=== PATIENT | male | born 1945 | race Caucasian/White ===

== ENCOUNTER → 2016-06-17 | Outpatient (CLI) | payer MEDICARE ==
[2016-06-17 09:00] LABS: Appearance,Urine Clear (Clear); Bilirubin,Urine Negative (Negative); Glucose,Urine (UA) Negative (Negative); Ketones,Urine Negative (Negative); Leukocyte Esterase,Urine Negative (Negative); Nitrite,Urine Negative (Negative); PH, Urine 6.5 (5.0-8.0); Protein,Urine Negative (Negative); Specific Gravity,Urine 1.018 (1.001-1.035); UA Billing (MACRO vs. MICRO) CHEM; Urobilinogen,Urine <2.0 mg/dL (<2.0)
[2016-06-17 09:13] LABS: Basophils % (A) 1 %; CH 30.9; CHCM 32.4; Eosinophils # (A) 0.2 k/uL (0-0.7); Eosinophils % (A) 5 %; HCT 43.1 % (39.0-53.0); HDW 2.15; HGB 13.9 gm/dL (13.0-17.5); Luc # (Auto) 0.11; Luc % (Auto) 3; Lymphocytes # (A) 1.2 k/uL (1.0-4.8); Lymphocytes % (A) 30 %; MCHC 32.3 g/dL (31.0-37.0); MCV 95.9 fL (80.0-100.0); Mean Platelet Volume 8.5; Monocytes # (A) 0.3 k/uL (0-1.0); Monocytes % (A) 7 %; Neutrophils # (A) 2.2 k/uL (1.3-7.7); Neutrophils % (A) 55 %; RBC 4.49 m/uL (4.30-5.90); RDW 13.3 % (11.5-15.5); WBC 3.9 k/uL (3.8-10.6); WBC (Perox) 4.06
[2016-06-17 09:16] LABS: Hemoglobin A1C 5.6 % (4.2-6.1)
[2016-06-17 11:58] LABS: ALT 32 U/L (21-72); AST 21 U/L (17-59); Alkaline Phosphatase 37 U/L (38-126); Anion Gap 8 mmol/L; Blood Urea Nitrogen 16 mg/dL (9-20); Carbon Dioxide 30 mmol/L (22-30); Chloride 107 mmol/L (98-107); Cholesterol 128 mg/dL (<200); Creatine Kinase 81 U/L (55-170); Glucose 91 mg/dL (74-99); HDL Cholesterol 58 mg/dL (40-60); Non-African American GFR(MDRD) >60 (>60 ml/min/1.73 sqM); Potassium 4.8 mmol/L (3.5-5.1); Sodium 145 mmol/L (137-145); Total Bilirubin 0.8 mg/dL (0.2-1.3); Total Protein 6.3 g/dL (6.3-8.2); Triglycerides 37 mg/dL (<150); Uric Acid 4.7 mg/dL (3.5-8.5)
== END | disposition home or self-care (01) ==
LOC: LABWHC1 08:33
PROVIDERS: ATTEND Internal Medicine
DX: K21.0 Gastro-esophageal reflux disease with esophagitis (principal); E78.00 Pure hypercholesterolemia, unspecified; I25.10 Atherosclerotic heart disease of native coronary artery without angina pectoris; N40.0 Benign prostatic hyperplasia without lower urinary tract symptoms
CPT/HCPCS: 36415; 80053; 80061; 81003; 82550; 83036; 84439; 84443; 84550; 85025

== ENCOUNTER 2016-07-24 06:53 | Day surgery (SDC) | payer MEDICARE ==
[2016-07-23 09:17] VITALS: BMI 22.8
[~2016-07-24 06:53] MED LIST: LACTATED RINGERS 1,000 ML IV SCH; LIDOCAINE 1% 20 ML VIAL (10MG/ML) FOR IV START INTRADERMA PRN
[2016-07-24 07:20] VITALS: RESP 18; TEMP 98.3
[2016-07-24] MEDS ORDERED: LACTATED RINGERS 1,000 ML IV ONE (07:25)
[2016-07-24] MEDS ORDERED: fentaNYL (PF) 50 MCG/ML 2 ML AMP ONE (07:34)
[2016-07-24] MEDS ORDERED: MIDAZOLAM 2 MG/2 ML VIAL ONE (07:34)
[2016-07-24] MEDS ORDERED: PROPOFOL 10 MG/ML 20 ML VIAL IV ONE (07:34)
--- NOTE | 2016-07-24 08:42 | P.PCN ---
Date of Procedure: 07/24/16 Procedure(s) Performed: BRIEF HISTORY: Patient is a 70-year-old pleasant white male, scheduled for an elective colonoscopy as a part of screening for colorectal neoplasia. PROCEDURE PERFORMED: Colonoscopy. PREOPERATIVE DIAGNOSIS: Screening for colon cancer. IV sedation per Anesthesia. PROCEDURE: After informed consent was obtained, the patient, was brought into the endoscopy unit. IV sedation was administered by Anesthesia under continuous monitoring. Digital rectal examination was normal. Initially the Olympus CF- 160 flexible video colonoscope was then inserted in the rectum, gradually advanced into the cecum without any difficulty. Careful examination was performed as the scope was gradually being withdrawn. Ileocecal valve and the appendiceal orifice were visualized and appeared normal. Prep was extremely poor and several areas of the colon. Thorough irrigation was performed using irrigation system. The visualized portions of the mucosa of the cecum, ascending colon, transverse colon, descending colon, sigmoid colon, and rectum appeared normal. Retroflexion was performed in the rectum and no lesions were seen. The patient tolerated the procedure well. IMPRESSION: Normal-appearing colon from rectum to cecum with no evidence of colorectal neoplasia . Poor prep throughout the entire colon. RECOMMENDATIONS: Findings of this examination were discussed with the patient as well as his family. Because of the poor prep that was encountered in today' s examinatio, he was advised to have a repeat screening colonoscopy in 5 years.
[2016-07-24 09:00] VITALS: BP 132/84; PULSE 56
== END 2016-07-24 09:20 | disposition home or self-care (01) ==
LOC: ORWHC2ENDO 06:53
PROVIDERS: ATTEND Internal Medicine Gastroenterology
DX: Z12.11 Encounter for screening for malignant neoplasm of colon (principal); E78.5 Hyperlipidemia, unspecified; K21.9 Gastro-esophageal reflux disease without esophagitis; H81.09 Meniere's disease, unspecified ear; Z87.891 Personal history of nicotine dependence; Z79.82 Long term (current) use of aspirin; Z79.899 Other long term (current) drug therapy
CPT/HCPCS: J2250; J3010; J2704; G0121; 45378

== ENCOUNTER → 2016-08-12 | Outpatient (CLI) | payer MEDICARE ==
[2016-08-13 10:33] LABS: T3, Uptake 41 % (23 - 37); T4, Total 6.2 ug/dL (4.5 - 10.9)
[2016-08-13 12:07] LABS: Thyroxine Binding Globulin 14.5 ug/mL (14.0 - 31.0)
[2016-08-13 12:55] LABS: Thyroid Stim Immun Quant <0.10 IU/L (<0.10)
== END ==
LOC: LABWHC1 09:38
PROVIDERS: ATTEND Internal Medicine
DX: E03.9 Hypothyroidism, unspecified (principal)
CPT/HCPCS: 36415; 84436; 84439; 84442; 84443; 84445; 84479; 84480; 85652; 86376

== ENCOUNTER → 2016-09-18 | Outpatient (CLI) | payer MEDICARE ==
[2016-09-18 08:56] LABS: ALT 27 U/L (21-72); AST 20 U/L (17-59); Cholesterol 141 mg/dL (<200); HDL Cholesterol 56 mg/dL (40-60); Triglycerides 41 mg/dL (<150)
== END | disposition home or self-care (01) ==
LOC: LABWHC1 07:44
PROVIDERS: ATTEND Nurse Practitioner Adult Health
DX: E78.2 Mixed hyperlipidemia (principal)
CPT/HCPCS: 36415; 80061; 84450; 84460

== ENCOUNTER → 2017-06-04 | Outpatient (CLI) | payer MEDICARE ==
--- NOTE | 2017-06-06 15:20 | CT ---
EXAMINATION TYPE: CT soft tissue neck w con DATE OF EXAM: 06/04/2017 HISTORY: Neoplasm submandibular salivary gland. Patient having swollen, painful gland on left side of neck. Scanned by [facility] COMPARISON: NONE CT DLP: 354.1 mGycm. Automated Exposure Control for Dose Reduction was Utilized. TECHNIQUE: CT scan of the neck is performed with IV Contrast, patient injected with 100 mL of Omnipa que 300, axial images are obtained, coronal and sagittal reformatted images are reviewed. FINDINGS: Airway: Within the left vallecula there is a peripherally hyperdense, therefore likely enhancing 1.0 x 1.2 x 1.2 cm mass on series 3 image 51 and series 6 image 49. Remainder the airway is patent with m ild asymmetric narrowing of the left piriform sinus likely due to patient positioning or surrounding edema. True and false vocal cords are unremarkable. Parotid/submandibular glands: The left parotid gland is of higher density within the right possibly i ndicating hyperemia. There is no surrounding local adenopathy or inflammatory fat stranding. No dilat ion of the submandibular ducts is seen. Carotid/Vascular Structures: Hemodynamically significant stenosis or occlusion. Osseous Structures: Mild multilevel degenerative disc disease is seen of the cervical spine with smal l posterior disc osteophyte complex at C5-C6 resulting in mild spinal canal stenosis. Mild left neura l foraminal narrowing is also seen at C3-C4 and C5-C6. Other: There are mild centrilobular emphysematous changes within the lung apices IMPRESSION: 1. Left vallecular mass measuring 1.0 x 1.2 x 1.2 cm. Direct visualization and biopsy are recommended as this is highly suspicious for neoplasm although benign polyp is another possibility. 2. Mildly asymmetric hyperemia of the left submandibular gland in comparison to the right, possibly r elated to early or resolving sialoadenitis although no inflammatory fat stranding is seen surrounding the gland. 3. No evidence of adenopathy within the neck. A Yellow level critical message alert has been initiated for Shakila Jo MD via the [employer] Critical Results System on 06/06/2017 3:18 PM. This message alert has been sent to Shakila Jo MD via the preferences provided by the clinician for the receipt of Radiology Critical Findings. Message ID [id number].
== END | disposition home or self-care (01) ==
LOC: RADCTMAIN 15:54
PROVIDERS: ATTEND Internal Medicine
DX: R22.1 Localized swelling, mass and lump, neck (principal); R68.89 Other general symptoms and signs
CPT/HCPCS: 70491; Q9967

== ENCOUNTER → 2017-06-08 | Outpatient (CLI) | payer MEDICARE | END | disposition home or self-care (01) | LOC: LABWHC1 15:12 | PROVIDERS: ATTEND Otolaryngology | DX: Z01.810 Encounter for preprocedural cardiovascular examination (principal); I51.9 Heart disease, unspecified | CPT/HCPCS: 36415; 93005 ==

== ENCOUNTER → 2017-09-28 | Outpatient (CLI) | payer MEDICARE ==
[2017-09-28 07:43] LABS: ALT 25 U/L (21-72); AST 22 U/L (17-59); Alkaline Phosphatase 36 U/L (38-126); Anion Gap 10 mmol/L; Blood Urea Nitrogen 22 mg/dL (9-20); Carbon Dioxide 28 mmol/L (22-30); Chloride 106 mmol/L (98-107); Cholesterol 163 mg/dL (<200); Glucose 92 mg/dL (74-99); HDL Cholesterol 58 mg/dL (40-60); LDL Cholesterol,Calculated 96 mg/dL (0-99); Potassium 4.5 mmol/L (3.5-5.1); Sodium 144 mmol/L (137-145); Total Protein 6.4 g/dL (6.3-8.2); Triglycerides 47 mg/dL (<150)
== END | disposition home or self-care (01) ==
LOC: LABWHC1 06:56
PROVIDERS: ATTEND Internal Medicine Interventional Cardiology
DX: E78.2 Mixed hyperlipidemia (principal)
CPT/HCPCS: 36415; 80053; 80061

== ENCOUNTER → 2018-08-23 | Outpatient (CLI) | payer MEDICARE ==
[2018-08-23 12:59] LABS: Basophils % (A) 1 %; Eosinophils # (A) 0.1 k/uL (0-0.7); Eosinophils % (A) 2 %; HCT 44.5 % (39.0-53.0); HGB 14.3 gm/dL (13.0-17.5); Lymphocytes # (A) 1.4 k/uL (1.0-4.8); Lymphocytes % (A) 26 %; MCH 29.9 pg (25.0-35.0); MCHC 32.1 g/dL (31.0-37.0); MCV 93.2 fL (80.0-100.0); Mean Platelet Volume 8.9; Monocytes # (A) 0.3 k/uL (0-1.0); Monocytes % (A) 7 %; Neutrophils # (A) 3.1 k/uL (1.3-7.7); Neutrophils % (A) 62 %; Platelet Count 163 k/uL (150-450); RBC 4.77 m/uL (4.30-5.90); RDW 14.8 % (11.5-15.5); WBC 5.1 k/uL (3.8-10.6)
[2018-08-23 13:00] LABS: Appearance,Urine Clear (Clear); Bilirubin,Urine Negative (Negative); Blood,Urine Negative (Negative); Color,Urine Yellow; Glucose,Urine (UA) Negative (Negative); Ketones,Urine Negative (Negative); Leukocyte Esterase,Urine Negative (Negative); Nitrite,Urine Negative (Negative); PH, Urine 6.5 (5.0-8.0); Protein,Urine Negative (Negative); Specific Gravity,Urine 1.021 (1.001-1.035); Urobilinogen,Urine <2.0 mg/dL (<2.0)
[2018-08-24 00:37] LABS: ALT 19 U/L (10-49); AST 19 U/L (14-35); Albumin/Globulin Ratio 2.16 (1.60-3.17); Alkaline Phosphatase 41 U/L (41-126); Carbon Dioxide 28.9 mmol/L (21.6-31.8); Chloride 109 mmol/L (96-109); Cholesterol 139 mg/dL (0-200); Creatine Kinase 127 U/L (35-257); Globulin 1.9 g/dL (1.6-3.3); Glucose 92 mg/dL (70-110); Potassium 4.7 mmol/L (3.5-5.5); Sodium 141 mmol/L (135-145); Total Bilirubin 0.8 mg/dL (0.2-1.2); Triglycerides <50.0 mg/dL (0.0-149.0); VLDL Calculation 9.98 mg/dL (5.00-40.00)
[2018-08-26 14:30] LABS: Lyme IgG/IgM 0.09 Index
== END | disposition home or self-care (01) ==
LOC: LABWHC1 11:47
PROVIDERS: ATTEND Internal Medicine
DX: E78.2 Mixed hyperlipidemia (principal); R53.83 Other fatigue; N40.1 Benign prostatic hyperplasia with lower urinary tract symptoms; M54.9 Dorsalgia, unspecified; E03.9 Hypothyroidism, unspecified
CPT/HCPCS: 36415; 80053; 80061; 81003; 82550; 83036; 84439; 84443; 85025; 86618

== ENCOUNTER → 2018-08-25 | Outpatient (CLI) | payer MEDICARE ==
--- NOTE | 2018-08-25 13:23 | XR ---
EXAMINATION TYPE: XR lumbar spine 2 or 3V DATE OF EXAM: 08/25/2018 COMPARISON: None HISTORY: Back pain TECHNIQUE: Five-view lumbar spine FINDINGS: There 5 lumbar-type vertebral bodies. Pedicles are intact. Minimal scoliosis with the conve xity to the right is present. There is disc space narrowing posteriorly at L4-5 to the L5-S1 disc spa ce. Some L2-3 disc space narrowing is present. Vertebral body heights are preserved. Minimal retrolis thesis of L2 on L3 may be present. IMPRESSION: 1. Degenerative disc changes L4-5 and L5-S1. 2. Suggestion of minimal retrolisthesis of L2 on L3.
== END | disposition home or self-care (01) ==
LOC: RADXRMAIN 08:52
PROVIDERS: ATTEND Internal Medicine
DX: M51.36 Other intervertebral disc degeneration, lumbar region (principal); M51.37 Other intervertebral disc degeneration, lumbosacral region
CPT/HCPCS: 72100

== ENCOUNTER 2019-11-07 16:56 | Emergency (ER) | payer MEDICARE ==
[2019-11-07 17:05] VITALS: BP 153/94; PULSE 55; RESP 18; TEMP 97.9
--- NOTE | 2019-11-07 17:39 | XR ---
EXAMINATION TYPE: XR hand complete LT DATE OF EXAM: 11/07/2019 COMPARISON: NONE HISTORY: Pain in the hand TECHNIQUE: 3 views FINDINGS: Metacarpals are intact. There is some narrowing of the IP joints of the digits. There are n o erosions. There is no evidence of foreign body. There is no subluxation. IMPRESSION: Mild osteoarthritic changes. No fracture seen.
--- NOTE | 2019-11-07 17:46 | ED ---
Fall HPI - General Chief Complaint: Fall Stated Complaint: Hand injury Time Seen by Provider: 11/07/19 17:13 Source: patient, family, RN notes reviewed Mode of arrival: ambulatory Limitations: no limitations - History of Present Illness Initial Comments: 73-year-old male present emergency department to complaint of left hand injury. Patient states that she was having a tree stand states that her ramp started to fall causing him to fall. Patient states that he has some skin tears and puncture wounds to his left hand. He did get some dirt and debris in the wound. Patient states that his tetanus is up-to-date. He denies any head injury no loss conscious. Denies any neck, back pain no other extremity injuries noted. - Related Data Home Medications Medication Instructions Recorded Confirmed Alfuzosin HCl [Alfuzosin HCl ER] 10 mg PO QAM 04/10/15 07/23/16 Aspirin 81 mg PO HS 04/10/15 07/23/16 Fluticasone Nasal [place] [Flonase 2 - 3 spray EA NOSTRIL DAILY PRN 04/10/15 07/23/16 Nasal [place]] Levothyroxine Sodium [Synthroid] 25 mcg PO DAILY 07/23/16 07/23/16 Tamsulosin [Flomax] 0.4 mg PO [id number] PRN 07/23/16 07/23/16 Previous Rx's Medication Instructions Recorded Simvastatin [Zocor] 80 mg PO HS #0 04/15/15 diazePAM [Valium] 2 mg PO TID PRN #90 tab 04/15/15 Amoxicillin/Potassium Clav 1 tab PO Q12HR #14 tab 11/07/19 [Augmentin 875-125 Tablet] Allergies Allergy/AdvReac Type Severity Reaction Status Date / Time No Known Allergies Allergy Verified 11/07/19 17:04 Review of Systems ROS Statement: Those systems with pertinent positive or pertinent negative responses have been documented in the HPI. ROS Other: All systems not noted in ROS Statement are negative. 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- surgery x3, hernia repair (inguinal and femoral) x5 Past Anesthesia/Blood Transfusion Reactions: No Reported Reaction Past Psychological History: No Psychological Hx Reported Smoking Status: Never smoker Past Alcohol Use History: Occasional Past Drug Use History: None Reported - Past Family History Father Additional Family Medical History / Comment(s): brain aneurysm Mother Family Medical History: Diabetes Mellitus General Exam Limitations: no limitations General appearance: alert, in no apparent distress Head exam: Present: atraumatic, normocephalic, normal inspection Eye exam: Present: normal appearance, PERRL, EOMI. Absent: scleral icterus, conjunctival injection, periorbital swelling ENT exam: Present: normal exam, normal oropharynx, mucous membranes moist Neck exam: Present: normal inspection, full ROM. Absent: tenderness, meningismus, lymphadenopathy Respiratory exam: Present: normal lung sounds bilaterally. Absent: respiratory distress, wheezes, rales, rhonchi, stridor Cardiovascular Exam: Present: regular rate, normal rhythm, normal heart sounds. Absent: systolic murmur, diastolic murmur, rubs, gallop, clicks Extremities exam: Present: other (Left hand there are multiple skin tears, superficial laceration/puncture wounds noted patient has full range of motion neurovascular intact many extremity exam within normal limits) Neurological exam: Present: alert, oriented X3, reflexes normal. Absent: motor sensory deficit Skin exam: Present: warm, dry, intact, normal color. Absent: rash Course Vital Signs 11/07/19 16:57 Temperature 97.9 F Pulse Rate 55 L Respiratory 18 Rate Blood Pressure 153/94 O2 Sat by Pulse 99 Oximetry Medical Decision Making - Medical Decision Making Patient had multiple skin tears which were cleaned, dressing applied no acute fracture. Tetanus is up-to-date patient was placed on Augmentin for prophylaxis. Disposition Clinical Impression: Fall, Skin tear of left hand without complication Disposition: HOME SELF-CARE Condition: Stable Instructions (If sedation given, give patient instructions): Skin Tear (ED) Additional Instructions: Please return to the Emergency Department if symptoms worsen or any other concerns. Prescriptions: Amoxicillin/Potassium Clav [Augmentin 875-125 Tablet] 1 tab PO Q12HR #14 tab Is patient prescribed a controlled substance at d/c from ED?: No Referrals: Shakila Jo MD [Primary Care Provider] - 1-2 days Time of Disposition: 17:45
== END 2019-11-07 18:04 | disposition home or self-care (01) ==
LOC: EC 16:56
DX: S61.412A Laceration without foreign body of left hand, initial encounter (principal); N42.9 Disorder of prostate, unspecified; Z79.899 Other long term (current) drug therapy; Z95.5 Presence of coronary angioplasty implant and graft; W17.89XA Other fall from one level to another, initial encounter; Y92.89 Other specified places as the place of occurrence of the external cause
CPT/HCPCS: 99283

== ENCOUNTER → 2019-11-15 | Outpatient (CLI) | payer MEDICARE ==
--- NOTE | 2019-11-15 13:03 | XR ---
EXAMINATION TYPE: XR ribs RT w pa chest xray DATE OF EXAM: 11/15/2019 COMPARISON: 04/12/2015 HISTORY: Pain TECHNIQUE: Single view of the chest 4 views of the ribs are submitted. FINDINGS: The lungs are clear. No Evidence for pneumothorax. No evidence for focal contusion. Medi astinal structures are midline. Evaluation of the ribs fails to demonstrate evidence for acute displ aced rib fracture or secondary sign of rib fracture. Chronic deformity of several right-sided ribs no alisia compatible with healed fractures. IMPRESSION: No acute displaced rib fractures seen. Hyperinflation compatible with COPD.
== END | disposition home or self-care (01) ==
LOC: RADXRMAIN 12:35
PROVIDERS: ATTEND Internal Medicine
DX: S22.41XA Multiple fractures of ribs, right side, initial encounter for closed fracture (principal)

== ENCOUNTER → 2021-05-30 | Outpatient (CLI) | payer MEDICARE ==
--- NOTE | 2021-05-30 17:00 | ECHOF ---
Referral Reason:Z01.810 PREPROCEDURAL CARDIOVASCULAR EXAMINATION MEASUREMENTS -------- HEIGHT: 188.0 cm WEIGHT: 79.4 kg BP: RVIDd: 3.6 cm (< 3.3) IVSd: 1.3 cm (0.6 - 1.1) LVIDd: 5.1 cm (3.9 - 5.3) LVPWd: 1.3 cm (0.6 - 1.1) IVSs: 1.5 cm LVIDs: 4.4 cm LVPWs: 1.7 cm LAESV Index (A-L): 29.09 ml/m Ao Diam: 4.0 cm (2.0 - 3.7) AV Cusp: 2.4 cm (1.5 - 2.6) MV EXCURSION: 22.451 mm (> 18.000) MV EF SLOPE: 75 mm/s (70 - 150) EPSS: 1.0 cm MV E Kei: 0.46 m/s MV DecT: 216 ms MV A Kei: 0.62 m/s MV E/A Ratio: 0.75 RAP: 5.00 mmHg RVSP: 21.84 mmHg FINDINGS -------- Atrial fibrillation. This was a technically adequate study. The left ventricular size is normal. There is mild concentric left ventricular hypertrophy. Overa ll left ventricular systolic function is mild-moderately impaired with, an EF between 40 - 45 %. The right ventricle is normal in size. LA is midly dilated 29-33ml/m2. The right atrial size is normal. There is mild aortic regurgitation. Mild mitral regurgitation is present. Mild tricuspid regurgitation present. Right ventricular systolic pressure is normal at < 35 mmHg. There is no pulmonic regurgitation present. Aortic Root is dilated and measures 4.1cm. There is no pericardial effusion. CONCLUSIONS -------- 1. The left ventricular size is normal. 2. There is mild concentric left ventricular hypertrophy. 3. Overall left ventricular systolic function is mild-moderately impaired with, an EF between 40 - 45 %. 4. The right ventricle is normal in size. 5. LA is midly dilated 29-33ml/m2. 6. The right atrial size is normal. 7. There is mild aortic regurgitation. 8. Mild mitral regurgitation is present. 9. Mild tricuspid regurgitation present. 10. Aortic Root is dilated and measures 4.1cm. 11. There is no pericardial effusion. CLEAR COAT SPRAYER: Caitlin Shearer RDCS
== END | disposition home or self-care (01) ==
LOC: RADECHMAIN 12:02
PROVIDERS: ATTEND Internal Medicine
DX: Z01.810 Encounter for preprocedural cardiovascular examination (principal); I51.7 Cardiomegaly; I35.8 Other nonrheumatic aortic valve disorders
CPT/HCPCS: 93306

== ENCOUNTER → 2021-06-03 | Outpatient (CLI) | payer MEDICARE ==
--- NOTE | 2021-06-03 11:49 | US ---
EXAMINATION TYPE: US carotid duplex BILAT DATE OF EXAM: 06/03/2021 COMPARISON: NONE CLINICAL HISTORY: 75-year-old male Z01.810 PREPROCEDURAL CARDIOVASCULAR EXAMINATION. No HTN. No symp toms per patient. TECHNIQUE: Carotid duplex ultrasound examination. Indirect Doppler criteria was utilized. FINDINGS: EXAM MEASUREMENTS: RIGHT: Peak Systolic Velocity (PSV) cm/sec ----- Right CCA: 194.6 ----- Right ICA: 117.3 ----- Right ECA: 76.6 ICA/CCA ratio: 0.6 RIGHT: End Diastole cm/sec ----- Right CCA: 23.3 ----- Right ICA: 21.5 ----- Right ECA: 0.0 LEFT: Peak Systolic Velocity (PSV) cm/sec ----- Left CCA: 91.4 ----- Left ICA: 102.9 ----- Left ECA: 76.7 ICA/CCA ratio: 1.1 LEFT: End Diastole cm/sec ----- Left CCA: 13.7 ----- Left ICA: 24.8 ----- Left ECA: 0.0 VERTEBRALS (direction of flow): Right Vertebral: Antegrade Left Vertebral: Antegrade Rhythm: Arrhythmia Accounts Payable Representative notes: Elevated right CCA velocities. No significant stenosis. Small amount of plaque i n bilateral bulbs. Wall thickening. IMPRESSION: 1. Mildly elevated velocity right CCA may be secondary to turbulent flow, some underlying hypertensio n, or a mild proximal CCA stenosis. 2. No hemodynamically significant internal carotid artery stenosis on either side. 3. Note that the recovery unit operator indicates visualizing an irregular heart rhythm. Clinically correlate. Criteria for Assigning % of Stenosis / Diameter reduction (Estimation based on the indirect measurements of the internal carotid artery velocities (ICA PSV). 1. Normal (no stenosis)=ICA PSV < 125 cm/s: ratio < 2.0: ICA EDV<40 cm/s. 2. Less than 50% stenosis=ICA PSV < 125 cm/s: ratio < 2.0: ICA EDV<40 cm/s. 3. 50 to 69% stenosis=ICA PSV of 125 to 230 cm/s: ration 2.0 ? 4.0: ICA EDV 40-100 cm/s. 4. Greater than 70% stenosis to near occlusion= ICA PSV > 230 cm/s: ratio > 4.0: ICA EDV > 100 cm/s. 5. Near occlusion= ICA PSV velocities may be low or undetectable: variable ratio and ICA EDV. 6. Total occlusion=unable to detect flow.
== END | disposition home or self-care (01) ==
LOC: RADUSWWP 08:52
PROVIDERS: ATTEND Internal Medicine
DX: Z01.810 Encounter for preprocedural cardiovascular examination (principal); I65.23 Occlusion and stenosis of bilateral carotid arteries
CPT/HCPCS: 93880

== ENCOUNTER → 2021-06-09 | Day surgery (SDC) | payer MEDICARE ==
[~2021-06-09] MED LIST changes: +ACETAMINOPHEN TAB 500 MG TAB PO PRN; +DEXAMETHASONE SOD PHOSPHATE 4 MG/ML 1 ML VIAL IV ONE; +HEPARIN SODIUM,PORCINE/PF 5,000 UNIT/0.5 ML SYRINGE SQ PRN; +HYDROmorphone 0.5 MG/0.5 ML SYRINGE IVP PRN; +LIDOCAINE 1% (10MG/ML) FOR IV START INTRADERMA PRN; -LIDOCAINE 1% 20 ML VIAL (10MG/ML) FOR IV START INTRADERMA PRN; +MIDAZOLAM 2 MG/2 ML VIAL IV PRN; +ONDANSETRON 4 MG/2 ML VIAL IVP ONE
--- NOTE | 2021-06-09 09:08 | P.GSHP ---
History of Present Illness H&P Date: 06/09/21 Chief Complaint: Recurrent right inguinal hernia 75-year-old male here today for elective repair recurrent right inguinal hernia. Patient with history of multiple hernia repairs bilaterally using an open approach. He has had femoral hernias as well as he states. Patient having primarily discomfort in the right groin although has left groin soreness as well. Does not feel a bulge on the left but does feel a mass on the right that is reducible at times. 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 BILATERAL CATARACT REMOVAL AND LENS IMPLANT. hernia repair (inguinal and femoral) x5 Past Anesthesia/Blood Transfusion Reactions: No Reported Reaction, Motion Sickness Past Psychological History: No Psychological Hx Reported Smoking Status: Never smoker Past Alcohol Use History: Occasional Additional Past Alcohol Use History / Comment(s): few years in college smoked Past Drug Use History: None Reported - Past Family History Father Additional Family Medical History / Comment(s): brain aneurysm Mother Family Medical History: Diabetes Mellitus Medications and Allergies Home Medications Medication Instructions Recorded Confirmed Type Alfuzosin HCl [Alfuzosin HCl ER] 10 mg PO QAM 04/10/15 06/05/21 History Aspirin 81 mg PO HS 04/10/15 06/05/21 History Fluticasone Nasal [place] [Flonase 2 - 3 spray EA NOSTRIL DAILY PRN 04/10/15 06/05/21 History Nasal [place]] Simvastatin [Zocor] 80 mg PO HS #0 04/15/15 06/05/21 Rx Diazepam [Valium] 2.5 - 5 mg PO DAILY PRN 06/05/21 06/05/21 History Levothyroxine Sodium [Synthroid] 50 mcg PO QAM 06/05/21 06/05/21 History Oxybutynin Chloride [Ditropan] 5 mg PO QAM 06/05/21 06/05/21 History diazePAM [Valium] 2 mg PO TID PRN 06/05/21 06/05/21 History Allergies Allergy/AdvReac Type Severity Reaction Status Date / Time No Known Allergies Allergy Verified 06/05/21 10:36 Surgical - Exam Physical exam: General: Well-developed, well-nourished HEENT: Normocephalic, sclerae nonicteric Abdomen: Nontender, nondistended, reducible right groin hernia suspect inguinal Extremities: No edema Neuro: Alert and oriented Assessment and Plan (1) Recurrent right inguinal hernia Narrative/Plan: 75-year-old male with recurrent right inguinal hernia. Will proceed with laparoscopic da Neil assisted repair right recurrent inguinal hernia with mesh, possible open, possible bilateral. Risks of bleeding, infection, recurrence, bladder and bowel injury, numbness, nerve injury, conversion to an open procedure were discussed with the patient. The patient understands and wishes to proceed. Current Visit: Yes Status: Acute Code(s): K40.91 - UNILATERAL INGUINAL HERNIA, W/O OBST OR GANGRENE, RECURRENT SNOMED Code(s): 004327303
[2021-06-09 09:15] VITALS: BP 131/61; PULSE 68; RESP 18; TEMP 97.8
--- NOTE | 2021-06-09 09:54 | P.PN ---
Progress Note - Text Progress Note Date: 06/09/21 patient came in today for elective repair recurrent right inguinal hernia. Patient in preop was found to have a abnormal EKG. In fact the patient had multiple EKGs with variation in findings. Anesthesia felt safest that the procedure be canceled for now with outpatient cardiac evaluation. I spoke with Dr. Bran. He will see the patient next week.
== END ==
LOC: OR 08:33
PROVIDERS: ATTEND Surgery
DX: K40.91 Unilateral inguinal hernia, without obstruction or gangrene, recurrent (principal); Z53.8 Procedure and treatment not carried out for other reasons; K21.9 Gastro-esophageal reflux disease without esophagitis; E78.5 Hyperlipidemia, unspecified; N42.9 Disorder of prostate, unspecified; H81.01 Meniere's disease, right ear; Z98.890 Other specified postprocedural states; Z98.42 Cataract extraction status, left eye; Z98.41 Cataract extraction status, right eye; Z82.49 Family history of ischemic heart disease and other diseases of the circulatory system; Z83.3 Family history of diabetes mellitus; Z79.82 Long term (current) use of aspirin; Z79.890 Hormone replacement therapy; Z79.899 Other long term (current) drug therapy

== ENCOUNTER → 2021-07-09 | Outpatient (CLI) | payer MEDICARE ==
[2021-07-09 12:05] LABS: African American GFR (CKD) 95.8 (60.0-200.0); Albumin 4.1 g/dL (3.8-4.9); Albumin/Globulin Ratio 1.78 (1.60-3.17); Anion Gap 6.4 mmol/L (10.00-18.00); BUN/Creat Ratio 18.44 Ratio (12.00-20.00); Blood Urea Nitrogen 16.6 mg/dL (9.0-27.0); Calcium 8.9 mg/dL (8.7-10.3); Carbon Dioxide 28.6 mmol/L (20.0-27.5); Globulin 2.3 g/dL (1.6-3.3); Non-African American GFR(CKD) 82.7 (60.0-200.0); Potassium 4.7 mmol/L (3.5-5.5); Total Bilirubin 0.7 mg/dL (0.30-1.20); Total Protein 6.4 g/dL (6.2-8.2)
[2021-07-09 12:16] LABS: Chol/HDL Ratio 2.71 Ratio; LDL Cholesterol,Direct Reflex 79.5 mg/dL (0.00-129.00)
== END | disposition home or self-care (01) ==
LOC: LABWHC1 08:13
PROVIDERS: ATTEND Internal Medicine Interventional Cardiology
DX: E78.2 Mixed hyperlipidemia (principal)
CPT/HCPCS: 36415; 80053; 80061; 83721

== ENCOUNTER 2021-08-25 06:30 | Day surgery (SDC) | payer MEDICARE ==
[~2021-08-25 06:30] MED LIST changes: -HYDROmorphone 0.5 MG/0.5 ML SYRINGE IVP PRN; +METOCLOPRAMIDE 5 MG/ML 2 ML VIAL IVP PRN; -MIDAZOLAM 2 MG/2 ML VIAL IV PRN; +fentaNYL (PF) 50 MCG/ML 2 ML AMP IV PRN
[2021-08-25 07:13] VITALS: RESP 16
[2021-08-25] MEDS ORDERED: BUPIVACAINE (PF) 0.25% 30 ML VIAL SQ ONE ×2 (07:18→08:07)
--- NOTE | 2021-08-25 07:36 | P.GSHP ---
History of Present Illness H&P Date: 08/25/21 Chief Complaint: Recurrent right inguinal hernia 75-year-old male here today for elective repair recurrent right inguinal hernia. Patient with history of multiple hernia repairs in the past. Complains of pain in the right groin. Mild soreness in the left as well at times but does not feel a bulge there. Patient has had both femoral and inguinal hernias repaired using an open approach. He was initially scheduled for surgery in May but this was canceled after he had EKG abnormalities. He has been seen and cleared by cardiology since then. 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 BILATERAL CATARACT REMOVAL AND LENS IMPLANT. hernia repair (inguinal and femoral) x5 Past Anesthesia/Blood Transfusion Reactions: No Reported Reaction, Motion Sickness Smoking Status: Never smoker - Past Family History Father Additional Family Medical History / Comment(s): brain aneurysm Mother Family Medical History: Diabetes Mellitus Medications and Allergies Home Medications Medication Instructions Recorded Confirmed Type Alfuzosin HCl [Alfuzosin HCl ER] 10 mg PO QAM 04/10/15 08/21/21 History Fluticasone Nasal [place] [Flonase 2 - 3 spray EA NOSTRIL DAILY PRN 04/10/15 08/21/21 History Nasal [place]] Simvastatin [Zocor] 80 mg PO HS #0 04/15/15 08/21/21 Rx Diazepam [Valium] 2.5 - 5 mg PO DAILY PRN 06/05/21 08/21/21 History Levothyroxine Sodium [Synthroid] 50 mcg PO QAM 06/05/21 08/21/21 History Oxybutynin Chloride [Ditropan] 5 mg PO QAM 06/05/21 08/21/21 History Rivaroxaban [Xarelto] 20 mg PO AC-SUPPER 08/21/21 08/21/21 History Allergies Allergy/AdvReac Type Severity Reaction Status Date / Time No Known Allergies Allergy Verified 08/25/21 07:01 Surgical - Exam Vital Signs Temp Pulse Resp BP Pulse Ox 97.5 F L 47 L 16 144/86 98 08/25/21 07:11 08/25/21 07:11 08/25/21 07:11 08/25/21 07:11 08/25/21 07:11 Physical exam: General: Well-developed, well-nourished HEENT: Normocephalic, sclerae nonicteric Abdomen: Nontender, nondistended, reducible right inguinal hernia Extremities: No edema Neuro: Alert and oriented Assessment and Plan (1) Recurrent right inguinal hernia Narrative/Plan: 75-year-old male with symptomatic recurrent right inguinal hernia. Will proceed with laparoscopic da Neil assisted repair recurrent right inguinal hernia with mesh, possible open, possible bilateral. Risks of bleeding, infection, recurrence, bladder and bowel injury, numbness, nerve injury, conversion to an open procedure were discussed with the patient. The patient understands and wishes to proceed. Current Visit: No Status: Acute Code(s): K40.91 - UNILATERAL INGUINAL HERNIA, W/O OBST OR GANGRENE, RECURRENT SNOMED Code(s): 592112306
[2021-08-25 07:38] LABS: Basophils # (A) 0.1 k/uL (0-0.2); Basophils % (A) 1 %; Eosinophils # (A) 0.2 k/uL (0-0.7); Eosinophils % (A) 4 %; HCT 44.3 % (39.0-53.0); HGB 14.1 gm/dL (13.0-17.5); Lymphocytes # (A) 1.2 k/uL (1.0-4.8); Lymphocytes % (A) 22 %; MCH 30.7 pg (25.0-35.0); MCHC 31.9 g/dL (31.0-37.0); MCV 96.3 fL (80.0-100.0); Monocytes # (A) 0.4 k/uL (0-1.0); Monocytes % (A) 7 %; Neutrophils # (A) 3.5 k/uL (1.3-7.7); Neutrophils % (A) 64 %; Platelet Count 176 k/uL (150-450); RDW 12.8 % (11.5-15.5); WBC 5.5 k/uL (3.8-10.6)
[2021-08-25] MEDS ORDERED: ROCURONIUM 10 MG/ML (5 ML VIAL) IV ONE (07:39)
[2021-08-25] MEDS ORDERED: GLYCOPYRROLATE 0.2 MG/ML 2 ML VIAL ONE (07:39)
[2021-08-25] MEDS ORDERED: PROPOFOL 10 MG/ML 20 ML VIAL IV ONE (07:39)
[2021-08-25] MEDS ORDERED: SUCCINYLCHOLINE CHLORIDE 100 MG/5 ML SYR IV ONE (07:39)
[2021-08-25] MEDS ORDERED: NEOSTIGMINE 1 MG/ML 10 ML VIAL ONE (07:39)
[2021-08-25] MEDS ORDERED: LIDOCAINE 2% INJ 20 MG/ML (2 ML VIAL) ONE (07:39)
[2021-08-25] MEDS ORDERED: MIDAZOLAM 2 MG/2 ML VIAL ONE (07:39)
[2021-08-25] MEDS ORDERED: TAMSULOSIN 0.4 MG CAP.ER.24H PO ONE (07:40)
[2021-08-25] MEDS ORDERED: LACTATED RINGERS 1,000 ML IV ONE (09:24)
[2021-08-25 09:43] VITALS: TEMP 97.1
--- NOTE | 2021-08-25 09:52 | P.OP ---
Date of Procedure: 08/25/21 Procedure(s) Performed: PREOPERATIVE DIAGNOSIS: Recurrent right inguinal hernia POSTOPERATIVE DIAGNOSIS: Same PROCEDURE: Laparoscopic da Neil assisted repair recurrent right direct inguinal hernia with mesh SURGEON: Dr. Salcedo ANESTHESIA: General OPERATIVE PROCEDURE DETAILS: Patient was placed in the operating table in the supine position. The patient was placed under general anesthesia. The abdomen was prepped and draped in usual sterile fashion. A small curvilinear supraumbilical incision was made. The fascia was retracted anteriorly with James forceps. The Veress needle was inserted. The saline drop test was normal. Insufflation took place to 15 mmHg. An 8 mm trocar was placed into the peritoneal cavity. 2 additional 8 mm trochars were placed in the right upper quadrant and left upper quadrant under visualization. The robotic arms were then brought in and docked into place. The fenestrated bipolar was used in the left arm and the laparoscopic justin was utilized in the right arm. A 30 8 mm scope was used in the up position. The peritoneal cavity was inspected. The patient had 2 obvious defects in the direct space on the right-hand side. No recurrent hernia on the left was seen. The peritoneum was incised in a horizontal fashion cephalad to the internal inguinal ring. Following that careful dissection of the preperitoneal space took place. This took place using both electrocautery, sharp dissection but primarily blunt dissection. Visualization of the pubic tubercle and Pratik's ligament took place medially. Full dissection took place laterally as well. The patient had multiple defects in the direct space. We counted a total of 5 holes in that area where the hernia contents containing fat were reduced. Once we had adequate space the extra-large [employer] house supervisor mesh was advanced into the preperitoneal space and flattened out appropriately to cover all potential hernia sites. This had been cut to fit along the exposed fascia. A running vertical 200 absorbable be locked suture was used medially to help prevent recurrence. The peritoneal defect was then closed using a absorbable 2-0 VLok suture. The hernia sac was incorporated into the peritoneal closure to help prevent future recurrence. The pneumoperitoneum was then evacuated. The skin of all 3 sites was closed using a 4-0 Monocryl stitch. Skin glue was then applied. TYPE OF MESH USED: Extra-large [employer] house supervisor LOCATION OF MESH: Preperitoneal FIXATION: 20V LOC PREOPERATIVE DISCUSSION ON SMOKING CESSASTION: Yes PREOPERATIVE DISCUSSION ON MORBID OBESITY: Yes PREOPERATIVE DISCUSSION ON APPROPRIATE USE OF NARCOTIC USE: Yes PREOPERATIVE EDUCATION: Multi Modal, Smoking Cessation and Weight Loss with BMI over 35. DISPOSITION: Stable to recovery room
[2021-08-25] MEDS ORDERED: ONDANSETRON 4 MG/2 ML VIAL IVP ONE (10:40)
[2021-08-25 11:22] VITALS: BP 140/72; PULSE 52
[2021-08-25] MEDS ORDERED: ACETAMINOPHEN TAB 325 MG TAB PO SCH (12:00)
[2021-08-25] MEDS ORDERED: IBUPROFEN 600 MG TAB PO SCH (13:00)
== END 2021-08-25 12:16 | disposition home or self-care (01) ==
LOC: OR 06:30
PROVIDERS: ATTEND Surgery
DX: K40.91 Unilateral inguinal hernia, without obstruction or gangrene, recurrent (principal); I48.0 Paroxysmal atrial fibrillation; K21.9 Gastro-esophageal reflux disease without esophagitis; I25.10 Atherosclerotic heart disease of native coronary artery without angina pectoris; H91.90 Unspecified hearing loss, unspecified ear; E78.2 Mixed hyperlipidemia; I42.8 Other cardiomyopathies; N42.9 Disorder of prostate, unspecified; H81.01 Meniere's disease, right ear; Z87.891 Personal history of nicotine dependence; Z98.890 Other specified postprocedural states; Z98.42 Cataract extraction status, left eye; Z98.41 Cataract extraction status, right eye; Z96.1 Presence of intraocular lens; Z82.49 Family history of ischemic heart disease and other diseases of the circulatory system; Z83.3 Family history of diabetes mellitus; Z79.01 Long term (current) use of anticoagulants; Z79.899 Other long term (current) drug therapy; Z79.890 Hormone replacement therapy
CPT/HCPCS: 85025; 49651; C1781; J2250; J1100; J2710; J0690; J2405; J0330; J2704; J1644; J2001

== ENCOUNTER → 2022-01-01 | Outpatient (CLI) | payer MEDICARE ==
--- NOTE | 2022-01-01 09:10 | MR ---
EXAMINATION TYPE: MR brain and iac wo/w con DATE OF EXAM: 01/01/2022 COMPARISON: HISTORY: MENIERE'S DISEASE, RIGHT EAR TECHNIQUE: Multiplanar, multisequence images of the brain and brainstem is performed without and with IV contras t, utilizing 7 mL intravenous Gadavist . FINDINGS: Diffusion weighted images demonstrate no evidence of a recent infarct or other diffusion ab normality. There is no extra-axial fluid collection. Periventricular and pericallosal, subcortical confluent, scattered hyperintensities are present on inversion recovery T2-weighted sequences, approx imately 50 lesions are present. There are expected vascular flow voids. Tortuous left vertebral arter y comes in close proximity to the internal auditory canal on the left, vertebral arteries are in clos e proximity to the medulla. The ventricular system and cisternal spaces are normal in size and appear ance. The brain volume is age appropriate, there is likely age-related atrophy. Internal auditory canals are unremarkable, there is no abnormal enhancement. No cerebellopontine angl e mass. Midline structures demonstrate normal morphology. The craniocervical junction appears within normal limits. Post contrast images demonstrate no abnormal enhancement. The dural venous sinuses appear pa tent. The visualized sinuses are remarkable for inflammatory change in the maxillary sinuses left gre ater than right, ethmoid air cells, and the globes are intact. IMPRESSION: Tortuous posterior circulation as described. Age-related atrophy and chronic small vessel ischemia. Sinus disease.
== END | disposition home or self-care (01) ==
LOC: RADMRIMAIN 05:53
PROVIDERS: ATTEND Internal Medicine
DX: I67.82 Cerebral ischemia (principal); G31.9 Degenerative disease of nervous system, unspecified
CPT/HCPCS: 70553; A9585

== ENCOUNTER 2023-02-24 08:50 | Inpatient (IN) | payer MEDICARE ==
[2023-02-24] MEDS ORDERED: ONDANSETRON 4 MG/2 ML VIAL IVP STA (09:22)
[2023-02-24] MEDS ORDERED: SODIUM CHLORIDE 0.9% 500 ML 500 ML IV STA (09:22)
[2023-02-24] MEDS ORDERED: MORPHINE SULFATE 4 MG/ML SYRINGE IV STA (09:22)
--- NOTE | 2023-02-24 09:27 | ED ---
General Adult HPI - General Chief complaint: Abdominal Pain Stated complaint: Abd Pain Time Seen by Provider: 02/24/23 09:02 Source: patient Mode of arrival: ambulatory Limitations: no limitations - History of Present Illness Initial comments: Dictation was produced using [employer] dictation software. please excuse any grammatical, word or spelling errors. Chief Complaint: 77-year-old male presents with 2 days of abdominal pain History of Present Illness: Patient is 69-year-old male presents to the emergency department 2 days of abdominal pain. Patient states that it began approximate 40 hours ago. States that the lower abdomen slightly worse on the right than it is on the left. Denies any nausea vomiting. Patient states the pain is severe with these reading of 8 out of 10. States it radiates upwards to his upper abdomen. He had a yellow bowel movement yesterday. He states it wasn't hard. Denies any direct a previous history of hemorrhoids. No history of abdominal surgery however has had multiple hernia repairs. Denies any history of appendectomy. No history of diverticulitis. The ROS documented in this emergency department record has been reviewed and confirmed by me. Those systems with pertinent positive or negative responses have been documented in the HPI. All other systems are other negative and/or noncontributory. - Related Data Home Medications Medication Instructions Recorded Confirmed Alfuzosin HCl [Alfuzosin HCl ER] 10 mg PO DAILY 04/10/15 02/24/23 Levothyroxine Sodium [Synthroid] 50 mcg PO DAILY 06/05/21 02/24/23 diazePAM [Valium] 5 mg PO BID PRN 06/05/21 02/24/23 oxyBUTYnin chloride [Ditropan] 5 mg PO BID 06/05/21 02/24/23 Apixaban [Eliquis] 5 mg PO BID 02/24/23 02/24/23 Previous Rx's Medication Instructions Recorded Simvastatin [Zocor] 80 mg PO HS #0 04/15/15 Allergies Allergy/AdvReac Type Severity Reaction Status Date / Time No Known Allergies Allergy Verified 02/24/23 11:23 Review of Systems ROS Statement: Those systems with pertinent positive or pertinent negative responses have been documented in the HPI. ROS Other: All systems not noted in ROS Statement are negative. 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 BILATERAL CATARACT REMOVAL AND LENS IMPLANT. hernia repair (inguinal and femoral) x5 Past Anesthesia/Blood Transfusion Reactions: No Reported Reaction, Motion Sickness Past Psychological History: No Psychological Hx Reported Smoking Status: Never smoker Past Alcohol Use History: None Reported Past Drug Use History: None Reported - Past Family History Father Additional Family Medical History / Comment(s): brain aneurysm Mother Family Medical History: Diabetes Mellitus General Exam - General Exam Comments Initial Comments: PHYSICAL EXAM: General Impression: Alert and oriented x3, mild distress secondary to pain HEENT: Normocephalic atraumatic, extra-ocular movements intact, pupils equal and reactive to light bilaterally, mucous membranes moist. Cardiovascular: Heart regular rate and rhythm Chest: Able to complete full sentences, no retractions, no tachypnea Abdomen: abdomen soft, Dr. tenderness to the bilateral lower quadrants, non- distended, no organomegaly Musculoskeletal: Pulses present and equal in all extremities, no peripheral edema Motor: no focal deficits noted Neurological: CN II-XII grossly intact, no focal motor or sensory deficits noted Skin: Intact with no visualized rashes Psych: Normal affect and mood Limitations: no limitations Course Vital Signs 02/24/23 02/24/23 09:10 10:08 Temperature 97 F L Pulse Rate 92 80 Respiratory 18 18 Rate Blood Pressure 110/90 122/106 O2 Sat by Pulse 99 98 Oximetry EKG Findings - EKG Comments: EKG Findings:: My EKG interpretation: Ventricular rate 80, A. fib, QRS 154, QTC 440. No [place] prolongation, no QTC prolongation, no ST or T-wave changes noted. Right bundle-branch block Medical Decision Making - Medical Decision Making Was pt. sent in by a medical professional or institution (, PA, [facility], urgent care, hospital, or fdc...) When possible be specific @ -No Did you speak to anyone other than the patient for history (EMS, parent, family, police, friend...)? What history was obtained from this source @ -No Did you review nursing and triage notes (agree or disagree)? Why? @ -I reviewed and agree with nursing and triage notes Were old charts reviewed (outside hosp., previous admission, EMS record, old EKG, old radiological studies, urgent care reports/EKG's, fdc records)? Report findings @ -No old charts were reviewed Differential Diagnosis (chest pain, altered mental status, abdominal pain women, abdominal pain men, vaginal bleeding, musculoskeletal, weakness, fever, dyspnea, syncope, headache, dizziness, GI bleed, back pain, seizure, CVA, palpatations, mental health)? @ -Differential Abdominal Pain Men: Appendicitis, cholecystitis, diverticulosis, ischemic bowel, pancreatitis, hepatitis, UTI, gastroenteritis, AAA, incarcerated hernia, bowel obstruction, constipation, inflammatory bowel, hepatitis, peptic ulcer disease, splenic infarction, perforated viscus, testicular torsion, this is not meant to be an all-inclusive list EKG interpreted by me (3pts min.). @ -See above X-rays interpreted by me (1pt min.). @ -None done CT interpreted by me (1pt min.). @ -Computed tomography scan of the abdomen and pelvis shows acute appendicitis. Partial small bowel obstruction U/S interpreted by me (1pt. min.). @ -None done What testing was considered but not performed or refused? (CT, X-rays, U/S, labs)? Why? @ -None What meds were considered but not given or refused? Why? @ -None Did you discuss the management of the patient with other professionals (professionals i.e. , PA, [facility]ZZ[facility]AKER, lab, RT, psych nurse, social work faculty member, human services supervisor, teacher, parking regulation enforcement officer, medical case worker)? Give summary @ -Is discussed with Dr. Shah for admission Was smoking cessation discussed for >3mins.? @ -No Was critical care preformed (if so, how long)? @ -No Were there social determinants of health that impacted care today? How? (Homelessness, low income, unemployed, alcoholism, drug addiction, transportation, low edu. Level, literacy, decrease access to med. care, skilled nursing, rehab)? @ -No Was there de-escalation of care discussed even if they declined (Discuss DNR or withdrawal of care, Hospice)? DNR status @ -No What co-morbidities impacted this encounter? (DM, HTN, Smoking, COPD, CAD, Cancer, CVA, ARF, Chemo, Hep., AIDS, mental health diagnosis, sleep apnea, morbid obesity)? @ -None Was patient admitted / discharged? Hospital course, mention meds given and route, prescriptions, significant lab abnormalities, going to OR and other pertinent info. @ -69-year-old male presents to emergency department for acute onset abdominal pain. Vital signs upon arrival are within acceptable limits. Leukocytosis of 15.6, metabolic panel is unremarkable. Computed tomography scan of the abdomen and pelvis shows acute appendicitis with partial small bowel obstruction. Case discussed Dr. Shah. Patient started on Zosyn will be admitted for further care. Undiagnosed new problem with uncertain prognosis? @ -No Drug Therapy requiring intensive monitoring for toxicity (Heparin, Nitro, Insulin, Cardizem)? @ -No Were any procedures done? @ -No Diagnosis/symptom? Acute, or Chronic, or Acute on Chronic? Uncomplicated (without systemic symptoms) or Complicated (systemic symptoms)? @ -Acute appendicitis, partial small bowel obstruction Side effects of treatment? @ -No Exacerbation, Progression, or Severe Exacerbation? @ -No Poses a threat to life or bodily function? How? (Chest pain, USA, NV, pneumonia, PE, COPD, DKA, ARF, appy, cholecystitis, CVA, Diverticulitis, Homicidal, Suicidal, threat to staff... and all critical care pts) @ -No - Lab Data Result diagrams: 02/24/23 09:27 02/24/23 09:27 Lab Results 02/24/23 02/24/23 Range/Units 09:27 09:27 WBC 15.6 H (3.8-10.6) k/uL RBC 4.63 (4.30-5.90) m/uL Hgb 14.5 (13.0-17.5) gm/dL Hct 43.3 (39.0-53.0) % MCV 93.4 (80.0-100.0) fL MCH 31.3 (25.0-35.0) pg MCHC 33.5 (31.0-37.0) g/dL RDW 13.6 (11.5-15.5) % Plt Count 168 (150-450) k/uL MPV 10.6 Neutrophils % 86 % Lymphocytes % 6 % Monocytes % 6 % Eosinophils % 1 % Basophils % 0 % Neutrophils # 13.4 H (1.3-7.7) k/uL Lymphocytes # 0.9 L (1.0-4.8) k/uL Monocytes # 1.0 (0-1.0) k/uL Eosinophils # 0.1 (0-0.7) k/uL Basophils # 0.0 (0-0.2) k/uL Sodium 135 L (137-145) mmol/L Potassium 4.6 (3.5-5.1) mmol/L Chloride 99 (98-107) mmol/L Carbon Dioxide 26 (22-30) mmol/L Anion Gap 10 mmol/L BUN 23 H (9-20) mg/dL Creatinine 0.88 (0.66-1.25) mg/dL Est GFR (CKD-EPI)AfAm >90 (>60 ml/min/1.73 sqM) Est GFR (CKD-EPI)NonAf 83 (>60 ml/min/1.73 sqM) Glucose 124 H (74-99) mg/dL Calcium 9.2 (8.4-10.2) mg/dL Total Bilirubin 1.1 (0.2-1.3) mg/dL AST 19 (17-59) U/L ALT 16 (4-49) U/L Alkaline Phosphatase 68 (38-126) U/L Total Protein 6.6 (6.3-8.2) g/dL Albumin 3.7 (3.5-5.0) g/dL Lipase 13 L (23-300) U/L Disposition Clinical Impression: Acute appendicitis Disposition: ADMITTED IP TO THIS [facility] Condition: Serious Referrals: Shakila Jo MD [Primary Care Provider] - 1-2 days Decision Time: 11:56
[2023-02-24 09:42] LABS: Basophils % (A) 0 %; Eosinophils # (A) 0.1 k/uL (0-0.7); Eosinophils % (A) 1 %; HCT 43.3 % (39.0-53.0); HGB 14.5 gm/dL (13.0-17.5); Lymphocytes # (A) 0.9 k/uL (1.0-4.8); Lymphocytes % (A) 6 %; MCH 31.3 pg (25.0-35.0); MCHC 33.5 g/dL (31.0-37.0); MCV 93.4 fL (80.0-100.0); Mean Platelet Volume 10.6; Monocytes % (A) 6 %; Neutrophils # (A) 13.4 k/uL (1.3-7.7); Neutrophils % (A) 86 %; Platelet Count 168 k/uL (150-450); RBC 4.63 m/uL (4.30-5.90); RDW 13.6 % (11.5-15.5); WBC 15.6 k/uL (3.8-10.6)
[2023-02-24 09:56] LABS: ALT 16 U/L (4-49); AST 19 U/L (17-59); African American GFR (CKD) >90 (>60 ml/min/1.73 sqM); Albumin 3.7 g/dL (3.5-5.0); Alkaline Phosphatase 68 U/L (38-126); Anion Gap 10 mmol/L; Blood Urea Nitrogen 23 mg/dL (9-20); Calcium 9.2 mg/dL (8.4-10.2); Carbon Dioxide 26 mmol/L (22-30); Chloride 99 mmol/L (98-107); Glucose 124 mg/dL (74-99); Lipase 13 U/L (23-300); Non-African American GFR(CKD) 83 (>60 ml/min/1.73 sqM); Potassium 4.6 mmol/L (3.5-5.1); Sodium 135 mmol/L (137-145); Total Bilirubin 1.1 mg/dL (0.2-1.3); Total Protein 6.6 g/dL (6.3-8.2)
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
[2023-02-24] MEDS ORDERED: PIPERACILLIN-TAZOBACTAM 3.375 GM in SODIUM CHLORIDE 0.9% 100 ML IVPB STA (11:10)
[2023-02-24] MEDS ORDERED: NALOXONE 0.4 MG/ML 1 ML VIAL IV PRN (11:52)
[2023-02-24] MEDS ORDERED: ACETAMINOPHEN IV (For NPO) 1,000 MG in EMPTY BAG 1 BAG IVPB PRN (12:55)
[2023-02-24] MEDS ORDERED: MORPHINE SULFATE 4 MG/ML SYRINGE IVP PRN (12:58)
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
[2023-02-24] MEDS: SODIUM CHLORIDE 0.9% 1,000 ML IV SCH ×2 (14:48→20:50)
[2023-02-24] MEDS ORDERED: PIPERACILLIN-TAZOBACTAM 3.375 GM in SODIUM CHLORIDE 0.9% 100 ML IVPB SCH (16:00)
[2023-02-24] MEDS: ATORVASTATIN 40 MG TAB PO SCH (20:48)
[2023-02-24] MEDS: PIPERACILLIN-TAZOBACTAM 3.375 GM in SODIUM CHLORIDE 0.9% 100 ML IVPB SCH (20:48)
[2023-02-25] MEDS: SODIUM CHLORIDE 0.9% 1,000 ML IV SCH ×3 (03:21→20:32)
[2023-02-25] MEDS: PIPERACILLIN-TAZOBACTAM 3.375 GM in SODIUM CHLORIDE 0.9% 100 ML IVPB SCH ×3 (03:21→20:38)
[2023-02-25] MEDS: LEVOTHYROXINE 50 MCG TAB PO SCH (06:58)
[2023-02-25] MEDS: TAMSULOSIN 0.4 MG CAP.ER.24H PO SCH (08:45)
--- NOTE | 2023-02-25 10:49 | P.PN ---
Subjective Progress Note Date: 02/25/23 CHIEF COMPLAINT: Acute appendicitis with phlegmon HISTORY OF PRESENT ILLNESS: Patient is complaining that he does feel bloated. His pain is down to a 2 from 7 out of 10. He has had no flatus or bowel m ovement. Denies any nausea or vomiting. Afebrile. labs pending PHYSICAL EXAM: VITAL SIGNS: Reviewed GENERAL: Well-developed in no acute distress. HEENT: No sclera icterus. Extraocular movements grossly intact. Moist buccal mucosa. Head is atraumatic, normocephalic. Hears conversational speech. No nasal drainage. NECK: Supple without lymphadenopathy. CHEST: Non-labored respirations and equal bilateral excursions. CARDIOVASCULAR: Palpable 2+ radial pulses. ABDOMEN: Soft. mildly distended. Tenderness palpation in the right lower quadrant MUSCULOSKELETAL: No clubbing or cyanosis. NEUROLOGIC: No focal or lateralizing signs. Cranial nerves II through XII grossly intact. PSYCH: Appropriate affect. Alert and oriented to person, place and time. SKIN: Well perfused. Good skin turgor. ASSESSMENT: 1. Acute appendicitis with phlegmon 2. Partial distal small bowel obstruction possibly caused by inflammatory changes due to appendicitis noted on CT scan 3. History of multiple inguinal hernia repairs 4. History of atrial fibrillation on Eliquis at home 5. History of Mnire's 6. Hypothyroidism 7. Enlarged prostate PLAN: -Consult cardiology for cardiac risk assessment -Continue IV antibiotics -Plan for interval appendectomy -Keep patient nothing by mouth except for ice chips -Continue IV fluids -Continue IV Tylenol for pain -Hold Eliquis Physician Sales And Marketing Intern note has been reviewed by physician. Signing provider agrees with the documented findings, assessment, and plan of care. CHIEF COMPLAINT: Perforated appendicitis HISTORY OF PRESENT ILLNESS: The patient is a 77-year-old male admitted with right lower quadrant abdominal pain over 7-8 days duration. Clinical history and diagnostic studies consistent with perforated appendicitis with phlegmon. Reports marked improvement in 24 hours with IV antibiotics. Reports appetite. Reports improvement of his abdominal pain. is at bedside. ROS: No reports of vomiting. No bowel movements. No fevers or chills. No new chest pain. No productive sputum PHYSICAL EXAM: VITAL SIGNS: Reviewed CONSTITUTIONAL: Well developed and in no acute distress. EYES: Conjuctivae without sclera icterus. Extraocular movements grossly intact. HEAD, EARS, NOSE, THROAT: Moist buccal mucosa. Head is atraumatic, normocephalic. Hears conversational speech. No nasal drainage. RESPIRATORY: Non-labored respirations and equal bilateral excursions. CARDIOVASCULAR: Palpable 2+ radial pulses. ABDOMEN: No peritonitis. Minimal right lower quadrant tenderness. MUSCULOSKELETAL: No gross deformity of the lower extremities noted. No clubbing. No cyanosis. SKIN: Good skin turgor. Well perfused. NEUROLOGIC: Cranial nerves II through XII grossly intact. No focal or lateralizing signs. PSYCH: Appropriate affect. Alert and oriented to person, place and time. CLINICAL LABS: Reviewed. WBC down 15.6-11.9, leukocytosis ASSESSMENT: 1. Perforated appendicitis with phlegmon 2. Atrial fibrillation PLAN: 1. Recommend cardiac assessment for appendectomy. Interval appendectomy also discussed with patient and family. 2. Management with infectious disease. PICC line ordered for IV antibiotics for home 3. Clear liquid diet. 4. Inpatient hospitalization anticipated for 5-7 days pending clinical course 4. Patient is risk for surgical complications with current comorbidities Objective - Vital Signs Vital signs: Vital Signs Temp 99.1 F 02/25/23 07:31 Pulse 89 02/25/23 07:31 Resp 20 02/25/23 07:31 BP 114/63 02/25/23 07:31 Pulse Ox 96 02/25/23 07:31 FiO2 Intake & Output 02/24/23 02/25/23 02/25/23 18:59 06:59 18:59 Output Total 200 Balance -200 Weight 81.647 kg Output: Urine 200 Other: # Voids 1 # Bowel Movements 0 - Labs CBC & Chem 7: 02/25/23 07:19 02/25/23 07:19
[2023-02-25 11:09] LABS: Basophils # (A) 0.02 X 10*3/uL (0.00-0.10); Basophils % (A) 0.2 %; Eosinophils % (A) 3.4 %; HCT 38.6 % (39.6-50.0); HGB 12.7 g/dL (13.0-17.0); Lymphocytes # (A) 0.92 X 10*3/uL (0.90-5.00); Lymphocytes % (A) 7.7 %; MCHC 32.9 g/dL (32.0-37.0); MCV 94.1 FL (80.0-97.0); Monocytes # (A) 0.95 X 10*3/uL (0.20-1.00); NRBC Per 100 WBC 0 X 10*3/uL (0.00-0.01); Neutrophils # (A) 9.62 X 10*3/uL (1.80-7.70); Neutrophils % (A) 80.4 %; Platelet Count 163 X 10*3/uL (140-440); RDW 14.5 % (11.5-14.5); WBC 11.94 X 10*3/uL (4.50-10.00)
[2023-02-25 11:28] LABS: ALT 10 U/L (10-49); AST 9 U/L (14-35); Albumin 3.2 g/dL (3.8-4.9); Albumin/Globulin Ratio 1.45 Ratio (1.60-3.17); Alkaline Phosphatase 55 U/L (41-126); Blood Urea Nitrogen 17.5 mg/dL (9.0-27.0); Calcium 8.5 mg/dL (8.7-10.3); Carbon Dioxide 25.9 mmol/L (21.6-31.8); Chloride 105 mmol/L (96-109); Globulin 2.2 g/dL (1.6-3.3); Glucose 86 mg/dL (70-110); Potassium 4.2 mmol/L (3.5-5.5); Sodium 141 mmol/L (135-145); Total Bilirubin 0.7 mg/dL (0.3-1.2); Total Protein 5.4 g/dL (6.2-8.2)
[2023-02-25] MEDS: ACETAMINOPHEN IV (For NPO) 1,000 MG in EMPTY BAG 1 BAG IVPB SCH ×2 (12:09→18:15)
--- NOTE | 2023-02-25 12:14 | P.CRDCN ---
History of Present Illness History of present illness: HISTORY OF PRESENT ILLNESS: This is a 77-year-old male with a past medical history significant for hyperlipidemia, paroxysmal atrial fibrillation, hypothyroidism, and inguinal hernia repair. Patient follows in the office with Dr. Bran. We have been asked to see the patient in consultation for cardiac clearance. Patient examined at the bedside. Patient states he presented to the hospital for chief complaint of abdominal pain. He states he has having abdominal pain for 3 days. He denied having any nausea vomiting, or diarrhea. He is found to have acute appendicitis and is being followed by general surgery. He denies any chest pain or pressure. He denies any shortness of breath. He states prior to his hospitalization him and his were very active including taking care of a new puppu and bike riding [place] the state. He states he can walk up 2 flights of stairs with no shortness of breath or chest pain. No signs are stable. * EKG reveals sinus mechanism with no signs of acute ischemia * Current home cardiac medications include Eliquis 5 mg twice a day and simvastatin 80 mg at night * Most recent echocardiogram obtained in October 2022 revealed ejection fraction 50-55%, mild aortic regurgitation, [id number] mitral regurgitation and mild tricuspid regurgitation * Cardiac catheterization history: 2009 revealing minimal coronary artery disease * Patient underwent nuclear stress test in June 2021 revealing ejection fraction 50% with mild global hypokinesia REVIEW OF SYSTEMS: At the time of my exam: CONSTITUTIONAL: Denies fever or chills. HEENT: Denies blurred vision, vision changes, or eye pain. Denies hemoptysis CARDIOVASCULAR: Denies chest pain. Denies orthopnea. Denies PND. Denies palpitations RESPIRATORY: Denies shortness of breath. GASTROINTESTINAL: Denies abdominal pain. Denies nausea or vomiting. HEMATOLOGIC: Denies bleeding disorders. GENITOURINARY: Denies any blood in urine. SKIN: Denies pruitis. Denies rash. PHYSICAL EXAM: VITAL SIGNS: Reviewed. GENERAL: Well-developed in no acute distress. HEENT: Head is normocephalic. Pupils are equal, round. Sclerae anicteric. Mucous membranes of the mouth are moist. Neck supple. No JVD or thyromegaly LUNGS: Respirations even and unlabored. Lungs essentially clear to auscultation bilaterally. HEART: Regular rate and rhythm. S1 and S2 heard. Systolic murmur noted ABDOMEN: Soft. Mildly distended. Tenderness with palpation. EXTREMITIES: Normal range of motion. No clubbing or cyanosis. Peripheral pulses intact. No lower extremity edema NEUROLOGIC: Awake and alert. Oriented x 3. ASSESSMENT: Acute appendicitis with phlegmon Partial distal small bowel obstruction Paroxysmal atrial fibrillation Minimal coronary artery disease, per cardiac catheterization in 2009 Hyperlipidemia History of inguinal hernia repair Hypothyroidism History of Mnire's disease PLAN: No need to repeat echocardiogram as this was performed in October 2022 in the office Eliquis has been placed on hold per surgical services Patient is without complaints of angina and is clinically euvolemic with no signs of congestive heart failure There are a contraindications for patient to proceed with surgery from a cardiac standpoint We will sign off. Please reconsult if needed. Nurse practitioner note has been reviewed by physician. Signing provider agrees with the documented findings, assessment, and plan of care. 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 BILATERAL CATARACT REMOVAL AND LENS IMPLANT. hernia repair (inguinal and femoral) x5 Past Anesthesia/Blood Transfusion Reactions: No Reported Reaction, Motion Sickness Smoking Status: Never smoker - Past Family History Father Additional Family Medical History / Comment(s): brain aneurysm Mother Family Medical History: Diabetes Mellitus Medications and Allergies Home Medications Medication Instructions Recorded Confirmed Type Alfuzosin HCl [Alfuzosin HCl ER] 10 mg PO DAILY 04/10/15 02/24/23 History Simvastatin [Zocor] 80 mg PO HS #0 04/15/15 02/24/23 Rx Levothyroxine Sodium [Synthroid] 50 mcg PO DAILY 06/05/21 02/24/23 History diazePAM [Valium] 5 mg PO BID PRN 06/05/21 02/24/23 History oxyBUTYnin chloride [Ditropan] 5 mg PO BID 06/05/21 02/24/23 History Apixaban [Eliquis] 5 mg PO BID 02/24/23 02/24/23 History Allergies Allergy/AdvReac Type Severity Reaction Status Date / Time No Known Allergies Allergy Verified 02/24/23 11:23 Physical Exam Vitals: Vital Signs Temp Pulse Pulse Resp BP BP Pulse Ox 02/25/23 07:31 99.1 F 89 20 114/63 96 02/25/23 01:58 97.4 F L 58 L 16 103/64 96 02/24/23 20:39 99.2 F 65 16 123/72 95 02/24/23 18:00 98.7 F 39 L 17 124/63 94 L 02/24/23 17:00 98.0 F 79 19 124/65 02/24/23 16:00 74 17 124/65 02/24/23 15:00 70 18 124/65 02/24/23 14:00 64 17 119/72 95 02/24/23 13:00 73 21 129/64 95 02/24/23 12:00 69 18 114/77 95 Intake and Output 02/24/23 02/25/23 02/25/23 22:59 06:59 14:59 Output Total 200 Balance -200 Output: Urine 200 Other: # Voids 1 # Bowel Movements 0 Weight 81.647 kg Results 02/25/23 07:19 02/25/23 07:19 Cardiac Enzymes 02/25/23 Range/Units 07:19 AST 9 L (14-35) U/L CBC 02/25/23 Range/Units 07:19 WBC 11.94 H (4.50-10.00) X 10*3/uL RBC 4.10 L (4.40-5.60) X 10*6/uL Hgb 12.7 L (13.0-17.0) g/dL Hct 38.6 L (39.6-50.0) % Plt Count 163 (140-440) X 10*3/uL Comprehensive Metabolic Panel 02/25/23 Range/Units 07:19 Sodium 141 (135-145) mmol/L Potassium 4.2 (3.5-5.5) mmol/L Chloride 105 (96-109) mmol/L Carbon Dioxide 25.9 (21.6-31.8) mmol/L BUN 17.5 (9.0-27.0) mg/dL Creatinine 1.0 (0.6-1.5) mg/dL Glucose 86 (70-110) mg/dL Calcium 8.5 L (8.7-10.3) mg/dL AST 9 L (14-35) U/L ALT 10 (10-49) U/L Alkaline Phosphatase 55 (41-126) U/L Total Protein 5.4 L (6.2-8.2) g/dL Albumin 3.2 L (3.8-4.9) g/dL Current Medications Generic Name Dose Route Start Last Admin Trade Name Freq PRN Reason Stop Dose Admin Atorvastatin Calcium 40 mg 02/24/23 21:00 02/24/23 20:48 Atorvastatin 40 Mg Tab PO 40 mg HS ERICK Administration Sodium Chloride 1,000 mls @ 130 mls/hr 02/24/23 12:00 02/25/23 03:21 Saline 0.9% IV 130 mls/hr .[id number] ERICK Administration Piperacillin Sod/Tazobactam 100 mls @ 25 mls/hr 02/24/23 20:00 02/25/23 03:21 Sod 3.375 gm/ Sodium Chloride IVPB 25 mls/hr Q8H ERICK Administration Protocol Acetaminophen 1,000 mg/ IV 100 mls @ 400 mls/hr 02/25/23 12:00 Solution IVPB 02/26/23 06:01 Q6HR ERICK Levothyroxine Sodium 50 mcg 02/25/23 06:30 02/25/23 06:58 Levothyroxine 50 Mcg Tab PO 50 mcg 0630 ERICK Administration Morphine Sulfate 4 mg 02/24/23 12:58 Morphine Sulfate 4 Mg/Ml Syringe IVP Q4HR PRN Pain Naloxone HCl 0.2 mg 02/24/23 11:52 Naloxone 0.4 Mg/Ml 1 Ml Vial IV Q2M PRN Opioid Reversal Ondansetron HCl 4 mg 02/24/23 12:55 Ondansetron 4 Mg/2 Ml Vial IVP Q6HR PRN Nausea And Vomiting Tamsulosin HCl 0.4 mg 02/25/23 09:00 02/25/23 08:45 Tamsulosin 0.4 Mg Cap.Er.24h PO Not Given DAILY ERICK Intake and Output 02/24/23 02/25/23 02/25/23 22:59 06:59 14:59 Output Total 200 Balance -200 Output: Urine 200 Other: # Voids 1 # Bowel Movements 0 Weight 81.647 kg 02/25/23 07:19 02/25/23 07:19
[2023-02-25] MEDS ORDERED: LIDOCAINE 1% INJ 10MG/ML (20 ML MDV) ONE (13:16)
[2023-02-25 14:15] VITALS: BMI 23.1
--- NOTE | 2023-02-25 14:38 | IR ---
PICC LINE PLACEMENT: HISTORY: TPN PROCEDURE: Ultrasound and fluoroscopic guidance of PICC line placement. COMPLICATIONS: None ANESTHESIA: 1. 1% Lidocaine locally. FINDINGS/TECHNIQUE: The procedure was explained to the patient. The risks, complications, benefits and alternatives were discussed and any questions were answered. Informed consent was obtained. The patient was placed supine on the fluoroscopic table and prepped and draped in the usual sterile [facility] ion. Utilizing a 21 gauge needle and sonographic and fluoroscopic guidance, access in the vein was achieved and there is placement of a 0.018 guidewire. The vein is patent. A 5-Fr sheath was placed over the guidewire. The guidewire and dilator were removed and a 5-F. Double lumen PICC line was pl aced through the sheath with the tip at the level of the SVC. The sheath was removed, the catheter w as flushed and sutured into position. The patient was stable throughout the procedure and remained s table upon discharge from the Department of Radiology. The vein puncture was patent under ultrasound. A rodriguez scale image was obtained to document patency of the vein punctured. All elements of the maximal barrier technique were utilized. FLUOROSCOPY TIME: DAP 0.922 IMPRESSION: Successful PICC double lumen line placement under ultrasound and fluoroscopic guidance.
[2023-02-25 16:25] LABS: Phosphorus 3.4 mg/dL (2.5-4.5)
[2023-02-25] MEDS: FAT EMULSION 20% 250 ML in EMPTY BAG 1 BAG IV SCH (16:59)
[2023-02-25] MEDS ORDERED: MVI, ADULT NO.4 WITH VIT K 10 ML, TRACE (CONC-1ML/DOSE) 1 ML in AMINO ACID 5%-D20W+LYTE... IV SCH ×3 (18:00)
[2023-02-25] MEDS: ATORVASTATIN 40 MG TAB PO SCH (20:38)
--- NOTE | 2023-02-25 21:29 | P.CONS ---
History of Present Illness - Reason for Consult Consult date: 02/25/23 - History of Present Illness Patient is a 77-year-old male with a past medical history significant for reflux atrial fibrillation hyperlipidemia history of prostate disorder the patient presented to hospital yesterday morning for evaluation of abdominal pain that apparently has been getting worse for 2 days before presentation to the hospital patient pain is mostly in the lower abdominal area slightly worse on the right side and describes the pain to be moderate to severe in intensity without any radiation did have associated nausea no vomiting denies having any diarrhea or constipation and some chills with the symptoms the patient was evaluated on presentation to the hospital the patient was afebrile did have 1 low-grade fever of 99.2 F, patient was not tachycardic hypertensive or hypoxic white count of 15.6 with a left shift creatinine 0.80 Influenzinum's are normal blood cultures obtained which are currently pending patient did have a CT of abdominal pelvis partial distal small bowel obstruction believed to be caused by inflammatory changes in the pelvis related to severe but uncomplicated acute appendicitis patient has been evaluated by general surgery with concern for possible perforated appendicitis and phlegmon and they have opted for antibiotic therapy and interval appendectomy PICC line has been placed patient started on Zosyn infectious disease was consulted for further management of antibiotic therapy Past Medical History Past Medical History: Atrial Fibrillation, GERD/Reflux, Hearing Disorder / Deafness, Hyperlipidemia, Prostate Disorder Additional Past Medical History / Comment(s): 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 BILATERAL CATARACT REMOVAL AND LENS IMPLANT. hernia repair (inguinal and femoral) x5 Past Anesthesia/Blood Transfusion Reactions: No Reported Reaction, Motion Sickness Smoking Status: Never smoker - Past Family History Father Additional Family Medical History / Comment(s): brain aneurysm Mother Family Medical History: Diabetes Mellitus Medications and Allergies Home Medications Medication Instructions Recorded Confirmed Type Alfuzosin HCl [Alfuzosin HCl ER] 10 mg PO DAILY 04/10/15 02/24/23 History Simvastatin [Zocor] 80 mg PO HS #0 04/15/15 02/24/23 Rx Levothyroxine Sodium [Synthroid] 50 mcg PO DAILY 06/05/21 02/24/23 History diazePAM [Valium] 5 mg PO BID PRN 06/05/21 02/24/23 History oxyBUTYnin chloride [Ditropan] 5 mg PO BID 06/05/21 02/24/23 History Apixaban [Eliquis] 5 mg PO BID 02/24/23 02/24/23 History Allergies Allergy/AdvReac Type Severity Reaction Status Date / Time No Known Allergies Allergy Verified 02/24/23 11:23 Physical Exam Vitals: Vital Signs Temp Pulse Pulse Resp BP BP Pulse Ox 02/25/23 07:31 99.1 F 89 20 114/63 96 02/25/23 01:58 97.4 F L 58 L 16 103/64 96 02/24/23 20:39 99.2 F 65 16 123/72 95 02/24/23 18:00 98.7 F 39 L 17 124/63 94 L 02/24/23 17:00 98.0 F 79 19 124/65 02/24/23 16:00 74 17 124/65 02/24/23 15:00 70 18 124/65 02/24/23 14:00 64 17 119/72 95 Intake and Output 02/24/23 02/25/23 02/25/23 22:59 06:59 14:59 Output Total 200 Balance -200 Output: Urine 200 Other: # Voids 1 # Bowel Movements 0 Weight 81.647 kg Results CBC & Chem 7: 02/25/23 07:19 02/25/23 07:19 Labs: Abnormal Lab Results - Last 24 Hours (Table) 02/25/23 02/25/23 Range/Units 07:19 07:19 WBC 11.94 H (4.50-10.00) X 10*3/uL RBC 4.10 L (4.40-5.60) X 10*6/uL Hgb 12.7 L (13.0-17.0) g/dL Hct 38.6 L (39.6-50.0) % Neutrophils # 9.62 H (1.80-7.70) X 10*3/uL Eosinophils # 0.40 H (0.04-0.35) X 10*3/uL Calcium 8.5 L (8.7-10.3) mg/dL AST 9 L (14-35) U/L Total Protein 5.4 L (6.2-8.2) g/dL Albumin 3.2 L (3.8-4.9) g/dL Albumin/Globulin Ratio 1.45 L (1.60-3.17) Ratio Assessment and Plan Plan: 1patient was in the hospital abdominal pain and this patient has been diagnosed with possible perforated appendicitis with the amount and inflammatory changes in the pelvis seen on the CT, patient is on Eliquis and requested to be high risk of bleeding General surgery has evaluated the patient and recommending IV antibiotic and interval appendectomy we will need to cover for the enteric gram- negative both aerobes and anaerobes 2-patient to continue with Zosyn in view of clinical response 3-we will try to arrange for outpatient IV antibiotic therapy at least 2 weeks depending upon his clinical response Questions concern answered We will follow on clinical condition and cultures to further adjust medication if needed Thank you for this consultation we will follow the patient along with you Dictation was produced using [employer] dictation software. please excuse any grammatical, word or spelling errors. Time with Patient: Greater than 30
[2023-02-26] MEDS: ACETAMINOPHEN IV (For NPO) 1,000 MG in EMPTY BAG 1 BAG IVPB SCH ×2 (01:05→06:02)
--- NOTE | 2023-02-26 02:40 | P.CONS ---
History of Present Illness - Reason for Consult Consult date: 02/24/23 Medical management Requesting physician: Coty Shah - Chief Complaint Abdominal pain - History of Present Illness HISTORY OF PRESENT ILLNESS: This is a 77-year-old male with a previous medical history significant for hypertension and hypertensive cardiovascular disease, hyperlipidemia, hypothyroidism, history of atrial fibrillation, coronary artery disease, mitral regurgitation, aortic regurgitation, has been followed by Dr. Bran on the regular basis, patient presented to the emergency department at [facility] with a 6 day history of abdominal pain in the right lower quadrant associated with poor appetite nausea but no vomiting and not able to have a good bowel movement, apparently patient had contacted our office on Wednesday for an ap pointment he was referred to the emergency department at the time, apparently the patient did not go since he was feeling a bit better . On Wednesday was feeling better, but on Wednesday morning he developed more pain but he decided to stay home till today when patient went to the ER at [facility] ended up going for computed tomography scan of the abdomen and pelvis that showed ruptured appendix with phlegmon formation and a partial small bowel obstruction he was admitted under general surgery, and consult was placed for medical management, REVIEW OF SYSTEMS: Constitutional: No documented fever, no chills, no night sweats. No weight change. No weakness, fatigue or lethargy. No daytime sleepiness. HEENT: No headache. No blurred vision or double vision,no loss of vision. loss of Hearing, ringing in the ears, no dizziness. No nasal drainage or congestion. No epistaxis. No sore throat. Lungs: No shortness of breath, no cough, no sputum production. No wheezing. Reports dyspnea with activity. Cardiovascular: No chest pain, no lower extremity edema. No palpitations. No paroxysmal nocturnal dyspnea. No orthopnea. No lightheadedness or dizziness. No syncopal episodes. Abdominal: Reports abdominal pain. No nausea, vomiting. No diarrhea. No constipation. No bloody or tarry stools reports loss of appetite. Genitourinary: No dysuria, increased frequency, urgency. No urinary retention. Musculoskeletal: No myalgias. No muscle weakness, no gait dysfunction, no frequent falls. No back pain. No neck pain. Integumentary: No wounds, no lesions. No rash or pruritus. No unusual bruising. No change in hair or nails. Neurologic: No aphasia. No facial droop. No change in mentation. No head injury. No headache. No paralysis. No paresthesia. Psychiatric: No depression. No anxiety. No mood swings. Endocrine: No abnormal blood sugars. No weight change. PAST MEDICAL HISTORY: Hypertension and hypertensive cardiovascular disease Hyperlipidemia Hypothyroidism Unspecified atrial fibrillation Mnire disease Enlarged prostate Detrusor instability Mitral regurgitation Aortic regurgitation Coronary artery disease without angina pectoris. PAST SURGICAL HISTORY: Bilateral inguinal hernia repair 2013 SOCIAL HISTORY: Patient is a lifelong smoker, he denies any alcohol ingestion, he lives with his . FAMILY HISTORY: Father at age 70 from his hypertension, mother at age of 85 from natural causes, patient has one brother with asthma, patient has 2 daughters and 1 son no major medical problems PHYSICAL EXAMINATION: General: 77-year-old male in no apparent distres HEENT: Head is atraumatic, normocephalic, pupils were equal round reactive to light and recommendation, extraocular muscle movement were intact, sclera no nicteric, conjunctivae were pale, mucous membranes of the mouth are somewhat dry with coated tongue Neck: Supple, no JVP, normal carotid upstroke bilaterally, no lymphadenopathy. Chest: Decreased breath sounds at the bases, few rhonchi, no expiratory wheezes, no chest wall tenderness, no intercostal retractions. Heart: First heart sound is normal, second heart sound is normal there is BRICE 2/6 located at the left sternal border, irregularly irregular Abdomen: Soft, mild tenderness in the right lower quadrant,no rebound or guarding positive bowel souds Extremities: There is no edema no calf tenderness DP +2 bilaterally. Neurologic examination: Patient is awake alert and oriented X3, cranial nerves II-12 appear grossly intact, muscle power were 5 out of 5 in upper extremities and 5 out of 5 in bilateral lower extremities, deep tendon reflexes normal bilaterally. ASSESSMENT AND PLAN: 1. Perforated appendix with phlegmon formation and partial small bowel obstruction. Keep the patient on nothing per mouth, continue patient on IV fluid resuscitation, continue IV antibiotic in the form of Zosyn 3.375 mg piggyback every 8 hours, blood cultures, patient will be maintained on current pain management, hold Eliquis for now monitor patient's symptoms very closely, general surgery is following. Patient would like to have IV antibiotic followed by surgical intervention at a later date. 2. Leukocytosis likely related to appendicitis/perforation/phlegmon formation. Continue IV antibiotic, continue IV fluid, repeat CBC the next 24 hours. 4. Hyponatremia secondary to hypovolemia continue PT CMP tomorrow morning. 5. Coronary artery disease without angina pectoris. Patient will be seen and evaluated by cardiology. Patient will be maintained on atorvastatin 40 mg orally once every day. 6. Mild aortic regurgitation/moderate mitral regurgitation. Patient has been under the care of Dr. Bran for quite some time, he had an echocardiogram this year that showed ejection fraction of 55%. 7. Mixed hyperlipidemia. Continue patient on atorvastatin 40 mg orally once every day. 8. Hypothyroidism. Continue patient on Synthroid 50 g orally once every day. 9. Enlarged prostate. Continue tamsulosin 0.4 mg once every day. 10. Paroxysmal atrial fibrillation. Patient has been off Eliquis general surgery. 11. Mnire disease. Stable. 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 We will hold Ditropan for now. 13. DVT prophylaxis. Bilateral knee-high RENUKA hose. 14. GI prophylaxis. Protonix 40 mg orally once every day. 15. Thank you for the consult we will follow the patient with you. 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 BILATERAL CATARACT REMOVAL AND LENS IMPLANT. hernia repair (inguinal and femoral) x5 Past Anesthesia/Blood Transfusion Reactions: No Reported Reaction, Motion Sickness Past Psychological History: No Psychological Hx Reported Smoking Status: Never smoker Past Alcohol Use History: None Reported Past Drug Use History: None Reported - Past Family History Father Additional Family Medical History / Comment(s): brain aneurysm Mother Family Medical History: Diabetes Mellitus Medications and Allergies Home Medications Medication Instructions Recorded Confirmed Type Alfuzosin HCl [Alfuzosin HCl ER] 10 mg PO DAILY 04/10/15 02/24/23 History Simvastatin [Zocor] 80 mg PO HS #0 04/15/15 02/24/23 Rx Levothyroxine Sodium [Synthroid] 50 mcg PO DAILY 06/05/21 02/24/23 History diazePAM [Valium] 5 mg PO BID PRN 06/05/21 02/24/23 History oxyBUTYnin chloride [Ditropan] 5 mg PO BID 06/05/21 02/24/23 History Apixaban [Eliquis] 5 mg PO BID 02/24/23 02/24/23 History Allergies Allergy/AdvReac Type Severity Reaction Status Date / Time No Known Allergies Allergy Verified 02/24/23 11:23 Physical Exam Vitals: Vital Signs Temp Pulse Resp BP Pulse Ox 02/24/23 14:00 64 17 119/72 95 02/24/23 13:00 73 21 129/64 95 02/24/23 12:00 69 18 114/77 95 02/24/23 11:00 56 L 17 136/87 96 02/24/23 10:08 80 18 122/106 98 02/24/23 10:00 74 22 125/107 95 02/24/23 09:10 97 F L 92 18 110/90 99 02/24/23 09:08 70 20 110/90 99 Intake and Output 02/24/23 02/24/23 02/24/23 06:59 14:59 22:59 Other: Weight 81.647 kg Results CBC & Chem 7: 02/25/23 07:19 02/25/23 07:19 Labs: Abnormal Lab Results - Last 24 Hours (Table) 02/24/23 02/24/23 Range/Units 09:27 09:27 WBC 15.6 H (3.8-10.6) k/uL Neutrophils # 13.4 H (1.3-7.7) k/uL Lymphocytes # 0.9 L (1.0-4.8) k/uL Sodium 135 L (137-145) mmol/L BUN 23 H (9-20) mg/dL Glucose 124 H (74-99) mg/dL Lipase 13 L (23-300) U/L
--- NOTE | 2023-02-26 02:45 | P.PN ---
Subjective Progress Note Date: 02/25/23 HISTORY OF PRESENT ILLNESS: This is a 77-year-old male with a previous medical history significant for hypertension and hypertensive cardiovascular disease, hyperlipidemia, hypothyroidism, history of atrial fibrillation, coronary artery disease, mitral regurgitation, aortic regurgitation, has been followed by Dr. Bran on the regular basis, patient presented to the emergency department at [facility] with a 6 day history of abdominal pain in the right lower quadrant associated with poor appetite nausea but no vomiting and not able to have a good bowel movement, apparently patient had contacted our office on Wednesday for an appointment he was referred to the emergency department at the time, apparently the patient did not go since he was feeling a bit better . On Wednesday was feeling better, but on Wednesday morning he developed more pain but he decided to stay home till today when patient went to the ER at [facility] ended up going for computed tomography scan of the abdomen and pelvis that showed ruptured appendix with phlegmon formation and a partial small bowel obstruction he was admitted under general surgery, and consult was placed for medical management. 02/25: Patient is sitting up in bed in no apparent distress, he did try clear liquid diet today, he did have a PICC line placed, who started on TPN, patient was seen in consultation by infectious disease recommended to continue IV antibiotic, we will arrange for home IV antibiotic, he was also consultation by cardiology who recommended to proceed with surgery with no restriction at this point in time, patient did have an echocardiogram in October of this year that showed ejection fraction 55%, moderate mitral regurgitation and mild aortic regurgitation, his last heart catheterization was done in 2009 that showed evidence of mild CAD, patient pain appears to be controlled well with the Tylenol IV and he has been off his Eliquis REVIEW OF SYSTEMS: Constitutional: No documented fever, no chills, no night sweats. No weight change. No weakness, fatigue or lethargy. No daytime sleepiness. HEENT: No headache. No blurred vision or double vision,no loss of vision. loss of Hearing, ringing in the ears, no dizziness. No nasal drainage or congestion. No epistaxis. No sore throat. Lungs: No shortness of breath, no cough, no sputum production. No wheezing. Reports dyspnea with activity. Cardiovascular: No chest pain, no lower extremity edema. No palpitations. No paroxysmal nocturnal dyspnea. No orthopnea. No lightheadedness or dizziness. No syncopal episodes. Abdominal: Reports abdominal pain. No nausea, vomiting. No diarrhea. No constipation. No bloody or tarry stools reports loss of appetite. Genitourinary: No dysuria, increased frequency, urgency. No urinary retention. Musculoskeletal: No myalgias. No muscle weakness, no gait dysfunction, no frequent falls. No back pain. No neck pain. Integumentary: No wounds, no lesions. No rash or pruritus. No unusual bruising. No change in hair or nails. Neurologic: No aphasia. No facial droop. No change in mentation. No head injury. No headache. No paralysis. No paresthesia. Psychiatric: No depression. No anxiety. No mood swings. Endocrine: No abnormal blood sugars. No weight change. PHYSICAL EXAMINATION: General: 77-year-old male in no apparent distres HEENT: Head is atraumatic, normocephalic, pupils were equal round reactive to light and recommendation, extraocular muscle movement were intact, sclera nonicteric, conjunctivae were pale, mucous membranes of the mouth are somewhat dry with coated tongue Neck: Supple, no JVP, normal carotid upstroke bilaterally, no lymphadenopathy. Chest: Decreased breath sounds at the bases, few rhonchi, no expiratory wheezes, no chest wall tenderness, no intercostal retractions. Heart: First heart sound is normal, second heart sound is normal there is BRICE 2/6 located at the left sternal border, irregularly irregular Abdomen: Soft, mild tenderness in the right lower quadrant,no rebound or guarding positive bowel souds Extremities: There is no edema no calf tenderness DP +2 bilaterally. Neurologic examination: Patient is awake alert and oriented X3, cranial nerves II-12 appear grossly intact, muscle power were 5 out of 5 in upper extremities and 5 out of 5 in bilateral lower extremities, deep tendon reflexes normal bilaterally. ASSESSMENT AND PLAN: 1. Perforated appendix with phlegmon formation and partial small bowel obstruction. Clear liquid diet, continue patient on IV fluid resuscitation, continue IV antibiotic in the form of Zosyn 3.375 mg piggyback every 8 hours, blood cultures positive for gram-positive cocci in clusters, patient will be maintained on current pain management, hold Eliquis for now monitor patient's symptoms very closely, general surgery is following. Patient would like to have IV antibiotic followed by surgical intervention at a later date. 2. Leukocytosis likely related to appendicitis/perforation/phlegmon formation. Continue IV antibiotic, continue IV fluid, repeat CBC the next 24 hours. 4. Hyponatremia secondary to hypovolemia continue PT CMP tomorrow morning. 5. Coronary artery disease without angina pectoris. Patient will be seen and evaluated by cardiology. Patient will be maintained on atorvastatin 40 mg orally once every day. 6. Mild aortic regurgitation/moderate mitral regurgitation. Patient has been under the care of Dr. Bran for quite some time, he had an echocardiogram this year that showed ejection fraction of 55%. 7. Mixed hyperlipidemia. Continue patient on atorvastatin 40 mg orally once every day. 8. Hypothyroidism. Continue patient on Synthroid 50 g orally once every day. 9. Enlarged prostate. Continue tamsulosin 0.4 mg once every day. 10. Paroxysmal atrial fibrillation. Patient has been off Eliquis general surgery. 11. Mnire disease. Stable. 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 We will hold Ditropan for now. 13. DVT prophylaxis. Bilateral knee-high RENUKA hose. 14. GI prophylaxis. Protonix 40 mg orally once every day. 15. Increase activity. Objective - Vital Signs Vital signs: Vital Signs Temp 98.4 F 02/25/23 14:08 Pulse 64 02/25/23 14:08 Resp 20 02/25/23 14:08 BP 126/81 02/25/23 14:08 Pulse Ox 96 02/25/23 14:08 FiO2 Intake & Output 02/24/23 02/25/23 02/25/23 18:59 06:59 18:59 Intake Total 1823 Output Total 200 Balance -200 1823 Weight 81.647 kg 81.647 kg Intake: Intake, IV Titration 1823 Amount Fat Emulsion 20% 250 ml 63 In Empty Bag 1 bag @ 21 mls/hr IV MoTh@0900 ERICK Rx#:[id number] Piperacillin-Tazobactam 3 200 .375 gm In Sodium Chloride 0.9% 100 ml @ 25 mls/hr IVPB Q8H ERICK Rx#: [id number] Sodium Chloride 0.9% 1, 1560 000 ml @ 130 mls/hr IV . Q7H42M ERICK Rx#:[id number] Output: Urine 200 Other: # Voids 1 # Bowel Movements 0 - Labs CBC & Chem 7: 02/25/23 07:19 02/25/23 07:19 Labs: Abnormal Lab Results - Last 24 Hours (Table) 02/25/23 02/25/23 Range/Units 07:19 07:19 WBC 11.94 H (4.50-10.00) X 10*3/uL RBC 4.10 L (4.40-5.60) X 10*6/uL Hgb 12.7 L (13.0-17.0) g/dL Hct 38.6 L (39.6-50.0) % Neutrophils # 9.62 H (1.80-7.70) X 10*3/uL Eosinophils # 0.40 H (0.04-0.35) X 10*3/uL Calcium 8.5 L (8.7-10.3) mg/dL AST 9 L (14-35) U/L Total Protein 5.4 L (6.2-8.2) g/dL Albumin 3.2 L (3.8-4.9) g/dL Albumin/Globulin Ratio 1.45 L (1.60-3.17) Ratio Microbiology - Last 24 Hours (Table) 02/24/23 11:40 Blood Culture - Preliminary Blood
[2023-02-26] MEDS: PIPERACILLIN-TAZOBACTAM 3.375 GM in SODIUM CHLORIDE 0.9% 100 ML IVPB SCH ×3 (03:44→20:21)
[2023-02-26] MEDS: SODIUM CHLORIDE 0.9% 1,000 ML IV SCH ×2 (04:48→11:18)
[2023-02-26] MEDS: LEVOTHYROXINE 50 MCG TAB PO SCH (06:03)
[2023-02-26 06:47] LABS: Ionized Calcium 4.7 mg/dL (4.5-5.3)
[2023-02-26] MEDS: TAMSULOSIN 0.4 MG CAP.ER.24H PO SCH (09:03)
[2023-02-26 11:26] LABS: Basophils # (A) 0.02 X 10*3/uL (0.00-0.10); Basophils % (A) 0.2 %; Eosinophils # (A) 0.32 X 10*3/uL (0.04-0.35); Eosinophils % (A) 3.4 %; HCT 36.2 % (39.6-50.0); Lymphocytes # (A) 0.95 X 10*3/uL (0.90-5.00); Lymphocytes % (A) 10.2 %; MCH 30.8 pg (27.0-32.0); MCHC 33.1 g/dL (32.0-37.0); MCV 93.1 FL (80.0-97.0); Mean Platelet Volume 12.2 FL (9.5-12.2); Monocytes # (A) 0.87 X 10*3/uL (0.20-1.00); Monocytes % (A) 9.4 %; NRBC Per 100 WBC 0 X 10*3/uL (0.00-0.01); Neutrophils % (A) 76.6 %; Platelet Count 184 X 10*3/uL (140-440); RBC 3.89 X 10*6/uL (4.40-5.60); RDW 14.5 % (11.5-14.5); WBC 9.28 X 10*3/uL (4.50-10.00)
[2023-02-26 11:41] LABS: Triglycerides 89.7 mg/dL (0.00-149.00)
--- NOTE | 2023-02-26 13:02 | XR ---
Abdomen. HISTORY: Follow-up small bowel obstruction COMPARISON: CT abdomen and pelvis of 02/24/2023 TECHNIQUE: 3 views the abdomen were obtained including 2 supine and one upright. FINDINGS: There are moderately dilated air and fluid filled loops of small bowel which display differential air -fluid levels on the upright view. Findings are consistent with at least a partial distal small bowel obstruction. The lung bases are clear. There is no free air beneath the diaphragm. There are no suspicious abdominal or pelvic calcifications. IMPRESSION: Findings consistent with a mid to distal partial or complete small bowel obstruction
[2023-02-26] MEDS: SIMETHICONE 40 MG/0.6 ML DROPS 2,000 MG/30 ML BOTTLE PO SCH ×3 (13:18→21:45)
--- NOTE | 2023-02-26 14:43 | P.PN ---
Subjective Progress Note Date: 02/26/23 CHIEF COMPLAINT: Acute appendicitis with phlegmon HISTORY OF PRESENT ILLNESS: Patient reports the abdominal pain is improving. He denies any nausea or vomiting. He did have some flatus no bowel movement. He did not drink his breakfast this morning because he does have a feeling of fullness. He did tolerate the liquids last night. He is status post PICC line placement and TPN has been started. Patient seen by infectious disease. Afebrile. WBC has normalized at 9.28 Hgb 12.0 platelets 184. Patient seen evaluated by cardiology they have cleared him for surgery. PHYSICAL EXAM: VITAL SIGNS: Reviewed GENERAL: Well-developed in no acute distress. HEENT: No sclera icterus. Extraocular movements grossly intact. Moist buccal mucosa. Head is atraumatic, normocephalic. Hears conversational speech. No nasal drainage. NECK: Supple without lymphadenopathy. CHEST: Non-labored respirations and equal bilateral excursions. CARDIOVASCULAR: Palpable 2+ radial pulses. ABDOMEN: Soft. mildly distended. Nontender MUSCULOSKELETAL: No clubbing or cyanosis. NEUROLOGIC: No focal or lateralizing signs. Cranial nerves II through XII grossly intact. PSYCH: Appropriate affect. Alert and oriented to person, place and time. SKIN: Well perfused. Good skin turgor. ASSESSMENT: 1. Acute appendicitis with phlegmon 2. Partial distal small bowel obstruction possibly caused by inflammatory changes due to appendicitis noted on CT scan 3. History of multiple inguinal hernia repairs 4. History of atrial fibrillation on Eliquis at home 5. History of Mnire's 6. Hypothyroidism 7. Enlarged prostate PLAN: -Continue clear liquid diet -Continue TPN for nutrition support -Continue IV antibiotics. Infectious disease consult appreciated -Plan for interval appendectomy -Hold [facility] Physician Financial Sales Professional note has been reviewed by physician. Signing provider agrees with the documented findings, assessment, and plan of care. CHIEF COMPLAINT: Perforated appendicitis HISTORY OF PRESENT ILLNESS: The patient is a 77-year-old male admitted with perforated appendicitis with phlegmon. Tonight, he reports gas bloat. Reports nausea. He tried liquids and diet but has nausea tonight. ROS: No reports of vomiting. No bowel movements. No fevers or chills. No new chest pain. No productive sputum PHYSICAL EXAM: VITAL SIGNS: Reviewed CONSTITUTIONAL: Well developed and in no acute distress. EYES: Conjuctivae without sclera icterus. Extraocular movements grossly intact. HEAD, EARS, NOSE, THROAT: Moist buccal mucosa. Head is atraumatic, normocephalic. Hears conversational speech. No nasal drainage. RESPIRATORY: Non-labored respirations and equal bilateral excursions. CARDIOVASCULAR: Palpable 2+ radial pulses. ABDOMEN: No peritonitis. Mild abdominal gas bloat MUSCULOSKELETAL: No gross deformity of the lower extremities noted. No clubbing. No cyanosis. SKIN: Good skin turgor. Well perfused. NEUROLOGIC: Cranial nerves II through XII grossly intact. No focal or lateralizing signs. PSYCH: Appropriate affect. Alert and oriented to person, place and time. CLINICAL LABS: Reviewed. WBC normal STUDIES: Abdominal x-ray independently reviewed demonstrate diffuse gaseous distention more favorable of ileus. This is my independent interpretation ASSESSMENT: 1. Perforated appendicitis with phlegmon 2. Atrial fibrillation 3. Ileus PLAN: 1. Appreciate cardiology risk assessment 2. Downgrade diet to nothing by mouth with ice chips and popsicles. TPN ordered with PICC line 3. Continue IV antibiotics. 4. Anticipated disposition 3-5 days pending resolution of ileus due to appendicitis Objective - Vital Signs Vital signs: Vital Signs Temp 98.2 F 02/26/23 13:39 Pulse 67 02/26/23 13:39 Resp 20 02/26/23 13:39 BP 125/71 02/26/23 13:39 Pulse Ox 94 L 02/26/23 13:39 FiO2 Intake & Output 02/25/23 02/26/23 02/26/23 18:59 06:59 18:59 Intake Total 1823 1010 Output Total 850 Balance 1823 160 Weight 81.647 kg 81.647 kg Intake: Intake, IV Titration 1823 1010 Amount Fat Emulsion 20% 250 ml 63 250 In Empty Bag 1 bag @ 21 mls/hr IV MoTh@0900 ERICK Rx#:[id number] Mvi, Adult No.4 with Vit 360 K 10 ml Trace (Conc-1Ml/ Dose) 1 ml In Amino Acid 5%-D20w+Lytes*E* 1,000 ml @ 30 mls/hr IV .Q24H ERICK Rx#:[id number] Piperacillin-Tazobactam 3 200 .375 gm In Sodium Chloride 0.9% 100 ml @ 25 mls/hr IVPB Q8H ERICK Rx#: [id number] Sodium Chloride 0.9% 1, 1560 400 000 ml @ 100 mls/hr IV . Q10H [facility] Rx#:[id number] Output: Urine 850 Other: Voiding Method Urinal - Labs CBC & Chem 7: 02/26/23 06:26 02/25/23 07:19 Labs: Abnormal Lab Results - Last 24 Hours (Table) 02/26/23 Range/Units 06:26 RBC 3.89 L (4.40-5.60) X 10*6/uL Hgb 12.0 L (13.0-17.0) g/dL Hct 36.2 L (39.6-50.0) % Microbiology - Last 24 Hours (Table) 02/24/23 11:40 Blood Culture Gram Stain - Final Blood Blood Culture - Final Coagulase Negative Staph 02/24/23 11:50 Blood Culture Gram Stain - Final Blood Blood Culture - Final Coagulase Negative Staph
[2023-02-26] MEDS: 1: MVI, ADULT NO.4 WITH VIT K 10 ML, TRACE (CONC-1ML/DOSE) 1 ML in AMINO ACID 5%-D20W+LY IV SCH ×3 (18:10)
[2023-02-26] MEDS: ATORVASTATIN 40 MG TAB PO SCH (20:21)
[2023-02-26] MEDS: ONDANSETRON 4 MG/2 ML VIAL IVP PRN (23:21)
[2023-02-27] MEDS: SODIUM CHLORIDE 0.9% 1,000 ML IV SCH ×3 (02:22→20:26)
[2023-02-27] MEDS: PIPERACILLIN-TAZOBACTAM 3.375 GM in SODIUM CHLORIDE 0.9% 100 ML IVPB SCH ×3 (04:43→20:24)
[2023-02-27] MEDS: 1: MVI, ADULT NO.4 WITH VIT K 10 ML, TRACE (CONC-1ML/DOSE) 1 ML in AMINO ACID 5%-D20W+LY IV SCH ×6 (05:29→16:51)
[2023-02-27] MEDS: LEVOTHYROXINE 50 MCG TAB PO SCH (06:10)
[2023-02-27 07:05] LABS: African American GFR (CKD) >90 (>60 ml/min/1.73 sqM); Anion Gap 8 mmol/L; Blood Urea Nitrogen 14 mg/dL (9-20); Calcium 8.3 mg/dL (8.4-10.2); Carbon Dioxide 28 mmol/L (22-30); Chloride 105 mmol/L (98-107); Glucose 151 mg/dL (74-99); Non-African American GFR(CKD) 89 (>60 ml/min/1.73 sqM); Phosphorus 3.8 mg/dL (2.5-4.5); Sodium 141 mmol/L (137-145)
--- NOTE | 2023-02-27 09:43 | P.PN ---
Subjective Progress Note Date: 02/26/23 HISTORY OF PRESENT ILLNESS: This is a 77-year-old male with a previous medical history significant for hypertension and hypertensive cardiovascular disease, hyperlipidemia, hypothyroidism, history of atrial fibrillation, coronary artery disease, mitral regurgitation, aortic regurgitation, has been followed by Dr. Bran on the regular basis, patient presented to the emergency department at [facility] with a 6 day history of abdominal pain in the right lower quadrant associated with poor appetite nausea but no vomiting and not able to have a good bowel movement, apparently patient had contacted our office on Wednesday for an appointment he was referred to the emergency department at the time, apparently the patient did not go since he was feeling a bit better . On Wednesday was feeling better, but on Wednesday morning he developed more pain but he decided to stay home till today when patient went to the ER at [facility] ended up going for computed tomography scan of the abdomen and pelvis that showed ruptured appendix with phlegmon formation and a partial small bowel obstruction he was admitted under general surgery, and consult was placed for medical management. 02/25: Patient is sitting up in bed in no apparent distress, he did try clear liquid diet today, he did have a PICC line placed, who started on TPN, patient was seen in consultation by infectious disease recommended to continue IV antibiotic, we will arrange for home IV antibiotic, he was also consultation by cardiology who recommended to proceed with surgery with no restriction at this point in time, patient did have an echocardiogram in October of this year that showed ejection fraction 55%, moderate mitral regurgitation and mild aortic regurgitation, his last heart catheterization was done in 2009 that showed evidence of mild CAD, patient pain appears to be controlled well with the Tylenol IV and he has been off his Eliquis 02/26:Patient is feeling full with increased distension no pain and has been getting TPN along with liquid diet and the plan for IV ABX at Office and follow up for surgery down the line, we will continue with increased activity, and continue with current treatment plan has been off Eliquis, Abdominal X-ray showed partial vs complete bowel obstruction may need to have surgery . REVIEW OF SYSTEMS: Constitutional: No documented fever, no chills, no night sweats. No weight change. No weakness, fatigue or lethargy. No daytime sleepiness. HEENT: No headache. No blurred vision or double vision,no loss of vision. loss of Hearing, ringing in the ears, no dizziness. No nasal drainage or congestion. No epistaxis. No sore throat. Lungs: No shortness of breath, no cough, no sputum production. No wheezing. Reports dyspnea with activity. Cardiovascular: No chest pain, no lower extremity edema. No palpitations. No paroxysmal nocturnal dyspnea. No orthopnea. No lightheadedness or dizziness. No syncopal episodes. Abdominal: Reports abdominal pain. No nausea, vomiting. No diarrhea. No constipation. No bloody or tarry stools reports loss of appetite. Genitourinary: No dysuria, increased frequency, urgency. No urinary retention. Musculoskeletal: No myalgias. No muscle weakness, no gait dysfunction, no frequent falls. No back pain. No neck pain. Integumentary: No wounds, no lesions. No rash or pruritus. No unusual bruising. No change in hair or nails. Neurologic: No aphasia. No facial droop. No change in mentation. No head injury. No headache. No paralysis. No paresthesia. Psychiatric: No depression. No anxiety. No mood swings. Endocrine: No abnormal blood sugars. No weight change. PHYSICAL EXAMINATION: General: 77-year-old male in no apparent distres HEENT: Head is atraumatic, normocephalic, pupils were equal round reactive to light and recommendation, extraocular muscle movement were intact, sclera nonicteric, conjunctivae were pale, mucous membranes of the mouth are somewhat dry with coated tongue Neck: Supple, no JVP, normal carotid upstroke bilaterally, no lymphadenopathy. Chest: Decreased breath sounds at the bases, few rhonchi, no expiratory wheezes, no chest wall tenderness, no intercostal retractions. Heart: First heart sound is normal, second heart sound is normal there is BRICE 2/6 located at the left sternal border, irregularly irregular Abdomen: Soft, mild tenderness in the right lower quadrant,no rebound or guarding positive bowel souds Extremities: There is no edema no calf tenderness DP +2 bilaterally. Neurologic examination: Patient is awake alert and oriented X3, cranial nerves II-12 appear grossly intact, muscle power were 5 out of 5 in upper extremities and 5 out of 5 in bilateral lower extremities, deep tendon reflexes normal bilaterally. ASSESSMENT AND PLAN: 1. Perforated appendix with phlegmon formation and partial small bowel obstruction. Clear liquid diet, continue patient on IV fluid resuscitation, continue IV antibiotic in the form of Zosyn 3.375 mg piggyback every 8 hours, blood cultures positive for gram-positive cocci in clusters, patient will be maintained on current pain management, hold Eliquis for now monitor patient's symptoms very closely, general surgery is following. Patient would like to have IV antibiotic followed by surgical intervention at a later date. 2. Leukocytosis likely related to appendicitis/perforation/phlegmon formation. Continue IV antibiotic, continue IV fluid, repeat CBC the next 24 hours. 4. Hyponatremia secondary to hypovolemia continue PT CMP tomorrow morning. 5. Coronary artery disease without angina pectoris. Patient will be seen and evaluated by cardiology. Patient will be maintained on atorvastatin 40 mg orally once every day. 6. Mild aortic regurgitation/moderate mitral regurgitation. Patient has been under the care of Dr. Bran for quite some time, he had an echocardiogram this year that showed ejection fraction of 55%. 7. Mixed hyperlipidemia. Continue patient on atorvastatin 40 mg orally once every day. 8. Hypothyroidism. Continue patient on Synthroid 50 g orally once every day. 9. Enlarged prostate. Continue tamsulosin 0.4 mg once every day. 10. Paroxysmal atrial fibrillation. Patient has been off Eliquis general surgery. 11. Mnire disease. Stable. 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 We will hold Ditropan for now. 13. DVT prophylaxis. Bilateral knee-high RENUKA hose. 14. GI prophylaxis. Protonix 40 mg orally once every day. 15. Increase activity. Objective - Vital Signs Vital signs: Vital Signs Temp 98.4 F 02/26/23 01:42 Pulse 50 L 02/26/23 01:42 Resp 20 02/25/23 14:08 BP 111/64 02/26/23 01:42 Pulse Ox 94 L 02/26/23 01:42 FiO2 Intake & Output 02/25/23 02/25/23 02/26/23 06:59 18:59 06:59 Intake Total 1823 Output Total 200 650 Balance -200 1823 -650 Weight 81.647 kg Intake: Intake, IV Titration 1823 Amount Fat Emulsion 20% 250 ml 63 In Empty Bag 1 bag @ 21 mls/hr IV MoTh@0900 [facility] Rx#:[id number] Piperacillin-Tazobactam 3 200 .375 gm In Sodium Chloride 0.9% 100 ml @ 25 mls/hr IVPB Q8H [facility] Rx#: [id number] Sodium Chloride 0.9% 1, 1560 000 ml @ 100 mls/hr IV . Q10H [facility] Rx#:[id number] Output: Urine 200 650 - Labs CBC & Chem 7: 02/26/23 06:26 02/27/23 06:17 Labs: Abnormal Lab Results - Last 24 Hours (Table) 02/25/23 02/25/23 Range/Units 07:19 07:19 WBC 11.94 H (4.50-10.00) X 10*3/uL RBC 4.10 L (4.40-5.60) X 10*6/uL Hgb 12.7 L (13.0-17.0) g/dL Hct 38.6 L (39.6-50.0) % Neutrophils # 9.62 H (1.80-7.70) X 10*3/uL Eosinophils # 0.40 H (0.04-0.35) X 10*3/uL Calcium 8.5 L (8.7-10.3) mg/dL AST 9 L (14-35) U/L Total Protein 5.4 L (6.2-8.2) g/dL Albumin 3.2 L (3.8-4.9) g/dL Albumin/Globulin Ratio 1.45 L (1.60-3.17) Ratio Microbiology - Last 24 Hours (Table) 02/24/23 11:40 Blood Culture Gram Stain - Preliminary Blood Blood Culture - Preliminary 02/24/23 11:50 Blood Culture Gram Stain - Preliminary Blood
[2023-02-27] MEDS: TAMSULOSIN 0.4 MG CAP.ER.24H PO SCH (09:45)
[2023-02-27] MEDS: SIMETHICONE 40 MG/0.6 ML DROPS 2,000 MG/30 ML BOTTLE PO SCH ×4 (09:46→21:27)
[2023-02-27] MEDS: ONDANSETRON 4 MG/2 ML VIAL IVP PRN (09:46)
--- NOTE | 2023-02-27 10:37 | P.PN ---
Subjective Progress Note Date: 02/27/23 NAEON. Mild nausea overnight resolved with zofran. No emesis. No F/C. No SOB or CP. Admits to flatus. No BM. Tolerating CLD. Ambulatory and voiding. States that his abdominal pain is stable. Objective - Vital Signs Vital signs: Vital Signs Temp 97.6 F 02/27/23 07:58 Pulse 57 L 02/27/23 07:58 Resp 16 02/27/23 07:58 BP 119/81 02/27/23 07:58 Pulse Ox 95 02/27/23 07:58 FiO2 Intake & Output 02/26/23 02/27/23 02/27/23 18:59 06:59 18:59 Intake Total 2351.5 1011 Output Total 300 500 Balance 2051.5 511 Weight 81.647 kg Intake: Intake, IV Titration 2351.5 1011 Amount Mvi, Adult No.4 with Vit 1051.5 K 10 ml Trace (Conc-1Ml/ Dose) 1 ml In Amino Acid 5%-D20w+Lytes*E* 1,000 ml @ 30 mls/hr IV .Q24H [facility] Rx#:[id number] Mvi, Adult No.4 with Vit 1011 K 10 ml Trace (Conc-1Ml/ Dose) 1 ml In Amino Acid 5%-D20w+Lytes*E* 1,000 ml @ 90 mls/hr IV .BY DURATION [facility] Rx#: [id number] Piperacillin-Tazobactam 3 100 .375 gm In Sodium Chloride 0.9% 100 ml @ 25 mls/hr IVPB Q8H [facility] Rx#: [id number] Sodium Chloride 0.9% 1, 1200 000 ml @ 100 mls/hr IV . Q10H [facility] Rx#:[id number] Output: Urine 300 500 Other: Voiding Method Urinal # Voids 3 1 - Exam Gen: AxO, NAD Pulm: non-labored respirations Abd: soft, moderately-tender in RLQ, minimally distended, no guarding/rebound/rigidity Extrem: no edema seen - Labs CBC & Chem 7: 02/26/23 06:26 02/27/23 06:17 Labs: Abnormal Lab Results - Last 24 Hours (Table) 02/26/23 02/27/23 Range/Units 06:26 06:17 RBC 3.89 L (4.40-5.60) X 10*6/uL Hgb 12.0 L (13.0-17.0) g/dL Hct 36.2 L (39.6-50.0) % Glucose 151 H (74-99) mg/dL Calcium 8.3 L (8.4-10.2) mg/dL Microbiology - Last 24 Hours (Table) 02/24/23 11:40 Blood Culture Gram Stain - Final Blood Blood Culture - Final Coagulase Negative Staph 02/24/23 11:50 Blood Culture Gram Stain - Final Blood Blood Culture - Final Coagulase Negative Staph Assessment and Plan Assessment: Patient is a 77 year old male who presents with perforated appendicitis Plan: -CLD as tolerated -Continue TPN -Continue IV abx -PRN pain and nausea control -Encourage ambulation -DVT/GI PPx -Continue Inpt care Terrance Cortés MD General Surgery
[2023-02-27] MEDS: ATORVASTATIN 40 MG TAB PO SCH (20:26)
[2023-02-28] MEDS: PIPERACILLIN-TAZOBACTAM 3.375 GM in SODIUM CHLORIDE 0.9% 100 ML IVPB SCH ×3 (03:16→20:17)
[2023-02-28] MEDS: 1: MVI, ADULT NO.4 WITH VIT K 10 ML, TRACE (CONC-1ML/DOSE) 1 ML in AMINO ACID 5%-D20W+LY IV SCH ×6 (03:29→13:59)
[2023-02-28] MEDS: LEVOTHYROXINE 50 MCG TAB PO SCH (05:54)
[2023-02-28] MEDS: SODIUM CHLORIDE 0.9% 1,000 ML IV SCH ×2 (05:57→17:59)
[2023-02-28 07:33] LABS: African American GFR (CKD) >90 (>60 ml/min/1.73 sqM); Anion Gap 9 mmol/L; Blood Urea Nitrogen 17 mg/dL (9-20); Carbon Dioxide 27 mmol/L (22-30); Chloride 105 mmol/L (98-107); Glucose 104 mg/dL (74-99); Non-African American GFR(CKD) 88 (>60 ml/min/1.73 sqM); Phosphorus 3.8 mg/dL (2.5-4.5); Sodium 141 mmol/L (137-145)
[2023-02-28] MEDS: TAMSULOSIN 0.4 MG CAP.ER.24H PO SCH (08:31)
--- NOTE | 2023-02-28 10:03 | P.PN ---
Subjective Progress Note Date: 02/27/23 HISTORY OF PRESENT ILLNESS: This is a 77-year-old male with a previous medical history significant for hypertension and hypertensive cardiovascular disease, hyperlipidemia, hypothyroidism, history of atrial fibrillation, coronary artery disease, mitral regurgitation, aortic regurgitation, has been followed by Dr. Bran on the regular basis, patient presented to the emergency department at [facility] with a 6 day history of abdominal pain in the right lower quadrant associated with poor appetite nausea but no vomiting and not able to have a good bowel movement, apparently patient had contacted our office on Wednesday for an appointment he was referred to the emergency department at the time, apparently the patient did not go since he was feeling a bit better . On Wednesday was feeling better, but on Wednesday morning he developed more pain but he decided to stay home till today when patient went to the ER at [facility] ended up going for computed tomography scan of the abdomen and pelvis that showed ruptured appendix with phlegmon formation and a partial small bowel obstruction he was admitted under general surgery, and consult was placed for medical management. 02/25: Patient is sitting up in bed in no apparent distress, he did try clear liquid diet today, he did have a PICC line placed, who started on TPN, patient was seen in consultation by infectious disease recommended to continue IV antibiotic, we will arrange for home IV antibiotic, he was also consultation by cardiology who recommended to proceed with surgery with no restriction at this point in time, patient did have an echocardiogram in October of this year that showed ejection fraction 55%, moderate mitral regurgitation and mild aortic regurgitation, his last heart catheterization was done in 2009 that showed evidence of mild CAD, patient pain appears to be controlled well with the Tylenol IV and he has been off his Eliquis 02/26:Patient is feeling full with increased distension no pain and has been getting TPN along with liquid diet and the plan for IV ABX at Office and follow up for surgery down the line, we will continue with increased activity, and continue with current treatment plan has been off Eliquis, Abdominal X-ray showed partial vs complete bowel obstruction may need to have surgery . 02/27: Patient is feeling full of this point in time, he is receiving TPN, he continues to run IV antibiotic, he was seen earlier by general surgery, it was recommended to continue and increase activity, patient has not had any bowel movement, he continues to have some pressure in his abdomen, awaiting general surgery for final decision about surgery. REVIEW OF SYSTEMS: Constitutional: No documented fever, no chills, no night sweats. No weight change. No weakness, fatigue or lethargy. No daytime sleepiness. HEENT: No headache. No blurred vision or double vision,no loss of vision. loss of Hearing, ringing in the ears, no dizziness. No nasal drainage or zay estion. No epistaxis. No sore throat. Lungs: No shortness of breath, no cough, no sputum production. No wheezing. Reports dyspnea with activity. Cardiovascular: No chest pain, no lower extremity edema. No palpitations. No paroxysmal nocturnal dyspnea. No orthopnea. No lightheadedness or dizziness. No syncopal episodes. Abdominal: Reports abdominal pain. No nausea, vomiting. No diarrhea. No constipation. No bloody or tarry stools reports loss of appetite. Genitourinary: No dysuria, increased frequency, urgency. No urinary retention. Musculoskeletal: No myalgias. No muscle weakness, no gait dysfunction, no frequent falls. No back pain. No neck pain. Integumentary: No wounds, no lesions. No rash or pruritus. No unusual bruising. No change in hair or nails. Neurologic: No aphasia. No facial droop. No change in mentation. No head injury. No headache. No paralysis. No paresthesia. Psychiatric: No depression. No anxiety. No mood swings. Endocrine: No abnormal blood sugars. No weight change. PHYSICAL EXAMINATION: General: 77-year-old male in no apparent distres HEENT: Head is atraumatic, normocephalic, pupils were equal round reactive to light and recommendation, extraocular muscle movement were intact, sclera nonicteric, conjunctivae were pale, mucous membranes of the mouth are somewhat dry with coated tongue Neck: Supple, no JVP, normal carotid upstroke bilaterally, no lymphadenopathy. Chest: Decreased breath sounds at the bases, few rhonchi, no expiratory wheezes, no chest wall tenderness, no intercostal retractions. Heart: First heart sound is normal, second heart sound is normal there is BRICE 2/6 located at the left sternal border, irregularly irregular Abdomen: Soft, mild tenderness in the right lower quadrant,no rebound or guarding positive bowel souds Extremities: There is no edema no calf tenderness DP +2 bilaterally. Neurologic examination: Patient is awake alert and oriented X3, cranial nerves II-12 appear grossly intact, muscle power were 5 out of 5 in upper extremities and 5 out of 5 in bilateral lower extremities, deep tendon reflexes normal bilaterally. ASSESSMENT AND PLAN: 1. Perforated appendix with phlegmon formation and partial small bowel obstruction. Clear liquid diet, continue patient on IV fluid resuscitation, continue IV antibiotic in the form of Zosyn 3.375 mg piggyback every 8 hours, blood cultures positive for gram-positive cocci in clusters, patient will be maintained on current pain management, hold Eliquis for now monitor patient's symptoms very closely, general surgery is following. Patient would like to have IV antibiotic followed by surgical intervention at a later date. 2. Leukocytosis likely related to appendicitis/perforation/phlegmon formation. Continue IV antibiotic, continue IV fluid, repeat CBC the next 24 hours. 4. Hyponatremia secondary to hypovolemia continue PT CMP tomorrow morning. 5. Coronary artery disease without angina pectoris. Patient will be seen and evaluated by cardiology. Patient will be maintained on atorvastatin 40 mg orally once every day. 6. Mild aortic regurgitation/moderate mitral regurgitation. Patient has been under the care of Dr. Bran for quite some time, he had an echocardiogram this year that showed ejection fraction of 55%. 7. Mixed hyperlipidemia. Continue patient on atorvastatin 40 mg orally once every day. 8. Hypothyroidism. Continue patient on Synthroid 50 g orally once every day. 9. Enlarged prostate. Continue tamsulosin 0.4 mg once every day. 10. Paroxysmal atrial fibrillation. Patient has been off Eliquis general surgery. 11. Mnire disease. Stable. 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 We will hold Ditropan for now. 13. DVT prophylaxis. Bilateral knee-high RENUKA hose. 14. GI prophylaxis. Protonix 40 mg orally once every day. 15. Increase activity. Objective - Vital Signs Vital signs: Vital Signs Temp 97.6 F 02/27/23 07:58 Pulse 57 L 02/27/23 07:58 Resp 16 02/27/23 07:58 BP 119/81 02/27/23 07:58 Pulse Ox 95 02/27/23 07:58 FiO2 Intake & Output 02/26/23 02/27/23 02/27/23 18:59 06:59 18:59 Intake Total 2351.5 1011 Output Total 300 500 Balance 2051.5 511 Weight 81.647 kg Intake: Intake, IV Titration 2351.5 1011 Amount Mvi, Adult No.4 with Vit 1051.5 K 10 ml Trace (Conc-1Ml/ Dose) 1 ml In Amino Acid 5%-D20w+Lytes*E* 1,000 ml @ 30 mls/hr IV .Q24H [facility] Rx#:[id number] Mvi, Adult No.4 with Vit 1011 K 10 ml Trace (Conc-1Ml/ Dose) 1 ml In Amino Acid 5%-D20w+Lytes*E* 1,000 ml @ 90 mls/hr IV .BY DURATION [facility] Rx#: [id number] Piperacillin-Tazobactam 3 100 .375 gm In Sodium Chloride 0.9% 100 ml @ 25 mls/hr IVPB Q8H [facility] Rx#: [id number] Sodium Chloride 0.9% 1, 1200 000 ml @ 100 mls/hr IV . Q10H [facility] Rx#:[id number] Output: Urine 300 500 Other: Voiding Method Urinal # Voids 3 1 - Labs CBC & Chem 7: 02/26/23 06:26 02/28/23 06:20 Labs: Abnormal Lab Results - Last 24 Hours (Table) 02/26/23 02/27/23 Range/Units 06:26 06:17 RBC 3.89 L (4.40-5.60) X 10*6/uL Hgb 12.0 L (13.0-17.0) g/dL Hct 36.2 L (39.6-50.0) % Glucose 151 H (74-99) mg/dL Calcium 8.3 L (8.4-10.2) mg/dL Microbiology - Last 24 Hours (Table) 02/24/23 11:40 Blood Culture Gram Stain - Final Blood Blood Culture - Final Coagulase Negative Staph 02/24/23 11:50 Blood Culture Gram Stain - Final Blood Blood Culture - Final Coagulase Negative Staph
[2023-02-28] MEDS: SIMETHICONE 40 MG/0.6 ML DROPS 2,000 MG/30 ML BOTTLE PO SCH ×4 (10:26→21:18)
--- NOTE | 2023-02-28 10:57 | P.PN ---
Subjective Progress Note Date: 02/28/23 HISTORY OF PRESENT ILLNESS: This is a 77-year-old male with a previous medical history significant for hypertension and hypertensive cardiovascular disease, hyperlipidemia, hypothyroidism, history of atrial fibrillation, coronary artery disease, mitral regurgitation, aortic regurgitation, has been followed by Dr. Bran on the regular basis, patient presented to the emergency department at [facility] with a 6 day history of abdominal pain in the right lower quadrant associated with poor appetite nausea but no vomiting and not able to have a good bowel movement, apparently patient had contacted our office on Wednesday for an appointment he was referred to the emergency department at the time, apparently the patient did not go since he was feeling a bit better . On Wednesday was feeling better, but on Wednesday morning he developed more pain but he decided to stay home till today when patient went to the ER at [facility] ended up going for computed tomography scan of the abdomen and pelvis that showed ruptured appendix with phlegmon formation and a partial small bowel obstruction he was admitted under general surgery, and consult was placed for medical management. 02/25: Patient is sitting up in bed in no apparent distress, he did try clear liquid diet today, he did have a PICC line placed, who started on TPN, patient was seen in consultation by infectious disease recommended to continue IV antibiotic, we will arrange for home IV antibiotic, he was also consultation by cardiology who recommended to proceed with surgery with no restriction at this point in time, patient did have an echocardiogram in October of this year that showed ejection fraction 55%, moderate mitral regurgitation and mild aortic regurgitation, his last heart catheterization was done in 2009 that showed evidence of mild CAD, patient pain appears to be controlled well with the Tylenol IV and he has been off his Eliquis 02/26:Patient is feeling full with increased distension no pain and has been getting TPN along with liquid diet and the plan for IV ABX at Office and follow up for surgery down the line, we will continue with increased activity, and continue with current treatment plan has been off Eliquis, Abdominal X-ray showed partial vs complete bowel obstruction may need to have surgery . 02/27: Patient is feeling full of this point in time, he is receiving TPN, he continues to run IV antibiotic, he was seen earlier by general surgery, it was recommended to continue and increase activity, patient has not had any bowel movement, he continues to have some pressure in his abdomen, awaiting general surgery for final decision about surgery. 02/28: Patient is sitting up in bed in no apparent distress, he has no chest pain, had episode of nausea yesterday he did receive some Zofran, he denies any significant abdominal pain, is passing some gas, he is increasing his activity, continue antibiotic, continue to monitor the patient very closely. Abdominal x-ray showed partial small bowel obstruction. General surgery is following the decision for surgery and the timing is per the surgical team. REVIEW OF SYSTEMS: Constitutional: No documented fever, no chills, no night sweats. No weight change. No weakness, fatigue or lethargy. No daytime sleepiness. HEENT: No headache. No blurred vision or double vision,no loss of vision. loss of Hearing, ringing in the ears, no dizziness. No nasal drainage or congestion. No epistaxis. No sore throat. Lungs: No shortness of breath, no cough, no sputum production. No wheezing. Reports dyspnea with activity. Cardiovascular: No chest pain, no lower extremity edema. No palpitations. No paroxysmal nocturnal dyspnea. No orthopnea. No lightheadedness or dizziness. No syncopal episodes. Abdominal: Reports abdominal pain. No nausea, vomiting. No diarrhea. No constipation. No bloody or tarry stools reports loss of appetite. Genitourinary: No dysuria, increased frequency, urgency. No urinary retention. Musculoskeletal: No myalgias. No muscle weakness, no gait dysfunction, no frequent falls. No back pain. No neck pain. Integumentary: No wounds, no lesions. No rash or pruritus. No unusual bruising. No change in hair or nails. Neurologic: No aphasia. No facial droop. No change in mentation. No head injury. No headache. No paralysis. No paresthesia. Psychiatric: No depression. No anxiety. No mood swings. Endocrine: No abnormal blood sugars. No weight change. PHYSICAL EXAMINATION: General: 77-year-old male in no apparent distres HEENT: Head is atraumatic, normocephalic, pupils were equal round reactive to light and recommendation, extraocular muscle movement were intact, sclera nonicteric, conjunctivae were pale, mucous membranes of the mouth are somewhat dry with coated tongue Neck: Supple, no JVP, normal carotid upstroke bilaterally, no lymphadenopathy. Chest: Decreased breath sounds at the bases, few rhonchi, no expiratory wheezes, no chest wall tenderness, no intercostal retractions. Heart: First heart sound is normal, second heart sound is normal there is BRICE 2/6 located at the left sternal border, irregularly irregular Abdomen: Soft, mild tenderness in the right lower quadrant,no rebound or guarding positive bowel souds Extremities: There is no edema no calf tenderness DP +2 bilaterally. Neurologic examination: Patient is awake alert and oriented X3, cranial nerves II-12 appear grossly intact, muscle power were 5 out of 5 in upper extremities and 5 out of 5 in bilateral lower extremities, deep tendon reflexes normal bilaterally. ASSESSMENT AND PLAN: 1. Perforated appendix with phlegmon formation and partial small bowel obstruction. Clear liquid diet, continue patient on IV fluid resuscitation, continue IV antibiotic in the form of Zosyn 3.375 mg piggyback every 8 hours, blood cultures positive for gram-positive cocci in clusters, patient will be maintained on current pain management, hold Eliquis for now monitor patient's sy mptoms very closely, general surgery is following. Patient would like to have IV antibiotic followed by surgical intervention at a later date. 2. Leukocytosis likely related to appendicitis/perforation/phlegmon formation. Continue IV antibiotic, continue IV fluid, repeat CBC the next 24 hours. 4. Hyponatremia secondary to hypovolemia continue PT CMP tomorrow morning. 5. Coronary artery disease without angina pectoris. Patient will be seen and evaluated by cardiology. Patient will be maintained on atorvastatin 40 mg orally once every day. 6. Mild aortic regurgitation/moderate mitral regurgitation. Patient has been under the care of Dr. Bran for quite some time, he had an echocardiogram this year that showed ejection fraction of 55%. 7. Mixed hyperlipidemia. Continue patient on atorvastatin 40 mg orally once every day. 8. Hypothyroidism. Continue patient on Synthroid 50 g orally once every day. 9. Enlarged prostate. Continue tamsulosin 0.4 mg once every day. 10. Paroxysmal atrial fibrillation. Patient has been off Eliquis general surgery. 11. Mnire disease. Stable. 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 We will hold Ditropan for now. 13. DVT prophylaxis. Bilateral knee-high RENUKA hose. 14. GI prophylaxis. Protonix 40 mg orally once every day. 15. Increase activity. Objective - Vital Signs Vital signs: Vital Signs Temp 98.1 F 02/28/23 07:14 Pulse 74 02/28/23 07:14 Resp 17 02/28/23 07:14 BP 112/62 02/28/23 07:14 Pulse Ox 94 L 02/28/23 07:14 FiO2 Intake & Output 02/27/23 02/28/23 02/28/23 18:59 06:59 18:59 Intake Total 1000 Output Total 700 Balance 300 Intake: Intake, IV Titration 1000 Amount Amino Acid 5%-D20w+Lytes* 1000 E* 1,000 ml @ 90 mls/hr IV .BY DURATION [facility] Rx#: [id number] Output: Urine 700 Other: Voiding Method Toilet Toilet Urinal Urinal # Voids 1 - Labs CBC & Chem 7: 02/26/23 06:26 02/28/23 06:20 Labs: Abnormal Lab Results - Last 24 Hours (Table) 02/28/23 Range/Units 06:20 Glucose 104 H (74-99) mg/dL Calcium 8.0 L (8.4-10.2) mg/dL Microbiology - Last 24 Hours (Table) 02/26/23 06:28 Blood Culture - Preliminary Blood
--- NOTE | 2023-02-28 11:52 | P.PN ---
Progress Note - Text Progress Note Date: 02/28/23 The patient states he feels better. He has had no significant bowel function. On exam vital signs appear stable. Abdomen soft. Postoperative ileus related to acute appendicitis. Patient can receive supportive care.
[2023-02-28] MEDS: ENOXAPARIN 40 MG/0.4 ML SYRINGE SQ SCH (12:49)
[2023-02-28] MEDS: ATORVASTATIN 40 MG TAB PO SCH (20:17)
[2023-03-01] MEDS: 1: MVI, ADULT NO.4 WITH VIT K 10 ML, TRACE (CONC-1ML/DOSE) 1 ML in AMINO ACID 5%-D20W+LY IV SCH ×6 (01:37→14:09)
[2023-03-01] MEDS: PIPERACILLIN-TAZOBACTAM 3.375 GM in SODIUM CHLORIDE 0.9% 100 ML IVPB SCH ×3 (04:22→20:58)
[2023-03-01] MEDS: SODIUM CHLORIDE 0.9% 1,000 ML IV SCH ×2 (04:23→21:05)
[2023-03-01] MEDS: LEVOTHYROXINE 50 MCG TAB PO SCH (06:50)
[2023-03-01 07:03] LABS: ALT 64 U/L (4-49); AST 62 U/L (17-59); African American GFR (CKD) >90 (>60 ml/min/1.73 sqM); Albumin/Globulin Ratio 1.2; Alkaline Phosphatase 58 U/L (38-126); Anion Gap 9 mmol/L; Blood Urea Nitrogen 16 mg/dL (9-20); Calcium 8.4 mg/dL (8.4-10.2); Carbon Dioxide 27 mmol/L (22-30); Chloride 104 mmol/L (98-107); Globulin 2.6 g/dL; Glucose 78 mg/dL (74-99); Magnesium 2.2 mg/dL (1.6-2.3); Non-African American GFR(CKD) 89 (>60 ml/min/1.73 sqM); Phosphorus 3.7 mg/dL (2.5-4.5); Potassium 4.3 mmol/L (3.5-5.1); Sodium 140 mmol/L (137-145); Total Bilirubin 0.6 mg/dL (0.2-1.3); Total Protein 5.6 g/dL (6.3-8.2)
[2023-03-01] MEDS: TAMSULOSIN 0.4 MG CAP.ER.24H PO SCH (08:27)
[2023-03-01] MEDS: SIMETHICONE 40 MG/0.6 ML DROPS 2,000 MG/30 ML BOTTLE PO SCH ×4 (08:28→21:05)
[2023-03-01] MEDS: FAT EMULSION 20% 250 ML in EMPTY BAG 1 BAG IV SCH (08:28)
[2023-03-01] MEDS: ENOXAPARIN 40 MG/0.4 ML SYRINGE SQ SCH ×2 (08:28→08:29)
[2023-03-01 09:10] LABS: Basophils # (A) 0.03 X 10*3/uL (0.00-0.10); Basophils % (A) 0.3 %; Eosinophils # (A) 0.32 X 10*3/uL (0.04-0.35); Eosinophils % (A) 2.8 %; HCT 38.4 % (39.6-50.0); HGB 12.3 g/dL (13.0-17.0); Lymphocytes # (A) 1.29 X 10*3/uL (0.90-5.00); Lymphocytes % (A) 11.1 %; MCH 30.8 pg (27.0-32.0); Mean Platelet Volume 11.6 FL (9.5-12.2); Monocytes % (A) 8.6 %; NRBC Per 100 WBC 0 X 10*3/uL (0.00-0.01); Neutrophils # (A) 8.87 X 10*3/uL (1.80-7.70); Neutrophils % (A) 76.3 %; Platelet Count 225 X 10*3/uL (140-440); RDW 14.6 % (11.5-14.5); WBC 11.61 X 10*3/uL (4.50-10.00)
--- NOTE | 2023-03-01 14:35 | P.PN ---
Subjective Progress Note Date: 03/01/23 CHIEF COMPLAINT: Acute appendicitis with phlegmon HISTORY OF PRESENT ILLNESS: Patient had nausea after the clear liquids on Wednesday. Diet was downgraded to nothing by mouth except for ice. Patient denies any abdominal pain. He has been having bloating. He is passing a small amount of flatus. No bowel movement. Afebrile. WBC elevated at 11.6 Hgb 12.3 platelets 225 PHYSICAL EXAM: VITAL SIGNS: Reviewed GENERAL: Well-developed in no acute distress. HEENT: No sclera icterus. Extraocular movements grossly intact. Moist buccal mucosa. Head is atraumatic, normocephalic. Hears conversational speech. No nasal drainage. NECK: Supple without lymphadenopathy. CHEST: Non-labored respirations and equal bilateral excursions. CARDIOVASCULAR: Palpable 2+ radial pulses. ABDOMEN: Soft. mildly distended. Minimal tenderness right lower quadrant MUSCULOSKELETAL: No clubbing or cyanosis. NEUROLOGIC: No focal or lateralizing signs. Cranial nerves II through XII grossly intact. PSYCH: Appropriate affect. Alert and oriented to person, place and time. SKIN: Well perfused. Good skin turgor. ASSESSMENT: 1. Acute appendicitis with phlegmon 2. Partial distal small bowel obstruction possibly caused by inflammatory changes due to appendicitis noted on CT scan 3. History of multiple inguinal hernia repairs 4. History of atrial fibrillation on Eliquis at home 5. History of Mnire's 6. Hypothyroidism 7. Enlarged prostate PLAN: -Check computed tomography scan abdomen and pelvis with contrast for follow-up on the acute appendicitis with phlegmon and with new elevated white count -Keep patient nothing by mouth except for ice chips and popsicles -Continue TPN for nutrition support -Continue IV antibiotics per ID service -Plan for interval appendectomy -Hold [employer] Physician Geoscientist note has been reviewed by physician. Signing provider agrees with the documented findings, assessment, and plan of care. Objective - Vital Signs Vital signs: Vital Signs Temp 98.0 F 03/01/23 07:24 Pulse 78 03/01/23 08:28 Resp 19 03/01/23 08:28 BP 129/73 03/01/23 07:24 Pulse Ox 91 L 03/01/23 07:24 FiO2 Intake & Output 02/28/23 03/01/23 03/01/23 18:59 06:59 18:59 Intake Total 1000 1011 Output Total 600 1200 900 Balance 400 -189 -900 Weight 81.647 kg Intake: Intake, IV Titration 1000 1011 Amount Amino Acid 5%-D20w+Lytes* 1000 E* 1,000 ml @ 90 mls/hr IV .BY [facility]ATION [facility] Rx#: [id number] Mvi, Adult No.4 with Vit 1011 K 10 ml Trace (Conc-1Ml/ Dose) 1 ml In Amino Acid 5%-D20w+Lytes*E* 1,000 ml @ 90 mls/hr IV .BY [facility] Rx#: [id number] Output: Urine 600 1200 900 Other: Voiding Method Toilet Toilet Toilet Urinal Urinal Urinal # Voids 4 - Labs CBC & Chem 7: 03/01/23 05:39 03/01/23 05:39 Labs: Abnormal Lab Results - Last 24 Hours (Table) 03/01/23 03/01/23 Range/Units 05:39 05:39 WBC 11.61 H (4.50-10.00) X 10*3/uL RBC 4.00 L (4.40-5.60) X 10*6/uL Hgb 12.3 L (13.0-17.0) g/dL Hct 38.4 L (39.6-50.0) % RDW 14.6 H (11.5-14.5) % Immature Gran # 0.10 H (0.00-0.04) X 10*3/uL Neutrophils # 8.87 H (1.80-7.70) X 10*3/uL AST 62 H (17-59) U/L ALT 64 H (4-49) U/L Total Protein 5.6 L (6.3-8.2) g/dL Albumin 3.0 L (3.5-5.0) g/dL Microbiology - Last 24 Hours (Table) 02/26/23 06:28 Blood Culture - Preliminary Blood
--- NOTE | 2023-03-01 15:21 | P.PN ---
Subjective Progress Note Date: 03/01/23 HISTORY OF PRESENT ILLNESS: This is a 77-year-old male with a previous medical history significant for hypertension and hypertensive cardiovascular disease, hyperlipidemia, hypothyroidism, history of atrial fibrillation, coronary artery disease, mitral regurgitation, aortic regurgitation, has been followed by Dr. Bran on the regular basis, patient presented to the emergency department at [facility] with a 6 day history of abdominal pain in the right lower quadrant associated with poor appetite nausea but no vomiting and not able to have a good bowel movement, apparently patient had contacted our office on Wednesday for an appointment he was referred to the emergency department at the time, apparently the patient did not go since he was feeling a bit better . On Wednesday was feeling better, but on Wednesday morning he developed more pain but he decided to stay home till today when patient went to the ER at [facility] ended up going for computed tomography scan of the abdomen and pelvis that showed ruptured appendix with phlegmon formation and a partial small bowel obstruction he was admitted under general surgery, and consult was placed for medical management. 02/25: Patient is sitting up in bed in no apparent distress, he did try clear liquid diet today, he did have a PICC line placed, who started on TPN, patient was seen in consultation by infectious disease recommended to continue IV antibiotic, we will arrange for home IV antibiotic, he was also consultation by cardiology who recommended to proceed with surgery with no restriction at this point in time, patient did have an echocardiogram in October of this year that showed ejection fraction 55%, moderate mitral regurgitation and mild aortic regurgitation, his last heart catheterization was done in 2009 that showed evidence of mild CAD, patient pain appears to be controlled well with the Tylenol IV and he has been off his Eliquis 02/26:Patient is feeling full with increased distension no pain and has been getting TPN along with liquid diet and the plan for IV ABX at Office and follow up for surgery down the line, we will continue with increased activity, and continue with current treatment plan has been off Eliquis, Abdominal X-ray showed partial vs complete bowel obstruction may need to have surgery . 02/27: Patient is feeling full of this point in time, he is receiving TPN, he continues to run IV antibiotic, he was seen earlier by general surgery, it was recommended to continue and increase activity, patient has not had any bowel movement, he continues to have some pressure in his abdomen, awaiting general surgery for final decision about surgery. 02/28: Patient is sitting up in bed in no apparent distress, he has no chest pain, had episode of nausea yesterday he did receive some Zofran, he denies any significant abdominal pain, is passing some gas, he is increasing his activity, continue antibiotic, continue to monitor the patient very closely. Abdominal x-ray showed partial small bowel obstruction. General surgery is following the decision for surgery and the timing is per the surgical team. 03/01: PATIENT CONTINUES TO HAVE ABDOMINAL DISTENTION. hE IS BACK TO NOTHING BY MOUTH EXCEPT FOR ICE CHIPS. nO ABDOMINAL PAIN. iS PASSING ONLY SMALL AMOUNT OF FLATUS. pATIENT HAS BEEN AFEBRILE.heart rate is in the 70s, blood pressure 166/96, pulse ox 96% on room air. the blood work reveals WBC 11.6, hemoglobin 12.3, white count 225. Electrolytes and renal function are within normal limits. AST 62, ALT 64.gEN. SURGERY IS PLANNING2 REPEAT cat SCAN OF THE ABDOMEN AND PELVIS WITH CONTRAST. pATIENT IS CONTINUED ON tpn AND ON iv ANTIBIOTICS. eLIQUIS REMAINS ON HOLD. Appendectomy is pending. REVIEW OF SYSTEMS: Constitutional: No documented fever, no chills, no night sweats. No weight change. No weakness, fatigue or lethargy. No daytime sleepiness. HEENT: No headache. No blurred vision or double vision,no loss of vision. loss of Hearing, ringing in the ears, no dizziness. No nasal drainage or congestion. No epistaxis. No sore throat. Lungs: No shortness of breath, no cough, no sputum production. No wheezing. Reports dyspnea with activity. Cardiovascular: No chest pain, no lower extremity edema. No palpitations. No paroxysmal nocturnal dyspnea. No orthopnea. No lightheadedness or dizziness. No syncopal episodes. Abdominal: Reports no abdominal pain. No nausea, vomiting. No diarrhea. No constipation. No bloody or tarry stools reports loss of appetite. Genitourinary: No dysuria, increased frequency, urgency. No urinary retention. Musculoskeletal: No myalgias. No muscle weakness, no gait dysfunction, no frequent falls. No back pain. No neck pain. Integumentary: No wounds, no lesions. No rash or pruritus. No unusual bruising. No change in hair or nails. Neurologic: No aphasia. No facial droop. No change in mentation. No head injury. No headache. No paralysis. No paresthesia. Psychiatric: No depression. No anxiety. No mood swings. Endocrine: No abnormal blood sugars. No weight change. PHYSICAL EXAMINATION: General: 77-year-old male in no apparent distres HEENT: Head is atraumatic, normocephalic, pupils were equal round reactive to light and recommendation, extraocular muscle movement were intact, sclera nonicteric, conjunctivae were pale, mucous membranes of the mouth are somewhat dry with coated tongue Neck: Supple, no JVP, normal carotid upstroke bilaterally, no lymphadenopathy. Chest: Decreased breath sounds at the bases, few rhonchi, no expiratory wheezes, no chest wall tenderness, no intercostal retractions. Heart: First heart sound is normal, second heart sound is normal there is BRICE 2/6 located at the left sternal border, irregularly irregular Abdomen: Soft, mild tenderness in the right lower quadrant,no rebound or guarding, + abd distension, positive bowel souds Extremities: There is no edema no calf tenderness DP +2 bilaterally. Neurologic examination: Patient is awake alert and oriented X3, cranial nerves II-12 appear grossly intact, muscle power were 5 out of 5 in upper extremities and 5 out of 5 in bilateral lower extremities, deep tendon reflexes normal bilaterally. ASSESSMENT AND PLAN: 1. Perforated appendix with phlegmon formation and partial small bowel obstruction. nothing by mouth except for ice chips, continue patient on IV fluid resuscitation, continue IV antibiotic in the form of Zosyn 3.375 mg piggyback every 8 hours, blood cultures positive for gram-positive cocci in clusters, patient will be maintained on current pain management, hold Eliquis for now monitor patient's symptoms very closely, general surgery is following. Patient would like to have IV antibiotic followed by surgical intervention at a later date.patient is on TPN for nutritional support 2. Leukocytosis likely related to appendicitis/perforation/phlegmon formation. Continue IV antibiotic, continue IV fluid, repeat CBC the next 24 hours. 4. Hyponatremia secondary to hypovolemia continue PT CMP tomorrow morning. 5. Coronary artery disease without angina pectoris. Patient will be seen and evaluated by cardiology. Patient will be maintained on atorvastatin 40 mg orally once every day. 6. Mild aortic regurgitation/moderate mitral regurgitation. Patient has been under the care of Dr. Bran for quite some time, he had an echocardiogram this year that showed ejection fraction of 55%. 7. Mixed hyperlipidemia. Continue patient on atorvastatin 40 mg orally once every day. 8. Hypothyroidism. Continue patient on Synthroid 50 g orally once every day. 9. Enlarged prostate. Continue tamsulosin 0.4 mg once every day. 10. Paroxysmal atrial fibrillation. Patient has been off Eliquis. 11. Mnire disease. Stable. 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 We will hold Ditropan for now. 13. DVT prophylaxis. Bilateral knee-high RENUKA hose. 14. GI prophylaxis. Protonix 40 mg orally once every day. 15. Increase activity. Impression and plan of care have been directed as dictated by the signing physician. Loan Mccollum nurse practitioner acting as scribe for signing physician. Objective - Vital Signs Vital signs: Vital Signs Temp 98.0 F 03/01/23 07:24 Pulse 78 03/01/23 08:28 Resp 19 03/01/23 08:28 BP 129/73 03/01/23 07:24 Pulse Ox 91 L 03/01/23 07:24 FiO2 Intake & Output 02/28/23 03/01/23 03/01/23 18:59 06:59 18:59 Intake Total 1000 Output Total 600 1200 900 Balance 400 -1200 -900 Intake: Intake, IV Titration 1000 Amount Amino Acid 5%-D20w+Lytes* 1000 E* 1,000 ml @ 90 mls/hr IV .BY DURATION [facility] Rx#: [id number] Output: Urine 600 1200 900 Other: Voiding Method Toilet Toilet Toilet Urinal Urinal Urinal # Voids 4 - Labs CBC & Chem 7: 03/01/23 05:39 03/01/23 05:39 Labs: Abnormal Lab Results - Last 24 Hours (Table) 03/01/23 03/01/23 Range/Units 05:39 05:39 WBC 11.61 H (4.50-10.00) X 10*3/uL RBC 4.00 L (4.40-5.60) X 10*6/uL Hgb 12.3 L (13.0-17.0) g/dL Hct 38.4 L (39.6-50.0) % RDW 14.6 H (11.5-14.5) % Immature Gran # 0.10 H (0.00-0.04) X 10*3/uL Neutrophils # 8.87 H (1.80-7.70) X 10*3/uL AST 62 H (17-59) U/L ALT 64 H (4-49) U/L Total Protein 5.6 L (6.3-8.2) g/dL Albumin 3.0 L (3.5-5.0) g/dL Microbiology - Last 24 Hours (Table) 02/26/23 06:28 Blood Culture - Preliminary Blood
[2023-03-01] MEDS: IOPAMIDOL CONTRAST (ORAL USE) VIAL PO PRN ×2 (15:36→16:35)
--- NOTE | 2023-03-01 17:39 | CT ---
EXAMINATION TYPE: CT abdomen pelvis w con DATE OF EXAM: 03/01/2023 COMPARISON: 02/24/2023 HISTORY: elevated WBCs CT DLP: 864.2 mGycm CONTRAST: CT scan of the abdomen and pelvis is performed with Oral Contrast and with IV Contrast, patient injec alisia with 100 mL of Isovue 300. FINDINGS: LUNG BASES-: No visible nodule. No infiltrate. LIVER/GB: Gallbladder distention without definite cholelithiasis. Mild intrahepatic biliary ductal di latation noted. No space occupying hepatic lesion. Biliary tree is of normal caliber. PANCREAS: No inflammation. No distinct mass. SPLEEN: No splenic enlargement. No lesion seen. ADRENALS: No nodule. No thickening. KIDNEYS/BLADDER: No hydronephrosis. No nephrolithiasis. No distinct renal mass. Reactive wall thic kening right wall of the urinary bladder. BOWEL: There is thick walled loculated abscess within the right lower quadrant measuring approximatel y 5.0 x 5.5 x 6.0 cm compatible with the abscess. There appears to be a dilated and inflamed appendix with the least 2 appendicoliths noted. Mural abscess of the appendix is difficult to exclude. There is dilated small bowel likely reflecting ileus. Small amount of free fluid within the pelvis. GENITAL ORGANS: No gross abnormality. LYMPH NODES: No greater than 1cm abdominal or pelvic lymph nodes are appreciated. AORTA: No significant abnormality. OSSEOUS STRUCTURES: No significant abnormality is seen. OTHER: No significant additional abnormality is seen. IMPRESSION: 1. Findings compatible with ruptured appendicitis and adjacent abscess. 2. Small bowel ileus. Is
[2023-03-01] MEDS: ATORVASTATIN 40 MG TAB PO SCH (20:58)
[2023-03-02] MEDS: SODIUM CHLORIDE 0.9% 1,000 ML IV SCH ×3 (01:05→20:04)
[2023-03-02] MEDS: 1: MVI, ADULT NO.4 WITH VIT K 10 ML, TRACE (CONC-1ML/DOSE) 1 ML in AMINO ACID 5%-D20W+LY IV SCH ×9 (02:17→22:48)
[2023-03-02] MEDS: PIPERACILLIN-TAZOBACTAM 3.375 GM in SODIUM CHLORIDE 0.9% 100 ML IVPB SCH ×3 (04:18→20:54)
[2023-03-02] MEDS: LEVOTHYROXINE 50 MCG TAB PO SCH (06:17)
[2023-03-02 07:32] LABS: African American GFR (CKD) >90 (>60 ml/min/1.73 sqM); Anion Gap 8 mmol/L; Blood Urea Nitrogen 16 mg/dL (9-20); Calcium 8.2 mg/dL (8.4-10.2); Carbon Dioxide 25 mmol/L (22-30); Chloride 107 mmol/L (98-107); Glucose 144 mg/dL (74-99); Magnesium 2.2 mg/dL (1.6-2.3); Non-African American GFR(CKD) >90 (>60 ml/min/1.73 sqM); Phosphorus 3.4 mg/dL (2.5-4.5); Sodium 140 mmol/L (137-145)
[2023-03-02] MEDS: TAMSULOSIN 0.4 MG CAP.ER.24H PO SCH (08:31)
[2023-03-02] MEDS: ENOXAPARIN 40 MG/0.4 ML SYRINGE SQ SCH (08:31)
[2023-03-02] MEDS: SIMETHICONE 40 MG/0.6 ML DROPS 2,000 MG/30 ML BOTTLE PO SCH ×4 (08:32→20:55)
[2023-03-02 09:56] LABS: Basophils % (A) 0 %; Eosinophils # (A) 0.4 k/uL (0-0.7); Eosinophils % (A) 3 %; HCT 37.5 % (39.0-53.0); HGB 12.3 gm/dL (13.0-17.5); Lymphocytes % (A) 10 %; MCH 31.8 pg (25.0-35.0); MCHC 32.9 g/dL (31.0-37.0); MCV 96.8 fL (80.0-100.0); Monocytes # (A) 0.5 k/uL (0-1.0); Monocytes % (A) 5 %; Neutrophils # (A) 8.3 k/uL (1.3-7.7); Neutrophils % (A) 80 %; Platelet Count 211 k/uL (150-450); RBC 3.88 m/uL (4.30-5.90); RDW 13.8 % (11.5-15.5); WBC 10.4 k/uL (3.8-10.6)
--- NOTE | 2023-03-02 14:07 | P.PN ---
Subjective Progress Note Date: 03/02/23 CHIEF COMPLAINT: Acute appendicitis with phlegmon HISTORY OF PRESENT ILLNESS: Patient had computed tomography scan abdomen and pelvis completed the reported findings compatible with ruptured appendicitis and adjacent abscess. Small bowel ileus. Patient reports some abdominal bloating. Denies any significant abdominal pain. Denies any nausea or vomiting. Having a small amount of flatus. No bowel movement. Afebrile. WBC is down from 11.6- 10.4 PHYSICAL EXAM: VITAL SIGNS: Reviewed GENERAL: Well-developed in no acute distress. HEENT: No sclera icterus. Extraocular movements grossly intact. Moist buccal mucosa. Head is atraumatic, normocephalic. Hears conversational speech. No nasal denver inage. NECK: Supple without lymphadenopathy. CHEST: Non-labored respirations and equal bilateral excursions. CARDIOVASCULAR: Palpable 2+ radial pulses. ABDOMEN: Soft. mildly distended. Minimal tenderness right lower quadrant MUSCULOSKELETAL: No clubbing or cyanosis. NEUROLOGIC: No focal or lateralizing signs. Cranial nerves II through XII grossly intact. PSYCH: Appropriate affect. Alert and oriented to person, place and time. SKIN: Well perfused. Good skin turgor. ASSESSMENT: 1. Acute appendicitis with phlegmon 2. Partial distal small bowel obstruction possibly caused by inflammatory changes due to appendicitis noted on CT scan 3. History of multiple inguinal hernia repairs 4. History of atrial fibrillation on Eliquis at home 5. History of Mnire's 6. Hypothyroidism 7. Enlarged prostate PLAN: -Patient evaluated by interventional radiology they are unable to drain the abscess. -Further recommendations forthcoming per surgeon -Keep patient nothing by mouth except for ice chips and popsicles -Continue TPN for nutrition support -Continue IV antibiotics per ID service -Plan for interval appendectomy -Hold [employer] Physician Mmi Teacher note has been reviewed by physician. Signing provider agrees with the documented findings, assessment, and plan of care. Objective - Vital Signs Vital signs: Vital Signs Temp 98.3 F 03/02/23 07:33 Pulse 70 03/02/23 07:45 Resp 18 03/02/23 07:45 BP 119/69 03/02/23 07:33 Pulse Ox 91 L 03/02/23 07:33 FiO2 Intake & Output 03/01/23 03/02/23 03/02/23 18:59 06:59 18:59 Intake Total 1000 Output Total 900 400 Balance 100 -400 Weight 81.647 kg Intake: Intake, IV Titration 1000 Amount Amino Acid 5%-D20w+Lytes* 1000 E* 1,000 ml @ 90 mls/hr IV .BY DURATION [facility] Rx#: [id number] Output: Urine 900 400 Other: Voiding Method Toilet Toilet Toilet Urinal Urinal Urinal - Labs CBC & Chem 7: 03/02/23 06:06 03/02/23 06:06 Labs: Abnormal Lab Results - Last 24 Hours (Table) 03/02/23 03/02/23 Range/Units 06:06 06:06 RBC 3.88 L (4.30-5.90) m/uL Hgb 12.3 L (13.0-17.5) gm/dL Hct 37.5 L (39.0-53.0) % Neutrophils # 8.3 H (1.3-7.7) k/uL Glucose 144 H (74-99) mg/dL Calcium 8.2 L (8.4-10.2) mg/dL Microbiology - Last 24 Hours (Table) 02/26/23 06:28 Blood Culture - Preliminary Blood
--- NOTE | 2023-03-02 16:23 | P.PN ---
Subjective Progress Note Date: 02/26/23 Principal diagnosis: Reason for follow-up is ruptured appendicitis with phlegmon and positive blood culture Patient is a 77-year-old male with a past medical history significant for reflux atrial fibrillation hyperlipidemia history of prostate disorder the patient presented to hospital for evaluation of abdominal pain has been diagnosed with the appendicitis with a partial small bowel obstruction surgery recommended antibiotics and delayed appendectomy On today's evaluation and that is 02/26/2023, the patient denies having any fever or any chills, the patient is breathing comfortably on room air, the patient abdominal pain has decreased in intensity has been complaining of mostly gas patient denies having any nausea vomiting or chest pain shortness of breath or cough. Patient white count is 9.28 creatinine 0.72 Objective - Vital Signs Vital signs: Vital Signs Temp 97.7 F 02/26/23 07:05 Pulse 66 02/26/23 07:47 Resp 18 02/26/23 07:05 BP 110/69 02/26/23 07:05 Pulse Ox 96 02/26/23 07:05 FiO2 Intake & Output 02/25/23 02/26/23 02/26/23 18:59 06:59 18:59 Intake Total 1823 1010 Output Total 850 Balance 1823 160 Weight 81.647 kg Intake: Intake, IV Titration 1823 1010 Amount Fat Emulsion 20% 250 ml 63 250 In Empty Bag 1 bag @ 21 mls/hr IV MoTh@0900 [facility] Rx#:[id number] Mvi, Adult No.4 with Vit 360 K 10 ml Trace (Conc-1Ml/ Dose) 1 ml In Amino Acid 5%-D20w+Lytes*E* 1,000 ml @ 30 mls/hr IV .Q24H [facility] Rx#:[id number] Piperacillin-Tazobactam 3 200 .375 gm In Sodium Chloride 0.9% 100 ml @ 25 mls/hr IVPB Q8H [facility] Rx#: [id number] Sodium Chloride 0.9% 1, 1560 400 000 ml @ 100 mls/hr IV . Q10H [facility] Rx#:[id number] Output: Urine 850 Other: Voiding Method Urinal - Exam GENERAL DESCRIPTION: An elderly male lying in bed in no distress RESPIRATORY SYSTEM: Unlabored breathing , clear to auscultation anteriorly HEART: S1 S2 regular rate and rhythm , ABDOMEN: Soft , mild distention EXTREMITIES: No edema feet - Labs CBC & Chem 7: 03/02/23 06:06 03/02/23 06:06 Labs: Abnormal Lab Results - Last 24 Hours (Table) 02/26/23 Range/Units 06:26 RBC 3.89 L (4.40-5.60) X 10*6/uL Hgb 12.0 L (13.0-17.0) g/dL Hct 36.2 L (39.6-50.0) % Microbiology - Last 24 Hours (Table) 02/24/23 11:40 Blood Culture Gram Stain - Preliminary Blood Blood Culture - Preliminary 02/24/23 11:50 Blood Culture Gram Stain - Preliminary Blood Assessment and Plan (1) Positive blood culture Current Visit: Yes Status: Acute Code(s): R78.81 - BACTEREMIA SNOMED Code(s): 254040385 (2) Acute appendicitis Current Visit: Yes Status: Acute Code(s): K35.80 - UNSPECIFIED ACUTE APPENDICITIS SNOMED Code(s): 95324293 Plan: 1patient was in the hospital abdominal pain and this patient has been diagnosed with possible perforated appendicitis with the amount and inflammatory changes in the pelvis seen on the CT, patient is on Eliquis and requested to be high risk of bleeding General surgery has evaluated the patient and recommending IV antibiotic and interval appendectomy we will need to cover for the enteric gram- negative both aerobes and anaerobes 2-patient is afebrile and the patient white count has normalized, patient to continue with Zosyn and monitor clinical course closely Dictation was produced using [employer] dictation software. please excuse any grammatical, word or spelling errors. Time with Patient: Less than 30
--- NOTE | 2023-03-02 16:25 | P.PN ---
Subjective Progress Note Date: 02/27/23 Principal diagnosis: Reason for follow-up is ruptured appendicitis with phlegmon and positive blood culture This is a telehealth visit Patient is a 77-year-old male with a past medical history significant for reflux atrial fibrillation hyperlipidemia history of prostate disorder the patient presented to hospital for evaluation of abdominal pain has been diagnosed with the appendicitis with a partial small bowel obstruction surgery recommended antibiotics and delayed appendectomy On today's evaluation and that is 02/27/2023, the patient remains to be afebrile, the patient is breathing comfortably on room air without need for supplemental oxygen, the patient denies abdominal pain has been complaining of mostly gas patient denies having any nausea vomiting or chest pain shortness of breath or cough. Patient white count is 9.28 as of 02/26/2023 creatinine 0.75 Objective - Vital Signs Vital signs: Vital Signs Temp 97.5 F L 02/27/23 13:37 Pulse 72 02/27/23 13:37 Resp 16 02/27/23 13:37 BP 120/62 02/27/23 13:37 Pulse Ox 99 02/27/23 13:37 FiO2 Intake & Output 02/27/23 02/27/23 02/28/23 06:59 18:59 06:59 Intake Total 1011 Output Total 500 700 Balance 511 -700 Intake: Intake, IV Titration 1011 Amount Mvi, Adult No.4 with Vit 1011 K 10 ml Trace (Conc-1Ml/ Dose) 1 ml In Amino Acid 5%-D20w+Lytes*E* 1,000 ml @ 90 mls/hr IV .BY DURATION [facility] Rx#: [id number] Output: Urine 500 700 Other: Voiding Method Toilet Urinal # Voids 1 - Exam GENERAL DESCRIPTION: An elderly male lying in bed in no distress RESPIRATORY SYSTEM: Unlabored breathing , clear to auscultation anteriorly HEART: S1 S2 regular rate and rhythm , ABDOMEN: Soft , mild distention EXTREMITIES: No edema feet Exam completed with the help of TRAVELING REPRESENTATIVE - Labs CBC & Chem 7: 03/02/23 06:06 03/02/23 06:06 Labs: Abnormal Lab Results - Last 24 Hours (Table) 02/27/23 Range/Units 06:17 Glucose 151 H (74-99) mg/dL Calcium 8.3 L (8.4-10.2) mg/dL Microbiology - Last 24 Hours (Table) 02/26/23 06:28 Blood Culture - Preliminary Blood Assessment and Plan (1) Positive blood culture Current Visit: Yes Status: Acute Code(s): R78.81 - BACTEREMIA SNOMED Code(s): 884428567 (2) Acute appendicitis Current Visit: Yes Status: Acute Code(s): K35.80 - UNSPECIFIED ACUTE APPENDICITIS SNOMED Code(s): 11447556 Plan: 1patient was in the hospital abdominal pain and this patient has been diagnosed with possible perforated appendicitis with the amount and inflammatory changes in the pelvis seen on the CT, patient is on Eliquis and requested to be high ri sk of bleeding General surgery has evaluated the patient and recommending IV antibiotic and interval appendectomy we will need to cover for the enteric gram- negative both aerobes and anaerobes 2-patient is afebrile and the patient white count has normalized as of yesterday, patient to continue with Zosyn waiting for resolution of his ileus before discharge Dictation was produced using [employer] dictation software. please excuse any grammatical, word or spelling errors. Time with Patient: Less than 30
--- NOTE | 2023-03-02 16:26 | P.PN ---
Subjective Progress Note Date: 02/28/23 Principal diagnosis: Reason for follow-up is ruptured appendicitis with phlegmon and positive blood culture This is a telehealth visit Patient is a 77-year-old male with a past medical history significant for reflux atrial fibrillation hyperlipidemia history of prostate disorder the patient presented to hospital for evaluation of abdominal pain has been diagnosed with the appendicitis with a partial small bowel obstruction surgery recommended antibiotics and delayed appendectomy On today's evaluation and that is 02/28/2023, the patient denies any fever or chills, the patient is breathing comfortably on room air, the patient still complaining mostly of unable to pass gas patient denies having any nausea vomiting or chest pain shortness of breath or cough. Patient white count is 9.28 as of 02/26/2023 creatinine 0.75 Objective - Vital Signs Vital signs: Vital Signs Temp 98.1 F 02/28/23 07:14 Pulse 74 02/28/23 07:14 Resp 17 02/28/23 07:14 BP 112/62 02/28/23 07:14 Pulse Ox 94 L 02/28/23 07:14 FiO2 Intake & Output 02/27/23 02/28/23 02/28/23 18:59 06:59 18:59 Intake Total 1000 Output Total 700 Balance 300 Intake: Intake, IV Titration 1000 Amount Amino Acid 5%-D20w+Lytes* 1000 E* 1,000 ml @ 90 mls/hr IV .BY DURATION [facility] Rx#: [id number] Output: Urine 700 Other: Voiding Method Toilet Toilet Urinal Urinal # Voids 1 - Exam GENERAL DESCRIPTION: An elderly male lying in bed in no distress RESPIRATORY SYSTEM: Unlabored breathing , clear to auscultation anteriorly HEART: S1 S2 regular rate and rhythm , ABDOMEN: Soft , mild distention EXTREMITIES: No edema feet Exam completed with the help of PORTFOLIO STRATEGIST - Labs CBC & Chem 7: 03/02/23 06:06 03/02/23 06:06 Labs: Abnormal Lab Results - Last 24 Hours (Table) 02/28/23 Range/Units 06:20 Glucose 104 H (74-99) mg/dL Calcium 8.0 L (8.4-10.2) mg/dL Microbiology - Last 24 Hours (Table) 02/26/23 06:28 Blood Culture - Preliminary Blood Assessment and Plan (1) Positive blood culture Current Visit: Yes Status: Acute Code(s): R78.81 - BACTEREMIA SNOMED Code(s): 137512851 (2) Acute appendicitis Current Visit: Yes Status: Acute Code(s): K35.80 - UNSPECIFIED ACUTE APPENDICITIS SNOMED Code(s): 78834253 Plan: 1patient was in the hospital abdominal pain and this patient has been diagnosed with possible perforated appendicitis with the amount and inflammatory changes in the pelvis seen on the CT, patient is on Eliquis and requested to be high risk of bleeding General surgery has evaluated the patient and recommending IV antibiotic and interval appendectomy we will need to cover for the enteric gram- negative both aerobes and anaerobes 2-patient is afebrile and the patient white count has normalized as of 02/26/2023 3- patient to continue with Zosyn waiting for resolution of his ileus before discharge, question and concerns answered Dictation was produced using [employer] dictation software. please excuse any grammatical, word or spelling errors. Time with Patient: Less than 30
--- NOTE | 2023-03-02 16:28 | P.PN ---
Subjective Progress Note Date: 03/01/23 Principal diagnosis: Reason for follow-up is ruptured appendicitis with phlegmon and positive blood culture Patient is a 77-year-old male with a past medical history significant for reflux atrial fibrillation hyperlipidemia history of prostate disorder the patient presented to hospital for evaluation of abdominal pain has been diagnosed with the appendicitis with a partial small bowel obstruction surgery recommended antibiotics and delayed appendectomy On today's evaluation and that is 03/01/2023, the patient remains to be afebrile, the patient is breathing comfortably on room air, the patient complaining of some abdominal discomfort today did have some nausea but no vomiting still have no bowel movement no chest pain shortness of breath or cough Patient white count is slightly up to 11.61 today, creatinine 0.73 Objective - Vital Signs Vital signs: Vital Signs Temp 98.0 F 03/01/23 07:24 Pulse 78 03/01/23 08:28 Resp 19 03/01/23 08:28 BP 129/73 03/01/23 07:24 Pulse Ox 91 L 03/01/23 07:24 FiO2 Intake & Output 02/28/23 03/01/23 03/01/23 18:59 06:59 18:59 Intake Total 1000 Output Total 600 1200 900 Balance 400 -1200 -900 Intake: Intake, IV Titration 1000 Amount Amino Acid 5%-D20w+Lytes* 1000 E* 1,000 ml @ 90 mls/hr IV .BY DURATION [facility] Rx#: [id number] Output: Urine 600 1200 900 Other: Voiding Method Toilet Toilet Toilet Urinal Urinal Urinal # Voids 4 - Exam GENERAL DESCRIPTION: An elderly male lying in bed in no distress RESPIRATORY SYSTEM: Unlabored breathing , clear to auscultation anteriorly HEART: S1 S2 regular rate and rhythm , ABDOMEN: Soft , mild distention but no tenderness EXTREMITIES: No edema feet - Labs CBC & Chem 7: 03/02/23 06:06 03/02/23 06:06 Labs: Abnormal Lab Results - Last 24 Hours (Table) 03/01/23 03/01/23 Range/Units 05:39 05:39 WBC 11.61 H (4.50-10.00) X 10*3/uL RBC 4.00 L (4.40-5.60) X 10*6/uL Hgb 12.3 L (13.0-17.0) g/dL Hct 38.4 L (39.6-50.0) % RDW 14.6 H (11.5-14.5) % Immature Gran # 0.10 H (0.00-0.04) X 10*3/uL Neutrophils # 8.87 H (1.80-7.70) X 10*3/uL AST 62 H (17-59) U/L ALT 64 H (4-49) U/L Total Protein 5.6 L (6.3-8.2) g/dL Albumin 3.0 L (3.5-5.0) g/dL Microbiology - Last 24 Hours (Table) 02/26/23 06:28 Blood Culture - Preliminary Blood Assessment and Plan (1) Positive blood culture Current Visit: Yes Status: Acute Code(s): R78.81 - BACTEREMIA SNOMED Code(s): 953404504 (2) Acute appendicitis Current Visit: Yes Status: Acute Code(s): K35.80 - UNSPECIFIED ACUTE APPENDICITIS SNOMED Code(s): 71745821 Plan: 1patient was in the hospital abdominal pain and this patient has been diagnosed with possible perforated appendicitis with the amount and inflammatory changes in the pelvis seen on the CT, patient is on Eliquis and requested to be high risk of bleeding General surgery has evaluated the patient and recommending IV antibiotic and interval appendectomy we will need to cover for the enteric gram-negative both aerobes and anaerobes 2-patient is afebrile however the patient was noted to have slight worsening of the white count 3- patient to continue with Zosyn CT abdominal pelvis has been ordered results will be followed multiple questions concerned answered in Layman terms Dictation was produced using trend.lyation software. please excuse any grammatical, word or spelling errors.
--- NOTE | 2023-03-02 16:29 | P.PN ---
Subjective Progress Note Date: 03/02/23 Principal diagnosis: Reason for follow-up is ruptured appendicitis with phlegmon and positive blood culture Patient is a 77-year-old male with a past medical history significant for reflux atrial fibrillation hyperlipidemia history of prostate disorder the patient presented to hospital for evaluation of abdominal pain has been diagnosed with the appendicitis with a partial small bowel obstruction surgery recommended antibiotics and delayed appendectomy On today's evaluation and that is 03/02/2023, the patient remains to be afebrile, the patient is breathing comfortably on room air, the patient denies any chest pain shortness of breath or cough, the patient denies having any nausea or vomiting and abdominal discomfort has decreased in intensity and he did have a small bowel movement Patient white count normalized to 10.4, creatinine 0.68 Objective - Vital Signs Vital signs: Vital Signs Temp 98.3 F 03/02/23 07:33 Pulse 70 03/02/23 07:45 Resp 18 03/02/23 07:45 BP 119/69 03/02/23 07:33 Pulse Ox 91 L 03/02/23 07:33 FiO2 Intake & Output 03/01/23 03/02/23 03/02/23 18:59 06:59 18:59 Intake Total 1000 Output Total 900 400 Balance 100 -400 Weight 81.647 kg Intake: Intake, IV Titration 1000 Amount Amino Acid 5%-D20w+Lytes* 1000 E* 1,000 ml @ 90 mls/hr IV .BY DURATION [facility] Rx#: [id number] Output: Urine 900 400 Other: Voiding Method Toilet Toilet Toilet Urinal Urinal Urinal - Exam GENERAL DESCRIPTION: An elderly male lying in bed in no distress RESPIRATORY SYSTEM: Unlabored breathing , clear to auscultation anteriorly HEART: S1 S2 regular rate and rhythm , ABDOMEN: Soft , mild distention but no tenderness EXTREMITIES: No edema feet - Labs CBC & Chem 7: 03/02/23 06:06 03/02/23 06:06 Labs: Abnormal Lab Results - Last 24 Hours (Table) 03/02/23 03/02/23 Range/Units 06:06 06:06 RBC 3.88 L (4.30-5.90) m/uL Hgb 12.3 L (13.0-17.5) gm/dL Hct 37.5 L (39.0-53.0) % Neutrophils # 8.3 H (1.3-7.7) k/uL Glucose 144 H (74-99) mg/dL Calcium 8.2 L (8.4-10.2) mg/dL Microbiology - Last 24 Hours (Table) 02/26/23 06:28 Blood Culture - Preliminary Blood Assessment and Plan (1) Positive blood culture Current Visit: Yes Status: Acute Code(s): R78.81 - BACTEREMIA SNOMED Code(s): 836816144 (2) Acute appendicitis Current Visit: Yes Status: Acute Code(s): K35.80 - UNSPECIFIED ACUTE APPENDICITIS SNOMED Code(s): 68017296 Plan: 1patient was in the hospital abdominal pain and this patient has been diagnosed with possible perforated appendicitis with the amount and inflammatory changes in the pelvis seen on the CT, patient is on Eliquis and requested to be high risk of bleeding General surgery has evaluated the patient and recommending IV antibiotic and interval appendectomy we will need to cover for the enteric gram- negative both aerobes and anaerobes 2-patient repeat CT abdominal pelvis today shows evidence of ruptured appendicitis and periappendicular abscess 3- patient to continue with Zosyn ,IR has been consulted for drainage of this abscess abscess fluid should be sent for culture Dictation was produced using [employer] dictation software. please excuse any grammatical, word or spelling errors. Time with Patient: Less than 30
--- NOTE | 2023-03-02 16:50 | P.PN ---
Subjective Progress Note Date: 03/02/23 HISTORY OF PRESENT ILLNESS: This is a 77-year-old male with a previous medical history significant for hypertension and hypertensive cardiovascular disease, hyperlipidemia, hypothyroidism, history of atrial fibrillation, coronary artery disease, mitral regurgitation, aortic regurgitation, has been followed by Dr. Bran on the regular basis, patient presented to the emergency department at [facility] with a 6 day history of abdominal pain in the right lower quadrant associated with poor appetite nausea but no vomiting and not able to have a good bowel movement, apparently patient had contacted our office on Wednesday for an appointment he was referred to the emergency department at the time, apparently the patient did not go since he was feeling a bit better . On Wednesday was feeling better, but on Wednesday morning he developed more pain but he decided to stay home till today when patient went to the ER at [facility] ended up going for computed tomography scan of the abdomen and pelvis that showed ruptured appendix with phlegmon formation and a partial small bowel obstruction he was admitted under general surgery, and consult was placed for medical management. 02/25: Patient is sitting up in bed in no apparent distress, he did try clear liquid diet today, he did have a PICC line placed, who started on TPN, patient was seen in consultation by infectious disease recommended to continue IV antibiotic, we will arrange for home IV antibiotic, he was also consultation by cardiology who recommended to proceed with surgery with no restriction at this point in time, patient did have an echocardiogram in October of this year that showed ejection fraction 55%, moderate mitral regurgitation and mild aortic regurgitation, his last heart catheterization was done in 2009 that showed evidence of mild CAD, patient pain appears to be controlled well with the Tylenol IV and he has been off his Eliquis 02/26:Patient is feeling full with increased distension no pain and has been getting TPN along with liquid diet and the plan for IV ABX at Office and follow up for surgery down the line, we will continue with increased activity, and continue with current treatment plan has been off Eliquis, Abdominal X-ray showed partial vs complete bowel obstruction may need to have surgery . 02/27: Patient is feeling full of this point in time, he is receiving TPN, he continues to run IV antibiotic, he was seen earlier by general surgery, it was recommended to continue and increase activity, patient has not had any bowel movement, he continues to have some pressure in his abdomen, awaiting general surgery for final decision about surgery. 02/28: Patient is sitting up in bed in no apparent distress, he has no chest pain, had episode of nausea yesterday he did receive some Zofran, he denies any significant abdominal pain, is passing some gas, he is increasing his activity, continue antibiotic, continue to monitor the patient very closely. Abdominal x-ray showed partial small bowel obstruction. General surgery is following the decision for surgery and the timing is per the surgical team. 03/01: PATIENT CONTINUES TO HAVE ABDOMINAL DISTENTION. hE IS BACK TO NOTHING BY MOUTH EXCEPT FOR ICE CHIPS. nO ABDOMINAL PAIN. iS PASSING ONLY SMALL AMOUNT OF FLATUS. pATIENT HAS BEEN AFEBRILE.heart rate is in the 70s, blood pressure 166/96, pulse ox 96% on room air. the blood work reveals WBC 11.6, hemoglobin 12.3, white count 225. Electrolytes and renal function are within normal limits. AST 62, ALT 64.gEN. SURGERY IS PLANNING2 REPEAT cat SCAN OF THE ABDOMEN AND PELVIS WITH CONTRAST. pATIENT IS CONTINUED ON tpn AND ON iv ANTIBIOTICS. eLIQUIS REMAINS ON HOLD. Appendectomy is pending. 03/02: CAT scan of the abdomen and pelvis revealedfindings compatible with ruptured appendicitis and adjacent abscess. Small bowel ileus. Gen. surgery to determine next plan. Patient is also followed by infectious disease and continued on Zosyn.patient has been afebrile, heart rate 89, blood pressure 111/63, pulse ox 94% on room air. WBC 10.4, hemoglobin 12.3 and platelet count 211. Electro lites and renal function are normal. Blood sugar 144. Patient denies having any nausea or vomiting. His abdomen is soft. He has been up for a shower today and also has been ambulating. REVIEW OF SYSTEMS: Constitutional: No documented fever, no chills, no night sweats. No weight change. No weakness, fatigue or lethargy. No daytime sleepiness. HEENT: No headache. No blurred vision or double vision,no loss of vision. loss of Hearing, ringing in the ears, no dizziness. No nasal drainage or congestion. No epistaxis. No sore throat. Lungs: No shortness of breath, no cough, no sputum production. No wheezing. Reports dyspnea with activity. Cardiovascular: No chest pain, no lower extremity edema. No palpitations. No paroxysmal nocturnal dyspnea. No orthopnea. No lightheadedness or dizziness. No syncopal episodes. Abdominal: Reports no abdominal pain. No nausea, vomiting. No diarrhea. No constipation. No bloody or tarry stools reports loss of appetite. Genitourinary: No dysuria, increased frequency, urgency. No urinary retention. Musculoskeletal: No myalgias. No muscle weakness, no gait dysfunction, no frequent falls. No back pain. No neck pain. Integumentary: No wounds, no lesions. No rash or pruritus. No unusual br uising. No change in hair or nails. Neurologic: No aphasia. No facial droop. No change in mentation. No head injury. No headache. No paralysis. No paresthesia. Psychiatric: No depression. No anxiety. No mood swings. Endocrine: No abnormal blood sugars. No weight change. PHYSICAL EXAMINATION: General: 77-year-old male in no apparent distres HEENT: Head is atraumatic, normocephalic, pupils were equal round reactive to light and recommendation, extraocular muscle movement were intact, sclera nonicteric, conjunctivae were pale. Neck: Supple, no JVP, normal carotid upstroke bilaterally, no lymphadenopathy. Chest: Decreased breath sounds at the bases, few rhonchi, no expiratory wheezes, no chest wall tenderness, no intercostal retractions. Heart: First heart sound is normal, second heart sound is normal there is BRICE 2/6 located at the left sternal border, irregularly irregular Abdomen: Soft, mild tenderness in the right lower quadrant,no rebound or guarding, + abd distension, positive bowel souds Extremities: There is no edema no calf tenderness DP +2 bilaterally. Neurologic examination: Patient is awake alert and oriented X3, cranial nerves II-12 appear grossly intact, muscle power were 5 out of 5 in upper extremities and 5 out of 5 in bilateral lower extremities, deep tendon reflexes normal bilaterally. ASSESSMENT AND PLAN: 1. Perforated appendix with phlegmon formation and partial small bowel obstruction. nothing by mouth except for ice chips, continue patient on IV fluid resuscitation, continue IV antibiotic in the form of Zosyn 3.375 mg piggyback every 8 hours, blood cultures positive for gram-positive cocci in clusters, patient will be maintained on current pain management, hold Eliquis for now monitor patient's symptoms very closely, general surgery is following. Patient would like to have IV antibiotic followed by surgical intervention at a later date.patient is on TPN for nutritional support 2. Leukocytosis likely related to appendicitis/perforation/phlegmon formation. Continue IV antibiotic, continue IV fluid, ID consult appreciated. 4. Hyponatremia secondary to hypovolemia continue PT CMP tomorrow morning. 5. Coronary artery disease without angina pectoris. Patient will be seen and evaluated by cardiology. Patient will be maintained on atorvastatin 40 mg orally once every day. 6. Mild aortic regurgitation/moderate mitral regurgitation. Patient has been under the care of Dr. Bran for quite some time, he had an echocardiogram this year that showed ejection fraction of 55%. 7. Mixed hyperlipidemia. Continue patient on atorvastatin 40 mg orally once every day. 8. Hypothyroidism. Continue patient on Synthroid 50 g orally once every day. 9. Enlarged prostate. Continue tamsulosin 0.4 mg once every day. 10. Paroxysmal atrial fibrillation. Patient has been off Eliquis. 11. Mnire disease. Stable. 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 We will hold Ditropan for now. 13. DVT prophylaxis. Bilateral knee-high RENUKA hose. 14. GI prophylaxis. Protonix 40 mg orally once every day. 15. Increase activity. Impression and plan of care have been directed as dictated by the signing physician. Loan Mccollum nurse practitioner acting as scribe for signing physician. Objective - Vital Signs Vital signs: Vital Signs Temp 98.3 F 03/02/23 07:33 Pulse 70 03/02/23 07:45 Resp 18 03/02/23 07:45 BP 119/69 03/02/23 07:33 Pulse Ox 91 L 03/02/23 07:33 FiO2 Intake & Output 03/01/23 03/02/23 03/02/23 18:59 06:59 18:59 Intake Total 1000 Output Total 900 400 Balance 100 -400 Weight 81.647 kg Intake: Intake, IV Titration 1000 Amount Amino Acid 5%-D20w+Lytes* 1000 E* 1,000 ml @ 90 mls/hr IV .BY DURATION [facility] Rx#: [id number] Output: Urine 900 400 Other: Voiding Method Toilet Toilet Toilet Urinal Urinal Urinal - Labs CBC & Chem 7: 03/02/23 06:06 03/02/23 06:06 Labs: Abnormal Lab Results - Last 24 Hours (Table) 03/02/23 03/02/23 Range/Units 06:06 06:06 RBC 3.88 L (4.30-5.90) m/uL Hgb 12.3 L (13.0-17.5) gm/dL Hct 37.5 L (39.0-53.0) % Neutrophils # 8.3 H (1.3-7.7) k/uL Glucose 144 H (74-99) mg/dL Calcium 8.2 L (8.4-10.2) mg/dL Microbiology - Last 24 Hours (Table) 02/26/23 06:28 Blood Culture - Preliminary Blood
[2023-03-02] MEDS: ATORVASTATIN 40 MG TAB PO SCH (20:55)
[2023-03-03] MEDS: SODIUM CHLORIDE 0.9% 1,000 ML IV SCH (05:27)
[2023-03-03] MEDS: LEVOTHYROXINE 50 MCG TAB PO SCH (05:28)
[2023-03-03] MEDS: PIPERACILLIN-TAZOBACTAM 3.375 GM in SODIUM CHLORIDE 0.9% 100 ML IVPB SCH ×3 (05:28→21:50)
[2023-03-03 07:06] LABS: African American GFR (CKD) >90 (>60 ml/min/1.73 sqM); Anion Gap 10 mmol/L; Blood Urea Nitrogen 18 mg/dL (9-20); Calcium 8.6 mg/dL (8.4-10.2); Carbon Dioxide 26 mmol/L (22-30); Chloride 105 mmol/L (98-107); Glucose 87 mg/dL (74-99); Magnesium 2.2 mg/dL (1.6-2.3); Non-African American GFR(CKD) >90 (>60 ml/min/1.73 sqM); Potassium 4.5 mmol/L (3.5-5.1); Sodium 141 mmol/L (137-145)
[2023-03-03] MEDS: ENOXAPARIN 40 MG/0.4 ML SYRINGE SQ SCH (08:03)
[2023-03-03] MEDS: TAMSULOSIN 0.4 MG CAP.ER.24H PO SCH (08:52)
[2023-03-03] MEDS: SIMETHICONE 40 MG/0.6 ML DROPS 2,000 MG/30 ML BOTTLE PO SCH ×4 (08:52→21:51)
[2023-03-03 10:59] LABS: Basophils # (A) 0.05 X 10*3/uL (0.00-0.10); Basophils % (A) 0.5 %; Eosinophils # (A) 0.38 X 10*3/uL (0.04-0.35); Eosinophils % (A) 3.8 %; HCT 38.7 % (39.6-50.0); HGB 12.7 g/dL (13.0-17.0); Lymphocytes # (A) 1.49 X 10*3/uL (0.90-5.00); Lymphocytes % (A) 14.9 %; MCH 30.7 pg (27.0-32.0); MCHC 32.8 g/dL (32.0-37.0); MCV 93.5 FL (80.0-97.0); Mean Platelet Volume 11.4 FL (9.5-12.2); NRBC Per 100 WBC 0 X 10*3/uL (0.00-0.01); Neutrophils # (A) 7.03 X 10*3/uL (1.80-7.70); Neutrophils % (A) 70.6 %; Platelet Count 270 X 10*3/uL (140-440); RBC 4.14 X 10*6/uL (4.40-5.60); RDW 14.6 % (11.5-14.5); WBC 9.97 X 10*3/uL (4.50-10.00)
[2023-03-03] MEDS: 1: MVI, ADULT NO.4 WITH VIT K 10 ML, TRACE (CONC-1ML/DOSE) 1 ML in AMINO ACID 5%-D20W+LY IV SCH ×3 (13:09)
--- NOTE | 2023-03-03 13:30 | P.PN ---
Subjective Progress Note Date: 03/03/23 HISTORY OF PRESENT ILLNESS: This is a 77-year-old male with a previous medical history significant for hypertension and hypertensive cardiovascular disease, hyperlipidemia, hypothyroidism, history of atrial fibrillation, coronary artery disease, mitral regurgitation, aortic regurgitation, has been followed by Dr. Bran on the regular basis, patient presented to the emergency department at [facility] with a 6 day history of abdominal pain in the right lower quadrant associated with poor appetite nausea but no vomiting and not able to have a good bowel movement, apparently patient had contacted our office on Wednesday for an appointment he was referred to the emergency department at the time, apparently the patient did not go since he was feeling a bit better . On Wednesday was feeling better, but on Wednesday morning he developed more pain but he decided to stay home till today when patient went to the ER at [facility] ended up going for computed tomography scan of the abdomen and pelvis that showed ruptured appendix with phlegmon formation and a partial small bowel obstruction he was admitted under general surgery, and consult was placed for medical management. 02/25: Patient is sitting up in bed in no apparent distress, he did try clear liquid diet today, he did have a PICC line placed, who started on TPN, patient was seen in consultation by infectious disease recommended to continue IV antibiotic, we will arrange for home IV antibiotic, he was also consultation by cardiology who recommended to proceed with surgery with no restriction at this point in time, patient did have an echocardiogram in October of this year that showed ejection fraction 55%, moderate mitral regurgitation and mild aortic regurgitation, his last heart catheterization was done in 2009 that showed evidence of mild CAD, patient pain appears to be controlled well with the Tylenol IV and he has been off his Eliquis 02/26:Patient is feeling full with increased distension no pain and has been getting TPN along with liquid diet and the plan for IV ABX at Office and follow up for surgery down the line, we will continue with increased activity, and continue with current treatment plan has been off Eliquis, Abdominal X-ray showed partial vs complete bowel obstruction may need to have surgery . 02/27: Patient is feeling full of this point in time, he is receiving TPN, he continues to run IV antibiotic, he was seen earlier by general surgery, it was recommended to continue and increase activity, patient has not had any bowel movement, he continues to have some pressure in his abdomen, awaiting general surgery for final decision about surgery. 02/28: Patient is sitting up in bed in no apparent distress, he has no chest pain, had episode of nausea yesterday he did receive some Zofran, he denies any significant abdominal pain, is passing some gas, he is increasing his activity, continue antibiotic, continue to monitor the patient very closely. Abdominal x-ray showed partial small bowel obstruction. General surgery is following the decision for surgery and the timing is per the surgical team. 03/01: PATIENT CONTINUES TO HAVE ABDOMINAL DISTENTION. hE IS BACK TO NOTHING BY MOUTH EXCEPT FOR ICE CHIPS. nO ABDOMINAL PAIN. iS PASSING ONLY SMALL AMOUNT OF FLATUS. pATIENT HAS BEEN AFEBRILE.heart rate is in the 70s, blood pressure 166/96, pulse ox 96% on room air. the blood work reveals WBC 11.6, hemoglobin 12.3, white count 225. Electrolytes and renal function are within normal limits. AST 62, ALT 64.gEN. SURGERY IS PLANNING2 REPEAT cat SCAN OF THE ABDOMEN AND PELVIS WITH CONTRAST. pATIENT IS CONTINUED ON tpn AND ON iv ANTIBIOTICS. eLIQUIS REMAINS ON HOLD. Appendectomy is pending. 03/02: CAT scan of the abdomen and pelvis revealedfindings compatible with ruptured appendicitis and adjacent abscess. Small bowel ileus. Gen. surgery to determine next plan. Patient is also followed by infectious disease and continued on Zosyn.patient has been afebrile, heart rate 89, blood pressure 111/63, pulse ox 94% on room air. WBC 10.4, hemoglobin 12.3 and platelet count 211. Electro lites and renal function are normal. Blood sugar 144. Patient denies having any nausea or vomiting. His abdomen is soft. He has been up for a shower today and also has been ambulating. 03/03: Blood pressures 105/63, heart rate in the 60s to 90s, afebrile, pulse ox 96% on room air. Repeat blood work reveals hemoglobin of 12.7, WBC 9.9, platelet count 270. BMP normal. Magnesium 2.2. Patient remains nothing by mouth except for ice chips and popsicles. Patient remains on TPN, IV Zosyn managed by ID. Patient's voices concerns that both of them are anxious about the plan to address abscess. More information pending from Dr. Shah. Patient denies adominal pain, no nausea or vomiting. He has a loose BM today. REVIEW OF SYSTEMS: Constitutional: No documented fever, no chills, no night sweats. No weight change. No weakness, fatigue or lethargy. No daytime sleepiness. HEENT: No headache. No blurred vision or double vision,no loss of vision. loss of Hearing, ringing in the ears, no dizziness. No nasal drainage or congestion. No epistaxis. No sore throat. Lungs: No shortness of breath, no cough, no sputum production. No wheezing. Reports dyspnea with activity. Cardiovascular: No chest pain, no lower extremity edema. No palpitations. No paroxysmal nocturnal dyspnea. No orthopnea. No lightheadedness or dizziness. No syncopal episodes. Abdominal: Reports no abdominal pain. No nausea, vomiting. + diarrhea. No co nstipation. No bloody or tarry stools reports loss of appetite. Genitourinary: No dysuria, increased frequency, urgency. No urinary retention. Musculoskeletal: No myalgias. No muscle weakness, no gait dysfunction, no frequent falls. No back pain. No neck pain. Integumentary: No wounds, no lesions. No rash or pruritus. No unusual bruising. No change in hair or nails. Neurologic: No aphasia. No facial droop. No change in mentation. No head injury. No headache. No paralysis. No paresthesia. Psychiatric: No depression. No anxiety. No mood swings. Endocrine: No abnormal blood sugars. No weight change. PHYSICAL EXAMINATION: General: 77-year-old male in no apparent distres HEENT: Head is atraumatic, normocephalic, pupils were equal round reactive to light and recommendation, extraocular muscle movement were intact, sclera nonicteric, conjunctivae were pale. Neck: Supple, no JVP, normal carotid upstroke bilaterally, no lymphadenopathy. Chest: Decreased breath sounds at the bases, few rhonchi, no expiratory wheezes, no chest wall tenderness, no intercostal retractions. Heart: First heart sound is normal, second heart sound is normal there is BRICE 2/6 located at the left sternal border, irregularly irregular Abdomen: Soft, no tenderness in the right lower quadrant,no rebound or guarding, no abd distension, positive bowel souds Extremities: There is no edema no calf tenderness DP +2 bilaterally. Neurologic examination: Patient is awake alert and oriented X3, cranial nerves II-12 appear grossly intact, muscle power were 5 out of 5 in upper extremities and 5 out of 5 in bilateral lower extremities, deep tendon reflexes normal bilaterally. ASSESSMENT AND PLAN: 1. Perforated appendix with phlegmon formation and partial small bowel obstruction. nothing by mouth except for ice chips, continue patient on IV fluid resuscitation, continue IV antibiotic in the form of Zosyn 3.375 mg piggyback every 8 hours, blood cultures positive for gram-positive cocci in clusters, patient will be maintained on current pain management, hold Eliquis for now monitor patient's symptoms very closely, general surgery is following. Patient would like to have IV antibiotic followed by surgical intervention at a later date.patient is on TPN for nutritional support. Waiting on timing of surgery. 2. Leukocytosis likely related to appendicitis/perforation/phlegmon formation. Continue IV antibiotic, continue IV fluid, ID consult appreciated. 4. Hyponatremia secondary to hypovolemia continue PT CMP tomorrow morning. 5. Coronary artery disease without angina pectoris. Patient will be seen and evaluated by cardiology. Patient will be maintained on atorvastatin 40 mg orally once every day. 6. Mild aortic regurgitation/moderate mitral regurgitation. Patient has been under the care of Dr. Bran for quite some time, he had an echocardiogram this year that showed ejection fraction of 55%. 7. Mixed hyperlipidemia. Continue patient on atorvastatin 40 mg orally once every day. 8. Hypothyroidism. Continue patient on Synthroid 50 g orally once every day. 9. Enlarged prostate. Continue tamsulosin 0.4 mg once every day. 10. Paroxysmal atrial fibrillation. Patient has been off Eliquis. 11. Mnire disease. Stable. 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 We will hold Ditropan for now. 13. DVT prophylaxis. Bilateral knee-high RENUKA hose. 14. GI prophylaxis. Protonix 40 mg orally once every day. 15. Increase activity. Impression and plan of care have been directed as dictated by the signing physician. Loan Mccollum nurse practitioner acting as scribe for signing physician. Objective - Vital Signs Vital signs: Vital Signs Temp 98.2 F 03/03/23 07:35 Pulse 91 03/03/23 07:35 Resp 19 03/03/23 07:35 BP 105/63 03/03/23 07:35 Pulse Ox 96 03/03/23 07:35 FiO2 Intake & Output 03/02/23 03/03/23 03/03/23 18:59 06:59 18:59 Intake Total 1600 100 Output Total 600 Balance 1600 -500 Intake: Intake, IV Titration 1600 100 Amount Amino Acid 5%-D20w+Lytes* 1000 E* 1,000 ml @ 90 mls/hr IV .BY DURATION ERICK Rx#: [id number] Piperacillin-Tazobactam 3 100 100 .375 gm In Sodium Chloride 0.9% 100 ml @ 25 mls/hr IVPB Q8H [facility] Rx#: [id number] Sodium Chloride 0.9% 1, 500 000 ml @ 100 mls/hr IV . Q10H [facility] Rx#:[id number] Output: Urine 600 Other: Voiding Method Toilet Toilet Toilet Urinal Urinal Urinal - Labs CBC & Chem 7: 03/03/23 05:49 03/03/23 05:49 Labs: Abnormal Lab Results - Last 24 Hours (Table) 03/03/23 Range/Units 05:49 RBC 4.14 L (4.40-5.60) X 10*6/uL Hgb 12.7 L (13.0-17.0) g/dL Hct 38.7 L (39.6-50.0) % RDW 14.6 H (11.5-14.5) % Immature Gran # 0.12 H (0.00-0.04) X 10*3/uL Eosinophils # 0.38 H (0.04-0.35) X 10*3/uL
--- NOTE | 2023-03-03 15:13 | P.PN ---
Subjective Progress Note Date: 03/03/23 CHIEF COMPLAINT: Acute appendicitis with phlegmon HISTORY OF PRESENT ILLNESS: Patient sitting in bedside chair. He did have a bowel movement. He is having flatus. He reports no abdominal pain. Afebrile. WBC 9.97 Hgb 12.7 PHYSICAL EXAM: VITAL SIGNS: Reviewed GENERAL: Well-developed in no acute distress. HEENT: No sclera icterus. Extraocular movements grossly intact. Moist buccal mucosa. Head is atraumatic, normocephalic. Hears conversational speech. No nasal drainage. NECK: Supple without lymphadenopathy. CHEST: Non-labored respirations and equal bilateral excursions. CARDIOVASCULAR: Palpable 2+ radial pulses. ABDOMEN: Soft. mildly distended. nontender MUSCULOSKELETAL: No clubbing or cyanosis. NEUROLOGIC: No focal or lateralizing signs. Cranial nerves II through XII keisha sly intact. PSYCH: Appropriate affect. Alert and oriented to person, place and time. SKIN: Well perfused. Good skin turgor. ASSESSMENT: 1. Acute appendicitis with phlegmon 2. Partial distal small bowel obstruction possibly caused by inflammatory changes due to appendicitis noted on CT scan 3. History of multiple inguinal hernia repairs 4. History of atrial fibrillation on Eliquis at home 5. History of Mnire's 6. Hypothyroidism 7. Enlarged prostate PLAN: -Advance diet to clear liquids -No surgery planned at this time -Continue antibiotic management -Continue TPN for nutrition support -Plan for interval appendectomy -Hold Eliquis Physician Administrative Office Clerk note has been reviewed by physician. Signing provider agrees with the documented findings, assessment, and plan of care. Objective - Vital Signs Vital signs: Vital Signs Temp 98.2 F 03/03/23 07:35 Pulse 91 03/03/23 07:35 Resp 19 03/03/23 07:35 BP 105/63 03/03/23 07:35 Pulse Ox 96 03/03/23 07:35 FiO2 Intake & Output 03/02/23 03/03/23 03/03/23 18:59 06:59 18:59 Intake Total 1600 100 Output Total 600 Balance 1600 -500 Intake: Intake, IV Titration 1600 100 Amount Amino Acid 5%-D20w+Lytes* 1000 E* 1,000 ml @ 90 mls/hr IV .BY DURATION [facility] Rx#: [id number] Piperacillin-Tazobactam 3 100 100 .375 gm In Sodium Chloride 0.9% 100 ml @ 25 mls/hr IVPB Q8H [facility] Rx#: [id number] Sodium Chloride 0.9% 1, 500 000 ml @ 100 mls/hr IV . Q10H [facility] Rx#:[id number] Output: Urine 600 Other: Voiding Method Toilet Toilet Toilet Urinal Urinal Urinal - Labs CBC & Chem 7: 03/03/23 05:49 03/03/23 05:49 Labs: Abnormal Lab Results - Last 24 Hours (Table) 03/03/23 Range/Units 05:49 RBC 4.14 L (4.40-5.60) X 10*6/uL Hgb 12.7 L (13.0-17.0) g/dL Hct 38.7 L (39.6-50.0) % RDW 14.6 H (11.5-14.5) % Immature Gran # 0.12 H (0.00-0.04) X 10*3/uL Eosinophils # 0.38 H (0.04-0.35) X 10*3/uL
[2023-03-03] MEDS: ATORVASTATIN 40 MG TAB PO SCH (21:50)
[2023-03-04] MEDS: SODIUM CHLORIDE 0.9% 1,000 ML IV SCH ×3 (01:15→23:51)
[2023-03-04] MEDS: 1: MVI, ADULT NO.4 WITH VIT K 10 ML, TRACE (CONC-1ML/DOSE) 1 ML in AMINO ACID 5%-D20W+LY IV SCH ×6 (01:20→16:31)
[2023-03-04] MEDS: LEVOTHYROXINE 50 MCG TAB PO SCH (05:56)
[2023-03-04 06:50] LABS: ALT 38 U/L (4-49); AST 29 U/L (17-59); African American GFR (CKD) >90 (>60 ml/min/1.73 sqM); Albumin/Globulin Ratio 1.1; Alkaline Phosphatase 52 U/L (38-126); Anion Gap 7 mmol/L; Blood Urea Nitrogen 18 mg/dL (9-20); Calcium 8.3 mg/dL (8.4-10.2); Carbon Dioxide 27 mmol/L (22-30); Chloride 106 mmol/L (98-107); Globulin 2.7 g/dL; Glucose 103 mg/dL (74-99); Magnesium 2.1 mg/dL (1.6-2.3); Non-African American GFR(CKD) 87 (>60 ml/min/1.73 sqM); Phosphorus 3.5 mg/dL (2.5-4.5); Potassium 4.4 mmol/L (3.5-5.1); Sodium 140 mmol/L (137-145); Total Bilirubin 0.6 mg/dL (0.2-1.3); Total Protein 5.7 g/dL (6.3-8.2)
[2023-03-04] MEDS: ENOXAPARIN 40 MG/0.4 ML SYRINGE SQ SCH (08:53)
[2023-03-04] MEDS: FAT EMULSION 20% 250 ML in EMPTY BAG 1 BAG IV SCH (08:53)
[2023-03-04] MEDS: TAMSULOSIN 0.4 MG CAP.ER.24H PO SCH (08:53)
[2023-03-04] MEDS: SIMETHICONE 40 MG/0.6 ML DROPS 2,000 MG/30 ML BOTTLE PO SCH ×4 (08:54→21:28)
[2023-03-04 09:25] LABS: Basophils # (A) 0.05 X 10*3/uL (0.00-0.10); Basophils % (A) 0.5 %; Eosinophils # (A) 0.34 X 10*3/uL (0.04-0.35); Eosinophils % (A) 3.4 %; HCT 38.3 % (39.6-50.0); HGB 12.5 g/dL (13.0-17.0); Lymphocytes # (A) 1.47 X 10*3/uL (0.90-5.00); Lymphocytes % (A) 14.6 %; MCH 30.9 pg (27.0-32.0); MCHC 32.6 g/dL (32.0-37.0); MCV 94.8 FL (80.0-97.0); Mean Platelet Volume 11.7 FL (9.5-12.2); Monocytes % (A) 7.9 %; NRBC Per 100 WBC 0 X 10*3/uL (0.00-0.01); Neutrophils # (A) 7.27 X 10*3/uL (1.80-7.70); Neutrophils % (A) 72.2 %; Platelet Count 270 X 10*3/uL (140-440); RBC 4.04 X 10*6/uL (4.40-5.60); RDW 14.6 % (11.5-14.5); WBC 10.07 X 10*3/uL (4.50-10.00)
--- NOTE | 2023-03-04 13:08 | P.PN ---
Subjective Progress Note Date: 03/04/23 HISTORY OF PRESENT ILLNESS: This is a 77-year-old male with a previous medical history significant for hypertension and hypertensive cardiovascular disease, hyperlipidemia, hypothyroidism, history of atrial fibrillation, coronary artery disease, mitral regurgitation, aortic regurgitation, has been followed by Dr. Bran on the regular basis, patient presented to the emergency department at [facility] with a 6 day history of abdominal pain in the right lower quadrant associated with poor appetite nausea but no vomiting and not able to have a good bowel movement, apparently patient had contacted our office on Wednesday for an appointment he was referred to the emergency department at the time, apparently the patient did not go since he was feeling a bit better . On Wednesday was feeling better, but on Wednesday morning he developed more pain but he decided to stay home till today when patient went to the ER at [facility] ended up going for computed tomography scan of the abdomen and pelvis that showed ruptured appendix with phlegmon formation and a partial small bowel obstruction he was admitted under general surgery, and consult was placed for medical management. 02/25: Patient is sitting up in bed in no apparent distress, he did try clear liquid diet today, he did have a PICC line placed, who started on TPN, patient was seen in consultation by infectious disease recommended to continue IV antibiotic, we will arrange for home IV antibiotic, he was also consultation by cardiology who recommended to proceed with surgery with no restriction at this point in time, patient did have an echocardiogram in October of this year that showed ejection fraction 55%, moderate mitral regurgitation and mild aortic regurgitation, his last heart catheterization was done in 2009 that showed evidence of mild CAD, patient pain appears to be controlled well with the Tylenol IV and he has been off his Eliquis 02/26:Patient is feeling full with increased distension no pain and has been getting TPN along with liquid diet and the plan for IV ABX at Office and follow up for surgery down the line, we will continue with increased activity, and continue with current treatment plan has been off Eliquis, Abdominal X-ray showed partial vs complete bowel obstruction may need to have surgery . 02/27: Patient is feeling full of this point in time, he is receiving TPN, he continues to run IV antibiotic, he was seen earlier by general surgery, it was recommended to continue and increase activity, patient has not had any bowel movement, he continues to have some pressure in his abdomen, awaiting general surgery for final decision about surgery. 02/28: Patient is sitting up in bed in no apparent distress, he has no chest pain, had episode of nausea yesterday he did receive some Zofran, he denies any significant abdominal pain, is passing some gas, he is increasing his activity, continue antibiotic, continue to monitor the patient very closely. Abdominal x-ray showed partial small bowel obstruction. General surgery is following the decision for surgery and the timing is per the surgical team. 03/01: PATIENT CONTINUES TO HAVE ABDOMINAL DISTENTION. hE IS BACK TO NOTHING BY MOUTH EXCEPT FOR ICE CHIPS. nO ABDOMINAL PAIN. iS PASSING ONLY SMALL AMOUNT OF FLATUS. pATIENT HAS BEEN AFEBRILE.heart rate is in the 70s, blood pressure 166/96, pulse ox 96% on room air. the blood work reveals WBC 11.6, hemoglobin 12.3, white count 225. Electrolytes and renal function are within normal limits. AST 62, ALT 64.gEN. SURGERY IS PLANNING2 REPEAT cat SCAN OF THE ABDOMEN AND PELVIS WITH CONTRAST. pATIENT IS CONTINUED ON tpn AND ON iv ANTIBIOTICS. eLIQUIS REMAINS ON HOLD. Appendectomy is pending. 03/02: CAT scan of the abdomen and pelvis revealedfindings compatible with ruptured appendicitis and adjacent abscess. Small bowel ileus. Gen. surgery to determine next plan. Patient is also followed by infectious disease and continued on Zosyn.patient has been afebrile, heart rate 89, blood pressure 111/63, pulse ox 94% on room air. WBC 10.4, hemoglobin 12.3 and platelet count 211. Electro lites and renal function are normal. Blood sugar 144. Patient denies having any nausea or vomiting. His abdomen is soft. He has been up for a shower today and also has been ambulating. 03/03: Blood pressures 105/63, heart rate in the 60s to 90s, afebrile, pulse ox 96% on room air. Repeat blood work reveals hemoglobin of 12.7, WBC 9.9, platelet count 270. BMP normal. Magnesium 2.2. Patient remains nothing by mouth except for ice chips and popsicles. Patient remains on TPN, IV Zosyn managed by ID. Patient's voices concerns that both of them are anxious about the plan to address abscess. More information pending from Dr. Shah. Patient denies adominal pain, no nausea or vomiting. He has a loose BM today. 03/04: Patient is found ambulating in the hallway. He states he feels about the same. He did have some diarrhea/loose stools. No shortness of breath. No abdominal pain. No nausea or vomiting. He is tolerating clear liquid diet. Patient remains afebrile, heart rate in the 60s, blood pressure 122/66, pulse ox 94% on room air. Plan is to continue IV antibiotics, no surgery to be done at this time. Eliquis remains on hold. REVIEW OF SYSTEMS: Constitutional: No documented fever, no chills, no night sweats. No weight c hange. No weakness, fatigue or lethargy. No daytime sleepiness. HEENT: No headache. No blurred vision or double vision,no loss of vision. loss of Hearing, ringing in the ears, no dizziness. No nasal drainage or congestion. No epistaxis. No sore throat. Lungs: No shortness of breath, no cough, no sputum production. No wheezing. Reports dyspnea with activity. Cardiovascular: No chest pain, no lower extremity edema. No palpitations. No paroxysmal nocturnal dyspnea. No orthopnea. No lightheadedness or dizziness. No syncopal episodes. Abdominal: Reports no abdominal pain. No nausea, vomiting. + diarrhea. No constipation. No bloody or tarry stools reports loss of appetite. Genitourinary: No dysuria, increased frequency, urgency. No urinary retention. Musculoskeletal: No myalgias. No muscle weakness, no gait dysfunction, no frequent falls. No back pain. No neck pain. Integumentary: No wounds, no lesions. No rash or pruritus. No unusual bruising. No change in hair or nails. Neurologic: No aphasia. No facial droop. No change in mentation. No head injury. No headache. No paralysis. No paresthesia. Psychiatric: No depression. No anxiety. No mood swings. Endocrine: No abnormal blood sugars. No weight change. PHYSICAL EXAMINATION: General: 77-year-old male in no apparent distres HEENT: Head is atraumatic, normocephalic, pupils were equal round reactive to light and recommendation, extraocular muscle movement were intact, sclera nonicteric, conjunctivae were pale. Neck: Supple, no JVP, normal carotid upstroke bilaterally, no lymphadenopathy. Chest: Decreased breath sounds at the bases, few rhonchi, no expiratory wheezes, no chest wall tenderness, no intercostal retractions. Heart: First heart sound is normal, second heart sound is normal there is BRICE 2/6 located at the left sternal border, irregularly irregular Abdomen: Soft, no tenderness in the right lower quadrant,no rebound or guarding, no abd distension, positive bowel souds Extremities: There is no edema no calf tenderness DP +2 bilaterally. Neurologic examination: Patient is awake alert and oriented X3, cranial nerves II-12 appear grossly intact, muscle power were 5 out of 5 in upper extremities and 5 out of 5 in bilateral lower extremities, deep tendon reflexes normal bi laterally. ASSESSMENT AND PLAN: 1. Perforated appendix with phlegmon formation and partial small bowel obstruction. Diet has been advanced to clear liquids, continue patient on TPN, continue IV antibiotic in the form of Zosyn 3.375 mg piggyback every 8 hours, blood cultures positive for gram-positive cocci in clusters, patient will be maintained on current pain management, hold Eliquis for now, interval appendectomy. 2. Leukocytosis likely related to appendicitis/perforation/phlegmon formation. Continue IV antibiotic, continue IV fluid, ID consult appreciated. 4. Hyponatremia secondary to hypovolemia continue PT CMP tomorrow morning. 5. Coronary artery disease without angina pectoris. Patient will be seen and evaluated by cardiology. Patient will be maintained on atorvastatin 40 mg orally once every day. 6. Mild aortic regurgitation/moderate mitral regurgitation. Patient has been under the care of Dr. Bran for quite some time, he had an echocardiogram this year that showed ejection fraction of 55%. 7. Mixed hyperlipidemia. Continue patient on atorvastatin 40 mg orally once every day. 8. Hypothyroidism. Continue patient on Synthroid 50 g orally once every day. 9. Enlarged prostate. Continue tamsulosin 0.4 mg once every day. 10. Paroxysmal atrial fibrillation. Patient has been off Eliquis. 11. Mnire disease. Stable. 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 We will hold Ditropan for now. 13. DVT prophylaxis. Bilateral knee-high RENUKA hose. 14. GI prophylaxis. Protonix 40 mg orally once every day. 15. Increase activity. Impression and plan of care have been directed as dictated by the signing physician. Loan Mccollum nurse practitioner acting as scribe for signing physician. Objective - Vital Signs Vital signs: Vital Signs Temp 98.3 F 03/04/23 07:40 Pulse 61 03/04/23 08:00 Resp 18 03/04/23 08:00 BP 122/66 03/04/23 07:40 Pulse Ox 94 L 03/04/23 07:40 FiO2 Intake & Output 03/03/23 03/04/23 03/04/23 18:59 06:59 18:59 Intake Total 1000 Output Total 400 Balance 1000 -400 Intake: Intake, IV Titration 1000 Amount Amino Acid 5%-D20w+Lytes* 1000 E* 1,000 ml @ 90 mls/hr IV .BY DURATION [facility] Rx#: [id number] Output: Urine 400 Other: Voiding Method Toilet Urinal Urinal Urinal # Voids 2 - Labs CBC & Chem 7: 03/04/23 06:14 03/04/23 06:14 Labs: Abnormal Lab Results - Last 24 Hours (Table) 03/04/23 03/04/23 Range/Units 06:14 06:14 WBC 10.07 H (4.50-10.00) X 10*3/uL RBC 4.04 L (4.40-5.60) X 10*6/uL Hgb 12.5 L (13.0-17.0) g/dL Hct 38.3 L (39.6-50.0) % RDW 14.6 H (11.5-14.5) % Immature Gran # 0.14 H (0.00-0.04) X 10*3/uL Glucose 103 H (74-99) mg/dL Calcium 8.3 L (8.4-10.2) mg/dL Total Protein 5.7 L (6.3-8.2) g/dL Albumin 3.0 L (3.5-5.0) g/dL Microbiology - Last 24 Hours (Table) 02/26/23 06:28 Blood Culture - Final Blood
[2023-03-04] MEDS: PIPERACILLIN-TAZOBACTAM 3.375 GM in SODIUM CHLORIDE 0.9% 100 ML IVPB SCH ×2 (14:01→23:55)
--- NOTE | 2023-03-04 15:33 | P.PN ---
Subjective Progress Note Date: 03/04/23 CHIEF COMPLAINT: Acute appendicitis with phlegmon HISTORY OF PRESENT ILLNESS: Patient sitting up in bed. He was able to tolerate clear liquids. He's only intaking small amount. He denies any abdominal pain. Denies any bloating after eating. Denies any nausea or vomiting. Last bowel movement was yesterday. He is having some flatus. Afebrile. WBC 10.07 Hgb 12.5 platelets 270 PHYSICAL EXAM: VITAL SIGNS: Reviewed GENERAL: Well-developed in no acute distress. HEENT: No sclera icterus. Extraocular movements grossly intact. Moist buccal mucosa. Head is atraumatic, normocephalic. Hears conversational speech. No nasal drainage. NECK: Supple without lymphadenopathy. CHEST: Non-labored respirations and equal bilateral excursions. CARDIOVASCULAR: Palpable 2+ radial pulses. ABDOMEN: Soft. mildly distended. nontender MUSCULOSKELETAL: No clubbing or cyanosis. NEUROLOGIC: No focal or lateralizing signs. Cranial nerves II through XII grossly intact. PSYCH: Appropriate affect. Alert and oriented to person, place and time. SKIN: Well perfused. Good skin turgor. ASSESSMENT: 1. Acute appendicitis with phlegmon 2. Partial distal small bowel obstruction possibly caused by inflammatory changes due to appendicitis noted on CT scan 3. History of multiple inguinal hernia repairs 4. History of atrial fibrillation on Eliquis at home 5. History of Mnire's 6. Hypothyroidism 7. Enlarged prostate PLAN: -Advance diet to full liquids -No surgery planned at this time -Continue antibiotic management -Continue TPN for nutrition support -Plan for interval appendectomy -Hold Eliquis -Repeat CBC in AM -Encourage patient to ambulate Physician Auto Service Advisor note has been reviewed by physician. Signing provider agrees with the documented findings, assessment, and plan of care. Objective - Vital Signs Vital signs: Vital Signs Temp 98.3 F 03/04/23 07:40 Pulse 61 03/04/23 08:00 Resp 18 03/04/23 08:00 BP 122/66 03/04/23 07:40 Pulse Ox 94 L 03/04/23 07:40 FiO2 Intake & Output 03/03/23 03/04/23 03/04/23 18:59 06:59 18:59 Intake Total 1000 Output Total 400 Balance 1000 -400 Intake: Intake, IV Titration 1000 Amount Amino Acid 5%-D20w+Lytes* 1000 E* 1,000 ml @ 90 mls/hr IV .BY DURATION [facility] Rx#: [id number] Output: Urine 400 Other: Voiding Method Toilet Urinal Urinal Urinal # Voids 2 - Labs CBC & Chem 7: 03/04/23 06:14 12 06:14 Labs: Abnormal Lab Results - Last 24 Hours (Table) 03/04/23 03/04/23 Range/Units 06:14 06:14 WBC 10.07 H (4.50-10.00) X 10*3/uL RBC 4.04 L (4.40-5.60) X 10*6/uL Hgb 12.5 L (13.0-17.0) g/dL Hct 38.3 L (39.6-50.0) % RDW 14.6 H (11.5-14.5) % Immature Gran # 0.14 H (0.00-0.04) X 10*3/uL Glucose 103 H (74-99) mg/dL Calcium 8.3 L (8.4-10.2) mg/dL Total Protein 5.7 L (6.3-8.2) g/dL Albumin 3.0 L (3.5-5.0) g/dL Microbiology - Last 24 Hours (Table) 02/26/23 06:28 Blood Culture - Final Blood
--- NOTE | 2023-03-04 16:07 | US ---
EXAMINATION TYPE: US venous doppler duplex UE LT DATE OF EXAM: 03/04/2023 COMPARISON: NONE CLINICAL INDICATION: Male, 77 years old with history of edema left arm; Lt arm pain above PICC line s ite SIDE PERFORMED: left Left Arm: Negative for DVTGrayscale, color doppler, spectral doppler imaging performed of the deep ve ins of the upper extremities. There is normal flow, compressibility and vascular waveforms. SVT, Basilic vein is thrombosed around PICC line IMPRESSION: No evidence for deep vein thrombosis, superficial thrombosis phlebitis around the PICC line.
[2023-03-04] MEDS: ATORVASTATIN 40 MG TAB PO SCH (21:28)
[2023-03-05] MEDS: 1: MVI, ADULT NO.4 WITH VIT K 10 ML, TRACE (CONC-1ML/DOSE) 1 ML in AMINO ACID 5%-D20W+LY IV SCH ×9 (02:04→22:51)
[2023-03-05] MEDS: SODIUM CHLORIDE 0.9% 1,000 ML IV SCH ×2 (05:20→11:55)
[2023-03-05] MEDS: LEVOTHYROXINE 50 MCG TAB PO SCH (05:27)
[2023-03-05 06:22] LABS: Ionized Calcium 4.9 mg/dL (4.5-5.3)
[2023-03-05 06:29] LABS: ALT 34 U/L (4-49); AST 27 U/L (17-59); African American GFR (CKD) >90 (>60 ml/min/1.73 sqM); Albumin 2.9 g/dL (3.5-5.0); Albumin/Globulin Ratio 1.1; Alkaline Phosphatase 50 U/L (38-126); Anion Gap 8 mmol/L; Blood Urea Nitrogen 18 mg/dL (9-20); Calcium 8.3 mg/dL (8.4-10.2); Carbon Dioxide 26 mmol/L (22-30); Chloride 107 mmol/L (98-107); Globulin 2.6 g/dL; Glucose 110 mg/dL (74-99); Non-African American GFR(CKD) 84 (>60 ml/min/1.73 sqM); Phosphorus 3.7 mg/dL (2.5-4.5); Potassium 4.3 mmol/L (3.5-5.1); Sodium 141 mmol/L (137-145); Total Bilirubin 0.5 mg/dL (0.2-1.3); Total Protein 5.5 g/dL (6.3-8.2)
[2023-03-05] MEDS: ENOXAPARIN 40 MG/0.4 ML SYRINGE SQ SCH (08:21)
[2023-03-05] MEDS: TAMSULOSIN 0.4 MG CAP.ER.24H PO SCH (08:21)
[2023-03-05] MEDS: PIPERACILLIN-TAZOBACTAM 3.375 GM in SODIUM CHLORIDE 0.9% 100 ML IVPB SCH ×2 (08:22→15:28)
[2023-03-05] MEDS: SIMETHICONE 40 MG/0.6 ML DROPS 2,000 MG/30 ML BOTTLE PO SCH ×4 (08:23→22:50)
[2023-03-05 08:50] LABS: Basophils # (A) 0.04 X 10*3/uL (0.00-0.10); Basophils % (A) 0.5 %; Eosinophils # (A) 0.29 X 10*3/uL (0.04-0.35); Eosinophils % (A) 3.5 %; HCT 35.8 % (39.6-50.0); HGB 11.8 g/dL (13.0-17.0); Lymphocytes # (A) 1.36 X 10*3/uL (0.90-5.00); Lymphocytes % (A) 16.5 %; MCH 31.1 pg (27.0-32.0); MCV 94.2 FL (80.0-97.0); Mean Platelet Volume 11.5 FL (9.5-12.2); Monocytes # (A) 0.77 X 10*3/uL (0.20-1.00); Monocytes % (A) 9.3 %; NRBC Per 100 WBC 0 X 10*3/uL (0.00-0.01); Neutrophils # (A) 5.68 X 10*3/uL (1.80-7.70); Platelet Count 264 X 10*3/uL (140-440); RDW 14.5 % (11.5-14.5); WBC 8.24 X 10*3/uL (4.50-10.00)
[2023-03-05] MEDS ORDERED: IOPAMIDOL CONTRAST (ORAL USE) VIAL PO PRN ×2 (09:31→16:33)
--- NOTE | 2023-03-05 09:31 | P.PN ---
Progress Note - Text Progress Note Date: 03/05/23 Discussion with interventional radiologist regarding findings of computed tomography scan and possibility of aspiration. All prior CT scans has limited contrast to the small bowel and pelvis. We'll repeat computed tomography scan with oral contrast however delayed images to appropriately assess small bowel and possibility of aspiration of fluid collection. Otherwise, continue with empiric antibiotics with repeat computed tomography scan and interval appendectomy due to perforated appendicitis with phlegmon
[2023-03-05 11:08] LABS: INR 1.4 (<1.2); Prothrombin Time 14.2 sec (10.0-12.5)
--- NOTE | 2023-03-05 13:12 | P.PN ---
Subjective Progress Note Date: 03/05/23 HISTORY OF PRESENT ILLNESS: This is a 77-year-old male with a previous medical history significant for hypertension and hypertensive cardiovascular disease, hyperlipidemia, hypothyroidism, history of atrial fibrillation, coronary artery disease, mitral regurgitation, aortic regurgitation, has been followed by Dr. Bran on the regular basis, patient presented to the emergency department at [facility] with a 6 day history of abdominal pain in the right lower quadrant associated with poor appetite nausea but no vomiting and not able to have a good bowel movement, apparently patient had contacted our office on Wednesday for an appointment he was referred to the emergency department at the time, apparently the patient did not go since he was feeling a bit better . On Wednesday was feeling better, but on Wednesday morning he developed more pain but he decided to stay home till today when patient went to the ER at [facility] ended up going for computed tomography scan of the abdomen and pelvis that showed ruptured appendix with phlegmon formation and a partial small bowel obstruction he was admitted under general surgery, and consult was placed for medical management. 02/25: Patient is sitting up in bed in no apparent distress, he did try clear liquid diet today, he did have a PICC line placed, who started on TPN, patient was seen in consultation by infectious disease recommended to continue IV antibiotic, we will arrange for home IV antibiotic, he was also consultation by cardiology who recommended to proceed with surgery with no restriction at this point in time, patient did have an echocardiogram in October of this year that showed ejection fraction 55%, moderate mitral regurgitation and mild aortic regurgitation, his last heart catheterization was done in 2009 that showed evidence of mild CAD, patient pain appears to be controlled well with the Tylenol IV and he has been off his Eliquis 02/26:Patient is feeling full with increased distension no pain and has been getting TPN along with liquid diet and the plan for IV ABX at Office and follow up for surgery down the line, we will continue with increased activity, and continue with current treatment plan has been off Eliquis, Abdominal X-ray showed partial vs complete bowel obstruction may need to have surgery . 02/27: Patient is feeling full of this point in time, he is receiving TPN, he continues to run IV antibiotic, he was seen earlier by general surgery, it was recommended to continue and increase activity, patient has not had any bowel movement, he continues to have some pressure in his abdomen, awaiting general surgery for final decision about surgery. 02/28: Patient is sitting up in bed in no apparent distress, he has no chest pain, had episode of nausea yesterday he did receive some Zofran, he denies any significant abdominal pain, is passing some gas, he is increasing his activity, continue antibiotic, continue to monitor the patient very closely. Abdominal x-ray showed partial small bowel obstruction. General surgery is following the decision for surgery and the timing is per the surgical team. 03/01: PATIENT CONTINUES TO HAVE ABDOMINAL DISTENTION. hE IS BACK TO NOTHING BY MOUTH EXCEPT FOR ICE CHIPS. nO ABDOMINAL PAIN. iS PASSING ONLY SMALL AMOUNT OF FLATUS. pATIENT HAS BEEN AFEBRILE.heart rate is in the 70s, blood pressure 166/96, pulse ox 96% on room air. the blood work reveals WBC 11.6, hemoglobin 12.3, white count 225. Electrolytes and renal function are within normal limits. AST 62, ALT 64.gEN. SURGERY IS PLANNING2 REPEAT cat SCAN OF THE ABDOMEN AND PELVIS WITH CONTRAST. pATIENT IS CONTINUED ON tpn AND ON iv ANTIBIOTICS. eLIQUIS REMAINS ON HOLD. Appendectomy is pending. 03/02: CAT scan of the abdomen and pelvis revealedfindings compatible with ruptured appendicitis and adjacent abscess. Small bowel ileus. Gen. surgery to determine next plan. Patient is also followed by infectious disease and continued on Zosyn.patient has been afebrile, heart rate 89, blood pressure 111/63, pulse ox 94% on room air. WBC 10.4, hemoglobin 12.3 and platelet count 211. Electro lites and renal function are normal. Blood sugar 144. Patient denies having any nausea or vomiting. His abdomen is soft. He has been up for a shower today and also has been ambulating. 03/03: Blood pressures 105/63, heart rate in the 60s to 90s, afebrile, pulse ox 96% on room air. Repeat blood work reveals hemoglobin of 12.7, WBC 9.9, platelet count 270. BMP normal. Magnesium 2.2. Patient remains nothing by mouth except for ice chips and popsicles. Patient remains on TPN, IV Zosyn managed by ID. Patient's voices concerns that both of them are anxious about the plan to address abscess. More information pending from Dr. Shah. Patient denies adominal pain, no nausea or vomiting. He has a loose BM today. 03/04: Patient is found ambulating in the hallway. He states he feels about the same. He did have some diarrhea/loose stools. No shortness of breath. No abdominal pain. No nausea or vomiting. He is tolerating clear liquid diet. Patient remains afebrile, heart rate in the 60s, blood pressure 122/66, pulse ox 94% on room air. Plan is to continue IV antibiotics, no surgery to be done at this time. Eliquis remains on hold. 03/05: ultrasound of the left upper extremity was negative for DVT. Superficial thrombosis phlebitis around the PICC line. new PICC line was ordered but may continue to use. desk monitor is sinus rhythm will be discontinued.patient remains afebrile, heart rate in the 60s and 70s, blood pressure 115/75, pulse ox 97% on room air. diet has been advanced to full liquid. He continues to have lo ose stools. We will resume Eliquis and discontinue Lovenox. Eliquis will need to be discontinued 48 hours prior to surgical intervention. REVIEW OF SYSTEMS: Constitutional: No documented fever, no chills, no night sweats. No weight change. No weakness, fatigue or lethargy. No daytime sleepiness. HEENT: No headache. No blurred vision or double vision,no loss of vision. loss of Hearing, ringing in the ears, no dizziness. No nasal drainage or congestion. No epistaxis. No sore throat. Lungs: No shortness of breath, no cough, no sputum production. No wheezing. Reports dyspnea with activity. Cardiovascular: No chest pain, no lower extremity edema. No palpitations. No paroxysmal nocturnal dyspnea. No orthopnea. No lightheadedness or dizziness. No syncopal episodes. Abdominal: Reports no abdominal pain. No nausea, vomiting. + diarrhea. No constipation. No bloody or tarry stools reports loss of appetite. Genitourinary: No dysuria, increased frequency, urgency. No urinary retention. Musculoskeletal: No myalgias. No muscle weakness, no gait dysfunction, no frequent falls. No back pain. No neck pain. Integumentary: No wounds, no lesions. No rash or pruritus. No unusual bruising. No change in hair or nails. Neurologic: No aphasia. No facial droop. No change in mentation. No head injury. No headache. No paralysis. No paresthesia. Psychiatric: No depression. No anxiety. No mood swings. Endocrine: No abnormal blood sugars. No weight change. PHYSICAL EXAMINATION: General: 77-year-old male in no apparent distres HEENT: Head is atraumatic, normocephalic, pupils were equal round reactive to light and recommendation, extraocular muscle movement were intact, sclera nonicteric, conjunctivae were pale. Neck: Supple, no JVP, normal carotid upstroke bilaterally, no lymphadenopathy. Chest: Decreased breath sounds at the bases, few rhonchi, no expiratory wheezes, no chest wall tenderness, no intercostal retractions. Heart: First heart sound is normal, second heart sound is normal there is BRICE 2/6 located at the left sternal border, irregularly irregular Abdomen: Soft, no tenderness in the right lower quadrant,no rebound or guarding, no abd distension, positive bowel souds Extremities: There is no edema no calf tenderness DP +2 bilaterally. Neurologic examination: Patient is awake alert and oriented X3, cranial nerves II-12 appear grossly intact, muscle power were 5 out of 5 in upper extremities and 5 out of 5 in bilateral lower extremities, deep tendon reflexes normal bilaterally. ASSESSMENT AND PLAN: 1. Perforated appendix with phlegmon formation and partial small bowel obstruction. Diet has been advanced to clear liquids, continue patient on TPN, continue IV antibiotic in the form of Zosyn 3.375 mg piggyback every 8 hours, blood cultures positive for gram-positive cocci in clusters, patient will be maintained on current pain management, hold Eliquis for now, interval appendectomy. 2. Leukocytosis likely related to appendicitis/perforation/phlegmon formation. Continue IV antibiotic, continue IV fluid, ID consult appreciated. 4. Hyponatremia secondary to hypovolemia continue PT CMP tomorrow morning. 5. Coronary artery disease without angina pectoris. Patient will be seen and evaluated by cardiology. Patient will be maintained on atorvastatin 40 mg orally once every day. 6. Mild aortic regurgitation/moderate mitral regurgitation. Patient has been under the care of Dr. Bran for quite some time, he had an echocardiogram this year that showed ejection fraction of 55%. 7. Mixed hyperlipidemia. Continue patient on atorvastatin 40 mg orally once every day. 8. Hypothyroidism. Continue patient on Synthroid 50 g orally once every day. 9. Enlarged prostate. Continue tamsulosin 0.4 mg once every day. 10. Paroxysmal atrial fibrillation. Patient has been off Eliquis. 11. Mnire disease. Stable. 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 We will hold Ditropan for now. 13. superficial thrombosis phlebitis at PICC line site. May continue to use PICC. Do not need to change PICC. 14. DVT prophylaxis. Resume Eliquis 5 mg bid. 15. GI prophylaxis. Protonix 40 mg orally once every day. 15. Increase activity. Impression and plan of care have been directed as dictated by the signing physician. Loan Mccollum nurse practitioner acting as scribe for signing physician. Objective - Vital Signs Vital signs: Vital Signs Temp 98.0 F 03/05/23 08:00 Pulse 67 03/05/23 08:00 Resp 16 03/05/23 08:00 BP 115/75 03/05/23 08:00 Pulse Ox 97 03/05/23 08:00 FiO2 Intake & Output 03/04/23 03/05/23 03/05/23 18:59 06:59 18:59 Intake Total 1000 Output Total 800 Balance 200 Weight 81.647 kg Intake: Intake, IV Titration 1000 Amount Amino Acid 5%-D20w+Lytes* 1000 E* 1,000 ml @ 90 mls/hr IV .BY DURATION ERICK Rx#: [id number] Output: Urine 800 Other: Voiding Method Urinal Urinal # Voids 0 - Labs CBC & Chem 7: 03/05/23 06:00 03/05/23 06:00 Labs: Abnormal Lab Results - Last 24 Hours (Table) 03/05/23 03/05/23 03/05/23 Range/Units 06:00 06:00 10:47 RBC 3.80 L (4.40-5.60) X 10*6/uL Hgb 11.8 L (13.0-17.0) g/dL Hct 35.8 L (39.6-50.0) % Immature Gran # 0.10 H (0.00-0.04) X 10*3/uL PT 14.2 H (10.0-12.5) sec INR 1.4 H (<1.2) Glucose 110 H (74-99) mg/dL Calcium 8.3 L (8.4-10.2) mg/dL Total Protein 5.5 L (6.3-8.2) g/dL Albumin 2.9 L (3.5-5.0) g/dL
--- NOTE | 2023-03-05 14:29 | CDI ---
Documentation Clarification Form Date: 03/05/2023 01:26:00 PM From: Lois Parada RN CCDS Phone: [phone] Admit Date: 02/24/2023 11:53:00 AM Patient Name: Jaime Edward Visit Number: [id number] Discharge Date: ATTENTION: The Clinical Documentation Specialists (CDI) and [facility] Coding Staff appreciate your assistance in clarifying documentation. Please respond to the clarification below the line at the bottom and electronically sign. The CDI & [facility] Coding staff will review the response and follow-up if needed. Please note: Queries are made part of the Legal Health Record. If you have any questions, please contact the author of this message via ITS. Dr. Coty Shah The patient has positive blood cultures, 02/26, ID Note. Based on this information and the findings below, is there an additional diagnosis that is clinically appropriate for this patient? History/Risk Factors: 77-year-old M presents to the ED with pain across the lower abdomen that started six days prior and now the pain is at the upper abdomen. Medical History: Atrial fibrillation, HLD, Gerd and prostate disorder. Clinical Indicators: WBC, 02/24: 15.6 Neutrophils, 03/06: 13.4 Blood cultures: 02/24 Coagulase Negative staph Vitals signs, 02/24: B/P110/90; HR 92; Temp 97.0F Oral; RR 18; SpO2 9% RA CT ABD/PELV, 02/24: There is partial bowel obstruction believed to be caused by inflammatory change in the right pelvis thought to be caused by inflammatory change in the right pelvis thought to be related to severe but uncomplicated acute appendicitis. Medicine consult, 02/24: Perforated appendix with phlegmon formation and partial small bowel obstruction. ID consult, 02/26; Reason for follow-up is ruptured appendicitis with phlegmon and positive blood culture> General surgery has evaluated the patient and recommending IV antibiotic and interval appendectomy we will need to cover for the enteric gram negative both aerobes and anaerobes. Treatment: ID Consult: see above Antibiotics: 02/24 Zosyn IVPB x 1; 02/24 03/03 Zosyn IVPB Q8H; 03/04 Zosyn IVPB Q8H. IV Bolus: 02/24 0.9ns 500cc IVPB Is there an additional diagnosis that is clinically appropriate for this patient? [ ] Sepsis, present on admission [ ] Sepsis, developed during stay, not present on admission [ ] Sepsis ruled out [ ] Other, please specify [ ] Unable to determine SIRS Criteria: 2 or more of the following may indicate SIRS Temperature < 96.8F (36C) or > 101.0F (38.3C) Heart Rate > 90 bpm Respiratory Rate > 20 breaths/min or PaCO2 < 32 mmHg White Blood Cell Count > 12,000 or < 4,000 cells/mm3 or > 10% bands (Template Last Reviewed: March 2022) [ X ] Sepsis, present on admission MTDD
--- NOTE | 2023-03-05 16:22 | P.PN ---
Subjective Progress Note Date: 03/03/23 Principal diagnosis: Reason for follow-up is ruptured appendicitis with phlegmon and positive blood culture Patient is a 77-year-old male with a past medical history significant for reflux atrial fibrillation hyperlipidemia history of prostate disorder the patient presented to hospital for evaluation of abdominal pain has been diagnosed with the appendicitis with a partial small bowel obstruction surgery recommended antibiotics and delayed appendectomy On today's evaluation and that is 03/03/2023 the patient continues to be afebrile, the patient is breathing comfortably on room air without need for oxygen, the patient denies having any chest pain or cough and no sputum production, patient denies nausea vomiting , the patient abdominal discomfort has decreased in intensity and did have small bowel movement Patient white count is 9.97, creatinine 0.69 Objective - Vital Signs Vital signs: Vital Signs Temp 98.2 F 03/03/23 07:35 Pulse 91 03/03/23 07:35 Resp 19 03/03/23 07:35 BP 105/63 03/03/23 07:35 Pulse Ox 96 03/03/23 07:35 FiO2 Intake & Output 03/02/23 03/03/23 03/03/23 18:59 06:59 18:59 Intake Total 1600 100 Output Total 600 Balance 1600 -500 Intake: Intake, IV Titration 1600 100 Amount Amino Acid 5%-D20w+Lytes* 1000 E* 1,000 ml @ 90 mls/hr IV .BY DURATION ERICK Rx#: [id number] Piperacillin-Tazobactam 3 100 100 .375 gm In Sodium Chloride 0.9% 100 ml @ 25 mls/hr IVPB Q8H ERICK Rx#: [id number] Sodium Chloride 0.9% 1, 500 000 ml @ 100 mls/hr IV . Q10H ERICK Rx#:[id number] Output: Urine 600 Other: Voiding Method Toilet Toilet Toilet Urinal Urinal Urinal - Exam GENERAL DESCRIPTION: An elderly male lying in bed in no distress RESPIRATORY SYSTEM: Unlabored breathing , clear to auscultation anteriorly HEART: S1 S2 regular rate and rhythm , ABDOMEN: Soft , mild distention but no tenderness EXTREMITIES: No edema feet - Labs CBC & Chem 7: 03/05/23 06:00 03/05/23 06:00 Assessment and Plan (1) Positive blood culture Current Visit: Yes Status: Acute Code(s): R78.81 - BACTEREMIA SNOMED Code(s): 126965187 (2) Acute appendicitis Current Visit: Yes Status: Acute Code(s): K35.80 - UNSPECIFIED ACUTE APPENDICITIS SNOMED Code(s): 36286201 Plan: 1patient was in the hospital abdominal pain and this patient has been diagnosed with possible perforated appendicitis with the amount and inflammatory changes in the pelvis seen on the CT, patient is on Eliquis and requested to be high risk of bleeding General surgery has evaluated the patient and recommending IV antibiotic and interval appendectomy we will need to cover for the enteric gram- negative both aerobes and anaerobes 2-patient repeat CT abdominal pelvis today shows evidence of ruptured appendicitis and periappendicular abscess 3- patient to continue with Zosyn ,IR hasnot been able to drain this abscess because of surrounding bowels possible surgical drainage Dictation was produced using [employer] dictation software. please excuse any grammatical, word or spelling errors. Time with Patient: Less than 30
--- NOTE | 2023-03-05 16:23 | P.PN ---
Subjective Progress Note Date: 03/04/23 Principal diagnosis: Reason for follow-up is ruptured appendicitis with phlegmon and positive blood culture Patient is a 77-year-old male with a past medical history significant for reflux atrial fibrillation hyperlipidemia history of prostate disorder the patient presented to hospital for evaluation of abdominal pain has been diagnosed with the appendicitis with a partial small bowel obstruction surgery recommended antibiotics and delayed appendectomy On today's evaluation and that is 03/04/2023, the patient denies any fever or any chills, the patient is breathing comfortably on room air, patient denies chest pain shortness of breath, or cough, patient denies Abdominal pain and denies any nausea/vomiting and did have small bowel movement, patient seemed t o have problem with his PICC line Patient white count is 10.07, creatinine 0.78 Objective - Vital Signs Vital signs: Vital Signs Temp 98.3 F 03/04/23 07:40 Pulse 61 03/04/23 08:00 Resp 18 03/04/23 08:00 BP 122/66 03/04/23 07:40 Pulse Ox 94 L 03/04/23 07:40 FiO2 Intake & Output 03/03/23 03/04/23 03/04/23 18:59 06:59 18:59 Intake Total 1000 Output Total 400 Balance 1000 -400 Intake: Intake, IV Titration 1000 Amount Amino Acid 5%-D20w+Lytes* 1000 E* 1,000 ml @ 90 mls/hr IV .BY DURATION ERICK Rx#: [id number] Output: Urine 400 Other: Voiding Method Toilet Urinal Urinal Urinal # Voids 2 - Exam GENERAL DESCRIPTION: An elderly male lying in bed in no distress RESPIRATORY SYSTEM: Unlabored breathing , clear to auscultation anteriorly HEART: S1 S2 regular rate and rhythm , ABDOMEN: Soft , mild distention but no tenderness EXTREMITIES: No edema feet - Labs CBC & Chem 7: 03/05/23 06:00 03/05/23 06:00 Labs: Abnormal Lab Results - Last 24 Hours (Table) 03/04/23 03/04/23 Range/Units 06:14 06:14 WBC 10.07 H (4.50-10.00) X 10*3/uL RBC 4.04 L (4.40-5.60) X 10*6/uL Hgb 12.5 L (13.0-17.0) g/dL Hct 38.3 L (39.6-50.0) % RDW 14.6 H (11.5-14.5) % Immature Gran # 0.14 H (0.00-0.04) X 10*3/uL Glucose 103 H (74-99) mg/dL Calcium 8.3 L (8.4-10.2) mg/dL Total Protein 5.7 L (6.3-8.2) g/dL Albumin 3.0 L (3.5-5.0) g/dL Microbiology - Last 24 Hours (Table) 02/26/23 06:28 Blood Culture - Final Blood Assessment and Plan (1) Positive blood culture Current Visit: Yes Status: Acute Code(s): R78.81 - BACTEREMIA SNOMED Code(s): 066127985 (2) Acute appendicitis Current Visit: Yes Status: Acute Code(s): K35.80 - UNSPECIFIED ACUTE APPENDICITIS SNOMED Code(s): 57313250 Plan: 1patient was in the hospital abdominal pain and this patient has been diagnosed with possible perforated appendicitis with the amount and inflammatory changes in the pelvis seen on the CT, patient is on Eliquis and requested to be high risk of bleeding General surgery has evaluated the patient and recommending IV antibiotic and interval appendectomy we will need to cover for the enteric gram- negative both aerobes and anaerobes 2-patient repeat CT abdominal pelvis today shows evidence of ruptured appendicitis and periappendicular abscess 3- patient to continue with Zosyn ,IR was unable to drain the abscesses because of surrounding bowel loops surgery recommending IV antibiotic therapy to calm down infection before any surgical procedure plan of care has been discussed in detail with the family and with the admitting physician on the phone Dictation was produced using [employer] dictation software. please excuse any grammatical, word or spelling errors. Time with Patient: Less than 30
--- NOTE | 2023-03-05 16:25 | P.PN ---
Subjective Progress Note Date: 03/05/23 Principal diagnosis: Reason for follow-up is ruptured appendicitis with phlegmon and positive blood culture Patient is a 77-year-old male with a past medical history significant for reflux atrial fibrillation hyperlipidemia history of prostate disorder the patient presented to hospital for evaluation of abdominal pain has been diagnosed with the appendicitis with a partial small bowel obstruction surgery recommended antibiotics and delayed appendectomy On today's evaluation and that is 03/05/2023 patient remains to be afebrile, the patient is breathing comfortably on room air denies any chest pain shortness of breath or cough patient be complaining of nausea but no vomiting no significant abdominal pain did have a bowel movement main symptom remains to be discomfort at the PICC site. Patient did have white count of 8.24, creatinine 0.85 Doppler ultrasound shows SVT around the PICC but no DVT Objective - Vital Signs Vital signs: Vital Signs Temp 98.0 F 03/05/23 08:00 Pulse 67 03/05/23 08:00 Resp 16 03/05/23 08:00 BP 115/75 03/05/23 08:00 Pulse Ox 97 03/05/23 08:00 FiO2 Intake & Output 03/04/23 03/05/23 03/05/23 18:59 06:59 18:59 Intake Total 1000 Output Total 800 Balance 200 Weight 81.647 kg Intake: Intake, IV Titration 1000 Amount Amino Acid 5%-D20w+Lytes* 1000 E* 1,000 ml @ 90 mls/hr IV .BY DURATION ERICK Rx#: [id number] Output: Urine 800 Other: Voiding Method Urinal Urinal # Voids 0 - Exam GENERAL DESCRIPTION: An elderly male lying in bed in no distress RESPIRATORY SYSTEM: Unlabored breathing , clear to auscultation anteriorly HEART: S1 S2 regular rate and rhythm , ABDOMEN: Soft , mild distention but no tenderness EXTREMITIES: No edema feet - Labs CBC & Chem 7: 03/05/23 06:00 03/05/23 06:00 Labs: Abnormal Lab Results - Last 24 Hours (Table) 03/05/23 03/05/23 03/05/23 Range/Units 06:00 06:00 10:47 RBC 3.80 L (4.40-5.60) X 10*6/uL Hgb 11.8 L (13.0-17.0) g/dL Hct 35.8 L (39.6-50.0) % Immature Gran # 0.10 H (0.00-0.04) X 10*3/uL PT 14.2 H (10.0-12.5) sec INR 1.4 H (<1.2) Glucose 110 H (74-99) mg/dL Calcium 8.3 L (8.4-10.2) mg/dL Total Protein 5.5 L (6.3-8.2) g/dL Albumin 2.9 L (3.5-5.0) g/dL Assessment and Plan (1) Positive blood culture Current Visit: Yes Status: Acute Code(s): R78.81 - BACTEREMIA SNOMED Code(s): 409445534 (2) Acute appendicitis Current Visit: Yes Status: Acute Code(s): K35.80 - UNSPECIFIED ACUTE APPENDICITIS SNOMED Code(s): 36232735 Plan: 1patient was in the hospital abdominal pain and this patient has been diagnosed with possible perforated appendicitis with the amount and inflammatory changes in the pelvis seen on the CT, patient is on Eliquis and requested to be high risk of bleeding General surgery has evaluated the patient and recommending IV antibiotic and interval appendectomy we will need to cover for the enteric gram- negative both aerobes and anaerobes 2-patient repeat CT abdominal pelvis today shows evidence of ruptured appendicitis and periappendicular abscess 3- IR was unable to drain the abscesses because of surrounding bowel loops surgery recommending Repeat CT abdominal pelvis scheduled for this afternoon we will keep the patient on Zosyn and monitor his clinical course closely multiple questions concern answered in layman term Dictation was produced using [employer] dictation software. please excuse any grammatical, word or spelling errors. Time with Patient: Less than 30
--- NOTE | 2023-03-05 16:33 | P.PN ---
Subjective Progress Note Date: 03/05/23 CHIEF COMPLAINT: Acute appendicitis with phlegmon HISTORY OF PRESENT ILLNESS: Patient reports that he has no abdominal pain. Denies any nausea or vomiting. He is having flatus. He had a bowel movement yesterday. He is able to tolerate the full liquids. Afebrile. WBC normal at 8.24 Hgb 11.8 INR 1.4 sodium is 141 potassium is 4.3 creatinine 0.85. Doppler was negative for DVT. Superficial thrombosis phlebitis around the PICC line. PICC line is functioning. PHYSICAL EXAM: VITAL SIGNS: Reviewed GENERAL: Well-developed in no acute distress. HEENT: No sclera icterus. Extraocular movements grossly intact. Moist buccal mucosa. Head is atraumatic, normocephalic. Hears conversational speech. No nasal drainage. NECK: Supple without lymphadenopathy. CHEST: Non-labored respirations and equal bilateral excursions. CARDIOVASCULAR: Palpable 2+ radial pulses. ABDOMEN: Soft. Nondistended. nontender MUSCULOSKELETAL: No clubbing or cyanosis. NEUROLOGIC: No focal or lateralizing signs. Cranial nerves II through XII grossly intact. PSYCH: Appropriate affect. Alert and oriented to person, place and time. SKIN: Well perfused. Good skin turgor. ASSESSMENT: 1. Acute appendicitis with abscess 2. Partial distal small bowel obstruction possibly caused by inflammatory changes due to appendicitis noted on CT scan 3. History of multiple inguinal hernia repairs 4. History of atrial fibrillation on Eliquis at home 5. History of Mnire's 6. Hypothyroidism 7. Enlarged prostate PLAN: -Continue full liquids -Continue antibiotic management -Continue TPN for nutrition support -Plan for interval appendectomy -Hold Eliquis. We'll place patient on weight-based Lovenox due to history of A. fib and now evidence of SVT and arm. -Repeat CBC in AM -Encourage patient to ambulate Dr. Shah had planned for a computed tomography scan of abdomen and pelvis with delayed imaging of 6 hours after contrast given to evaluate the abscess. Patient had refused the CAT scan. Dr. Shah did have a lengthy discussion of her reasoning and plan of care with patient and . At this time we will proceed with CAT scan on Wednesday. Due to patient refusing the computed tomograph y scan it is causing a holdup in his plan of care. Physician Audio Visual Tech note has been reviewed by physician. Signing provider agrees with the documented findings, assessment, and plan of care. Objective - Vital Signs Vital signs: Vital Signs Temp 98.0 F 03/05/23 08:00 Pulse 67 03/05/23 08:00 Resp 16 03/05/23 08:00 BP 115/75 03/05/23 08:00 Pulse Ox 97 03/05/23 08:00 FiO2 Intake & Output 03/04/23 03/05/23 03/05/23 18:59 06:59 18:59 Intake Total 1000 Output Total 800 Balance 200 Weight 81.647 kg Intake: Intake, IV Titration 1000 Amount Amino Acid 5%-D20w+Lytes* 1000 E* 1,000 ml @ 90 mls/hr IV .BY DURATION [facility] Rx#: [id number] Output: Urine 800 Other: Voiding Method Urinal Urinal # Voids 0 - Labs CBC & Chem 7: 03/05/23 06:00 03/05/23 06:00 Labs: Abnormal Lab Results - Last 24 Hours (Table) 03/05/23 03/05/23 Range/Units 06:00 06:00 RBC 3.80 L (4.40-5.60) X 10*6/uL Hgb 11.8 L (13.0-17.0) g/dL Hct 35.8 L (39.6-50.0) % Immature Gran # 0.10 H (0.00-0.04) X 10*3/uL Glucose 110 H (74-99) mg/dL Calcium 8.3 L (8.4-10.2) mg/dL Total Protein 5.5 L (6.3-8.2) g/dL Albumin 2.9 L (3.5-5.0) g/dL
[2023-03-05] MEDS ORDERED: APIXABAN 5 MG TAB PO SCH (21:00)
[2023-03-05] MEDS: ATORVASTATIN 40 MG TAB PO SCH (22:50)
[2023-03-05] MEDS: ENOXAPARIN 80 MG/0.8 ML SYRINGE SQ SCH (22:50)
[2023-03-06] MEDS: PIPERACILLIN-TAZOBACTAM 3.375 GM in SODIUM CHLORIDE 0.9% 100 ML IVPB SCH ×3 (01:12→18:54)
[2023-03-06] MEDS: 1: MVI, ADULT NO.4 WITH VIT K 10 ML, TRACE (CONC-1ML/DOSE) 1 ML in AMINO ACID 5%-D20W+LY IV SCH ×6 (02:45→18:55)
[2023-03-06] MEDS: LEVOTHYROXINE 50 MCG TAB PO SCH (06:24)
[2023-03-06] MEDS: SODIUM CHLORIDE 0.9% 1,000 ML IV SCH ×3 (06:25→11:56)
[2023-03-06 06:30] LABS: ALT 41 U/L (4-49); AST 34 U/L (17-59); African American GFR (CKD) >90 (>60 ml/min/1.73 sqM); Albumin/Globulin Ratio 1.1; Alkaline Phosphatase 54 U/L (38-126); Anion Gap 7 mmol/L; Blood Urea Nitrogen 17 mg/dL (9-20); Calcium 8.5 mg/dL (8.4-10.2); Carbon Dioxide 26 mmol/L (22-30); Chloride 106 mmol/L (98-107); Globulin 2.8 g/dL; Glucose 119 mg/dL (74-99); Magnesium 2.1 mg/dL (1.6-2.3); Non-African American GFR(CKD) 85 (>60 ml/min/1.73 sqM); Phosphorus 3.2 mg/dL (2.5-4.5); Potassium 4.5 mmol/L (3.5-5.1); Sodium 139 mmol/L (137-145); Total Bilirubin 0.5 mg/dL (0.2-1.3); Total Protein 5.8 g/dL (6.3-8.2)
[2023-03-06] MEDS: TAMSULOSIN 0.4 MG CAP.ER.24H PO SCH (08:38)
[2023-03-06] MEDS: ENOXAPARIN 80 MG/0.8 ML SYRINGE SQ SCH ×2 (08:53→20:53)
[2023-03-06] MEDS: SIMETHICONE 40 MG/0.6 ML DROPS 2,000 MG/30 ML BOTTLE PO SCH ×4 (08:53→20:53)
[2023-03-06 09:28] LABS: Basophils # (A) 0.05 X 10*3/uL (0.00-0.10); Basophils % (A) 0.5 %; Eosinophils # (A) 0.25 X 10*3/uL (0.04-0.35); Eosinophils % (A) 2.7 %; HCT 37.2 % (39.6-50.0); HGB 12.1 g/dL (13.0-17.0); Lymphocytes # (A) 1.25 X 10*3/uL (0.90-5.00); Lymphocytes % (A) 13.6 %; MCH 31.1 pg (27.0-32.0); MCHC 32.5 g/dL (32.0-37.0); MCV 95.6 FL (80.0-97.0); Mean Platelet Volume 11.9 FL (9.5-12.2); Monocytes # (A) 0.83 X 10*3/uL (0.20-1.00); NRBC Per 100 WBC 0 X 10*3/uL (0.00-0.01); Neutrophils # (A) 6.74 X 10*3/uL (1.80-7.70); Neutrophils % (A) 73.4 %; Platelet Count 274 X 10*3/uL (140-440); RBC 3.89 X 10*6/uL (4.40-5.60); RDW 14.6 % (11.5-14.5); WBC 9.19 X 10*3/uL (4.50-10.00)
--- NOTE | 2023-03-06 10:41 | P.PN ---
Subjective Progress Note Date: 03/06/23 HISTORY OF PRESENT ILLNESS: This is a 77-year-old male with a previous medical history significant for hypertension and hypertensive cardiovascular disease, hyperlipidemia, hypothyroidism, history of atrial fibrillation, coronary artery disease, mitral regurgitation, aortic regurgitation, has been followed by Dr. Bran on the regular basis, patient presented to the emergency department at [facility] with a 6 day history of abdominal pain in the right lower quadrant associated with poor appetite nausea but no vomiting and not able to have a good bowel movement, apparently patient had contacted our office on Wednesday for an appointment he was referred to the emergency department at the time, apparently the patient did not go since he was feeling a bit better . On Wednesday was feeling better, but on Wednesday morning he developed more pain but he decided to stay home till today when patient went to the ER at [facility] ended up going for computed tomography scan of the abdomen and pelvis that showed ruptured appendix with phlegmon formation and a partial small bowel obstruction he was admitted under general surgery, and consult was placed for medical management. 02/25: Patient is sitting up in bed in no apparent distress, he did try clear liquid diet today, he did have a PICC line placed, who started on TPN, patient was seen in consultation by infectious disease recommended to continue IV antibiotic, we will arrange for home IV antibiotic, he was also consultation by cardiology who recommended to proceed with surgery with no restriction at this point in time, patient did have an echocardiogram in October of this year that showed ejection fraction 55%, moderate mitral regurgitation and mild aortic regurgitation, his last heart catheterization was done in 2009 that showed evidence of mild CAD, patient pain appears to be controlled well with the Tylenol IV and he has been off his Eliquis 02/26:Patient is feeling full with increased distension no pain and has been getting TPN along with liquid diet and the plan for IV ABX at Office and follow up for surgery down the line, we will continue with increased activity, and continue with current treatment plan has been off Eliquis, Abdominal X-ray showed partial vs complete bowel obstruction may need to have surgery . 02/27: Patient is feeling full of this point in time, he is receiving TPN, he continues to run IV antibiotic, he was seen earlier by general surgery, it was recommended to continue and increase activity, patient has not had any bowel movement, he continues to have some pressure in his abdomen, awaiting general surgery for final decision about surgery. 02/28: Patient is sitting up in bed in no apparent distress, he has no chest pain, had episode of nausea yesterday he did receive some Zofran, he denies any significant abdominal pain, is passing some gas, he is increasing his activity, continue antibiotic, continue to monitor the patient very closely. Abdominal x-ray showed partial small bowel obstruction. General surgery is following the decision for surgery and the timing is per the surgical team. 03/01: PATIENT CONTINUES TO HAVE ABDOMINAL DISTENTION. hE IS BACK TO NOTHING BY MOUTH EXCEPT FOR ICE CHIPS. nO ABDOMINAL PAIN. iS PASSING ONLY SMALL AMOUNT OF FLATUS. pATIENT HAS BEEN AFEBRILE.heart rate is in the 70s, blood pressure 166/96, pulse ox 96% on room air. the blood work reveals WBC 11.6, hemoglobin 12.3, white count 225. Electrolytes and renal function are within normal limits. AST 62, ALT 64.gEN. SURGERY IS PLANNING2 REPEAT cat SCAN OF THE ABDOMEN AND PELVIS WITH CONTRAST. pATIENT IS CONTINUED ON tpn AND ON iv ANTIBIOTICS. eLIQUIS REMAINS ON HOLD. Appendectomy is pending. 03/02: CAT scan of the abdomen and pelvis revealedfindings compatible with ruptured appendicitis and adjacent abscess. Small bowel ileus. Gen. surgery to determine next plan. Patient is also followed by infectious disease and continued on Zosyn.patient has been afebrile, heart rate 89, blood pressure 111/63, pulse ox 94% on room air. WBC 10.4, hemoglobin 12.3 and platelet count 211. Electro lites and renal function are normal. Blood sugar 144. Patient denies having any nausea or vomiting. His abdomen is soft. He has been up for a shower today and also has been ambulating. 03/03: Blood pressures 105/63, heart rate in the 60s to 90s, afebrile, pulse ox 96% on room air. Repeat blood work reveals hemoglobin of 12.7, WBC 9.9, platelet count 270. BMP normal. Magnesium 2.2. Patient remains nothing by mouth except for ice chips and popsicles. Patient remains on TPN, IV Zosyn managed by ID. Patient's voices concerns that both of them are anxious about the plan to address abscess. More information pending from Dr. Shah. Patient denies adominal pain, no nausea or vomiting. He has a loose BM today. 03/04: Patient is found ambulating in the hallway. He states he feels about the same. He did have some diarrhea/loose stools. No shortness of breath. No abdominal pain. No nausea or vomiting. He is tolerating clear liquid diet. Patient remains afebrile, heart rate in the 60s, blood pressure 122/66, pulse ox 94% on room air. Plan is to continue IV antibiotics, no surgery to be done at this time. Eliquis remains on hold. 03/05: ultrasound of the left upper extremity was negative for DVT. Superficial thrombosis phlebitis around the PICC line. new PICC line was ordered but may continue to use. monitor technician is sinus rhythm will be discontinued.patient remains afebrile, heart rate in the 60s and 70s, blood pressure 115/75, pulse ox 97% on room air. diet has been advanced to full liquid. He continues to have lo ose stools. We will resume Eliquis and discontinue Lovenox. Eliquis will need to be discontinued 48 hours prior to surgical intervention. 03/06: Patient is sitting up in chair in no acute distress, had US of the left upper extremity that showed basilic vein thrombus due to PICC line we will treat with Lovenox after discussing with surgery without the need for exchange the PICC line, we will continue with current treatment plan and he will have a repeated CT scan on Wednesday to see if the Abscess is amenable for Trans-cutaneous drainage via IR or will need to continue with IV BAX and he will come back for surgery as per Recommendations REVIEW OF SYSTEMS: Constitutional: No documented fever, no chills, no night sweats. No weight change. No weakness, fatigue or lethargy. No daytime sleepiness. HEENT: No headache. No blurred vision or double vision,no loss of vision. loss of Hearing, ringing in the ears, no dizziness. No nasal drainage or congestion. No epistaxis. No sore throat. Lungs: No shortness of breath, no cough, no sputum production. No wheezing. Reports dyspnea with activity. Cardiovascular: No chest pain, no lower extremity edema. No palpitations. No paroxysmal nocturnal dyspnea. No orthopnea. No lightheadedness or dizziness. No syncopal episodes. Abdominal: Reports no abdominal pain. No nausea, vomiting. + diarrhea. No constipation. No bloody or tarry stools reports loss of appetite. Genitourinary: No dysuria, increased frequency, urgency. No urinary retention. Musculoskeletal: No myalgias. No muscle weakness, no gait dysfunction, no frequent falls. No back pain. No neck pain. Integumentary: No wounds, no lesions. No rash or pruritus. No unusual bruising. No change in hair or nails. Neurologic: No aphasia. No facial droop. No change in mentation. No head injury. No headache. No paralysis. No paresthesia. Psychiatric: No depression. No anxiety. No mood swings. Endocrine: No abnormal blood sugars. No weight change. PHYSICAL EXAMINATION: General: 77-year-old male in no apparent distres HEENT: Head is atraumatic, normocephalic, pupils were equal round reactive to light and recommendation, extraocular muscle movement were intact, sclera nonicteric, conjunctivae were pale. Neck: Supple, no JVP, normal carotid upstroke bilaterally, no lymphadenopathy. Chest: Decreased breath sounds at the bases, few rhonchi, no expiratory wheezes, no chest wall tenderness, no intercostal retractions. Heart: First heart sound is normal, second heart sound is normal there is BRICE 2/6 located at the left sternal border, irregularly irregular Abdomen: Soft, no tenderness in the right lower quadrant,no rebound or guarding, no abd distension, positive bowel souds Extremities: There is no edema no calf tenderness DP +2 bilaterally. Neurologic examination: Patient is awake alert and oriented X3, cranial nerves II-12 appear grossly intact, muscle power were 5 out of 5 in upper extremities and 5 out of 5 in bilateral lower extremities, deep tendon reflexes normal bilaterally. ASSESSMENT AND PLAN: 1. Perforated appendix with phlegmon formation( Abscess) and partial small bowel obstruction. Diet has been advanced to clear liquids, continue patient on TPN, continue IV antibiotic in the form of Zosyn 3.375 mg piggyback every 8 hours, blood cultures positive for gram-positive cocci in clusters, patient will be maintained on current pain management, the plan is to repeat CT scan of the Abdomen and pelvis with contrast on Wednesday 2. Leukocytosis likely related to appendicitis/perforation/phlegmon formation. Continue IV antibiotic, continue IV fluid, ID consult appreciated. 4. Hyponatremia secondary to hypovolemia continue PT CMP tomorrow morning. 5. Coronary artery disease without angina pectoris. Patient will be seen and evaluated by cardiology. Patient will be maintained on atorvastatin 40 mg orally once every day. 6. Mild aortic regurgitation/moderate mitral regurgitation. Patient has been under the care of Dr. Bran for quite some time, he had an echocardiogram this year that showed ejection fraction of 55%. 7. Mixed hyperlipidemia. Continue patient on atorvastatin 40 mg orally once every day. 8. Hypothyroidism. Continue patient on Synthroid 50 g orally once every day. 9. Enlarged prostate. Continue tamsulosin 0.4 mg once every day. 10. Paroxysmal atrial fibrillation. we started Lovenox 80 mg SC Q12 H 11. Mnire disease. Stable. 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 We will hold Ditropan for now. 13. superficial thrombosis phlebitis at PICC line site. May continue to use PICC. Do not need to change PICC. we will continue with Lovenox 80 mg SC Q12 H 14. DVT prophylaxis. on Lovenox 80 mg SC Q12 h 15. GI prophylaxis. Protonix 40 mg orally once every day. 15. Increase activity. Objective - Vital Signs Vital signs: Vital Signs Temp 98.1 F 03/06/23 07:15 Pulse 84 03/06/23 07:15 Resp 16 03/06/23 07:15 BP 143/90 03/06/23 07:15 Pulse Ox 97 03/06/23 07:15 FiO2 Intake & Output 03/05/23 03/06/23 03/06/23 18:59 06:59 18:59 Intake Total 1000 1011 Balance 1000 1011 Intake: Intake, IV Titration 1000 1011 Amount Amino Acid 5%-D20w+Lytes* 1000 E* 1,000 ml @ 90 mls/hr IV .BY DURATION [facility] Rx#: [id number] Mvi, Adult No.4 with Vit 1011 K 10 ml Trace (Conc-1Ml/ Dose) 1 ml In Amino Acid 5%-D20w+Lytes*E* 1,000 ml @ 90 mls/hr IV .BY DURATION [facility] Rx#: [id number] Other: Voiding Method Urinal # Voids 3 2 # Bowel Movements 2 - Labs CBC & Chem 7: 03/06/23 05:56 03/06/23 05:56 Labs: Abnormal Lab Results - Last 24 Hours (Table) 03/05/23 03/06/23 03/06/23 Range/Units 10:47 05:56 05:56 RBC 3.89 L (4.40-5.60) X 10*6/uL Hgb 12.1 L (13.0-17.0) g/dL Hct 37.2 L (39.6-50.0) % RDW 14.6 H (11.5-14.5) % Immature Gran # 0.07 H (0.00-0.04) X 10*3/uL PT 14.2 H (10.0-12.5) sec INR 1.4 H (<1.2) Glucose 119 H (74-99) mg/dL Total Protein 5.8 L (6.3-8.2) g/dL Albumin 3.0 L (3.5-5.0) g/dL
--- NOTE | 2023-03-06 11:20 | P.PN ---
Progress Note - Text Progress Note Date: 03/06/23 CHIEF COMPLAINT: Acute appendicitis with phlegmon HISTORY OF PRESENT ILLNESS: Patient reports that he has no abdominal pain. Denies any nausea or vomiting. He is having flatus. He had a bowel movement yesterday. He is able to tolerate the full liquids. PHYSICAL EXAM: VITAL SIGNS: Reviewed GENERAL: Well-developed in no acute distress. HEENT: No sclera icterus. Extraocular movements grossly intact. Moist buccal mucosa. Head is atraumatic, normocephalic. Hears conversational speech. No nasal drainage. NECK: Supple without lymphadenopathy. CHEST: Non-labored respirations and equal bilateral excursions. CARDIOVASCULAR: Palpable 2+ radial pulses. ABDOMEN: Soft. Nondistended. nontender MUSCULOSKELETAL: No clubbing or cyanosis. NEUROLOGIC: No focal or lateralizing signs. Cranial nerves II through XII grossly intact. PSYCH: Appropriate affect. Alert and oriented to person, place and time. SKIN: Well perfused. Good skin turgor. ASSESSMENT: 1. Acute appendicitis with abscess 2. Partial distal small bowel obstruction possibly caused by inflammatory changes due to appendicitis noted on CT scan 3. History of multiple inguinal hernia repairs 4. History of atrial fibrillation on Eliquis at home 5. History of Mnire's 6. Hypothyroidism 7. Enlarged prostate PLAN: - Regular Diet -Continue antibiotic management -Continue TPN for nutrition support -Plan for interval appendectomy -Hold Eliquis. We'll place patient on weight-based Lovenox due to history of A. fib and now evidence of SVT and arm. -Repeat CBC in AM -Encourage patient to ambulate
--- NOTE | 2023-03-06 13:19 | P.PN ---
Subjective Progress Note Date: 03/06/23 Principal diagnosis: Reason for follow-up is ruptured appendicitis with phlegmon and positive blood culture Patient is a 77-year-old male with a past medical history significant for reflux atrial fibrillation hyperlipidemia history of prostate disorder the patient presented to hospital for evaluation of abdominal pain has been diagnosed with the appendicitis with a partial small bowel obstruction surgery recommended antibiotics and delayed appendectomy On today's evaluation and that is 03/06/2023 patient continues to be afebrile, the patient is breathing comfortably on room air and no need for supplemental oxygen, the patient denies chest pain shortness of breath or cough patient denies any nausea or vomiting abdominal pain has improved and the patient is exc ited about advancement of his diet Patient did have white count of 9.19, creatinine 0.81 Doppler ultrasound shows SVT around the PICC but no DVT Objective - Vital Signs Vital signs: Vital Signs Temp 98.1 F 03/06/23 07:15 Pulse 84 03/06/23 07:15 Resp 16 03/06/23 07:15 BP 143/90 03/06/23 07:15 Pulse Ox 97 03/06/23 07:15 FiO2 Intake & Output 03/05/23 03/06/23 03/06/23 18:59 06:59 18:59 Intake Total 1000 1011 Balance 1000 1011 Intake: Intake, IV Titration 1000 1011 Amount Amino Acid 5%-D20w+Lytes* 1000 E* 1,000 ml @ 90 mls/hr IV .BY DURATION [facility] Rx#: [id number] Mvi, Adult No.4 with Vit 1011 K 10 ml Trace (Conc-1Ml/ Dose) 1 ml In Amino Acid 5%-D20w+Lytes*E* 1,000 ml @ 90 mls/hr IV .BY DURATION [facility] Rx#: [id number] Other: Voiding Method Urinal # Voids 3 2 # Bowel Movements 2 - Exam GENERAL DESCRIPTION: An elderly male lying in bed in no distress RESPIRATORY SYSTEM: Unlabored breathing , clear to auscultation anteriorly HEART: S1 S2 regular rate and rhythm , ABDOMEN: Soft , mild distention but no tenderness EXTREMITIES: No edema feet - Labs CBC & Chem 7: 03/06/23 05:56 03/06/23 05:56 Labs: Abnormal Lab Results - Last 24 Hours (Table) 03/05/23 03/06/2303/06/23 Range/Units 10:47 05:56 05:56 RBC 3.89 L (4.40-5.60) X 10*6/uL Hgb 12.1 L (13.0-17.0) g/dL Hct 37.2 L (39.6-50.0) % RDW 14.6 H (11.5-14.5) % Immature Gran # 0.07 H (0.00-0.04) X 10*3/uL PT 14.2 H (10.0-12.5) sec INR 1.4 H (<1.2) Glucose 119 H (74-99) mg/dL Total Protein 5.8 L (6.3-8.2) g/dL Albumin 3.0 L (3.5-5.0) g/dL Assessment and Plan (1) Positive blood culture Current Visit: Yes Status: Acute Code(s): R78.81 - BACTEREMIA SNOMED Code(s): 580764255 (2) Acute appendicitis Current Visit: Yes Status: Acute Code(s): K35.80 - UNSPECIFIED ACUTE APPENDICITIS SNOMED Code(s): 23697177 Plan: 1patient was in the hospital abdominal pain and this patient has been diagnosed with possible perforated appendicitis with the amount and inflammatory changes in the pelvis seen on the CT, patient is on Eliquis and requested to be high risk of bleeding General surgery has evaluated the patient and recommending IV antibiotic and interval appendectomy we will need to cover for the enteric gram- negative both aerobes and anaerobes 2-patient repeat CT abdominal pelvis today shows evidence of ruptured appendicitis and periappendicular abscess 3- IR was unable to drain the abscesses because of surrounding bowel loops surgery recommending Repeat CT abdominal pelvis which has been scheduled for Wednesday 4- we'll now keeping in mind the patient has some clinical improvement we will keep the patient on Zosyn and monitor his clinical course closely Dictation was produced using [employer] dictation software. please excuse any grammatical, word or spelling errors. Time with Patient: Less than 30
[2023-03-06] MEDS: ATORVASTATIN 40 MG TAB PO SCH (20:53)
[2023-03-07] MEDS: SODIUM CHLORIDE 0.9% 1,000 ML IV SCH ×4 (00:14→23:52)
[2023-03-07] MEDS: PIPERACILLIN-TAZOBACTAM 3.375 GM in SODIUM CHLORIDE 0.9% 100 ML IVPB SCH ×4 (00:14→23:51)
[2023-03-07] MEDS: 1: MVI, ADULT NO.4 WITH VIT K 10 ML, TRACE (CONC-1ML/DOSE) 1 ML in AMINO ACID 5%-D20W+LY IV SCH ×9 (01:02→23:46)
[2023-03-07] MEDS: LEVOTHYROXINE 50 MCG TAB PO SCH (06:23)
[2023-03-07 06:34] LABS: Magnesium 2.1 mg/dL (1.6-2.3); Phosphorus 3.5 mg/dL (2.5-4.5)
[2023-03-07] MEDS: TAMSULOSIN 0.4 MG CAP.ER.24H PO SCH (08:02)
[2023-03-07] MEDS: ENOXAPARIN 80 MG/0.8 ML SYRINGE SQ SCH ×2 (08:03→20:26)
[2023-03-07] MEDS: SIMETHICONE 40 MG/0.6 ML DROPS 2,000 MG/30 ML BOTTLE PO SCH ×4 (08:03→20:27)
--- NOTE | 2023-03-07 11:12 | P.PN ---
Subjective Progress Note Date: 03/07/23 HISTORY OF PRESENT ILLNESS: This is a 77-year-old male with a previous medical history significant for hypertension and hypertensive cardiovascular disease, hyperlipidemia, hypothyroidism, history of atrial fibrillation, coronary artery disease, mitral regurgitation, aortic regurgitation, has been followed by Dr. Bran on the regular basis, patient presented to the emergency department at [facility] with a 6 day history of abdominal pain in the right lower quadrant associated with poor appetite nausea but no vomiting and not able to have a good bowel movement, apparently patient had contacted our office on Wednesday for an appointment he was referred to the emergency department at the time, apparently the patient did not go since he was feeling a bit better . On Wednesday was feeling better, but on Wednesday morning he developed more pain but he decided to stay home till today when patient went to the ER at [facility] ended up going for computed tomography scan of the abdomen and pelvis that showed ruptured appendix with phlegmon formation and a partial small bowel obstruction he was admitted under general surgery, and consult was placed for medical management. 02/25: Patient is sitting up in bed in no apparent distress, he did try clear liquid diet today, he did have a PICC line placed, who started on TPN, patient was seen in consultation by infectious disease recommended to continue IV antibiotic, we will arrange for home IV antibiotic, he was also consultation by cardiology who recommended to proceed with surgery with no restriction at this point in time, patient did have an echocardiogram in October of this year that showed ejection fraction 55%, moderate mitral regurgitation and mild aortic regurgitation, his last heart catheterization was done in 2009 that showed evidence of mild CAD, patient pain appears to be controlled well with the Tylenol IV and he has been off his Eliquis 02/26:Patient is feeling full with increased distension no pain and has been getting TPN along with liquid diet and the plan for IV ABX at Office and follow up for surgery down the line, we will continue with increased activity, and continue with current treatment plan has been off Eliquis, Abdominal X-ray showed partial vs complete bowel obstruction may need to have surgery . 02/27: Patient is feeling full of this point in time, he is receiving TPN, he continues to run IV antibiotic, he was seen earlier by general surgery, it was recommended to continue and increase activity, patient has not had any bowel movement, he continues to have some pressure in his abdomen, awaiting general surgery for final decision about surgery. 02/28: Patient is sitting up in bed in no apparent distress, he has no chest pain, had episode of nausea yesterday he did receive some Zofran, he denies any significant abdominal pain, is passing some gas, he is increasing his activity, continue antibiotic, continue to monitor the patient very closely. Abdominal x-ray showed partial small bowel obstruction. General surgery is following the decision for surgery and the timing is per the surgical team. 03/01: PATIENT CONTINUES TO HAVE ABDOMINAL DISTENTION. hE IS BACK TO NOTHING BY MOUTH EXCEPT FOR ICE CHIPS. nO ABDOMINAL PAIN. iS PASSING ONLY SMALL AMOUNT OF FLATUS. pATIENT HAS BEEN AFEBRILE.heart rate is in the 70s, blood pressure 166/96, pulse ox 96% on room air. the blood work reveals WBC 11.6, hemoglobin 12.3, white count 225. Electrolytes and renal function are within normal limits. AST 62, ALT 64.gEN. SURGERY IS PLANNING2 REPEAT cat SCAN OF THE ABDOMEN AND PELVIS WITH CONTRAST. pATIENT IS CONTINUED ON tpn AND ON iv ANTIBIOTICS. eLIQUIS REMAINS ON HOLD. Appendectomy is pending. 03/02: CAT scan of the abdomen and pelvis revealedfindings compatible with ruptured appendicitis and adjacent abscess. Small bowel ileus. Gen. surgery to determine next plan. Patient is also followed by infectious disease and continued on Zosyn.patient has been afebrile, heart rate 89, blood pressure 111/63, pulse ox 94% on room air. WBC 10.4, hemoglobin 12.3 and platelet count 211. Electro lites and renal function are normal. Blood sugar 144. Patient denies having any nausea or vomiting. His abdomen is soft. He has been up for a shower today and also has been ambulating. 03/03: Blood pressures 105/63, heart rate in the 60s to 90s, afebrile, pulse ox 96% on room air. Repeat blood work reveals hemoglobin of 12.7, WBC 9.9, platelet count 270. BMP normal. Magnesium 2.2. Patient remains nothing by mouth except for ice chips and popsicles. Patient remains on TPN, IV Zosyn managed by ID. Patient's voices concerns that both of them are anxious about the plan to address abscess. More information pending from Dr. Shah. Patient denies adominal pain, no nausea or vomiting. He has a loose BM today. 03/04: Patient is found ambulating in the hallway. He states he feels about the same. He did have some diarrhea/loose stools. No shortness of breath. No abdominal pain. No nausea or vomiting. He is tolerating clear liquid diet. Patient remains afebrile, heart rate in the 60s, blood pressure 122/66, pulse ox 94% on room air. Plan is to continue IV antibiotics, no surgery to be done at this time. Eliquis remains on hold. 03/05: ultrasound of the left upper extremity was negative for DVT. Superficial thrombosis phlebitis around the PICC line. new PICC line was ordered but may continue to use. library monitor is sinus rhythm will be discontinued.patient remains afebrile, heart rate in the 60s and 70s, blood pressure 115/75, pulse ox 97% on room air. diet has been advanced to full liquid. He continues to have lo ose stools. We will resume Eliquis and discontinue Lovenox. Eliquis will need to be discontinued 48 hours prior to surgical intervention. 03/06: Patient is sitting up in chair in no acute distress, had US of the left upper extremity that showed basilic vein thrombus due to PICC line we will treat with Lovenox after discussing with surgery without the need for exchange the PICC line, we will continue with current treatment plan and he will have a repeated CT scan on Wednesday to see if the Abscess is amenable for Trans-cutaneous drainage via IR or will need to continue with IV BAX and he will come back for surgery as per Recommendations 03/07: Patient is sitting in chair i no distress, he will be scheduled for CT scan of the Abdomen and pelvis with contrast in AM, hoefully will be able to have the Abscess drained with CT guidance , and we will transition for home with HHC and IV Antibiotic as directed by the ID team, meanwhile we will contine with weaning off TPN and advance diet as tolerated REVIEW OF SYSTEMS: Constitutional: No documented fever, no chills, no night sweats. No weight change. No weakness, fatigue or lethargy. No daytime sleepiness. HEENT: No headache. No blurred vision or double vision,no loss of vision. loss of Hearing, ringing in the ears, no dizziness. No nasal drainage or congestion. No epistaxis. No sore throat. Lungs: No shortness of breath, no cough, no sputum production. No wheezing. Reports dyspnea with activity. Cardiovascular: No chest pain, no lower extremity edema. No palpitations. No paroxysmal nocturnal dyspnea. No orthopnea. No lightheadedness or dizziness. No syncopal episodes. Abdominal: Reports no abdominal pain. No nausea, vomiting. + diarrhea. No constipation. No bloody or tarry stools reports loss of appetite. Genitourinary: No dysuria, increased frequency, urgency. No urinary retention. Musculoskeletal: No myalgias. No muscle weakness, no gait dysfunction, no frequent falls. No back pain. No neck pain. Integumentary: No wounds, no lesions. No rash or pruritus. No unusual bruising. No change in hair or nails. Neurologic: No aphasia. No facial droop. No change in mentation. No head injury. No headache. No paralysis. No paresthesia. Psychiatric: No depression. No anxiety. No mood swings. Endocrine: No abnormal blood sugars. No weight change. PHYSICAL EXAMINATION: General: 77-year-old male in no apparent distres HEENT: Head is atraumatic, normocephalic, pupils were equal round reactive to light and recommendation, extraocular muscle movement were intact, sclera nonicteric, conjunctivae were pale. Neck: Supple, no JVP, normal carotid upstroke bilaterally, no lymphadenopathy. Chest: Decreased breath sounds at the bases, few rhonchi, no expiratory wheezes, no chest wall tenderness, no intercostal retractions. Heart: First heart sound is normal, second heart sound is normal there is BRICE 2/6 located at the left sternal border, irregularly irregular Abdomen: Soft, no tenderness in the right lower quadrant,no rebound or guarding, no abd distension, positive bowel souds Extremities: There is no edema no calf tenderness DP +2 bilaterally. Neurologic examination: Patient is awake alert and oriented X3, cranial nerves II-12 appear grossly intact, muscle power were 5 out of 5 in upper extremities and 5 out of 5 in bilateral lower extremities, deep tendon reflexes normal bilaterally. ASSESSMENT AND PLAN: 1. Perforated appendix with phlegmon formation( Abscess) and partial small bowel obstruction. Diet has been advanced to clear liquids, continue patient on TPN, continue IV antibiotic in the form of Zosyn 3.375 mg piggyback every 8 hours, blood cultures positive for gram-positive cocci in clusters, patient will be maintained on current pain management, the plan is to repeat CT scan of the Abdomen and pelvis with contrast on Wednesday 2. Leukocytosis likely related to appendicitis/perforation/phlegmon formation. Continue IV antibiotic, continue IV fluid, ID consult appreciated. 4. Hyponatremia secondary to hypovolemia continue PT CMP tomorrow morning. 5. Coronary artery disease without angina pectoris. Patient will be seen and evaluated by cardiology. Patient will be maintained on atorvastatin 40 mg orally once every day. 6. Mild aortic regurgitation/moderate mitral regurgitation. Patient has been under the care of Dr. Bran for quite some time, he had an echocardiogram this year that showed ejection fraction of 55%. 7. Mixed hyperlipidemia. Continue patient on atorvastatin 40 mg orally once every day. 8. Hypothyroidism. Continue patient on Synthroid 50 g orally once every day. 9. Enlarged prostate. Continue tamsulosin 0.4 mg once every day. 10. Paroxysmal atrial fibrillation. we started Lovenox 80 mg SC Q12 H 11. Mnire disease. Stable. 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 We will hold Ditropan for now. 13. superficial thrombosis phlebitis at PICC line site. May continue to use PICC. Do not need to change PICC. we will continue with Lovenox 80 mg SC Q12 H 14. DVT prophylaxis. on Lovenox 80 mg SC Q12 h 15. GI prophylaxis. Protonix 40 mg orally once every day. 15. Increase activity. Objective - Vital Signs Vital signs: Vital Signs Temp 98.2 F 03/07/23 07:35 Pulse 55 L 03/07/23 07:35 Resp 18 03/07/23 07:35 BP 115/55 03/07/23 07:35 Pulse Ox 96 03/07/23 07:35 FiO2 Intake & Output 03/06/23 03/07/23 03/07/23 18:59 06:59 18:59 Intake Total 564 Balance 564 Intake: Intake, IV Titration 564 Amount Mvi, Adult No.4 with Vit 564 K 10 ml Trace (Conc-1Ml/ Dose) 1 ml In Amino Acid 5%-D20w+Lytes*E* 1,000 ml @ 90 mls/hr IV .BY DURATION [facility] Rx#: [id number] Other: # Voids 4 1 - Labs CBC & Chem 7: 03/06/23 05:56 03/06/23 05:56
--- NOTE | 2023-03-07 11:16 | P.PN ---
Subjective Progress Note Date: 03/07/23 Principal diagnosis: Ruptured appendicitis Patient doing better at this time. He is having bowel function. He is tolerating regular diet. He is afebrile. White blood cell count normal. Stools have been loose today. He ate less of his breakfast because of the loose stools. Objective - Vital Signs Vital signs: Vital Signs Temp 98.2 F 03/07/23 07:35 Pulse 55 L 03/07/23 07:35 Resp 18 03/07/23 07:35 BP 115/55 03/07/23 07:35 Pulse Ox 96 03/07/23 07:35 FiO2 Intake & Output 03/06/23 03/07/23 03/07/23 18:59 06:59 18:59 Intake Total 564 Balance 564 Intake: Intake, IV Titration 564 Amount Mvi, Adult No.4 with Vit 564 K 10 ml Trace (Conc-1Ml/ Dose) 1 ml In Amino Acid 5%-D20w+Lytes*E* 1,000 ml @ 90 mls/hr IV .BY DURATION PENDING [facility] TO [facility] Rx#: [id number] Other: # Voids 4 1 - Exam Abdomen: Soft, nondistended, minimal lower abdominal tenderness, no rebound or guarding - Labs CBC & Chem 7: 03/06/23 05:56 03/06/23 05:56 Assessment and Plan (1) Acute appendicitis Narrative/Plan: 77-year-old male with ruptured appendicitis and abscess formation. Await repeat CAT scan tomorrow. Likely discharge on IV antibiotics tomorrow. Current Visit: Yes Status: Acute Code(s): K35.80 - UNSPECIFIED ACUTE APPENDICITIS SNOMED Code(s): 89604479
[2023-03-07 11:47] LABS: Basophils # (A) 0.06 X 10*3/uL (0.00-0.10); Basophils % (A) 0.7 %; Eosinophils # (A) 0.23 X 10*3/uL (0.04-0.35); Eosinophils % (A) 2.6 %; HCT 40.2 % (39.6-50.0); HGB 12.8 g/dL (13.0-17.0); Lymphocytes % (A) 15.7 %; MCH 31.2 pg (27.0-32.0); MCHC 31.8 g/dL (32.0-37.0); Mean Platelet Volume 12.4 FL (9.5-12.2); Monocytes # (A) 0.79 X 10*3/uL (0.20-1.00); Monocytes % (A) 8.9 %; NRBC Per 100 WBC 0 X 10*3/uL (0.00-0.01); Neutrophils # (A) 6.36 X 10*3/uL (1.80-7.70); Neutrophils % (A) 71.3 %; Platelet Count 283 X 10*3/uL (140-440); RDW 14.7 % (11.5-14.5); WBC 8.91 X 10*3/uL (4.50-10.00)
[2023-03-07 13:11] LABS: ALT 51 U/L (10-49); AST 35 U/L (14-35); Albumin 3.3 g/dL (3.8-4.9); Albumin/Globulin Ratio 1.32 Ratio (1.60-3.17); Alkaline Phosphatase 55 U/L (41-126); BUN/Creat Ratio 20.25 Ratio (12.00-20.00); Blood Urea Nitrogen 16.2 mg/dL (9.0-27.0); Calcium 8.9 mg/dL (8.7-10.3); Carbon Dioxide 26.2 mmol/L (21.6-31.8); Chloride 108 mmol/L (96-109); Globulin 2.5 g/dL (1.6-3.3); Glucose 105 mg/dL (70-110); Potassium 4.7 mmol/L (3.5-5.5); Sodium 142 mmol/L (135-145); Total Bilirubin 0.3 mg/dL (0.3-1.2); Total Protein 5.8 g/dL (6.2-8.2)
[2023-03-07] MEDS: ATORVASTATIN 40 MG TAB PO SCH (20:26)
[2023-03-08] MEDS: IOPAMIDOL CONTRAST (ORAL USE) VIAL PO PRN ×2 (01:37→02:06)
[2023-03-08 07:54] LABS: African American GFR (CKD) >90 (>60 ml/min/1.73 sqM); Anion Gap 8 mmol/L; Blood Urea Nitrogen 15 mg/dL (9-20); Calcium 8.8 mg/dL (8.4-10.2); Carbon Dioxide 27 mmol/L (22-30); Chloride 106 mmol/L (98-107); Glucose 91 mg/dL (74-99); Magnesium 1.9 mg/dL (1.6-2.3); Non-African American GFR(CKD) 83 (>60 ml/min/1.73 sqM); Phosphorus 3.5 mg/dL (2.5-4.5); Potassium 4.5 mmol/L (3.5-5.1); Sodium 141 mmol/L (137-145)
[2023-03-08] MEDS: PIPERACILLIN-TAZOBACTAM 3.375 GM in SODIUM CHLORIDE 0.9% 100 ML IVPB SCH (07:59)
[2023-03-08] MEDS: ENOXAPARIN 80 MG/0.8 ML SYRINGE SQ SCH (08:00)
[2023-03-08] MEDS: LEVOTHYROXINE 50 MCG TAB PO SCH (08:00)
[2023-03-08] MEDS: TAMSULOSIN 0.4 MG CAP.ER.24H PO SCH (08:00)
[2023-03-08] MEDS: SIMETHICONE 40 MG/0.6 ML DROPS 2,000 MG/30 ML BOTTLE PO SCH ×2 (08:00→13:12)
[2023-03-08 08:54] VITALS: RESP 17
--- NOTE | 2023-03-08 09:51 | CT ---
EXAMINATION TYPE: CT abdomen pelvis w con CT DLP: 754.1 mGycm, Automated exposure control for dose reduction was used. DATE OF EXAM: 03/08/2023 7:42 AM COMPARISON: CT 03/01/2023 CLINICAL INDICATION:Male, 77 years old with history of Appendiceal abscess, delayed imaging 6 hrs nee ded; Appendiceal abscess TECHNIQUE: Axial CT of the abdomen and pelvis. Sagittal and coronal reformats were created on a [employer] workstation. Contrast used:100 mL of Isovue 300 with IV Contrast, (none if empty) Oral contrast used: with Oral Contrast (none if empty) FINDINGS: LOWER CHEST: Mild/moderate cardiomegaly without pericardial effusion, unchanged. Moderate coronary ar terial calcifications. Small sliding hiatal hernia. Mild bibasilar scarring or atelectasis. No pleura l effusion. ABDOMEN LIVER: Stable 1.2 cm hypodense lesion at the hepatic dome, likely a cyst. A couple other tiny vague h ypodensities also redemonstrated, likely benign. GALLBLADDER AND BILE DUCTS: Gallbladder again appears somewhat distended without calcified stones see n. Similar mild intrahepatic and extrahepatic biliary dilatation. CBD measures up to 8 mm, and appear s to taper towards the ampulla. PANCREAS: Appears stable without evidence of mass or pancreatic ductal dilatation. SPLEEN: Several small hypodense lesions throughout the spleen, grossly stable, of uncertain etiology. ADRENAL GLANDS: Mildly thickened and small nodular appearance of the adrenals, could be due to hyperp lasia and/or adenomatoid changes.. KIDNEYS AND URETERS: Kidneys enhance symmetrically and there is normal excretion of contrast bilatera lly without evidence of hydroureteronephrosis. There is a small cyst in the lower pole of the right k idney, and parapelvic cysts seen bilaterally, more prominent on the left than right. PELVIS BLADDER: Minimally thickened appearance of the wall and some perivesical fat stranding, likely relate d to the right lower quadrant inflammatory process. REPRODUCTIVE: Prostate again appears enlarged measuring 6 cm transverse with a couple of coarse inter nal calcifications. Again this mildly indents the adjacent bladder base. ABDOMEN & PELVIS STOMACH AND BOWEL: Contrast traverses the stomach and small bowel without evidence of obstruction. Sl ightly thickened appearance of the distal gastric wall could be related to incomplete distention vers us inflammatory changes. Contrast within mid to distal small bowel loops with some areas of mild dist ention, however overall significantly decreased from previous suggesting improving ileus. Contrast se en throughout the majority of the colon. There are scattered diverticula without clear evidence of di verticulitis. There is again significant wall thickening of the appendix, beginning at its base and extending dista lly. Small pocket of fluid and probable small appendicolith proximally again seen and appear stable. Farther distally, there is again a lobulated thick-walled fluid collection with lobular lower attenua tion center, which extends inferiorly and anteriorly within the right pelvis terminating near the bas e of the inguinal canal. The 2 largest components of the fluid collection measures 3.8 x 2.4 cm on im age 78, versus 4.8 x 3 cm before. The other component more anteriorly is now 3.6 x 3 cm on image 81 a nd was 3.7 x 3 cm before. Inflammatory changes of the mesenteric fat and several mildly enlarged jairo onal lymph nodes are stable, likely reactive. PERITONEUM/RETROPERITONEUM: Small amount of residual free pelvic fluid, mostly on the right, appear s decreased from previous.. No significant free fluid in the abdomen. No evidence of pneumoperitoneum . VASCULATURE: Moderate atherosclerotic calcification of the abdominal aorta and branches, as before. N o AAA visualized. Mild atherosclerotic narrowing at the proximal celiac artery as well as hooklike co nfiguration which could indicate some element of median arcuate ligament syndrome. Just distal to thi s, there is poststenotic dilatation of the celiac artery measuring up to 12.7 mm. Mild atheroscleroti c disease at the origin of the SMA without significant stenosis. Patent bilateral renal arteries. JAKE appears patent. Mild mostly calcified atherosclerotic disease throughout the bilateral iliac arteria l trees without significant stenosis seen. MUSCULOSKELETAL: Bones appear stable. No acute osseous abnormality. Degenerative changes again noted. Slight retrolisthesis of L2 on L3 appears degenerative. LYMPH NODES: No bulky lymphadenopathy. SOFT TISSUE/ABDOMINAL WALL: Multiple radiodensities are again seen in the right lower quadrant body w all anteriorly suggesting postoperative changes. IMPRESSION: 1. Right lower quadrant findings again consistent with ruptured appendicitis, and associated abscess formation as detailed above. There has been minimal decrease in size of the central lobulated fluid component compared to prior, with significant residual fluid and similar wall thickening noted. 2. Interval improved appearance of small bowel ileus and decreased small amount of free fluid in the pelvis. 3. Other stable chronic and likely incidental findings, as described above.
--- NOTE | 2023-03-08 13:13 | P.PN ---
Subjective Progress Note Date: 03/08/23 HISTORY OF PRESENT ILLNESS: This is a 77-year-old male with a previous medical history significant for hypertension and hypertensive cardiovascular disease, hyperlipidemia, hypothyroidism, history of atrial fibrillation, coronary artery disease, mitral regurgitation, aortic regurgitation, has been followed by Dr. Bran on the regular basis, patient presented to the emergency department at [facility] with a 6 day history of abdominal pain in the right lower quadrant associated with poor appetite nausea but no vomiting and not able to have a good bowel movement, apparently patient had contacted our office on Wednesday for an appointment he was referred to the emergency department at the time, apparently the patient did not go since he was feeling a bit better . On Wednesday was feeling better, but on Wednesday morning he developed more pain but he decided to stay home till today when patient went to the ER at [facility] ended up going for computed tomography scan of the abdomen and pelvis that showed ruptured appendix with phlegmon formation and a partial small bowel obstruction he was admitted under general surgery, and consult was placed for medical management. 02/25: Patient is sitting up in bed in no apparent distress, he did try clear liquid diet today, he did have a PICC line placed, who started on TPN, patient was seen in consultation by infectious disease recommended to continue IV antibiotic, we will arrange for home IV antibiotic, he was also consultation by cardiology who recommended to proceed with surgery with no restriction at this point in time, patient did have an echocardiogram in October of this year that showed ejection fraction 55%, moderate mitral regurgitation and mild aortic regurgitation, his last heart catheterization was done in 2009 that showed evidence of mild CAD, patient pain appears to be controlled well with the Tylenol IV and he has been off his Eliquis 02/26:Patient is feeling full with increased distension no pain and has been getting TPN along with liquid diet and the plan for IV ABX at Office and follow up for surgery down the line, we will continue with increased activity, and continue with current treatment plan has been off Eliquis, Abdominal X-ray showed partial vs complete bowel obstruction may need to have surgery . 02/27: Patient is feeling full of this point in time, he is receiving TPN, he continues to run IV antibiotic, he was seen earlier by general surgery, it was recommended to continue and increase activity, patient has not had any bowel movement, he continues to have some pressure in his abdomen, awaiting general surgery for final decision about surgery. 02/28: Patient is sitting up in bed in no apparent distress, he has no chest pain, had episode of nausea yesterday he did receive some Zofran, he denies any significant abdominal pain, is passing some gas, he is increasing his activity, continue antibiotic, continue to monitor the patient very closely. Abdominal x-ray showed partial small bowel obstruction. General surgery is following the decision for surgery and the timing is per the surgical team. 03/01: PATIENT CONTINUES TO HAVE ABDOMINAL DISTENTION. hE IS BACK TO NOTHING BY MOUTH EXCEPT FOR ICE CHIPS. nO ABDOMINAL PAIN. iS PASSING ONLY SMALL AMOUNT OF FLATUS. pATIENT HAS BEEN AFEBRILE.heart rate is in the 70s, blood pressure 166/96, pulse ox 96% on room air. the blood work reveals WBC 11.6, hemoglobin 12.3, white count 225. Electrolytes and renal function are within normal limits. AST 62, ALT 64.gEN. SURGERY IS PLANNING2 REPEAT cat SCAN OF THE ABDOMEN AND PELVIS WITH CONTRAST. pATIENT IS CONTINUED ON tpn AND ON iv ANTIBIOTICS. eLIQUIS REMAINS ON HOLD. Appendectomy is pending. 03/02: CAT scan of the abdomen and pelvis revealedfindings compatible with ruptured appendicitis and adjacent abscess. Small bowel ileus. Gen. surgery to determine next plan. Patient is also followed by infectious disease and continued on Zosyn.patient has been afebrile, heart rate 89, blood pressure 111/63, pulse ox 94% on room air. WBC 10.4, hemoglobin 12.3 and platelet count 211. Electro lites and renal function are normal. Blood sugar 144. Patient denies having any nausea or vomiting. His abdomen is soft. He has been up for a shower today and also has been ambulating. 03/03: Blood pressures 105/63, heart rate in the 60s to 90s, afebrile, pulse ox 96% on room air. Repeat blood work reveals hemoglobin of 12.7, WBC 9.9, platelet count 270. BMP normal. Magnesium 2.2. Patient remains nothing by mouth except for ice chips and popsicles. Patient remains on TPN, IV Zosyn managed by ID. Patient's voices concerns that both of them are anxious about the plan to address abscess. More information pending from Dr. Shah. Patient denies adominal pain, no nausea or vomiting. He has a loose BM today. 03/04: Patient is found ambulating in the hallway. He states he feels about the same. He did have some diarrhea/loose stools. No shortness of breath. No abdominal pain. No nausea or vomiting. He is tolerating clear liquid diet. Patient remains afebrile, heart rate in the 60s, blood pressure 122/66, pulse ox 94% on room air. Plan is to continue IV antibiotics, no surgery to be done at this time. Eliquis remains on hold. 03/05: ultrasound of the left upper extremity was negative for DVT. Superficial thrombosis phlebitis around the PICC line. new PICC line was ordered but may continue to use. playground monitor is sinus rhythm will be discontinued.patient remains afebrile, heart rate in the 60s and 70s, blood pressure 115/75, pulse ox 97% on room air. diet has been advanced to full liquid. He continues to have lo ose stools. We will resume Eliquis and discontinue Lovenox. Eliquis will need to be discontinued 48 hours prior to surgical intervention. 03/06: Patient is sitting up in chair in no acute distress, had US of the left upper extremity that showed basilic vein thrombus due to PICC line we will treat with Lovenox after discussing with surgery without the need for exchange the PICC line, we will continue with current treatment plan and he will have a repeated CT scan on Wednesday to see if the Abscess is amenable for Trans-cutaneous drainage via IR or will need to continue with IV BAX and he will come back for surgery as per Recommendations 03/07: Patient is sitting in chair i no distress, he will be scheduled for CT scan of the Abdomen and pelvis with contrast in AM, hoefully will be able to have the Abscess drained with CT guidance , and we will transition for home with HHC and IV Antibiotic as directed by the ID team, meanwhile we will contine with weaning off TPN and advance diet as tolerated. 03/08: Patient is on a regular diet and tolerating. No abdominal pain. No donald sea vomiting. He underwent a repeat CAT scan of the abdomen and pelvis with contrast this morning which reveals right lower quadrant findings again consistent with ruptured appendicitis and associated abscess formation. Minimal decrease in size of the central lobulated fluid component compared to prior with significant residual fluid and similar wall thickening noted. Interval improved appearance of the small bowel ileus and decreased small amount of free fluid in the pelvis. Plan is for patient to be discharged on IV antibiotics managed by Dr. Moreno. Medication reconciliation has been reviewed for discharge and patient will continue on eliquis to start this evening. Follow-up in the office in 2 weeks. REVIEW OF SYSTEMS: Constitutional: No documented fever, no chills, no night sweats. No weight change. No weakness, fatigue or lethargy. No daytime sleepiness. HEENT: No headache. No blurred vision or double vision,no loss of vision. loss of Hearing, ringing in the ears, no dizziness. No nasal drainage or congestion. No epistaxis. No sore throat. Lungs: No shortness of breath, no cough, no sputum production. No wheezing. Reports dyspnea with activity. Cardiovascular: No chest pain, no lower extremity edema. No palpitations. No paroxysmal nocturnal dyspnea. No orthopnea. No lightheadedness or dizziness. No syncopal episodes. Abdominal: Reports no abdominal pain. No nausea, vomiting. + diarrhea. No constipation. No bloody or tarry stools reports loss of appetite. Genitourinary: No dysuria, increased frequency, urgency. No urinary retention. Musculoskeletal: No myalgias. No muscle weakness, no gait dysfunction, no frequent falls. No back pain. No neck pain. Integumentary: No wounds, no lesions. No rash or pruritus. No unusual bruising. No change in hair or nails. Neurologic: No aphasia. No facial droop. No change in mentation. No head injury. No headache. No paralysis. No paresthesia. Psychiatric: No depression. No anxiety. No mood swings. Endocrine: No abnormal blood sugars. No weight change. PHYSICAL EXAMINATION: General: 77-year-old male in no apparent distres HEENT: Head is atraumatic, normocephalic, pupils were equal round reactive to light and recommendation, extraocular muscle movement were intact, sclera nonicteric, conjunctivae were pale. Neck: Supple, no JVP, normal carotid upstroke bilaterally, no lymphadenopathy. Chest: Decreased breath sounds at the bases, few rhonchi, no expiratory wheezes, no chest wall tenderness, no intercostal retractions. Heart: First heart sound is normal, second heart sound is normal there is BRICE 2/6 located at the left sternal border, irregularly irregular Abdomen: Soft, no tenderness in the right lower quadrant,no rebound or guarding, no abd distension, positive bowel souds Extremities: There is no edema no calf tenderness DP +2 bilaterally. Neurologic examination: Patient is awake alert and oriented X3, cranial nerves II-12 appear grossly intact, muscle power were 5 out of 5 in upper extremities and 5 out of 5 in bilateral lower extremities, deep tendon reflexes normal bilaterally. ASSESSMENT AND PLAN: 1. Perforated appendix with phlegmon formation( Abscess) and partial small bowel obstruction. Diet has been advanced to clear liquids, continue patient on TPN, continue IV antibiotic in the form of Zosyn 3.375 mg piggyback every 8 hours, blood cultures positive for gram-positive cocci in clusters, patient will be maintained on current pain management, repeat CT scan of the Abdomen and pelvis as abovee. 2. Leukocytosis likely related to appendicitis/perforation/phlegmon formation. Continue IV antibiotic, PICC inserted, ID consult appreciated. 4. Hyponatremia secondary to hypovolemia. 5. Coronary artery disease without angina pectoris. Patient will be seen and evaluated by cardiology. Patient will be maintained on atorvastatin 40 mg orally once every day. 6. Mild aortic regurgitation/moderate mitral regurgitation. Patient has been under the care of Dr. Bran for quite some time, he had an echocardiogram this year that showed ejection fraction of 55%. 7. Mixed hyperlipidemia. Continue patient on atorvastatin 40 mg orally once every day. 8. Hypothyroidism. Continue patient on Synthroid 50 g orally once every day. 9. Enlarged prostate. Continue tamsulosin 0.4 mg once every day. 10. Paroxysmal atrial fibrillation. we started Lovenox 80 mg SC Q12 H 11. Mnire disease. Stable. 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 13. superficial thrombosis phlebitis at PICC line site. May continue to use PICC. Do not need to change PICC. we will continue with Lovenox 80 mg SC Q12 H 14. DVT prophylaxis. on Lovenox 80 mg SC Q12 h 15. GI prophylaxis. Protonix 40 mg orally once every day. 15. Increase activity. Impression and plan of care have been directed as dictated by the signing physician. Loan Convery nurse practitioner acting as scribe for signing physician. Objective - Vital Signs Vital signs: Vital Signs Temp 97.1 F L 03/08/23 08:00 Pulse 89 03/08/23 08:00 Resp 17 03/08/23 08:00 BP 139/83 03/08/23 08:00 Pulse Ox 93 L 03/08/23 08:00 FiO2 Intake & Output 03/07/23 03/08/23 03/08/23 18:59 06:59 18:59 Other: Voiding Method Urinal # Voids 4 2 # Bowel Movements 1 - Labs CBC & Chem 7: 03/07/23 05:30 03/08/23 06:57 Labs: Abnormal Lab Results - Last 24 Hours (Table) 03/07/23 Range/Units 05:30 BUN/Creatinine Ratio 20.25 H (12.00-20.00) Ratio ALT 51 H (10-49) U/L Total Protein 5.8 L (6.2-8.2) g/dL Albumin 3.3 L (3.8-4.9) g/dL Albumin/Globulin Ratio 1.32 L (1.60-3.17) Ratio
[2023-03-08] MEDS ORDERED: ERTAPENEM 1 GM in SODIUM CHLORIDE 0.9% 50 ML IVPB STA (13:22)
--- NOTE | 2023-03-08 13:45 | P.DS ---
Providers Date of admission: 02/24/23 11:53 Expected date of discharge: 03/08/23 Attending physician: Coty Shah Consults: 02/24/23 11:52 Consult Physician Routine Consulting Provider: Shakila Jo Consult Reason/Comments: medicine consult Do you want consulting provider notified?: Yes 02/25/23 12:41 Consult Physician Routine Consulting Provider: Shahriar Moreno Consult Reason/Comments: ruptured appendicitis with phlegmon Do you want consulting provider notified?: Yes Primary care physician: Shakila Jo Hospital Course: Discharge diagnosis 1. Acute appendicitis with abscess 2. Partial distal small bowel obstruction possibly caused by inflammatory changes due to appendicitis noted on CT scan 3. History of multiple inguinal hernia repairs 4. History of atrial fibrillation on Eliquis at home 5. History of Mnire's 6. Hypothyroidism 7. Enlarged prostate Hospital course This is a 77-year-old male who presented to the hospital with complaints of pain across the lower abdomen. Patient had computed tomography scan abdomen and pelvis reports partial distal small bowel obstruction believed to be caused by inflammatory changes in the right pelvis related to severe acute appendicitis. Patient started on IV antibiotics. He did have a repeat CAT scan during this admission that did show ruptured appendicitis with adjacent abscess. Patient was maintained on IV antibiotics followed by infectious disease. His white count normalized. He has tolerated advancement of diet. He remains afebrile. Denies any abdominal pain. Repeat computed tomography scan from today was reviewed by Dr. Shah and there has been slight decrease in size of abscess. No surgical intervention planned at this time. Patient to be discharged home with IV antibiotics with plans for interval appendectomy. Patient is stable for discharge. Physician Lead Recoverer note has been reviewed by physician. Signing provider agrees with the documented findings, assessment, and plan of care. Patient Condition at Discharge: Stable Plan - Discharge Summary Discharge Rx Participant: No New Discharge Prescriptions: Continue Alfuzosin HCl [Alfuzosin HCl ER] 10 mg PO DAILY Simvastatin [Zocor] 80 mg PO HS #0 oxyBUTYnin chloride [Ditropan] 5 mg PO BID Levothyroxine Sodium [Synthroid] 50 mcg PO DAILY diazePAM [Valium] 5 mg PO BID PRN PRN Reason: Vertigo Apixaban [Eliquis] 5 mg PO BID Discharge Medication List Alfuzosin HCl [Alfuzosin HCl ER] 10 mg PO DAILY 04/10/15 [History] Simvastatin [Zocor] 80 mg PO HS #0 04/15/15 [Rx] Levothyroxine Sodium [Synthroid] 50 mcg PO DAILY 06/05/21 [History] diazePAM [Valium] 5 mg PO BID PRN 06/05/21 [History] oxyBUTYnin chloride [Ditropan] 5 mg PO BID 06/05/21 [History] Apixaban [Eliquis] 5 mg PO BID 02/24/23 [History] Follow up Appointment(s)/Referral(s): Shakila Jo MD [Primary Care Provider] - 2 Weeks Coty Shah MD [STAFF PHYSICIAN] - 03/31/23 Shahriar Moreno MD [STAFF PHYSICIAN] - 1 Week Activity/Diet/Wound Care/Special Instructions: Continue Invanz 2 weeks per infectious disease recommendations Repeat computed tomography scan abdomen and pelvis in 2 weeks Continue Regular diet Discharge Disposition: HOME WITH HOME HEALTH SERVICES
[2023-03-08 14:01] VITALS: BP 99/57; PULSE 53; TEMP 98.3
== END 2023-03-08 15:15 | disposition home health service (06) | DRG 871 ==
LOC: EC 08:50 → 4SSUR 11:53
PROVIDERS: ADMIT Surgery Plastic and Reconstructive Surgery; ATTEND Surgery Plastic and Reconstructive Surgery
PROC: 02HV33Z Insertion of Infusion Device into Superior Vena Cava, Percutaneous Approach (ICD-10-PCS; principal; 2023-02-25 12:30)
DX: A41.9 Sepsis, unspecified organism (principal); K35.33 Acute appendicitis with perforation, localized peritonitis, and gangrene, with abscess; E87.1 Hypo-osmolality and hyponatremia; K56.600 Partial intestinal obstruction, unspecified as to cause; K56.7 Ileus, unspecified; I47.10 Supraventricular tachycardia, unspecified; E03.9 Hypothyroidism, unspecified; E86.1 Hypovolemia; I11.9 Hypertensive heart disease without heart failure; I80.9 Phlebitis and thrombophlebitis of unspecified site; F17.210 Nicotine dependence, cigarettes, uncomplicated; E78.2 Mixed hyperlipidemia; H81.01 Meniere's disease, right ear; H91.90 Unspecified hearing loss, unspecified ear; I08.3 Combined rheumatic disorders of mitral, aortic and tricuspid valves; I25.10 Atherosclerotic heart disease of native coronary artery without angina pectoris; I48.0 Paroxysmal atrial fibrillation; N40.0 Benign prostatic hyperplasia without lower urinary tract symptoms; Z79.01 Long term (current) use of anticoagulants; Z79.890 Hormone replacement therapy; Z79.899 Other long term (current) drug therapy; Z82.49 Family history of ischemic heart disease and other diseases of the circulatory system; Z85.46 Personal history of malignant neoplasm of prostate; Z28.21 Immunization not carried out because of patient refusal
CPT/HCPCS: 36415; 36573; 74019; 74177; 80048; 80053; 82330; 83690; 83735; 84100; 84478; 85025; 85610; 87040; 93005; 96361; 96365; 96375; 99285

== ENCOUNTER → 2023-03-19 | Outpatient (CLI) | payer MEDICARE ==
--- NOTE | 2023-03-19 14:55 | CT ---
EXAMINATION TYPE: CT abdomen pelvis w con DATE OF EXAM: 03/19/2023 COMPARISON: 03/08/2023 HISTORY: Ruptured appendix, abscess CT DLP: 529.20 mGycm Automated exposure control dose reduction was used. TECHNIQUE: Helical acquisition of images was performed from the lung bases through the pelvis. CONTRAST: Performed with Oral Contrast and with IV Contrast, patient injected with 100 mL of Isovue 300. FINDINGS: There is mild chronic interstitial changes in the right lung base otherwise the lung bases are clear. There is cardiomegaly. No gallstones, gallbladder distention or pericholecystic fluid. There is no biliary ductal dilatation . There is no focal mass or organomegaly involving the liver, pancreas, spleen or adrenal glands. There is no solid renal mass or hydronephrosis. There is no retroperitoneal adenopathy or hemorrhage in the caliber the abdominal aorta is normal. There are postsurgical changes in the right lower quadrant of the abdomen appendectomy and abscess dr lim which was seen on the prior study. Currently there is a tiny residual fluid collection adjacen t to the right aspect of the urinary bladder measuring 9 mm. There is been marked reduction in the pr eviously identified right lower quadrant abscesses. There is a large amount of stool within the colon . There is no bowel obstruction. There is no free intraperitoneal air or fluid. There is moderate to marked prostatic hypertrophy There are postsurgical changes in the left inguinal region presumably for left inguinal hernia repair . No osseous abnormalities are seen. IMPRESSION: 1. Near complete resolution of the right lower quadrant abscesses. Tiny fluid collection persists as described above. 2. No bowel obstruction but a large amount of stool within the colon. 3. No free intraperitoneal air or fluid
== END | disposition home or self-care (01) ==
LOC: RADCTMAIN 10:53
PROVIDERS: ATTEND Internal Medicine Infectious Disease
DX: K35.32 Acute appendicitis with perforation, localized peritonitis, and gangrene, without abscess (principal)
CPT/HCPCS: 74177; Q9967

== ENCOUNTER → 2023-04-26 | Outpatient (CLI) | payer MEDICARE ==
[2023-04-26 15:51] LABS: ALT 28 U/L (10-49); AST 19 U/L (14-35); Albumin 3.9 g/dL (3.8-4.9); Albumin/Globulin Ratio 1.77 Ratio (1.60-3.17); Alkaline Phosphatase 60 U/L (41-126); BUN/Creat Ratio 22.14 Ratio (12.00-20.00); Blood Urea Nitrogen 15.5 mg/dL (9.0-27.0); Calcium 9.1 mg/dL (8.7-10.3); Carbon Dioxide 29.2 mmol/L (21.6-31.8); Chloride 107 mmol/L (96-109); Chol/HDL Ratio 3.04 Ratio; Globulin 2.2 g/dL (1.6-3.3); Glucose 94 mg/dL (70-110); LDL Cholesterol,Calculated 74.7 mg/dL (0.0-131.0); Potassium 4.5 mmol/L (3.5-5.5); Sodium 145 mmol/L (135-145); Total Bilirubin 0.4 mg/dL (0.3-1.2); Total Protein 6.1 g/dL (6.2-8.2); VLDL Calculation 7.78 mg/dL (5.00-40.00)
== END | disposition home or self-care (01) ==
LOC: LABWHC1 08:14
PROVIDERS: ATTEND Internal Medicine Interventional Cardiology
DX: E78.2 Mixed hyperlipidemia (principal)
CPT/HCPCS: 36415; 80053; 80061

== ENCOUNTER → 2023-06-15 | Outpatient (CLI) | payer MEDICARE ==
--- NOTE | 2023-06-15 16:11 | US ---
EXAMINATION TYPE: US venous doppler duplex LE BI DATE OF EXAM: 06/15/2023 3:58 PM COMPARISON: NONE CLINICAL INDICATION: Male, 77 years old with history of I87.2 VENOUS INSUFFICIENCY (CHRONIC) (PERIPHE RAL); Edema SIDE PERFORMED: Bilateral TECHNIQUE: The lower extremity deep venous system is examined utilizing real time linear array sonog porsche with graded compression, doppler sonography and color-flow sonography. VESSELS IMAGED: Common Femoral Vein Deep Femoral Vein Greater Saphenous Vein * Femoral Vein Popliteal Vein Small Saphenous Vein * Proximal Calf Veins (* superficial vessels) Right Leg: Negative for DVT Left Leg: Negative for DVT IMPRESSION: 1. Bilateral lower extremity ultrasound negative for deep venous thrombosis.
== END | disposition home or self-care (01) ==
LOC: RADUSWWP 15:17
PROVIDERS: ATTEND Internal Medicine
DX: I87.2 Venous insufficiency (chronic) (peripheral) (principal)
CPT/HCPCS: 93970

== ENCOUNTER 2023-11-28 17:21 | Emergency (ER) | payer MEDICARE ==
[2023-11-28 17:29] VITALS: RESP 18
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
--- NOTE | 2023-11-28 18:07 | XR ---
EXAMINATION TYPE: XR shoulder complete RT DATE OF EXAM: 11/28/2023 6:03 PM CLINICAL INDICATION: Male, 77 years old with history of right shoulder injury; [facility] COMPARISON: None TECHNIQUE: XR shoulder complete RT; examined in AP, internally rotated and scapular Y projections. FINDINGS/IMPRESSION: Right mid clavicle fracture with displacement. No additional fractures.e
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
[2023-11-28] MEDS: MORPHINE SULFATE 2 MG/ML SYRINGE IVP ONE (19:14)
[2023-11-28 19:25] VITALS: BP 137/71; PULSE 54; TEMP 98.2
== END 2023-11-28 19:26 | disposition home or self-care (01) ==
LOC: EC 17:21
CPT/HCPCS: 70450; 72125; 99284

== ENCOUNTER → 2024-02-18 | Outpatient (CLI) | payer MEDICARE ==
--- NOTE | 2024-02-18 11:14 | US ---
EXAMINATION TYPE: US bladder DATE OF EXAM: 02/18/2024 COMPARISON: NONE CLINICAL INDICATION: Male, 78 years old with history of R10.30 LOWER ABDOMINAL PAIN, UNSPECIFIED; pt states frequent urination TECHNIQUE: Grayscale and color doppler imaging of the bilateral kidneys and urinary bladder. FINDINGS: EXAM MEASUREMENTS: Post Void Residual Volume: 84.4 mL CHEMISTRY TEACHER NOTES: bladder appears sonolucent. Wall appears thickened Color Doppler performed to assess ureteral jets. Bilateral Jets seen: Yes Normal Post Void Residual (less than 50ml): There is 84ml post void IMPRESSION: 1. No intraluminal abnormality. 2. Moderate to marked post void residual. [facility], , 02/18/2024 11:11 AM
== END | disposition home or self-care (01) ==
LOC: RADUSWWP 10:03
PROVIDERS: ATTEND Internal Medicine
DX: R35.0 Frequency of micturition (principal); R10.30 Lower abdominal pain, unspecified
CPT/HCPCS: 76857

== ENCOUNTER → 2024-03-31 | Outpatient (CLI) | payer MEDICARE ==
[2024-03-31 15:27] LABS: ALT 17 U/L (10-49); AST 21 U/L (14-35); Albumin/Globulin Ratio 1.82 Ratio (1.60-3.17); Alkaline Phosphatase 56 U/L (41-126); BUN/Creat Ratio 20.38 Ratio (12.00-20.00); Blood Urea Nitrogen 16.3 mg/dL (9.0-27.0); Calcium 8.8 mg/dL (8.7-10.3); Carbon Dioxide 24.4 mmol/L (21.6-31.8); Chloride 109 mmol/L (96-109); Chol/HDL Ratio 2.86 Ratio; Globulin 2.2 g/dL (1.6-3.3); Glucose 100 mg/dL (70-110); LDL Cholesterol,Calculated 88.5 mg/dL (0.0-131.0); Potassium 4.4 mmol/L (3.5-5.5); Sodium 144 mmol/L (135-145); Total Bilirubin 0.6 mg/dL (0.3-1.2); Total Protein 6.2 g/dL (6.2-8.2)
== END | disposition home or self-care (01) ==
LOC: LABWHC1 08:44
PROVIDERS: ATTEND Internal Medicine Interventional Cardiology
DX: E78.2 Mixed hyperlipidemia (principal)
CPT/HCPCS: 36415; 80053; 80061

== ENCOUNTER 2024-05-26 15:35 | Inpatient (IN) | payer MEDICARE ==
[2024-05-26] MEDS: LIDOCAINE 1% INJ 10MG/ML (20 ML MDV) SQ ONE (14:46)
--- NOTE | 2024-05-26 15:49 | ED ---
Chest Pain HPI - General Chief Complaint: Chest Pain Stated Complaint: STEMI Time Seen by Provider: 05/26/24 15:37 Source: patient Mode of arrival: EMS Limitations: no limitations - History of Present Illness Initial Comments: This patient is a 78-year-old man brought by ambulance to have evaluation for chest pain. The patient states that approximately 230 this afternoon he was walking and he developed left upper chest pain. He described as a severe squeezing feeling. He also is having some nausea. When the pain did not resolve EMS was called to bring him here. The patient has history of atrial fibrillation taking Eliquis. He denies previous MD. Review of the records reveal that the patient had a heart cath in 2009 that was unremarkable. Patient sees Dr. Bran from the clinic. MD Complaint: chest pain Onset/Timin -: minutes(s) Onset: during exertion Pain Location: left chest Pain Radiation: none Severity: severe Quality: tightness Consistency: constant Improves With: nothing Worsens With: nothing Anginal Symptoms: nausea Treatments Prior to Arrival: aspirin, oxygen - Related Data Home Medications Medication Instructions Recorded Confirmed Alfuzosin HCl [Alfuzosin HCl ER] 10 mg PO AC-BRKFST 04/10/15 06/06/24 Levothyroxine Sodium [Synthroid] 50 mcg PO AC-BRKFST 06/05/21 06/06/24 Apixaban [Eliquis] 2.5 mg PO AC-BID 06/06/24 06/06/24 Nitroglycerin Sl Tabs [Nitrostat] 0.4 mg SL Q5M PRN 06/06/24 06/06/24 Empagliflozin [Jardiance] 10 mg PO DAILY 06/08/24 06/08/24 Previous Rx's Medication Instructions Recorded Aspirin 81 mg PO DAILY tab 05/31/24 Atorvastatin [Lipitor] 40 mg PO HS #90 tab 05/31/24 Ticagrelor [Brilinta] 90 mg PO BID #60 tab 05/31/24 carvediloL [Coreg] 3.125 mg PO BID-W/MEALS #60 tab 05/31/24 Amiodarone [Cordarone] 200 mg PO BID #60 tab 06/08/24 Allergies Allergy/AdvReac Type Severity Reaction Status Date / Time No Known Allergies Allergy Verified 06/06/24 16:47 Review of Systems ROS Statement: Those systems with pertinent positive or pertinent negative responses have been documented in the HPI. ROS Other: All systems not noted in ROS Statement are negative. Constitutional: Denies: fever, chills Respiratory: Denies: cough, dyspnea Cardiovascular: Reports: chest pain. Denies: palpitations, dyspnea on exertion, orthopnea, edema, syncope Gastrointestinal: Reports: nausea. Denies: abdominal pain, vomiting, diarrhea Genitourinary: Denies: dysuria, hematuria Musculoskeletal: Denies: back pain Skin: Denies: rash Neurological: Denies: headache, weakness, numbness EKG Findings - EKG Results: EKG: interpreted by ERMD EKG shows: atrial fibrillation (Rate approximately 90 bpm) - Blocks, [place], Hypertrophy, ST Abn: QRS axis and voltage: left axis deviation (-30 to -90) - MD, Pacemaker, Normal: Myocardial infarction: anterior MD (acute or recent) Past Medical History Past Medical History: Atrial Fibrillation, GERD/Reflux, Hearing Disorder / Deafness, Hyperlipidemia, Prostate Disorder Additional Past Medical History / Comment(s): 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 BILATERAL CATARACT REMOVAL AND LENS IMPLANT. hernia repair (inguinal and femoral) x5 Past Anesthesia/Blood Transfusion Reactions: No Reported Reaction, Motion Sickness Past Psychological History: No Psychological Hx Reported Smoking Status: Never smoker Past Alcohol Use History: None Reported Past Drug Use History: None Reported - Past Family History Father Additional Family Medical History / Comment(s): brain aneurysm Mother Family Medical History: Diabetes Mellitus General Exam Limitations: no limitations General appearance: alert, in no apparent distress Head exam: Present: atraumatic, normocephalic Eye exam: Present: normal appearance. Absent: scleral icterus, conjunctival injection ENT exam: Present: normal oropharynx Neck exam: Present: normal inspection Respiratory exam: Present: normal lung sounds bilaterally. Absent: respiratory distress, wheezes, rales, rhonchi, stridor, accessory muscle use Cardiovascular Exam: Present: irregular rhythm. Absent: systolic murmur, diastolic murmur, rubs, gallop GI/Abdominal exam: Present: soft. Absent: distended, tenderness, guarding, rebound, rigid, mass Extremities exam: Present: normal inspection, normal capillary refill. Absent: pedal edema, calf tenderness Back exam: Present: normal inspection. Absent: CVA tenderness (R), CVA tenderness (L) Neurological exam: Present: alert Skin exam: Present: warm, dry, intact, normal color. Absent: rash Course Vital Signs 05/26/24 05/26/24 05/26/24 15:37 15:44 15:45 Temperature 97.0 F L Pulse Rate 80 75 Pulse Rate [ 70 Manufacturing Engineer Automotive ] Respiratory 18 18 Rate Blood Pressure 134/105 132/96 O2 Sat by Pulse 94 L 96 Oximetry 05/26/24 05/26/24 05/26/24 15:52 15:57 16:00 Temperature Pulse Rate 88 76 82 Pulse Rate [ Manufacturing Engineer Automotive ] Respiratory 18 18 18 Rate Blood Pressure 128/81 132/79 133/85 O2 Sat by Pulse 98 99 97 Oximetry 05/26/24 05/26/24 05/26/24 16:05 16:15 16:25 Temperature Pulse Rate 68 77 72 Pulse Rate [ Manufacturing Engineer Automotive ] Respiratory 18 18 18 Rate Blood Pressure 133/85 129/84 124/79 O2 Sat by Pulse 94 L 96 99 Oximetry 05/26/24 16:26 Temperature Pulse Rate 70 Pulse Rate [ Manufacturing Engineer Automotive ] Respiratory 20 Rate Blood Pressure O2 Sat by Pulse 99 Oximetry Chest Pain MDM - MDM The patient had chest x-ray that I interpreted as negative for acute infiltrate, pneumothorax, congestive heart failure Was pt. sent in by a medical professional or institution (PROMISE Perez, ANIMAL PATHOLOGIST, urgent care, hospital, or jail...) When possible be specific @ -[No] Did you speak to anyone other than the patient for history (EMS, parent, family, police, friend...)? What history was obtained from this source @ -[No] Did you review nursing and triage notes (agree or disagree)? Why? @ -[I reviewed and agree with nursing and triage notes] Were old charts reviewed (outside hosp., previous admission, EMS record, old EKG, old radiological studies, urgent care reports/EKG's, jail records)? Report findings @ -[No old charts were reviewed] Differential Diagnosis (chest pain, altered mental status, abdominal pain women, abdominal pain men, vaginal bleeding, weakness, fever, dyspnea, syncope, headache, dizziness, GI bleed, back pain, seizure, CVA, palpatations, mental health, musculoskeletal)? @ -[Differential Chest Pain: Stable Angina, Unstable Angina, STEMI, NSTEMI Aortic Dissection, Pneumothorax, Musculoskeletal, Esophageal Spasm GERD, Cholecystitis, Pancreatitis, Zoster, this is not meant to be an all-inclusive list. EKG interpreted by me (3pts min.). @ -[I interpreted as above] X-rays interpreted by me (1pt min.). @ -[I interpreted as above CT interpreted by me (1pt min.). @ -[None done] U/S interpreted by me (1pt. min.). @ -[None done] What testing was considered but not performed or refused? (CT, X-rays, U/S, labs)? Why? @ -[None] What meds were considered but not given or refused? Why? @ -[None] Did you discuss the management of the patient with other professionals (professionals i.e. , PA, ANIMAL PATHOLOGIST, lab, RT, psych nurse, social worker delinquency prevention, sound printer, teacher, armoured corps officer, comp field case manager)? Give summary @ -[Case discussed with the on-call agent ticketing gate who did come to evaluate the patient and will take for catheterization. Case discussed with admitting physician and treatment recommendations incorporated Was smoking cessation discussed for >3mins.? @ -[No] Was critical care preformed (if so, how long)? @ -[Yes, 35 minutes Were there social determinants of health that impacted care today? How? (Homelessness, low income, unemployed, alcoholism, drug addiction, transportation, low edu. Level, literacy, decrease access to med. care, fdc, rehab)? @ -[No] Was there de-escalation of care discussed even if they declined (Discuss DNR or withdrawal of care, Hospice)? DNR status @ -[No] What co-morbidities impacted this encounter? (DM, HTN, Smoking, COPD, CAD, Cancer, CVA, ARF, Chemo, Hep., AIDS, mental health diagnosis, sleep apnea, morbid obesity)? @ -[Hypertension, CAD, atrial fibrillation, diabetes Was patient admitted / discharged? Hospital course, mention meds given and route, prescriptions, significant lab abnormalities, going to OR and other pertinent info. @ -[Patient is 78-year-old man here for chest pain. History of CAD, atrial fibrillation, diabetes, hypertension. History concerning for acute coronary syndrome. Stat ECG was obtained and the Underwater Trapper is activated. Undiagnosed new problem with uncertain prognosis? @ -[No] Drug Therapy requiring intensive monitoring for toxicity (Heparin, Nitro, Insulin, Cardizem)? @ -[Heparin Were any procedures done? @ -[No] Diagnosis/symptom? @ -[Acute STEMI Acute, or Chronic, or Acute on Chronic? @ -[Acute Uncomplicated (without systemic symptoms) or Complicated (systemic symptoms)? @ -[Uncomplicated Side effects of treatment? @ -[No] Exacerbation, Progression, or Severe Exacerbation? @ -[No] Poses a threat to life or bodily function? How? (Chest pain, [place], MD, pneumonia, PE, COPD, DKA, ARF, appy, cholecystitis, CVA, Diverticulitis, Homicidal, Suicidal, threat to staff... and all critical care pts) @ -[Yes, risk of completion of MD/heart failure/ All treatments are based on ideal body weight as in ED triage Disposition Clinical Impression: STEMI (ST elevation myocardial infarction) Disposition: ADMITTED IP TO THIS HOSP Condition: Serious Is patient prescribed a controlled substance at d/c from ED?: No
[2024-05-26] MEDS: SODIUM CHLORIDE 0.9% 1,000 ML IV ONE (15:50)
[2024-05-26] MEDS: ASPIRIN 81 MG PO STA (15:50)
[2024-05-26] MEDS: PRAVASTATIN SODIUM 40 MG TAB PO STA (15:50)
[2024-05-26] MEDS: ATORVASTATIN 80 MG TAB PO STA (15:50)
[2024-05-26 15:51] LABS: Basophils % (A) 0 %; Eosinophils # (A) 0.2 k/uL (0-0.7); Eosinophils % (A) 2 %; HCT 42.9 % (39.0-53.0); Lymphocytes # (A) 2.6 k/uL (1.0-4.8); Lymphocytes % (A) 35 %; MCH 30.7 pg (25.0-35.0); MCHC 32.5 g/dL (31.0-37.0); MCV 94.3 fL (80.0-100.0); Mean Platelet Volume 9.7; Monocytes # (A) 0.4 k/uL (0-1.0); Monocytes % (A) 6 %; Neutrophils % (A) 54 %; Platelet Count 151 k/uL (150-450); RBC 4.55 m/uL (4.30-5.90); RDW 13.6 % (11.5-15.5); WBC 7.4 k/uL (3.8-10.6)
[2024-05-26] MEDS: HEPARIN SODIUM 1,000 UN/ML (10ML VL) IV ONE (15:51)
[2024-05-26] MEDS: MORPHINE SULFATE 4 MG/ML SYRINGE IV STA (15:52)
--- NOTE | 2024-05-26 15:56 | XR ---
EXAMINATION TYPE: XR chest 1V portable DATE OF EXAM: 05/26/2024 3:49 PM COMPARISON: Right shoulder radiograph 11/28/2023. TECHNIQUE: XR chest 1V portable Portable AP radiograph of the chest. CLINICAL INDICATION:Male, 78 years old with history of chest pain; FINDINGS: Lungs/Pleura: There is no evidence of pleural effusion, focal consolidation, or pneumothorax. Chroni c senescent parenchymal change. Pulmonary vascularity: Unremarkable. Heart/mediastinum: Cardiomediastinal silhouette is enlarged and stable. Musculoskeletal: No acute osseous pathology. Healed right mid clavicular fracture with callus formati on. Remote right-sided rib fractures. IMPRESSION: No acute cardiopulmonary disease/process. [facility], , 05/26/2024 3:54 PM
[2024-05-26] MEDS: NITROGLYCERIN SL TABS 0.4 MG TAB SUBLINGUAL PRN (15:57)
[2024-05-26 16:01] LABS: ALT 21 U/L (4-49); African American GFR (CKD) >90 (>60 ml/min/1.73 sqM); Albumin 4.2 g/dL (3.5-5.0); Anion Gap 8 mmol/L; Blood Urea Nitrogen 20 mg/dL (9-20); Calcium 9.2 mg/dL (8.4-10.2); Carbon Dioxide 25 mmol/L (22-30); Chloride 104 mmol/L (98-107); Glucose 134 mg/dL (74-99); Non-African American GFR(CKD) 89 (>60 ml/min/1.73 sqM); Sodium 137 mmol/L (137-145); Total Bilirubin 0.9 mg/dL (0.2-1.3); Total Protein 6.8 g/dL (6.3-8.2)
[2024-05-26] MEDS: NITROGLYCERIN-D5W PMX 50 MG in DEXTROSE/WATER 1 250ML.BAG IV ONE (16:05)
[2024-05-26 16:06] LABS: INR 1.2 (<1.2); Partial Thromboplastin Time 24.7 sec (22.0-30.0); Prothrombin Time 12.9 sec (10.0-12.5)
[2024-05-26 16:07] LABS: AST 52 U/L (17-59); Alkaline Phosphatase 55 U/L (38-126); Magnesium 1.9 mg/dL (1.6-2.3)
[2024-05-26] MEDS: MIDAZOLAM 2 MG/2 ML VIAL IVP ONE (16:48)
[2024-05-26] MEDS: fentaNYL (PF) 50 MCG/ML 2 ML AMP IVP ONE (16:48)
[2024-05-26] MEDS: VERAPAMIL SYRINGE (5 MG/10 ML) INTRAARTER ONE (16:49)
[2024-05-26] MEDS: HEPARIN SODIUM 1,000 UN/ML (10ML VL) IVP ONE (17:01)
[2024-05-26] MEDS: TICAGRELOR 90 MG TAB PO ONE (17:02)
--- NOTE | 2024-05-26 17:18 | P.CARDCATH ---
Date of Procedure: 05/26/24 Description of Procedure: DIAGNOSTIC CORONARY ANGIOGRAPHY and LEFT HEART CATH REPORT PROCEDURES PERFORMED: Left heart catheterization Selective coronary angiography Moderate conscious sedation 15 mins [Ultrasound assisted] Right radial access INDICATION: STEMI BRIEF HPI: 78-year-old male with no prior history of coronary artery disease presented to the hospital because of substernal chest pressure that started today afternoon. He describes his pain as substernal, pressure-like sensation with impending doom sensation with diaphoresis. On admission his EKG showed sinus rhythm with ST elevations in anteroseptal leads with lateral extension and Q waves in anteroseptal leads. 4000 units of Heparin was administed in the ER. 325 mg of aspirin and 2 nitroglycerin were given in the ER and patient was started on nitroglycerin drip while waiting for the heart cath. CONSENT: I have explained the procedural steps of above-mentioned procedures in layman's terms to the patient. I discussed the risks (including but not limited to stroke, emergent vascular or cardiac surgery or ), benefits and alternative therapies for the above-mentioned procedure. I discussed the risks of sedation/analgesia and blood product administration (if indicated). The patient has indicated understanding and acceptance of these risks. Conscious Sedation: Patient's ECG, heart rate, blood pressure, pulse oximetry were monitored throughout the duration of procedure under my direct supervision. 1 mg Versed and 50 mcg Fentanyl were used for induction of moderate conscious sedation. Total duration of moderate concious sedation 15 minutes. PROCEDURAL DETAILS: Patient was prepped and draped in sterile fashion. 1% lidocaine was infiltrated over the right radial artery. Right radial access was obtained via modified seldinger technique. [Ultrasound was used for radial access]. Medications: 5mg of verapamil was administed in the radial sheet. Wires and Catheter used: J wire was advanced under fluroscopy to get to aortic root. 5 luxembourger JR 4 diagnostic catheter was utilized obtain left ventricular pre ssure and pressure gradint across aortic valve. 5 luxembourger JR 4 diagnostic catheter was used to selectively engage the right coronary ostium. 5 luxembourger JL 3.5 diagnostic catheter was utilized to selectively engage the left coronary ostium. Angiographic images were reviewed in detail. Catheter and wire were removed. Radial sheet was flushed. The right radial sheath was removed and a TR band was placed. Patent hemostasis was achieved. The patient tolerated the procedure well. Patient was transported back to the post catheterization holding area in stable condition. TECHNICAL DETAILS Total contrast used: Isovue [60 ml] Complications: [none] Estimated Blood loss: less than 15 ml HEMODYNAMICS: Aortic Pressure: 110/70 mmHg. LV pressure: 110/1 mmHg. LVEDP 12 mmHg. There was no significant gradient across the aortic valve. SELECTIVE CORONARY ARTERIOGRAPHY: LEFT MAIN: The left main is short and large caliber vessel. It bifurcates into the LAD and circumflex. Left main appears angiographically normal. LEFT ANTERIOR DESCENDING CORONARY ARTERY: LAD is a large caliber vessel which wraps around to the apex. Proximal LAD appears angiographically patent. It gives rise to 2 small diagonal branches, around 2 mm in caliber which appears patent. Just after giving second diagonal branch, mid LAD has a 95-99% stenosis with MISHA II flow distally. Distal LAD reaches up to the apex and appears patent. LEFT CIRCUMFLEX CORONARY ARTERY: LCx is a dominant vessel. LCx is a large- caliber and appears angiographically patent in proximal mid and distal segment. Proximal LCx gives rise to a small 2 mm OM1 branch. Proximal portion of OM1 has 30% stenosis. Distally LCx gives rise to PDA and PL branches appear angiographically patent. RIGHT CORONARY ARTERY: Nondominant vessel, and small caliber. Proximal RCA is patent. Distally it gives rise to RV marginal branches which appears angiographically patent. IMPRESSION: Anterior STEMI 95 to 99% mid LAD stenosis, MISHA II flow, culprit vessel 30% stenosis proximal OM1 Ischemic cardiomyopathy with cardiomegaly PLAN: Emergent PCI of mid LAD Further recommendations to follow Admit to ICU Performing Physician Francisco J Levine MD, FACC, RPVI Thank you for allowing [facility] to participate in this patient's care. Feel free to reach out in case of any followup questions.
--- NOTE | 2024-05-26 17:23 | P.CRDCN ---
History of Present Illness Consult date: 05/26/24 History of present illness: HISTORY OF PRESENTING ILLNESS: 78-year-old with no prior history of coronary artery disease presented to the [facility] ER because of substernal chest pressure that started today afternoon. Admission EKG showed sinus rhythm with ST elevations in anteroseptal leads with lateral extension along with Q waves in anteroseptal leads. For the STEMI was activated and patient was evaluated emergently. Bedside echocardiogram showed an EF of 30 to 35% with apical and anteroapical hypokinesia. Chest x-ray did not show signs of mediastinal widening. It did show mild pulm congestion. Patient did not have any signs of cardiogenic shock at the time of evaluation. He denied any prior history of TIA, strokes, diabetes, bleeding diathesis, REVIEW OF SYSTEMS: 14 point review of system is negative except what is mentioned above in HPI. PHYSICAL EXAMINATION: Neck: Brisk carotid upstroke, no jugular venous distention. Lungs: Clear to auscultation. Heart: Regular rate and rhythm, S1-S2, , no murmur or rub. Abdomen: Soft nontender, positive bowel sounds. Extremities: No edema, intact distal pulses. Neuro: Alert, oritented, no focal deficits. Detailed neuro exam was not performed. ASSESSMENT: # Anterior STEMI # Prior history of paroxysmal atrial fibrillation PLAN: Plan for emergent cardiac authorization Further recommendations to follow Francisco J Levine MD, FACC, RPVI Thank you for allowing [facility] to participate in this patient's care. Feel free to reach out in case of any followup questions. 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 BILATERAL CATARACT REMOVAL AND LENS IMPLANT. hernia repair (inguinal and femoral) x5 Past Anesthesia/Blood Transfusion Reactions: No Reported Reaction, Motion Sickness Past Psychological History: No Psychological Hx Reported Smoking Status: Never smoker Past Alcohol Use History: None Reported Past Drug Use History: None Reported - Past Family History Father Additional Family Medical History / Comment(s): brain aneurysm Mother Family Medical History: Diabetes Mellitus Medications and Allergies Home Medications Medication Instructions Recorded Confirmed Type Alfuzosin HCl [Alfuzosin HCl ER] 10 mg PO DAILY 04/10/15 05/26/24 History Simvastatin [Zocor] 80 mg PO HS #0 04/15/15 05/26/24 Rx Levothyroxine Sodium [Synthroid] 50 mcg PO DAILY 06/05/21 05/26/24 History Apixaban [Eliquis] 5 mg PO BID 02/24/23 05/26/24 History Allergies Allergy/AdvReac Type Severity Reaction Status Date / Time No Known Allergies Allergy Verified 05/26/24 16:03 Physical Exam Vitals: Vital Signs Temp Pulse Pulse Resp BP Pulse Ox 05/26/24 16:26 70 20 99 05/26/24 16:25 72 18 124/79 99 05/26/24 16:15 77 18 129/84 96 05/26/24 16:05 68 18 133/85 94 L 05/26/24 16:00 82 18 133/85 97 05/26/24 15:57 76 18 132/79 99 05/26/24 15:52 88 18 128/81 98 05/26/24 15:45 70 05/26/24 15:44 75 18 132/96 96 05/26/24 15:37 97.0 F L 80 18 134/105 94 L Intake and Output 05/26/24 05/26/24 05/26/24 06:59 14:59 22:59 Intake Total 0.45 Balance 0.45 Intake: Intake, IV Titration 0.45 Amount Nitroglycerin-D5w Pmx 50 0.45 mg In Dextrose/Water 1 250ml.bag @ 5 MCG/MIN 1.5 mls/hr IV .Q24H ONE Rx#: [id number] Other: Weight 81.647 kg Results 05/26/24 15:43 05/26/24 15:43 Cardiac Enzymes 05/26/24 05/26/24 Range/Units 15:43 15:43 AST 52 (17-59) U/L Troponin I <0.012 (0.000-0.034) ng/mL Coagulation 05/26/24 Range/Units 15:43 PT 12.9 H (10.0-12.5) sec APTT 24.7 (22.0-30.0) sec CBC 05/26/24 Range/Units 15:43 WBC 7.4 (3.8-10.6) k/uL RBC 4.55 (4.30-5.90) m/uL Hgb 14.0 (13.0-17.5) gm/dL Hct 42.9 (39.0-53.0) % Plt Count 151 (150-450) k/uL Comprehensive Metabolic Panel 05/26/24 Range/Units 15:43 Sodium 137 (137-145) mmol/L Potassium 4.0 (3.5-5.1) mmol/L Chloride 104 (98-107) mmol/L Carbon Dioxide 25 (22-30) mmol/L BUN 20 (9-20) mg/dL Creatinine 0.72 (0.66-1.25) mg/dL Glucose 134 H (74-99) mg/dL Calcium 9.2 (8.4-10.2) mg/dL AST 52 (17-59) U/L ALT 21 (4-49) U/L Alkaline Phosphatase 55 (38-126) U/L Total Protein 6.8 (6.3-8.2) g/dL Albumin 4.2 (3.5-5.0) g/dL Current Medications Generic Name Dose Route Start Last Admin Trade Name Freq PRN Reason Stop Dose Admin Apixaban 5 mg 05/27/24 09:00 Apixaban 5 Mg Tab PO BID [facility] Protocol Aspirin 81 mg 05/27/24 09:00 Aspirin 81 Mg PO DAILY [facility] Atorvastatin Calcium 40 mg 05/26/24 21:00 Atorvastatin 40 Mg Tab PO [facility] Carvedilol 3.125 mg 05/26/24 17:30 Carvedilol 6.25 Mg Tab PO BID-W/MEALS [facility] Dapagliflozin 10 mg 05/27/24 09:00 Dapagliflozin Propanediol 10 Mg Tablet PO DAILY [facility] Heparin Sodium/Sodium Chloride 250 mls @ 9.798 mls/hr 05/26/24 15:45 25,000 unit/ Sodium Chloride IV .Q24H [facility] Protocol 12 UNITS/KG/HR Nitroglycerin/Dextrose 50 mg/ 250 mls @ 1.5 mls/hr 05/26/24 16:04 05/26/24 16:18 IV Solution IV 05/27/24 16:03 15 mcg/min .Q24H ONE 4.5 mls/hr Titration Protocol 5 MCG/MIN Nitroglycerin 0.4 mg 05/26/24 15:43 05/26/24 15:57 Nitroglycerin Sl Tabs 0.4 Mg Tab SUBLINGUAL 0.4 mg Q5M PRN Administration Chest Pain Sacubitril/Valsartan 1 each 05/26/24 21:00 Sacubitril/Valsartan 24 Mg-26 Mg Tablet PO BID [facility] Spironolactone 12.5 mg 05/27/24 09:00 Spironolactone 25 Mg Tab PO DAILY [facility] Intake and Output 05/26/24 05/26/24 05/26/24 06:59 14:59 22:59 Intake Total 0.45 Balance 0.45 Intake: Intake, IV Titration 0.45 Amount Nitroglycerin-D5w Pmx 50 0.45 mg In Dextrose/Water 1 250ml.bag @ 5 MCG/MIN 1.5 mls/hr IV .Q24H [facility] Rx#: [id number] Other: Weight 81.647 kg Patient Weight 05/27/24 06:59 Weight 81.647 kg 05/26/24 15:43 05/26/24 15:43
[2024-05-26] MEDS: IV FLUID CONTINUATION 900 ML IV ONE (17:24)
[2024-05-26] MEDS: IOPAMIDOL-370 100ML BTL INJ ONE (17:24)
[2024-05-26] MEDS ORDERED: ATROPINE SULFATE 0.1 MG/ML 10ML SYRINGE IV PRN (17:33)
[2024-05-26] MEDS ORDERED: RX INFO: IV CONTRAST WAS GIVEN 1 EACH MISC MISCELLANE PRN (17:33)
[2024-05-26] MEDS ORDERED: MAG HYDROX/AL HYDROX/SIMETH 30 ML CUP PO PRN (17:33)
[2024-05-26] MEDS ORDERED: NITROGLYCERIN SL TABS 0.4 MG TAB SUBLINGUAL PRN (17:33)
[2024-05-26] MEDS ORDERED: ZOLPIDEM 5 MG TAB PO PRN (17:33)
--- NOTE | 2024-05-26 17:39 | P.PCN ---
Date of Procedure: 05/26/24 Operative Findings: PERCUTANEOUS CORONARY INTERVENTION Performing physician Spike Linares M.D. Procedure Performed: 1. Successful stenting of the mid LAD using 3.5 x 23 mm Xience drug-eluting stent with an excellent angiographic results. 2. Adjunctive use of IVUS Indication: Acute anterior ST elevation myocardial infarction Approach: Right radial artery Complications: None Level of Sedation: Moderate with a sedation length of 33 minutes Procedure Discussion: Please refer to diagnostic heart catheterization was performed earlier today. Anticoagulation was initiated using heparin with continuous ACT monitoring. Subsequently I did engage the left main using JL 3.5 guiding catheter. I did wire the LAD using a run-through wire. Balloon angioplasty was performed using 2.5 mm balloon and subsequently IVUS was performed and showed a diameter between 3.5 to [address] a 3.5 x 23 mm stent where the stent was positioned under fluoroscopy guidance with adjunctive use of GuideLiner and deployed under fluoroscopy guidance. Postdilatation was initially performed using 4 mm NC balloon and subsequently 3.5 mm NC balloon. Final angiogram and IVUS performed and showed good angiographic results and the procedure was completed with no complication Postprocedure Management: 1. Dual antiplatelet therapy using aspirin and Brilinta for at least 12-month 2. Aggressive cholesterol control 3. Risk factors modification
[2024-05-26 17:51] LABS: Glucose,Whole Blood 135 mg/dL (70-110)
[2024-05-26] MEDS: HEPARIN SOD,PORK IN 0.45% NACL 25,000 UNIT in 0.45% NACL 1 250ML.BAG IV SCH (18:42)
[2024-05-26] MEDS: SODIUM CHLORIDE 0.9% 1,000 ML in EMPTY BAG 1 BAG IV SCH (18:44)
[2024-05-26 18:58] LABS: NT-Pro-B-Type Natriuretic Pept 257 pg/mL
[2024-05-26] MEDS: SACUBITRIL/VALSARTAN 24 MG-26 MG TABLET PO SCH (22:40)
[2024-05-26] MEDS: ATORVASTATIN 40 MG TAB PO SCH (22:40)
[2024-05-26] MEDS: TICAGRELOR 90 MG TAB PO SCH (22:40)
[2024-05-26] MEDS: carvediloL 6.25 MG TAB PO SCH (22:40)
[2024-05-27 04:14] LABS: Chol/HDL Ratio 2.87 Ratio; LDL Cholesterol,Calculated 82.8 mg/dL (0.0-131.0); VLDL Calculation 15.58 mg/dL (5.00-40.00)
[2024-05-27] MEDS: ISOSORBIDE MONONITRATE ER 15 MG TAB PO SCH (06:46)
[2024-05-27 07:39] LABS: African American GFR (CKD) >90 (>60 ml/min/1.73 sqM); Non-African American GFR(CKD) >90 (>60 ml/min/1.73 sqM)
[2024-05-27] MEDS: ONDANSETRON 4 MG/2 ML VIAL IVP STA (07:53)
[2024-05-27] MEDS ORDERED: APIXABAN 5 MG TAB PO SCH (09:00)
[2024-05-27] MEDS: LEVOTHYROXINE 50 MCG TAB PO SCH (09:07)
[2024-05-27] MEDS: ASPIRIN 81 MG PO SCH (09:07)
[2024-05-27] MEDS: SPIRONOLACTONE 25 MG TAB PO SCH (09:08)
[2024-05-27] MEDS: TAMSULOSIN 0.4 MG CAP.ER.24H PO SCH (09:08)
[2024-05-27] MEDS: DAPAGLIFLOZIN PROPANEDIOL 10 MG TABLET PO SCH (09:08)
[2024-05-27] MEDS: APIXABAN 2.5 MG TABLET PO SCH (10:54)
[2024-05-27] MEDS: MAGNESIUM SULFATE-D5W PMX 1 GM in DEXTROSE/WATER 1 100ML.BAG IVPB ONE (10:54)
--- NOTE | 2024-05-27 11:20 | P.HPIM ---
History of Present Illness H&P Date: 05/26/24 Chief Complaint: Anterior ST elevation NE HISTORY OF PRESENT ILLNESS: This is a 78-year-old male with a previous medical history significant for hypertension and hypertensive cardiovascular disease, hyperlipidemia, hypothyroidism, history of atrial fibrillation, coronary artery disease, mitral regurgitation, aortic regurgitation, has been followed by Dr. Bran on the regular basis, patient was going for a walk and about 20 minutes into the walk patient started to have a severe left-sided chest pain associated with significant shortness of breath, patient ended up going to the emergency department at [facility], had a twelve-lead EKG that showed ST elevation anterior NE, he was taken emergently to the [facility], had a left heart catheterization that was done by Dr. Levine that showed evidence of 95 to 99% stenosis of the proximal LAD, left main was free of disease, left circumflex artery was a large-caliber vessel and free of disease, gives rise to 2 small obtuse marginal branch, OM1 has a proximal 30% stenosis, RCA was free of disease as well gave small branches as well, patient underwent PCI of the LAD successfully was admitted to the ICU for further evaluation recommendation. REVIEW OF SYSTEMS: Constitutional: No documented fever, no chills, no night sweats. No weight change. No weakness, fatigue or lethargy. No daytime sleepiness. HEENT: No headache. No blurred vision or double vision,no loss of vision. loss of Hearing, ringing in the ears, no dizziness. No nasal drainage or congestion. No epistaxis. No sore throat. Lungs: Positive shortness of breath, no cough, no sputum production. No wheezing. Reports dyspnea with activity. Cardiovascular: Positive for left-sided chest pain, no lower extremity edema. No palpitations. No paroxysmal nocturnal dyspnea. No orthopnea. No lightheadedness or dizziness. No syncopal episodes. Abdominal: Reports no abdominal pain. No nausea, vomiting. No diarrhea. No constipation. No bloody or tarry stools reports loss of appetite. Genitourinary: No dysuria, increased frequency, urgency. No urinary retention. Musculoskeletal: No myalgias. No muscle weakness, no gait dysfunction, no frequent falls. No back pain. No neck pain. Integumentary: No wounds, no lesions. No rash or pruritus. No unusual bruising. No change in hair or nails. Neurologic: No aphasia. No facial droop. No change in mentation. No head injury. No headache. No paralysis. No paresthesia. Psychiatric: No depression. No anxiety. No mood swings. Endocrine: No abnormal blood sugars. No weight change. PAST MEDICAL HISTORY: Hypertension and hypertensive cardiovascular disease Hyperlipidemia Hypothyroidism Unspecified atrial fibrillation Mnire disease Enlarged prostate Detrusor instability Mitral regurgitation Aortic regurgitation Coronary artery disease without angina pectoris. PAST SURGICAL HISTORY: Bilateral inguinal hernia repair 2013 SOCIAL HISTORY: Patient is a lifelong smoker, he denies any alcohol ingestion, he lives with his . FAMILY HISTORY: Father at age 70 from his hypertension, mother at age of 85 from natural causes, patient has one brother with asthma, patient has 2 daughters and 1 son no major medical problems PHYSICAL EXAMINATION: General: 78-year-old male in no apparent distres HEENT: Head is atraumatic, normocephalic, pupils were equal round reactive to light and recommendation, extraocular muscle movement were intact, sclera nonicteric, conjunctivae were pale, mucous membranes of the mouth are somewhat dry with coated tongue Neck: Supple, no JVP, normal carotid upstroke bilaterally, no lymphadenopathy. Chest: Decreased breath sounds at the bases, few rhonchi, no expiratory wheezes, no chest wall tenderness, no intercostal retractions. Heart: First heart sound is normal, second heart sound is normal there is BRICE 2/6 located at the left sternal border, irregularly irregular Abdomen: Soft, nontender,no rebound or guarding positive bowel souds Extremities: There is no edema no calf tenderness DP +2 bilaterally. Neurologic examination: Patient is awake alert and oriented X3, cranial nerves II-12 appear grossly intact, muscle power were 5 out of 5 in upper extremities and 5 out of 5 in bilateral lower extremities, deep tendon reflexes normal bilaterally. ASSESSMENT AND PLAN: 1. Anterior ST elevation NE status post left heart catheterization with PCI of the LAD. Continue patient on aspirin 80 mg once every day, atorvastatin 40 mg once every day, Brilinta 90 mg orally twice every day, isosorbide mononitrate 15 mg once every day, carvedilol 3.125 mg orally twice every day, Entresto 24/26 mg orally twice every day monitor the patient's symptoms very closely. 2. ischemic cardiomyopathy. Continue patient on carvedilol 3.125 mg orally twice every day, isosorbide mononitrate 15 mg orally once every day, Farxiga 10 mg once every day, spironolactone 12.5 mg once every day, Entresto 24/26 mg orally twice every day follow-up with the patient very closely 3. Coronary artery disease continue treatment as in the previous 2 Paragraphs 4. Mild aortic regurgitation/moderate mitral regurgitation. Echocardiogram will be done for further evaluation. 5. Mixed hyperlipidemia. Continue patient on atorvastatin 40 mg orally once every day. Monitor lipid panel, keep LDL 55-70. 6. Hypothyroidism. Continue patient on Synthroid 50 g orally once every day. 7. Enlarged prostate. Continue alfuzosin 10 mg once every day. 8. Paroxysmal atrial fibrillation. restart the patient on Eliquis 2.5 mg orally twice every day. 9. Mnire disease. Stable. 10. DVT prophylaxis. Bilateral knee-high RENUKA hose. Eliquis 2.5 mg orally twice every day 11. GI prophylaxis. Protonix 40 mg orally once every day. 12. Admit to inpatient. Estimated length of stay 2 midnights. 13. Full code. 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 BILATERAL CATARACT REMOVAL AND LENS IMPLANT. hernia repair (inguinal and femoral) x5 Past Anesthesia/Blood Transfusion Reactions: No Reported Reaction, Motion Sickness Past Psychological History: No Psychological Hx Reported Smoking Status: Never smoker Past Alcohol Use History: None Reported Past Drug Use History: None Reported - Past Family History Father Additional Family Medical History / Comment(s): brain aneurysm Mother Family Medical History: Diabetes Mellitus Medications and Allergies Home Medications Medication Instructions Recorded Confirmed Type Alfuzosin HCl [Alfuzosin HCl ER] 10 mg PO DAILY 04/10/15 05/26/24 History Simvastatin [Zocor] 80 mg PO HS #0 04/15/15 05/26/24 Rx Levothyroxine Sodium [Synthroid] 50 mcg PO DAILY 06/05/21 05/26/24 History Apixaban [Eliquis] 5 mg PO BID 02/24/23 05/26/24 History Allergies Allergy/AdvReac Type Severity Reaction Status Date / Time No Known Allergies Allergy Verified 05/26/24 16:03 Physical Exam Vitals: Vital Signs Temp Pulse Pulse Resp BP Pulse Ox 05/27/24 07:00 85 20 114/93 95 05/27/24 06:00 79 18 97/78 97 05/27/24 05:00 80 20 115/65 96 05/27/24 04:00 98.2 F 77 20 107/73 96 05/27/24 03:00 87 20 106/58 96 05/27/24 02:00 78 18 106/88 95 05/27/24 01:00 75 16 106/71 97 05/27/24 00:00 98 F 75 16 106/71 97 05/26/24 23:00 73 15 115/95 96 05/26/24 22:00 65 18 108/89 96 05/26/24 21:15 82 15 90/66 94 L 05/26/24 21:00 78 15 101/79 99 05/26/24 20:45 73 15 107/75 99 05/26/24 20:30 71 18 103/79 99 05/26/24 20:15 66 16 104/80 98 05/26/24 20:00 98.2 F 63 16 108/59 98 05/26/24 19:45 80 16 100/90 97 05/26/24 19:30 78 15 100/70 98 05/26/24 19:15 82 18 104/74 98 05/26/24 19:00 75 18 113/80 98 05/26/24 18:45 71 18 108/70 97 05/26/24 18:30 76 16 107/83 98 05/26/24 18:15 86 16 94/72 99 05/26/24 18:00 78 18 111/68 93 L 05/26/24 17:48 98.1 F 104 H 16 97 05/26/24 16:26 70 20 99 05/26/24 16:25 72 18 124/79 99 05/26/24 16:15 77 18 129/84 96 05/26/24 16:05 68 18 133/85 94 L 05/26/24 16:00 82 18 133/85 97 05/26/24 15:57 76 18 132/79 99 05/26/24 15:52 88 18 128/81 98 05/26/24 15:45 70 05/26/24 15:44 75 18 132/96 96 05/26/24 15:37 97.0 F L 80 18 134/105 94 L Intake and Output 05/26/24 05/27/24 05/27/24 22:59 06:59 14:59 Intake Total 475.45 0 10 Output Total 1000 400 0 Balance -524.55 -400 10 Intake: IV 100 10 0.9 @ KVO 10 Intake, IV Titration 375.45 0 Amount Nitroglycerin-D5w Pmx 50 0.45 mg In Dextrose/Water 1 250ml.bag @ 5 MCG/MIN 1.5 mls/hr IV .Q24H ONE Rx#: [id number] Sodium Chloride 0.9% 1, 375 0 000 ml In Empty Bag 1 bag @ 75 mls/hr IV .[id number] [facility] Rx#:[id number] Output: Urine 1000 400 0 Other: Weight 81.647 kg 81.5 kg Results CBC & Chem 7: 05/26/24 15:43 05/27/24 06:52 Labs: Abnormal Lab Results - Last 24 Hours (Table) 05/26/24 05/26/24 05/26/24 Range/Units 15:43 15:43 17:50 PT 12.9 H (10.0-12.5) sec INR 1.2 H (<1.2) Creatinine (0.66-1.25) mg/dL Glucose 134 H (74-99) mg/dL POC Glucose (mg/dL) 135 H (70-110) mg/dL 05/27/24 Range/Units 06:52 PT (10.0-12.5) sec INR (<1.2) Creatinine 0.56 L (0.66-1.25) mg/dL Glucose (74-99) mg/dL POC Glucose (mg/dL) (70-110) mg/dL
[2024-05-27 11:22] LABS: HCT 45.6 % (39.0-53.0); HGB 14.3 gm/dL (13.0-17.5); MCH 30.6 pg (25.0-35.0); MCHC 31.2 g/dL (31.0-37.0); MCV 97.8 fL (80.0-100.0); Mean Platelet Volume 9.7; Platelet Count 156 k/uL (150-450); RBC 4.66 m/uL (4.30-5.90); RDW 13.5 % (11.5-15.5); WBC 9.3 k/uL (3.8-10.6)
--- NOTE | 2024-05-27 11:23 | P.PN ---
Subjective Progress Note Date: 05/27/24 HISTORY OF PRESENT ILLNESS: This is a 78-year-old male with a previous medical history significant for hypertension and hypertensive cardiovascular disease, hyperlipidemia, hypothyroidism, history of atrial fibrillation, coronary artery disease, mitral regurgitation, aortic regurgitation, has been followed by Dr. Bran on the regular basis, patient was going for a walk and about 20 minutes into the walk patient started to have a severe left-sided chest pain associated with significant shortness of breath, patient ended up going to the emergency department at [facility], had a twelve-lead EKG that showed ST elevation anterior CA, he was taken emergently to the [facility], had a left heart catheterization that was done by Dr. Levine that showed evidence of 95 to 99% stenosis of the proximal LAD, left main was free of disease, left circumflex artery was a large-caliber vessel and free of disease, gives rise to 2 small obtuse marginal branch, OM1 has a proximal 30% stenosis, RCA was free of disease as well gave small branches as well, patient underwent PCI of the LAD [facility] ad was admitted to the ICU for further evaluation recommendation. 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 tach he will be given magnesium sulfate 1 g piggyback x 1, check the patient CBC CMP and mag level today and repeat that tomorrow morning. REVIEW OF SYSTEMS: Constitutional: No documented fever, no chills, no night sweats. No weight change. No weakness, fatigue or lethargy. No daytime sleepiness. HEENT: No headache. No blurred vision or double vision,no loss of vision. loss of Hearing, ringing in the ears, no dizziness. No nasal drainage or congestion. No epistaxis. No sore throat. Lungs: Negative for shortness of breath, no cough, no sputum production. No wheezing. Reports dyspnea with activity. Cardiovascular: No chest pain, no lower extremity edema. No palpitations. No paroxysmal nocturnal dyspnea. No orthopnea. No lightheadedness or dizziness. No syncopal episodes. Abdominal: Reports no abdominal pain. No nausea, vomiting. No diarrhea. No constipation. No bloody or tarry stools reports loss of appetite. Genitourinary: No dysuria, increased frequency, urgency. No urinary retention. Musculoskeletal: No myalgias. No muscle weakness, no gait dysfunction, no helena quent falls. Positive for back pain. No neck pain. Integumentary: No wounds, no lesions. No rash or pruritus. No unusual bruising. No change in hair or nails. Neurologic: No aphasia. No facial droop. No change in mentation. No head injury. No headache. No paralysis. No paresthesia. Psychiatric: No depression. No anxiety. No mood swings. Endocrine: No abnormal blood sugars. No weight change. PHYSICAL EXAMINATION: General: 78-year-old male in no apparent distres HEENT: Head is atraumatic, normocephalic, pupils were equal round reactive to light and recommendation, extraocular muscle movement were intact, sclera nonicteric, conjunctivae were pale, mucous membranes of the mouth are somewhat dry with coated tongue Neck: Supple, no JVP, normal carotid upstroke bilaterally, no lymphadenopathy. Chest: Decreased breath sounds at the bases, few rhonchi, no expiratory wheezes, no chest wall tenderness, no intercostal retractions. Heart: First heart sound is normal, second heart sound is normal there is BRICE 2/6 located at the left sternal border, irregularly irregular Abdomen: Soft, nontender,no rebound or guarding positive bowel souds Extremities: There is no edema no calf tenderness DP +2 bilaterally. Neurologic examination: Patient is awake alert and oriented X3, cranial nerves II-12 appear grossly intact, muscle power were 5 out of 5 in upper extremities and 5 out of 5 in bilateral lower extremities, deep tendon reflexes normal bilaterally. ASSESSMENT AND PLAN: 1. Anterior ST elevation CA status post left heart catheterization with PCI of the LAD. Continue patient on aspirin 80 mg once every day, atorvastatin 40 mg once every day, Brilinta 90 mg orally twice every day, isosorbide mononitrate 15 mg once every day, carvedilol 3.125 mg orally twice every day, Entresto 24/26 mg orally twice every day monitor the patient's symptoms very closely. 2. ischemic cardiomyopathy. Continue patient on carvedilol 3.125 mg orally twice every day, isosorbide mononitrate 15 mg orally once every day, Farxiga 10 mg once every day, spironolactone 12.5 mg once every day, Entresto 24/26 mg orally twice every day follow-up with the patient very closely 3. Coronary artery disease continue treatment as in the previous 2 Paragraphs 4. Mild aortic regurgitation/moderate mitral regurgitation. Echocardiogram will be done for further evaluation. 5. Mixed hyperlipidemia. Continue patient on atorvastatin 40 mg orally once every day. Monitor lipid panel, keep LDL 55-70. 6. Hypothyroidism. Continue patient on Synthroid 50 g orally once every day. 7. Enlarged prostate. Continue alfuzosin 10 mg once every day. 8. Paroxysmal atrial fibrillation. restart the patient on Eliquis 2.5 mg orally twice every day. 9. Mnire disease. Stable. 10. DVT prophylaxis. Bilateral knee-high RENUKA hose. Eliquis 2.5 mg orally twice every day 11. GI prophylaxis. Protonix 40 mg orally once every day. 12. Nonsustained few beats of V. tach With recurrent ectopy keep the patient in the ICU, give magnesium 1 g IV I will recheck the patient labs today and tomorrow morning 13. Full code. Objective - Vital Signs Vital signs: Vital Signs Temp 97.9 F 05/27/24 08:00 Pulse 73 05/27/24 10:00 Resp 114 H 05/27/24 10:00 BP 91/59 05/27/24 10:00 Pulse Ox 93 L 05/27/24 10:00 FiO2 Intake & Output 05/26/24 05/27/24 05/27/24 18:59 06:59 18:59 Intake Total 175.45 300 230 Output Total 1400 175 Balance 175.45 -1100 55 Weight 81.647 kg 81.5 kg Intake: IV 100 30 0.9 @ KVO 30 Magnesium Sulfate-D5w Pmx 0 1 gm In Dextrose/Water 1 100ml.bag @ 100 mls/hr IVPB ONCE ONE Rx#: [id number] Intake, IV Titration 75.45 300 Amount Nitroglycerin-D5w Pmx 50 0.45 mg In Dextrose/Water 1 250ml.bag @ 5 MCG/MIN 1.5 mls/hr IV .Q24H ONE Rx#: [id number] Sodium Chloride 0.9% 1, 75 300 000 ml In Empty Bag 1 bag @ 75 mls/hr IV .[id number] [facility] Rx#:[id number] Oral 200 Output: Urine 1400 175 - Labs CBC & Chem 7: 05/26/24 15:43 05/27/24 06:52 Labs: Abnormal Lab Results - Last 24 Hours (Table) 05/26/24 05/26/24 05/26/24 Range/Units 15:43 15:43 17:50 PT 12.9 H (10.0-12.5) sec INR 1.2 H (<1.2) Creatinine (0.66-1.25) mg/dL Glucose 134 H (74-99) mg/dL POC Glucose (mg/dL) 135 H (70-110) mg/dL 05/27/24 Range/Units 06:52 PT (10.0-12.5) sec INR (<1.2) Creatinine 0.56 L (0.66-1.25) mg/dL Glucose (74-99) mg/dL POC Glucose (mg/dL) (70-110) mg/dL
[2024-05-27 11:42] LABS: ALT 38 U/L (4-49); AST 240 U/L (17-59); African American GFR (CKD) >90 (>60 ml/min/1.73 sqM); Albumin 3.7 g/dL (3.5-5.0); Alkaline Phosphatase 52 U/L (38-126); Anion Gap 6 mmol/L; Blood Urea Nitrogen 13 mg/dL (9-20); Calcium 8.9 mg/dL (8.4-10.2); Carbon Dioxide 25 mmol/L (22-30); Chloride 106 mmol/L (98-107); Glucose 101 mg/dL (74-99); Magnesium 1.8 mg/dL (1.6-2.3); Non-African American GFR(CKD) >90 (>60 ml/min/1.73 sqM); Potassium 4.5 mmol/L (3.5-5.1); Sodium 137 mmol/L (137-145); Total Bilirubin 1.4 mg/dL (0.2-1.3); Total Protein 6.3 g/dL (6.3-8.2)
--- NOTE | 2024-05-27 12:35 | CA ---
Transthoracic Echo Report Name: Jaime Edward Age: 78 Gender: M : 1945 Exam Date: 05/27/2024 09:58 Exam Location: [place] [facility] Ht (in): 74 Wt (lb): 180 Ordering Physician: Spike Linares MD ([id number]) Attending/Referring Phys: Form Maker Plaster Lamar Hirsch RDCS Procedure CPT: Indications: stemi Cardiac Hx: Technical Quality: Fair Contrast 1: Definity Total Dose (mL): 2 Contrast 2: Total Dose (mL): MEASUREMENTS (Male / Female) Normal Values 2D ECHO LV Diastolic Diameter PLAX 5.4 cm 4.2 - 5.9 / 3.9 - 5.3 cm LV Systolic Diameter PLAX 4.0 cm IVS Diastolic Thickness 1.5 cm 0.6 - 1.0 / 0.6 - 0.9 cm LVPW Diastolic Thickness 1.1 cm 0.6 - 1.0 / 0.6 - 0.9 cm LV Relative Wall Thickness 0.5 LVOT Diameter 2.0 cm LV Diastolic Volume MOD BP 132.1 cm??? 67 - 155 / 56 - 104 cm??? LV Systolic Volume MOD BP 84.8 cm??? 22 - 58 / 19 - 49 cm??? LV Ejection Fraction MOD BP 35.8 % >= 55 % LV Cardiac Index MOD BP 1260.0 cm???/min???m??? LV Diastolic Volume MOD 4C 158.8 cm??? LV Systolic Volume MOD 4C 117.4 cm??? LV Ejection Fraction MOD 4C 26.1 % LV Cardiac Index MOD 4C 1102.8 cm???/min???m??? LV Diastolic Length 4C 9.3 cm LV Systolic Length 4C 9.4 cm LV Diastolic Volume MOD 2C 104.2 cm??? LV Systolic Volume MOD 2C 59.1 cm??? LV Ejection Fraction MOD 2C 43.3 % LV Cardiac Index MOD 2C 1201.0 cm???/min???m??? LV Diastolic Length 2C 8.8 cm LV Systolic Length 2C 9.0 cm LA Volume 47.9 cm??? 18 - 58 / 22 - 52 cm??? LA Volume Index 23.2 cm???/m??? 16 - 28 cm???/m??? M-MODE Aortic Root Diameter MM 4.2 cm LA Systolic Diameter MM 3.3 cm LA Ao Ratio MM 0.8 AV Cusp Separation MM 2.3 cm DOPPLER LVOT Peak Velocity 93.6 cm/s LVOT Peak Gradient 3.5 mmHg LVOT Velocity Time Integral 15.7 cm LVOT Stroke Volume 47.9 cm??? LVOT Stroke Volume Index 23.1 ml/m??? LVOT Cardiac Index 1277.6 cm???/min???m??? MV Area PHT 5.9 cm??? Mitral E Point Velocity 40.8 cm/s Mitral A Point Velocity 62.5 cm/s Mitral E to A Ratio 0.7 MV Deceleration Time 127.9 ms MV E' Velocity 7.8 cm/s Mitral E to MV E' Ratio 5.3 FINDINGS Left Ventricle Severely increased left ventricular systolic volume. Moderately decreased left ventricular ejection fraction. Moderately increased left ventricular wall thickness. There is mid inferoseptum, apical septum, apical cap and apical lateral wall hypokinesis. There is also mid inferior, apical inferior, apical anterior and mid anterior wall hypokinesis. Left ventricular ejection fraction is estimated at 25-30 %. Abnormal diastolic function with undetermined grade. Right Ventricle Normal right ventricular size and function. Right ventricular systolic pressure within normal limits. Right Atrium Normal right atrial size. Left Atrium Normal left atrial size. Mitral Valve Structurally normal mitral valve. No mitral stenosis. Mild mitral regurgitation. Aortic Valve Trileaflet aortic valve. No aortic valve stenosis or regurgitation. Tricuspid Valve Structurally normal tricuspid valve. Mild tricuspid regurgitation. Pulmonic Valve Structurally normal pulmonic valve. Trace pulmonic regurgitation. Pericardium Small pericardial effusion. Aorta Normal size aortic root and proximal ascending aorta. CONCLUSIONS Left ventricular ejection fraction is estimated at 25-30 %. Distal juan pablo-septal, apical septal and anteroapical and apical akinesia Normal right ventricular size and function. Mild mitral regurgitation. Mild tricuspid regurgitation. Previewed by: Dr Francisco J Levine (Electronically Signed) Final Date: 27 May 2024 12:35
[2024-05-27] MEDS ORDERED: MAGNESIUM SULFATE-D5W PMX 1 GM in DEXTROSE/WATER 1 100ML.BAG IVPB SCH (15:15)
[2024-05-27 15:27] VITALS: BMI 23.1
[2024-05-27] MEDS: MAGNESIUM SULFATE-D5W PMX 1 GM in DEXTROSE/WATER 1 100ML.BAG IVPB SCH (17:00)
[2024-05-27] MEDS ORDERED: diazePAM 5 MG TAB PO PRN (18:17)
--- NOTE | 2024-05-27 18:19 | P.PN ---
Subjective Progress Note Date: 05/27/24 HISTORY OF PRESENTING ILLNESS: 78-year-old with no prior history of coronary artery disease presented to the [facility] ER because of substernal chest pressure that started today afternoon. Admission EKG showed sinus rhythm with ST elevations in anteroseptal leads with lateral extension along with Q waves in anteroseptal leads. For the STEMI was activated and patient was evaluated emergently. Bedside echocardiogram showed an EF of 30 to 35% with apical and anteroapical hypokinesia. Chest x-ray did not show signs of mediastinal widening. It did show mild pulm congestion. Patient did not have any signs of cardiogenic shock at the time of evaluation. He denied any prior history of TIA, strokes, diabetes, bleeding diathesis, Progress note 05/27/2024 Patient got PCI to mid LAD with 3.5 x 23 mm Xience DARA. His echocardiogram shows a LVEF of 25 to 30% with anteroapical hypokinesia. His telemetry shows Mobitz type I second-degree AV block with frequent PVCs and PACs. PHYSICAL EXAMINATION: Neck: Brisk carotid upstroke, no jugular venous distention. Lungs: Clear to auscultation. Heart: Regular pulse, S1-S2, , no murmur or rub. Abdomen: Soft nontender, positive bowel sounds. Extremities: No edema, intact distal pulses. Neuro: Alert, oritented, no focal deficits. Detailed neuro exam was not performed. ASSESSMENT: # Anterior STEMI LVEF 25 to 30% # Ischemic cardiomyopathy # Frequent PAC and PVC # Prior history of paroxysmal atrial fibrillation # Mobitz type I secondary AV block PLAN: Aspirin, Lipitor 80, Brilinta 90 mg twice daily Coreg 3.125 mg twice daily Entresto 24/26 mg twice daily, Aldactone 12.5 g daily, Farxiga 10 mg daily, Imdur 15 mg daily, Eliquis 2.5 mg twice daily Continue triple therapy for 1 week. After 1 week drop aspirin and continue Brilinta and Eliquis. If heart rate and blood pressure allows uptitrate Coreg. Cardiac rehab LifeVest Monitor in ICU for today Magnesium for frequent PACs and PVCs. Continue to monitor telemetry. Objective - Vital Signs Vital signs: Vital Signs Temp 97.7 F 05/27/24 17:00 Pulse 86 05/27/24 16:00 Resp 28 H 05/27/24 18:00 BP 129/103 05/27/24 18:00 Pulse Ox 95 05/27/24 18:00 FiO2 Intake & Output 05/26/24 05/27/24 05/27/24 18:59 06:59 18:59 Intake Total 175.45 300 1202 Output Total 1400 700 Balance 175.45 -1100 502 Weight 81.647 kg 81.5 kg 81.5 kg Intake: IV 100 380 0.9 @ KVO 80 Magnesium Sulfate-D5w Pmx 300 1 gm In Dextrose/Water 1 100ml.bag @ 100 mls/hr IVPB ONCE ONE Rx#: [id number] Intake, IV Titration 75.45 300 Amount Nitroglycerin-D5w Pmx 50 0.45 mg In Dextrose/Water 1 250ml.bag @ 5 MCG/MIN 1.5 mls/hr IV .Q24H ONE Rx#: [id number] Sodium Chloride 0.9% 1, 75 300 000 ml In Empty Bag 1 bag @ 75 mls/hr IV .[id number] [facility] Rx#:[id number] Oral 822 Output: Urine 1400 700 Other: # Voids 1 - Labs CBC & Chem 7: 05/27/24 10:44 05/27/24 10:44 Labs: Abnormal Lab Results - Last 24 Hours (Table) 05/27/24 05/27/24 Range/Units 06:52 10:44 Creatinine 0.56 L (0.66-1.25) mg/dL Glucose 101 H (74-99) mg/dL Total Bilirubin 1.4 H (0.2-1.3) mg/dL AST 240 H (17-59) U/L
[2024-05-27] MEDS: DEXTROSE 5% IN WATER 100 ML with AMIODARONE 150 MG IV ONE (19:30)
[2024-05-27] MEDS: AMIODARONE 360 MG in DEXTROSE 5% IN WATER 200 ML IV ONE (19:31)
[2024-05-27 21:52] LABS: Magnesium 2.5 mg/dL (1.6-2.3); Potassium 3.9 mmol/L (3.5-5.1)
[2024-05-27 23:10] LABS: African American GFR (CKD) >90 (>60 ml/min/1.73 sqM); Anion Gap 6 mmol/L; Blood Urea Nitrogen 18 mg/dL (9-20); Calcium 8.6 mg/dL (8.4-10.2); Carbon Dioxide 23 mmol/L (22-30); Chloride 107 mmol/L (98-107); Glucose 100 mg/dL (74-99); Non-African American GFR(CKD) 83 (>60 ml/min/1.73 sqM); Potassium 3.9 mmol/L (3.5-5.1); Sodium 136 mmol/L (137-145)
[2024-05-27] MEDS: POTASSIUM CHLORIDE ER 20 MEQ TAB.ER PO SCH (23:38)
[2024-05-27] MEDS: CALCIUM GLUCONATE IN NACL 1 GM in SALINE 1 100ML.BAG IVPB ONE (23:38)
[2024-05-28] MEDS: AMIODARONE 450 MG in DEXTROSE 5% IN WATER 250 ML IV SCH (00:32)
[2024-05-28] MEDS: NOREPINEPHRINE 4 MG in SODIUM CHLORIDE 0.9% 250 ML IV SCH (04:03)
[2024-05-28 06:08] LABS: Basophils % (A) 0 %; Eosinophils # (A) 0.2 k/uL (0-0.7); Eosinophils % (A) 2 %; HCT 43.7 % (39.0-53.0); HGB 13.7 gm/dL (13.0-17.5); Lymphocytes # (A) 1.3 k/uL (1.0-4.8); Lymphocytes % (A) 15 %; MCH 30.2 pg (25.0-35.0); MCHC 31.4 g/dL (31.0-37.0); MCV 96.3 fL (80.0-100.0); Mean Platelet Volume 9.8; Monocytes # (A) 0.6 k/uL (0-1.0); Monocytes % (A) 6 %; Neutrophils % (A) 76 %; Platelet Count 143 k/uL (150-450); RBC 4.53 m/uL (4.30-5.90); RDW 13.6 % (11.5-15.5); WBC 9.2 k/uL (3.8-10.6)
[2024-05-28 06:25] LABS: ALT 33 U/L (4-49); AST 129 U/L (17-59); African American GFR (CKD) >90 (>60 ml/min/1.73 sqM); Albumin 3.3 g/dL (3.5-5.0); Alkaline Phosphatase 51 U/L (38-126); Anion Gap 8 mmol/L; Blood Urea Nitrogen 17 mg/dL (9-20); Calcium 8.4 mg/dL (8.4-10.2); Carbon Dioxide 21 mmol/L (22-30); Chloride 108 mmol/L (98-107); Glucose 100 mg/dL (74-99); Magnesium 2.1 mg/dL (1.6-2.3); Non-African American GFR(CKD) 88 (>60 ml/min/1.73 sqM); Potassium 4.2 mmol/L (3.5-5.1); Sodium 137 mmol/L (137-145); Total Bilirubin 0.8 mg/dL (0.2-1.3); Total Protein 5.8 g/dL (6.3-8.2)
[2024-05-28] MEDS: MAGNESIUM SULFATE-D5W PMX 1 GM in DEXTROSE/WATER 1 100ML.BAG IVPB SCH (06:51)
[2024-05-28] MEDS: LIDOCAINE 2% SYG (PF) 100 MG/5 ML IV ONE (07:33)
[2024-05-28] MEDS: LIDOCAINE-D5W PMX 2G/250ML 2,000 MG in DEXTROSE/WATER 1 250ML.BAG IV SCH (08:13)
[2024-05-28] MEDS: SODIUM CHLORIDE 0.9% 500 ML 500 ML IV ONE (08:53)
[2024-05-28] MEDS: fentaNYL (PF) 50 MCG/ML 2 ML AMP IVP ONE (08:59)
[2024-05-28] MEDS: LIDOCAINE 1% INJ 10MG/ML (20 ML MDV) SQ ONE (09:00)
[2024-05-28] MEDS: IOPAMIDOL-370 100ML BTL INJ ONE (09:50)
[2024-05-28] MEDS ORDERED: RX INFO: IV CONTRAST WAS GIVEN 1 EACH MISC MISCELLANE PRN (09:53)
--- NOTE | 2024-05-28 10:06 | P.PCN ---
Date of Procedure: 05/28/24 Operative Findings: CARDIAC CATHETERIZATION PERFORMING PHYSICIAN: Spike Linares MD, RPVI PROCEDURE PERFORMED: 1. Selective right and left coronary angiogram 2. Left heart catheterization and right heart catheterization 3. Ultrasound-guided access of the right common femoral artery and right common femoral artery angiogram INDICATION: This is a 78-year-old gentleman who was admitted to the hospital 48 hours ago with acute anterior ST ovation myocardial infarction and underwent a heart catheterization emergently which revealed occluded LAD in the proximal portion. Subsequently underwent a PCI of the LAD which was successful with a good angiographic results. He developed after that cardiac arrhythmia with multiple episodes of nonsustained ventricular tachycardia with polymorphic VT associated with symptoms and also he was experiencing chest discomfort as well as low blood pressure require vasopressors. In the light of that right and left heart catheterization with possible need for mechanical support was advised COMPLICATION: None APPROACH: Right common femoral artery LEVEL OF SEDATION: Moderate with sedation in length of 48 minutes PROCEDURE DESCRIPTION: After obtaining an informed consent, the patient was brought to cardiac open hearth furnace laborer. Local anesthesia was performed using lidocaine subcutaneously. The right common femoral artery was cannulated using Seldinger technique, under ultrasound guidance, the guidewire passed easily, following that we advanced a 6 Tristanian sheath dilator assembly, the wire and dilator were removed and sheath was flushed. Subsequently the right common femoral vein was cannulated using micropuncture technique under ultrasound guidance the micropuncture wire passed easily then we placed an 8 Tristanian 11 cm sheath at the right common femoral vein. Right heart catheterization was performed using a 6 Tristanian W[place] catheter. Selective right and left coronary angiogram using a 6-Tristanian JR4 and JL catheters. Following that we did left heart catheterization using 6-Tristanian pigtail catheter. By the end selective right common femoral artery angiogram was performed The procedure was completed there was no complication. SELECTIVE CORONARY ANGIOGRAM: The right coronary artery: Large caliber vessel codominant vessel with mild disease was identified in the midportion with slow clearing of the contrast was also identified. No high- grade stenosis was identified. Left main: Is angiographically normal The left circumflex: Large caliber vessel codominant vessel. Left circumflex system appeared to be normal. The LCx gives rise into an OM1 which is a medium caliber vessel appears to have mild disease in the proximal portion and OM 2 which also appears to be having mild disease and distally bifurcates into PDA and PLV branches. The left anterior descending artery: Large caliber vessel. The proximal LAD appeared to have mild disease only. The mid LAD is stented and the stent is patent. The LAD distally appears to be normal. The LAD by the stented segment gives rise into a diagonal branch which is medium size caliber vessel with ostial disease secondary to the diagonal was jailed by the stent. HEMODYNAMICS: The pulmonary capillary wedge pressure was 12 mmHg The LVEDP was 12 mmHg with no gradient was identified across aortic valve PA pressures were as follows systolic 31 and diastolic of 15 and mean of 19 mmHg RV pressures were as follows systolic 27 and end-diastolic of 11 mmHg RA pressure was 8 mmHg Cardiac output was 4.07 L/min with a cardiac index of 1.96 L/min/m Transpulmonary gradient was 7 mmHg Pulmonary vascular resistance was 1.7 Wood unit CONCLUSION: 1. Mildly decreased cardiac output 2. Normal left-side filling pressure and mildly elevated right-side filling pressure 3. Normal pulmonary artery systolic pressure and normal pulmonary vascular resistance and transpulmonary gradient 4. Patent stent in the mid LAD with jailed small to medium diagonal branch by the stented segment POSTPROCEDURE MANAGEMENT: Giving the only mildly reduced cardiac output and giving the normal left-sided filling pressure and persistent ectopy, I advised the no need for mechanical support/Impella at this point. We will continue the current antiarrhythmic medications including amiodarone as well as lidocaine with possible need for mexiletine.
[2024-05-28] MEDS: SODIUM CHLORIDE 0.9% 1,000 ML IV SCH (10:53)
--- NOTE | 2024-05-28 12:06 | P.PN ---
Subjective Progress Note Date: 05/28/24 HISTORY OF PRESENT ILLNESS: This is a 78-year-old male with a previous medical history significant for hypertension and hypertensive cardiovascular disease, hyperlipidemia, hypothyroidism, history of atrial fibrillation, coronary artery disease, mitral regurgitation, aortic regurgitation, has been followed by Dr. Bran on the regular basis, patient was going for a walk and about 20 minutes into the walk patient started to have a severe left-sided chest pain associated with significant shortness of breath, patient ended up going to the emergency department at [facility], had a twelve-lead EKG that showed ST elevation anterior [place], he was taken emergently to the [facility], had a left heart catheterization that was done by Dr. Levine that showed evidence of 95 to 99% stenosis of the proximal LAD, left main was free of disease, left circumflex artery was a large-caliber vessel and free of disease, gives rise to 2 small obtuse marginal branch, OM1 has a proximal 30% stenosis, RCA was free of disease as well gave small branches as well, patient underwent PCI of the LAD [facility] ad was admitted to the ICU for further evaluation recommendation. 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 tach he will be given magnesium sulfate 1 g piggyback x 1, check the patient CBC CMP and mag level today and repeat that tomorrow morning. 05/28: Patient did have a lot of ectopy yesterday, he underwent echocardiogram yesterday that showed evidence of ejection fraction of 25-30%, suggestive of ischemic cardiomyopathy, with mild mitral regurgitation and tricuspid regurgitation patient was started on Entresto 24/26 mg orally twice every day spironolactone, Farxiga, carvedilol 3.125 mg orally twice every day, he did receive 3 g of magnesium sulfate yesterday, patient will be monitored very closely, patient will have the LifeVest, because of his ischemic cardiomyopathy to avoid any catastrophic arrhythmias like ventricular tachycardia. Patient was taken by Dr. Petty for left heart catheterization again because of recurrent arrhythmias despite the fact that the patient is getting lidocaine drips, amiodarone drip, as well as magnesium and he was started also on Levophed due to hypotension, patient cath did not show evidence of any abnormal hemodynamics except for mildly decreased cardiac output, normal left ventricular and filling pressure and therefore he did not recommend for the patient to have hemodynamic support such as Impella patient was admitted back to the ICU, his family was at the bedside they were updated about the current condition. Patient has a firm start on the right groin area, he is mildly oozing from with but the areas. Soft no evidence of any hematoma. REVIEW OF SYSTEMS: Constitutional: No documented fever, no chills, no night sweats. No weight change. No weakness, fatigue or lethargy. No daytime sleepiness. HEENT: No headache. No blurred vision or double vision,no loss of vision. loss of Hearing, ringing in the ears, no dizziness. No nasal drainage or congestion. No epistaxis. No sore throat. Lungs: Negative for shortness of breath, no cough, no sputum production. No wheezing. Reports dyspnea with activity. Cardiovascular: No chest pain, no lower extremity edema. No palpitations. No paroxysmal nocturnal dyspnea. No orthopnea. No lightheadedness or dizziness. No syncopal episodes. Abdominal: Reports no abdominal pain. No nausea, vomiting. No diarrhea. No constipation. No bloody or tarry stools reports loss of appetite. Genitourinary: No dysuria, increased frequency, urgency. No urinary retention. Musculoskeletal: No myalgias. No muscle weakness, no gait dysfunction, no frequent falls. Positive for back pain. No neck pain. Integumentary: No wounds, no lesions. No rash or pruritus. No unusual bruising. No change in hair or nails. Neurologic: No aphasia. No facial droop. No change in mentation. No head injury. No headache. No paralysis. No paresthesia. Psychiatric: No depression. No anxiety. No mood swings. Endocrine: No abnormal blood sugars. No weight change. PHYSICAL EXAMINATION: General: 78-year-old male in no apparent distres HEENT: Head is atraumatic, normocephalic, pupils were equal round reactive to light and recommendation, extraocular muscle movement were intact, sclera nonict aysha, conjunctivae were pale, mucous membranes of the mouth are somewhat dry with coated tongue Neck: Supple, no JVP, normal carotid upstroke bilaterally, no lymphadenopathy. Chest: Decreased breath sounds at the bases, few rhonchi, no expiratory wheezes, no chest wall tenderness, no intercostal retractions. Heart: First heart sound is normal, second heart sound is normal there is BRICE 2/6 located at the left sternal border, irregularly irregular Abdomen: Soft, nontender,no rebound or guarding positive bowel souds Extremities: There is no edema no calf tenderness DP +2 bilaterally. Neurologic examination: Patient is awake alert and oriented X3, cranial nerves II-12 appear grossly intact, muscle power were 5 out of 5 in upper extremities and 5 out of 5 in bilateral lower extremities, deep tendon reflexes normal bilaterally. ASSESSMENT AND PLAN: 1. Anterior ST elevation [place] status post left heart catheterization with PCI of the LAD status post another left heart catheterization that was done today 05/28/2024 to evaluate hemodynamics that showed minimal reduced and cardiac output, with normal left ventricular filling pressure it was recommended to continue current treatment plan with no Impella continue patient on aspirin 81 mg once every day, atorvastatin 40 mg once every day, Brilinta 90 mg orally twice every day, isosorbide mononitrate 15 mg once every day, carvedilol 3.125 mg orally twice every day, Entresto 24/26 mg orally twice every day monitor the patient's symptoms very closely patient also has been placed on lidocaine drip, amiodarone drip, and will be switched to oral amiodarone, and he is currently on a small dose of Levophed drip. 2. ischemic cardiomyopathy. Continue patient on carvedilol 3.125 mg orally twice every day, isosorbide mononitrate 15 mg orally once every day, Farxiga 10 mg once every day, spironolactone 12.5 mg once every day, Entresto 24/26 mg orally twice every day follow-up with the patient very closely patient was started on amiodarone drip, as well as lidocaine drip. 3. Coronary artery disease continue treatment as in the previous 2 Paragraphs 4. mild mitral regurgitation and tricuspid regurgitation. Echocardiogram was done that showed ejection fraction 25 to 30%, with apical akinesia and anteroseptal hypokinesia as well, continue treatment as before 5. Mixed hyperlipidemia. Continue patient on atorvastatin 40 mg orally once every day. Monitor lipid panel, keep LDL 55-70. 6. Hypothyroidism. Continue patient on Synthroid 50 g orally once every day. 7. Enlarged prostate. Continue Flomax 0.4 mg once every day. 8. Paroxysmal atrial fibrillation. restart the patient on Eliquis 2.5 mg orally twice every day. 9. Mnire disease. Stable. Patient was started on diazepam 5 mg orally once every day as needed. 10. DVT prophylaxis. Bilateral knee-high RENUKA hose. Eliquis 2.5 mg orally twice every day 11. GI prophylaxis. Protonix 40 mg orally once every day. 12. Nonsustained few beats of V. tach With recurrent ectopy keep the patient in the ICU, patient did receive magnesium 3 g yesterday, patient will have LifeVest prior to discharge, continue amiodarone drip, continue lidocaine drip, patient will be switched to oral amiodarone later today or tomorrow morning 13. Full code. 14. Family updated. Objective - Vital Signs Vital signs: Vital Signs Temp 98.1 F 05/28/24 08:00 Pulse 75 05/28/24 08:30 Resp 16 05/28/24 08:30 BP 92/56 05/28/24 08:30 Pulse Ox 95 05/28/24 08:30 FiO2 Intake & Output 05/27/24 05/28/24 05/28/24 17:59 06:59 18:59 Intake Total 148.775 Output Total 100 Balance 48.775 Weight Intake: IV 120 0.9 @ KVO 20 Magnesium Sulfate-D5w Pmx 100 1 gm In Dextrose/Water 1 100ml.bag @ 100 mls/hr IVPB ONCE ONE Rx#: [id number] Intake, IV Titration 28.775 Amount Calcium Gluconate in NaCl 1 gm In Saline 1 100ml. bag @ 100 mls/hr IVPB ONCE ONE Rx#:[id number] Dextrose 5% in Water 100 ml @ 618 mls/hr IV .Q10M ONE with Amiodarone 150 mg Rx#:[id number] Norepinephrine 4 mg In 28.775 Sodium Chloride 0.9% 250 ml @ 0.03 MCG/KG/MIN 9. 315 mls/hr IV .Q24H [facility] Rx#:[id number] Sodium Chloride 0.9% 1, 000 ml In Empty Bag 1 bag @ 75 mls/hr IV .[id number] [facility] Rx#:[id number] Oral Output: Urine 100 Other: Voiding Method # Voids - Labs CBC & Chem 7: 05/28/24 05:32 05/28/24 05:32 Labs: Abnormal Lab Results - Last 24 Hours (Table) 05/27/24 05/27/24 05/27/24 Range/Units 10:44 21:13 22:26 Plt Count (150-450) k/uL Sodium 136 L (137-145) mmol/L Chloride (98-107) mmol/L Carbon Dioxide (22-30) mmol/L Glucose 101 H 100 H (74-99) mg/dL Magnesium 2.5 H (1.6-2.3) mg/dL Total Bilirubin 1.4 H (0.2-1.3) mg/dL AST 240 H (17-59) U/L Total Protein (6.3-8.2) g/dL Albumin (3.5-5.0) g/dL 05/28/24 05/28/24 Range/Units 05:32 05:32 Plt Count 143 L (150-450) k/uL Sodium (137-145) mmol/L Chloride 108 H (98-107) mmol/L Carbon Dioxide 21 L (22-30) mmol/L Glucose 100 H (74-99) mg/dL Magnesium (1.6-2.3) mg/dL Total Bilirubin (0.2-1.3) mg/dL AST 129 H (17-59) U/L Total Protein 5.8 L (6.3-8.2) g/dL Albumin 3.3 L (3.5-5.0) g/dL
[2024-05-28] MEDS: AMIODARONE 200 MG TAB PO SCH (20:46)
[2024-05-28] MEDS ORDERED: AMIODARONE 200 MG TAB PO SCH (22:00)
[2024-05-29 08:12] LABS: Basophils % (A) 0 %; Eosinophils # (A) 0.1 k/uL (0-0.7); Eosinophils % (A) 2 %; HCT 41.8 % (39.0-53.0); HGB 13.3 gm/dL (13.0-17.5); Lymphocytes # (A) 0.9 k/uL (1.0-4.8); Lymphocytes % (A) 13 %; MCH 30.2 pg (25.0-35.0); MCHC 31.8 g/dL (31.0-37.0); Mean Platelet Volume 10.7; Monocytes # (A) 0.6 k/uL (0-1.0); Monocytes % (A) 8 %; Neutrophils # (A) 5.7 k/uL (1.3-7.7); Neutrophils % (A) 76 %; Platelet Count 141 k/uL (150-450); RDW 13.9 % (11.5-15.5); WBC 7.4 k/uL (3.8-10.6)
[2024-05-29 08:23] LABS: Potassium 3.8 mmol/L (3.5-5.1)
[2024-05-29 08:24] LABS: ALT 27 U/L (4-49); AST 64 U/L (17-59); African American GFR (CKD) >90 (>60 ml/min/1.73 sqM); Albumin 3.2 g/dL (3.5-5.0); Alkaline Phosphatase 51 U/L (38-126); Anion Gap 8 mmol/L; Blood Urea Nitrogen 16 mg/dL (9-20); Calcium 8.3 mg/dL (8.4-10.2); Carbon Dioxide 22 mmol/L (22-30); Chloride 106 mmol/L (98-107); Glucose 91 mg/dL (74-99); Magnesium 1.9 mg/dL (1.6-2.3); Non-African American GFR(CKD) 83 (>60 ml/min/1.73 sqM); Sodium 136 mmol/L (137-145); Total Bilirubin 1.2 mg/dL (0.2-1.3); Total Protein 5.7 g/dL (6.3-8.2)
[2024-05-29 08:32] LABS: NT-Pro-B-Type Natriuretic Pept 2410 pg/mL
[2024-05-29] MEDS ORDERED: Potassium Replacement Protocol 1 EACH MISC MISCELLANE PRN (09:19)
[2024-05-29] MEDS ORDERED: Magnesium Replacement Protocol 1 EACH MISC MISCELLANE PRN (09:20)
[2024-05-29] MEDS: MAGNESIUM SULFATE-D5W PMX 1 GM in DEXTROSE/WATER 1 100ML.BAG IVPB ONE (09:39)
[2024-05-29] MEDS: POTASSIUM CHLORIDE ER 20 MEQ TAB.ER PO SCH (09:42)
[2024-05-29] MEDS: MEXILETINE 150 MG CAP PO SCH ×2 (11:40→20:49)
--- NOTE | 2024-05-29 18:36 | P.PN ---
Subjective Progress Note Date: 05/29/24 HISTORY OF PRESENT ILLNESS: This is a 78-year-old male with a previous medical history significant for hypertension and hypertensive cardiovascular disease, hyperlipidemia, hypothyroidism, history of atrial fibrillation, coronary artery disease, mitral regurgitation, aortic regurgitation, has been followed by Dr. Bran on the regular basis, patient was going for a walk and about 20 minutes into the walk patient started to have a severe left-sided chest pain associated with significant shortness of breath, patient ended up going to the emergency department at [facility], had a twelve-lead EKG that showed ST elevation anterior [place], he was taken emergently to the [facility], had a left heart catheterization that was done by Dr. Levine that showed evidence of 95 to 99% stenosis of the proximal LAD, left main was free of disease, left circumflex artery was a large-caliber vessel and free of disease, gives rise to 2 small obtuse marginal branch, OM1 has a proximal 30% stenosis, RCA was free of disease as well gave small branches as well, patient underwent PCI of the LAD [facility] ad was admitted to the ICU for further evaluation recommendation. 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 tach he will be given magnesium sulfate 1 g piggyback x 1, check the patient CBC CMP and mag level today and repeat that tomorrow morning. 05/28: Patient did have a lot of ectopy yesterday, he underwent echocardiogram yesterday that showed evidence of ejection fraction of 25-30%, suggestive of ischemic cardiomyopathy, with mild mitral regurgitation and tricuspid regurgitation patient was started on Entresto 24/26 mg orally twice every day spironolactone, Farxiga, carvedilol 3.125 mg orally twice every day, he did receive 3 g of magnesium sulfate yesterday, patient will be monitored very closely, patient will have the LifeVest, because of his ischemic cardiomyopathy to avoid any catastrophic arrhythmias like ventricular tachycardia. Patient was taken by Dr. Petty for left heart catheterization again because of recurrent arrhythmias despite the fact that the patient is getting lidocaine drips, amiodarone drip, as well as magnesium and he was started also on Levophed due to hypotension, patient cath did not show evidence of any abnormal hemodynamics except for mildly decreased cardiac output, normal left ventricular and filling pressure and therefore he did not recommend for the patient to have hemodynamic support such as Impella patient was admitted back to the ICU, his family was at the bedside they were updated about the current condition. Patient has a firm start on the right groin area, he is mildly oozing from with but the areas. Soft no evidence of any hematoma. 05/29: Patient sitting up in bed in no apparent distress, he is in the ICU, he continues to be on lidocaine drip, amiodarone will be switched to oral amiodarone 400 mg orally twice every day, continue to be on carvedilol as well as Farxiga spironolactone and Entresto, patient echocardiogram showed ejection fraction of 10 to 15% with akinesia of the anterior wall patient will probably need to have an AICD placement to prevent cardiac arrhythmias versus cardiac LifeVest, we will discuss with cardiology in more detail today, patient may need to be placed on mexiletine if he continues to have a significant arrhythmias at this point. REVIEW OF SYSTEMS: Constitutional: No documented fever, no chills, no night sweats. No weight change. No weakness, fatigue or lethargy. No daytime sleepiness. HEENT: No headache. No blurred vision or double vision,no loss of vision. loss of Hearing, ringing in the ears, no dizziness. No nasal drainage or congestion. No epistaxis. No sore throat. Lungs: Negative for shortness of breath, no cough, no sputum production. No wheezing. Reports dyspnea with activity. Cardiovascular: No chest pain, no lower extremity edema. No palpitations. No paroxysmal nocturnal dyspnea. No orthopnea. Positive lightheadedness and dizziness due to Mnire's disease. No syncopal episodes. Abdominal: Reports no abdominal pain. No nausea, vomiting. No diarrhea. No co nstipation. No bloody or tarry stools reports loss of appetite. Genitourinary: No dysuria, increased frequency, urgency. No urinary retention. Musculoskeletal: No myalgias. No muscle weakness, no gait dysfunction, no frequent falls. Positive for back pain. No neck pain. Integumentary: No wounds, no lesions. No rash or pruritus. No unusual bruising. No change in hair or nails. Neurologic: No aphasia. No facial droop. No change in mentation. No head injury. No headache. No paralysis. No paresthesia. Psychiatric: No depression. Positive for anxiety. No mood swings. Endocrine: No abnormal blood sugars. No weight change. PHYSICAL EXAMINATION: General: 78-year-old male in no apparent distres HEENT: Head is atraumatic, normocephalic, pupils were equal round reactive to l ight and recommendation, extraocular muscle movement were intact, sclera nonicteric, conjunctivae were pale, mucous membranes of the mouth are somewhat dry with coated tongue Neck: Supple, no JVP, normal carotid upstroke bilaterally, no lymphadenopathy. Chest: Decreased breath sounds at the bases, few rhonchi, no expiratory wheezes, no chest wall tenderness, no intercostal retractions. Heart: First heart sound is normal, second heart sound is normal there is BRICE 2/6 located at the left sternal border, irregular. Abdomen: Soft, nontender,no rebound or guarding positive bowel souds Extremities: There is no edema no calf tenderness DP +2 bilaterally. Neurologic examination: Patient is awake alert and oriented X3, cranial nerves II-12 appear grossly intact, muscle power were 5 out of 5 in upper extremities and 5 out of 5 in bilateral lower extremities, deep tendon reflexes normal bilaterally. ASSESSMENT AND PLAN: 1. Anterior ST elevation [place] status post left heart catheterization with PCI of the LAD status post another left heart catheterization that was done 05/28/2024 to evaluate hemodynamics that showed minimal reduced and cardiac output, with normal left ventricular filling pressure it was recommended to continue current treatment plan with no Impella continue patient on aspirin 81 mg once every day, atorvastatin 40 mg once every day, Brilinta 90 mg orally twice every day, is osorbide mononitrate 15 mg once every day, carvedilol 3.125 mg orally twice every day, Entresto 24/26 mg orally twice every day monitor the patient's symptoms very closely patient switch to amiodarone 400 mg orally 3 times every day, and he was taken off lido drip and Levophed drip. 2. ischemic cardiomyopathy. Continue patient on carvedilol 3.125 mg orally twice every day, isosorbide mononitrate 15 mg orally once every day, Farxiga 10 mg once every day, spironolactone 12.5 mg once every day, Entresto 24/26 mg orally twice every day follow-up with the patient very closely patient, continue patient on amiodarone 400 mg orally 3 times every day 3. Coronary artery disease continue treatment as in the previous 2 Paragraphs 4. mild mitral regurgitation and tricuspid regurgitation. Echocardiogram was done that showed ejection fraction 25 to 30%, with apical akinesia and anteroseptal hypokinesia as well, continue treatment as before 5. Mixed hyperlipidemia. Continue patient on atorvastatin 40 mg orally once every day. Monitor lipid panel, keep LDL 55-70. 6. Hypothyroidism. Continue patient on Synthroid 50 g orally once every day. 7. Enlarged prostate. Continue Flomax 0.4 mg once every day. 8. Paroxysmal atrial fibrillation. restart the patient on Eliquis 2.5 mg orally twice every day. 9. Mnire disease. Stable. Patient was started on diazepam 5 mg orally once every day as needed. 10. DVT prophylaxis. Bilateral knee-high RENUKA hose. Eliquis 2.5 mg orally twice every day 11. GI prophylaxis. Protonix 40 mg orally once every day. 12. Nonsustained few beats of V. tach With recurrent ectopy keep the patient in the ICU, patient did receive magnesium 3 g yesterday, patient will have LifeVest prior to discharge, patient is switched to oral amiodarone 400 mg orally 3 times every day for 13. Full code. 14. Family updated. Objective - Vital Signs Vital signs: Vital Signs Temp 98.5 F 05/28/24 20:00 Pulse 61 05/29/24 06:00 Resp 16 05/29/24 06:00 BP 104/80 05/29/24 06:00 Pulse Ox 94 L 05/29/24 06:00 FiO2 Intake & Output 05/28/24 05/28/24 05/29/24 06:59 18:59 06:59 Intake Total 973.775 447.103 Output Total 900 850 Balance 73.775 -402.897 Weight 85.7 kg Intake: IV 695 240 0.9 @ KVO 495 240 Magnesium Sulfate-D5w Pmx 100 1 gm In Dextrose/Water 1 100ml.bag @ 100 mls/hr IVPB ONCE ONE Rx#: [id number] Intake, IV Titration 278.775 207.103 Amount Amiodarone 450 mg In 250 Dextrose 5% in Water 250 ml @ 0.5 MG/MIN 16.667 mls/hr IV .Q15H [facility] Rx#: [id number] Calcium Gluconate in NaCl 1 gm In Saline 1 100ml. bag @ 100 mls/hr IVPB ONCE ONE Rx#:[id number] Dextrose 5% in Water 100 ml @ 618 mls/hr IV .Q10M ONE with Amiodarone 150 mg Rx#:[id number] Norepinephrine 4 mg In 28.775 207.103 Sodium Chloride 0.9% 250 ml @ 0.03 MCG/KG/MIN 9. 315 mls/hr IV .Q24H [facility] Rx#:[id number] Oral Output: Urine 900 850 Other: Voiding Method Urinal Urinal # Voids - Labs CBC & Chem 7: 05/28/24 05:32 05/28/24 05:32 Labs: Abnormal Lab Results - Last 24 Hours (Table) 05/28/24 Range/Units 05:32 Chloride 108 H (98-107) mmol/L Carbon Dioxide 21 L (22-30) mmol/L Glucose 100 H (74-99) mg/dL AST 129 H (17-59) U/L Total Protein 5.8 L (6.3-8.2) g/dL Albumin 3.3 L (3.5-5.0) g/dL
[2024-05-29] MEDS: carvediloL 3.125 MG TAB PO SCH (19:02)
--- NOTE | 2024-05-29 20:59 | PN ---
PROGRESS NOTE SUBJECTIVE: This is a 78-year-old gentleman, who was admitted to hospital with acute anterior wall MS, underwent intervention of the LAD, had subsequent multiple nonsustained VT and polymorphic VT. He underwent a repeat cardiac catheterization and did not require any further intervention. He was on IV amiodarone that had been switched to oral medication. He is on IV lidocaine, which I am going to switch to mexiletine. OBJECTIVE: GENERAL: Comfortable at rest. VITAL SIGNS: Blood pressure 94/70, respiratory rate 18, heart rate is 56 beats per minute. CHEST: Reveals good air entry bilaterally. HEART: Reveals first and second heart sounds. No gallop. EXTREMITIES: Did not reveal any edema. Peripheral pulses are felt. MEDICATIONS: The patient is currently on, 1. Amiodarone 400 t.i.d. 2. Aspirin. 3. Eliquis 2.5 b.i.d. 4. Coreg 3.125. 5. Farxiga. 6. Synthroid. 7. Brilinta. 8. Levophed, which is currently being tapered. ASSESSMENT: 1. Acute anterior wall myocardial infarction, status post catheterization and angioplasty of left anterior descending. 2. Polymorphic ventricular tachycardia. PLAN: The patient is on amiodarone. I will stop the lidocaine and start him on mexiletine and once blood pressure improves, we can transfer him out of ICU. MMYAMILL / GERALDINEN: [id number] /
--- NOTE | 2024-05-30 09:40 | P.PN ---
Subjective Progress Note Date: 05/30/24 HISTORY OF PRESENT ILLNESS: This is a 78-year-old male with a previous medical history significant for hypertension and hypertensive cardiovascular disease, hyperlipidemia, hypothyroidism, history of atrial fibrillation, coronary artery disease, mitral regurgitation, aortic regurgitation, has been followed by Dr. Bran on the regular basis, patient was going for a walk and about 20 minutes into the walk patient started to have a severe left-sided chest pain associated with significant shortness of breath, patient ended up going to the emergency department at [facility], had a twelve-lead EKG that showed ST elevation anterior HI, he was taken emergently to the [facility], had a left heart catheterization that was done by Dr. Levine that showed evidence of 95 to 99% stenosis of the proximal LAD, left main was free of disease, left circumflex artery was a large-caliber vessel and free of disease, gives rise to 2 small obtuse marginal branch, OM1 has a proximal 30% stenosis, RCA was free of disease as well gave small branches as well, patient underwent PCI of the LAD [facility] ad was admitted to the ICU for further evaluation recommendation. 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 tach he will be given magnesium sulfate 1 g piggyback x 1, check the patient CBC CMP and mag level today and repeat that tomorrow morning. 05/28: Patient did have a lot of ectopy yesterday, he underwent echocardiogram yesterday that showed evidence of ejection fraction of 25-30%, suggestive of ischemic cardiomyopathy, with mild mitral regurgitation and tricuspid regurgitation patient was started on Entresto 24/26 mg orally twice every day spironolactone, Farxiga, carvedilol 3.125 mg orally twice every day, he did receive 3 g of magnesium sulfate yesterday, patient will be monitored very closely, patient will have the LifeVest, because of his ischemic cardiomyopathy to avoid any catastrophic arrhythmias like ventricular tachycardia. Patient was taken by Dr. Petty for left heart catheterization again because of recurrent arrhythmias despite the fact that the patient is getting lidocaine drips, amiodarone drip, as well as magnesium and he was started also on Levophed due to hypotension, patient cath did not show evidence of any abnormal hemodynamics except for mildly decreased cardiac output, normal left ventricular and filling pressure and therefore he did not recommend for the patient to have hemodynamic support such as Impella patient was admitted back to the ICU, his family was at the bedside they were updated about the current condition. Patient has a firm start on the right groin area, he is mildly oozing from with but the areas. Soft no evidence of any hematoma. 05/29: Patient sitting up in bed in no apparent distress, he is in the ICU, he continues to be on lidocaine drip, amiodarone will be switched to oral amiodarone 400 mg orally twice every day, continue to be on carvedilol as well as Farxiga spironolactone and Entresto, patient echocardiogram showed ejection fraction of 10 to 15% with akinesia of the anterior wall patient will probably need to have an AICD placement to prevent cardiac arrhythmias versus cardiac LifeVest, we will discuss with cardiology in more detail today, patient may need to be placed on mexiletine if he continues to have a significant arrhythmias at this point. 05/30:Patient is sitting up in chair, continues to have increased gas and no chest pain or shortness of breath, he will be moved out of the ICU today we will continue with current treatment plan and will likely be discharged in AM REVIEW OF SYSTEMS: Constitutional: No documented fever, no chills, no night sweats. No weight change. No weakness, fatigue or lethargy. No daytime sleepiness. HEENT: No headache. No blurred vision or double vision,no loss of vision. loss of Hearing, ringing in the ears, no dizziness. No nasal drainage or congestion. No epistaxis. No sore throat. Lungs: Negative for shortness of breath, no cough, no sputum production. No whe ezing. Reports dyspnea with activity. Cardiovascular: No chest pain, no lower extremity edema. No palpitations. No paroxysmal nocturnal dyspnea. No orthopnea. Positive lightheadedness and dizziness due to Mnire's disease. No syncopal episodes. Abdominal: Reports no abdominal pain. No nausea, vomiting. No diarrhea. No constipation. No bloody or tarry stools reports loss of appetite. Genitourinary: No dysuria, increased frequency, urgency. No urinary retention. Musculoskeletal: No myalgias. No muscle weakness, no gait dysfunction, no frequent falls. Positive for back pain. No neck pain. Integumentary: No wounds, no lesions. No rash or pruritus. No unusual bruising. No change in hair or nails. Neurologic: No aphasia. No facial droop. No change in mentation. No head injury. No headache. No paralysis. No paresthesia. Psychiatric: No depression. Positive for anxiety. No mood swings. Endocrine: No abnormal blood sugars. No weight change. PHYSICAL EXAMINATION: General: 78-year-old male in no apparent distres HEENT: Head is atraumatic, normocephalic, pupils were equal round reactive to light and recommendation, extraocular muscle movement were intact, sclera nonicteric, conjunctivae were pale, mucous membranes of the mouth are somewhat dry with coated tongue Neck: Supple, no JVP, normal carotid upstroke bilaterally, no lymphadenopathy. Chest: Decreased breath sounds at the bases, few rhonchi, no expiratory wheezes, no chest wall tenderness, no intercostal retractions. Heart: First heart sound is normal, second heart sound is normal there is BRICE 2 /6 located at the left sternal border, irregular. Abdomen: Soft, nontender,no rebound or guarding positive bowel souds Extremities: There is no edema no calf tenderness DP +2 bilaterally. Neurologic examination: Patient is awake alert and oriented X3, cranial nerves II-12 appear grossly intact, muscle power were 5 out of 5 in upper extremities and 5 out of 5 in bilateral lower extremities, deep tendon reflexes normal bilaterally. ASSESSMENT AND PLAN: 1. Anterior ST elevation HI status post left heart catheterization with PCI of the LAD status post another left heart catheterization that was done 05/28/2024 to evaluate hemodynamics that showed minimal reduced and cardiac output, with normal left ventricular filling pressure it was recommended to continue current treatment plan with no Impella continue patient on aspirin 81 mg once every day, atorvastatin 40 mg once every day, Brilinta 90 mg orally twice every day, carvedilol 3.125 mg orally twice every day, monitor the patient's symptoms very closely patient switch to amiodarone 400 mg orally 3 times every day. 2. ischemic cardiomyopathy. Continue patient on carvedilol 3.125 mg orally twice every day, Farxiga 10 mg once every day, spironolactone 12.5 mg once every day, follow-up with the patient very closely patient, continue patient on amiodarone 400 mg orally 3 times every day 3. Coronary artery disease continue treatment as in the previous 2 Paragraphs 4. mild mitral regurgitation and tricuspid regurgitation. Echocardiogram was done that showed ejection fraction 25 to 30%, with apical akinesia and anterosep izabella hypokinesia as well, continue treatment as before 5. Mixed hyperlipidemia. Continue patient on atorvastatin 40 mg orally once every day. Monitor lipid panel, keep LDL 55-70. 6. Hypothyroidism. Continue patient on Synthroid 50 g orally once every day. 7. Enlarged prostate. Continue Flomax 0.4 mg once every day. 8. Paroxysmal atrial fibrillation. restart the patient on Eliquis 2.5 mg orally twice every day. 9. Mnire disease. Stable. Patient was started on diazepam 5 mg orally once every day as needed. 10. DVT prophylaxis. Bilateral knee-high RENUKA hose. Eliquis 2.5 mg orally twice every day 11. GI prophylaxis. Protonix 40 mg orally once every day. 12. Nonsustained few beats of V. tach With recurrent ectopy keep the patient in the ICU, patient did receive magnesium 3 g yesterday, patient will have LifeVest prior to discharge, patient is switched to oral amiodarone 400 mg orally 3 times every day for 13. Full code. 14. Home in AM Objective - Vital Signs Vital signs: Vital Signs Temp 98.2 F 05/30/24 00:00 Pulse 75 05/30/24 05:00 Resp 15 05/30/24 05:00 BP 106/69 05/30/24 05:00 Pulse Ox 93 L 05/30/24 05:00 FiO2 Intake & Output 05/29/24 05/29/24 05/30/24 06:59 18:59 06:59 Intake Total 467.103 525.513 110 Output Total 950 350 650 Balance -482.897 175.513 -540 Weight 85.7 kg 82.1 kg Intake: IV 260 140 110 0.9 @ KVO 260 140 110 Intake, IV Titration 207.103 25.513 Amount Norepinephrine 4 mg In 207.103 25.513 Sodium Chloride 0.9% 250 ml @ 0.03 MCG/KG/MIN 9. 315 mls/hr IV .Q24H [facility] Rx#:[id number] Oral 360 Output: Urine 950 350 650 Other: Voiding Method Urinal Urinal Urinal - Labs CBC & Chem 7: 05/29/24 07:30 05/29/24 07:30 Labs: Abnormal Lab Results - Last 24 Hours (Table) 05/29/24 05/29/24 Range/Units 07:30 07:30 Plt Count 141 L (150-450) k/uL Lymphocytes # 0.9 L (1.0-4.8) k/uL Sodium 136 L (137-145) mmol/L Calcium 8.3 L (8.4-10.2) mg/dL AST 64 H (17-59) U/L Total Protein 5.7 L (6.3-8.2) g/dL Albumin 3.2 L (3.5-5.0) g/dL
--- NOTE | 2024-05-30 10:51 | PN ---
PROGRESS NOTE SUBJECTIVE: Jaime Edward is a 78-year-old gentleman, who is admitted to the hospital with anterior wall myocardial infarction and underwent cardiac catheterization and angioplasty of the LAD. Subsequently, he has had a polymorphic VT and a repeat cardiac catheterization showed patent stent. He is currently on amiodarone and mexiletine and has remained arrhythmia free. I am going to stop the mexiletine, leave him on amiodarone, and the patient will be discharged to home on a LifeVest. This morning, the patient is doing well and is free of symptoms. I advised him to increase his activity. CURRENT MEDICATIONS: Include: 1. Amiodarone 400 t.i.d. 2. Eliquis 2.5 b.i.d. 3. Aspirin. 4. Lipitor. 5. Coreg. 6. Synthroid. 7. Brilinta. 8. Flomax. PHYSICAL EXAMINATION: VITAL SIGNS: Heart rate is 64, blood pressure is 115/78, respiratory rate is 18, O2 sat is 97% on room air. CHEST: Reveals good air entry bilaterally. HEART: Reveals first and second heart sounds. No gallop. No murmur. ABDOMEN: Soft. EXTREMITIES: Did not reveal any edema. Peripheral pulses are felt. LABORATORY DATA: Labs show that the hemoglobin is 13.3. Potassium is 3.8, creatinine is 0.8. ASSESSMENT: 1. Acute anterior wall myocardial infarction. 2. Ischemic cardiomyopathy with severe left ventricular dysfunction. 3. Polymorphic ventricular tachycardia. PLAN: Increase his activity. Possible discharge to home in the morning. MMODL / IJN: [id number] /
[2024-05-30] MEDS: AMIODARONE 200 MG TAB PO SCH (21:31)
[2024-05-31 04:14] VITALS: RESP 18; TEMP 97.8
[2024-05-31 08:14] VITALS: BP 100/49; PULSE 63
--- NOTE | 2024-05-31 09:45 | P.DS ---
Providers Date of admission: 05/26/24 16:36 Expected date of discharge: 05/31/24 Attending physician: Shakila Jo Consults: 05/26/24 17:34 Consult Physician Routine Consulting Provider: [facility] Consult Reason/Comments: Post Interventional Patient Do you want consulting provider notified?: Already Contacted Primary care physician: Shakila Jo [facility] Course: HISTORY OF PRESENT ILLNESS: This is a 78-year-old male with a previous medical history significant for hypertension and hypertensive cardiovascular disease, hyperlipidemia, hypothyroidism, history of atrial fibrillation, coronary artery disease, mitral regurgitation, aortic regurgitation, has been followed by Dr. Bran on the regular basis, patient was going for a walk and about 20 minutes into the walk patient started to have a severe left-sided chest pain associated with significant shortness of breath, patient ended up going to the emergency department at [facility], had a twelve-lead EKG that showed ST elevation anterior GA, he was taken emergently to the [facility], had a left heart catheterization that was done by Dr. Levine that showed evidence of 95 to 99% stenosis of the proximal LAD, left main was free of disease, left circumflex artery was a large-caliber vessel and free of disease, gives rise to 2 small obtuse marginal branch, OM1 has a proximal 30% stenosis, RCA was free of disease as well gave small branches as well, patient underwent PCI of the LAD successfully was admitted to the ICU for further evaluation recommendation. 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 tach he will be given magnesium sulfate 1 g piggyback x 1, check the patient CBC CMP and mag level today and repeat that tomorrow morning. 05/28: Patient did have a lot of ectopy yesterday, he underwent echocardiogram yesterday that showed evidence of ejection fraction of 25-30%, suggestive of ischemic cardiomyopathy, with mild mitral regurgitation and tricuspid regurgitation patient was started on Entresto 24/26 mg orally twice every day spironolactone, Farxiga, carvedilol 3.125 mg orally twice every day, he did receive 3 g of magnesium sulfate yesterday, patient will be monitored very closely, patient will have the LifeVest, because of his ischemic cardiomyopathy to avoid any catastrophic arrhythmias like ventricular tachycardia. Patient was taken by Dr. Petty for left heart catheterization again because of recurrent arrhythmias despite the fact that the patient is getting lidocaine drips, amiodarone drip, as well as magnesium and he was started also on Levophed due to hypotension, patient cath did not show evidence of any abnormal hemodynamics except for mildly decreased cardiac output, normal left ventricular and filling pressure and therefore he did not recommend for the patient to have hemodynamic support such as Impella patient was admitted back to the ICU, his family was at the bedside they were updated about the current condition. Patient has a firm start on the right groin area, he is mildly oozing from with but the areas. Soft no evidence of any hematoma. 05/29: Patient sitting up in bed in no apparent distress, he is in the ICU, he continues to be on lidocaine drip, amiodarone will be switched to oral amiodarone 400 mg orally twice every day, continue to be on carvedilol as well as Farxiga spironolactone and Entresto, patient echocardiogram showed ejection fraction of 10 to 15% with akinesia of the anterior wall patient will probably need to have an AICD placement to prevent cardiac arrhythmias versus cardiac LifeVest, we will discuss with cardiology in more detail today, patient may need to be placed on mexiletine if he continues to have a significant arrhythmias at this point. 05/30:Patient is sitting up in chair, continues to have increased gas and no chest pain or shortness of breath, he will be moved out of the ICU today we will continue with current treatment plan and will likely be discharged in AM 05/31: Patient is feeling better today, he continues to be in the ICU as a stepdown overflow, he denies any chest pain at this time he has no shortness of breath, patient is ambulating without significant dyspnea on exertion, he has no significant edema both lower extremities, patient will be discharged home today and follow-up with us as an outpatient in the next week, he will follow-up with cardiology per their recommendation. discharge diagnoses: 1. Anterior ST elevation GA status post left heart catheterization with PCI of the LAD status post another left heart catheterization that was done 05/28/2024 to evaluate hemodynamics that showed minimal reduced and cardiac output, with normal left ventricular filling pressure 2. ischemic cardiomyopathy. 3. Coronary artery disease 4. Mild mitral regurgitation and tricuspid regurgitation. 5. Mixed hyperlipidemia. 6. Hypothyroidism. 7. Enlarged prostate. 8. Paroxysmal atrial fibrillation. 9. Mnire disease. 10. Nonsustained ventricular tachycardia. Plan - Discharge Summary New Discharge Prescriptions: No Action Alfuzosin HCl [Alfuzosin HCl ER] 10 mg PO DAILY Simvastatin [Zocor] 80 mg PO HS #0 Levothyroxine Sodium [Synthroid] 50 mcg PO DAILY Apixaban [Eliquis] 5 mg PO BID Discharge Medication List Alfuzosin HCl [Alfuzosin HCl ER] 10 mg PO DAILY 04/10/15 [History] Simvastatin [Zocor] 80 mg PO HS #0 04/15/15 [Rx] Levothyroxine Sodium [Synthroid] 50 mcg PO DAILY 06/05/21 [History] Apixaban [Eliquis] 5 mg PO BID 02/24/23 [History] Follow up Appointment(s)/Referral(s): Shakila Jo MD [Primary Care Provider] - 1-2 days
--- NOTE | 2024-05-31 11:20 | PN ---
PROGRESS NOTE SUBJECTIVE: Jaime is a 78-year-old gentleman, who is admitted to the hospital with acute myocardial infarction, underwent cardiac catheterization and angioplasty of the LAD. His post interventional course was complicated by ventricular tachycardia. He currently has a LifeVest on and is on amiodarone 400 b.i.d. along with Eliquis, aspirin, Lipitor, Coreg, Farxiga, and Brilinta. He is free of symptoms. PHYSICAL EXAMINATION: VITAL SIGNS: Heart rate is 63 beats per minute, blood pressure is 100/49, respiratory rate of 18, O2 saturation is 95% on room air. NECK: There is no jugular venous distention. Carotid upstroke is normal. There is no bruit. CHEST: Reveals good air entry bilaterally. HEART: Reveals first and second heart sounds. No gallop. No murmur. No rub. ABDOMEN: Soft and nontender. EXTREMITIES: Did not reveal any edema. Peripheral pulses are felt. LABORATORY DATA: Show that hemoglobin is 13.3. Potassium is 3.8, creatinine is 0.8. ASSESSMENT: 1. Coronary artery disease, status post myocardial infarction. 2. Ischemic cardiomyopathy with severe LV dysfunction. 3. Ventricular tachycardia. PLAN: The patient is stable for discharge. He will be followed up in our office early next week and we will convert his amiodarone to 200 b.i.d. at that time. MMODL / IJN: [id number] /
== END 2024-05-31 12:45 | disposition home or self-care (01) | DRG 322 ==
LOC: EC 15:35 → 2SICU 16:36
PROVIDERS: ADMIT Internal Medicine; ATTEND Internal Medicine
PROC: 027034Z Dilation of Coronary Artery, One Artery with Drug-eluting Intraluminal Device, Percutaneous Approach (ICD-10-PCS; principal; 2024-05-26 16:30)
PROC: B240ZZ3 Ultrasonography of Single Coronary Artery, Intravascular (ICD-10-PCS; principal; 2024-05-26 16:30)
PROC: B2111ZZ Fluoroscopy of Multiple Coronary Arteries using Low Osmolar Contrast (ICD-10-PCS; 2024-05-26 16:30)
PROC: 4A023N7 Measurement of Cardiac Sampling and Pressure, Left Heart, Percutaneous Approach (ICD-10-PCS; 2024-05-26 16:30)
PROC: B2111ZZ Fluoroscopy of Multiple Coronary Arteries using Low Osmolar Contrast (ICD-10-PCS; 2024-05-28)
PROC: 4A023N8 Measurement of Cardiac Sampling and Pressure, Bilateral, Percutaneous Approach (ICD-10-PCS; 2024-05-28)
PROC: 3E033XZ Introduction of Vasopressor into Peripheral Vein, Percutaneous Approach (ICD-10-PCS; 2024-05-28)
DX: I21.02 ST elevation (STEMI) myocardial infarction involving left anterior descending coronary artery (principal); I47.29 Other ventricular tachycardia; I44.1 Atrioventricular block, second degree; E03.9 Hypothyroidism, unspecified; I11.9 Hypertensive heart disease without heart failure; I08.3 Combined rheumatic disorders of mitral, aortic and tricuspid valves; I48.0 Paroxysmal atrial fibrillation; I25.10 Atherosclerotic heart disease of native coronary artery without angina pectoris; I95.9 Hypotension, unspecified; E78.2 Mixed hyperlipidemia; I25.5 Ischemic cardiomyopathy; I49.3 Ventricular premature depolarization; I25.2 Old myocardial infarction; H91.90 Unspecified hearing loss, unspecified ear; F17.200 Nicotine dependence, unspecified, uncomplicated; N40.0 Benign prostatic hyperplasia without lower urinary tract symptoms; H81.01 Meniere's disease, right ear; Z79.01 Long term (current) use of anticoagulants; Z79.890 Hormone replacement therapy; Z79.899 Other long term (current) drug therapy
CPT/HCPCS: 36415; 71045; 80048; 80053; 80061; 82565; 83036; 83605; 83735; 83880; 84132; 84443; 84484; 85025; 85027; 85610; 85730; 92978; 93005; 93306; 93458; 93460; 96361; 96365; 96375; 99291

== ENCOUNTER 2024-06-06 13:52 | Observation (INO) | payer MEDICARE ==
--- NOTE | 2024-06-06 14:41 | ED ---
Chest Pain HPI - General Chief Complaint: Chest Pain Stated Complaint: Chest pain,Weakness Time Seen by Provider: 06/06/24 14:27 Source: patient, RN notes reviewed Mode of arrival: ambulatory Limitations: no limitations - History of Present Illness Initial Comments: 78-year-old male presents emergency department chief complaint of chest discomfort, indigestion feeling. Patient states symptoms started earlier today states he is generalized does not feel well, feels weak. Patient currently has a life pack on in which she states he had a heart attack 16 days ago. Patient states he had a stent placed in his LAD. Patient reportedly had second heart cath for concerns of possible need for Impella patient multiple rounds of V. tach. Patient states he has discomfort or what he believes may be reflux but feels different than typical reflux symptoms. He denies any leg pain or leg swelling. No headache or dizziness. - Related Data Home Medications Medication Instructions Recorded Confirmed Alfuzosin HCl [Alfuzosin HCl ER] 10 mg PO DAILY 04/10/15 05/26/24 Levothyroxine Sodium [Synthroid] 50 mcg PO DAILY 06/05/21 05/26/24 Previous Rx's Medication Instructions Recorded Amiodarone [Cordarone] 400 mg PO BID #60 tab 05/31/24 Apixaban [Eliquis] 2.5 mg PO BID #60 tab 05/31/24 Aspirin 81 mg PO DAILY tab 05/31/24 Atorvastatin [Lipitor] 40 mg PO HS #90 tab 05/31/24 Dapagliflozin Propanediol [Farxiga] 10 mg PO DAILY #30 tab 05/31/24 Nitroglycerin Sl Tabs [Nitrostat] 0.4 mg SUBLINGUAL Q5M PRN #25 tab 05/31/24 Ticagrelor [Brilinta] 90 mg PO BID #60 tab 05/31/24 carvediloL [Coreg] 3.125 mg PO BID-W/MEALS #60 tab 05/31/24 Allergies Allergy/AdvReac Type Severity Reaction Status Date / Time No Known Allergies Allergy Verified 06/06/24 14:10 Review of Systems ROS Statement: Those systems with pertinent positive or pertinent negative responses have been documented in the HPI. ROS Other: All systems not noted in ROS Statement are negative. EKG Findings - EKG Comments: EKG Findings:: EKG performed at 14: 02 sinus rhythm with first-degree block rate of 65 HI 243 QRS 97 QT/QTc 493/505. 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 BILATERAL CATARACT REMOVAL AND LENS IMPLANT. hernia repair (inguinal and femoral) x5 Past Anesthesia/Blood Transfusion Reactions: No Reported Reaction, Motion Sickness Past Psychological History: No Psychological Hx Reported Smoking Status: Never smoker Past Alcohol Use History: None Reported Past Drug Use History: None Reported - Past Family History Father Additional Family Medical History / Comment(s): brain aneurysm Mother Family Medical History: Diabetes Mellitus General Exam Limitations: no limitations General appearance: alert, in no apparent distress Head exam: Present: atraumatic, normocephalic, normal inspection Eye exam: Present: normal appearance, PERRL, EOMI. Absent: scleral icterus, conjunctival injection, periorbital swelling ENT exam: Present: normal exam, normal oropharynx, mucous membranes moist Neck exam: Present: normal inspection, full ROM. Absent: tenderness, meningismus, lymphadenopathy Respiratory exam: Present: normal lung sounds bilaterally. Absent: respiratory distress, wheezes, rales, rhonchi, stridor Cardiovascular Exam: Present: regular rate, normal rhythm, normal heart sounds. Absent: systolic murmur, diastolic murmur, rubs, gallop, clicks GI/Abdominal exam: Present: soft, normal bowel sounds. Absent: distended, tenderness, guarding, rebound, rigid Course Vital Signs 06/06/24 14:06 Temperature 97.9 F Pulse Rate 70 Respiratory 15 Rate Blood Pressure 98/61 O2 Sat by Pulse 95 Oximetry Chest Pain MDM - MDM Was pt. sent in by a medical professional or institution (, PA, OIL TANK CAR CLEANER, urgent care, hospital, or senior care...) When possible be specific @ -No Did you speak to anyone other than the patient for history (EMS, parent, family, police, friend...)? What history was obtained from this source @ -No Did you review nursing and triage notes (agree or disagree)? Why? @ -I reviewed and agree with nursing and triage notes Were old charts reviewed (outside hosp., previous admission, EMS record, old EKG, old radiological studies, urgent care reports/EKG's, senior care records)? Report findings @ -Reviewed inpatient records, cardiac cath, cardiology evaluation Differential Diagnosis (chest pain, altered mental status, abdominal pain women, abdominal pain men, vaginal bleeding, weakness, fever, dyspnea, syncope, headache, dizziness, GI bleed, back pain, seizure, CVA, palpatations, mental health, musculoskeletal)? @ -Differential Chest Pain: Stable Angina, Unstable Angina, STEMI, NSTEMI Aortic Dissection, Pneumothorax, Musculoskeletal, Esophageal Spasm GERD, Cholecystitis, Pancreatitis, Zoster, this is not meant to be an all-inclusive list. EKG interpreted by me (3pts min.). @ -As above X-rays interpreted by me (1pt min.). @ -Chest x-ray shows no acute cardiopulmonary process. CT interpreted by me (1pt min.). @ -None done U/S interpreted by me (1pt. min.). @ -None done What testing was considered but not performed or refused? (CT, X-rays, U/S, labs)? Why? @ -None What meds were considered but not given or refused? Why? @ -None Did you discuss the management of the patient with other professionals (professionals i.e. , PA, OIL T[employer] CAR CLEANER, lab, RT, psych nurse, social work assistant, divorce lawyer, teacher, radiation officer, case making machine operator)? Give summary @ -Dr. Kim for admission Was smoking cessation discussed for >3mins.? @ -No Was critical care preformed (if so, how long)? @ -No Were there social determinants of health that impacted care today? How? (Homelessness, low income, unemployed, alcoholism, drug addiction, transportation, low edu. Level, literacy, decrease access to med. care, [facility], rehab)? @ -No Was there de-escalation of care discussed even if they declined (Discuss DNR or withdrawal of care, Hospice)? DNR status @ -No What co-morbidities impacted this encounter? (DM, HTN, Smoking, COPD, CAD, Can cer, CVA, ARF, Chemo, Hep., AIDS, mental health diagnosis, sleep apnea, morbid obesity)? @ -AFib, CAD, Was patient admitted / discharged? Hospital course, mention meds given and route, prescriptions, significant lab abnormalities, going to OR and other pertinent info. @ -Admitted patient has elevated troponin 0.279 this may be trending down from recent cardiac event though unsure what his prior troponin was. Patient does have life pack on for prior V. tach runs. Patient will be admitted for cardiology evaluation, repeat troponin. Undiagnosed new problem with uncertain prognosis? @ -No Drug Therapy requiring intensive monitoring for toxicity (Heparin, Nitro, Insulin, Cardizem)? @ -No Were any procedures done? @ -No Diagnosis/symptom? @ -weakness, chest pain Acute, or Chronic, or Acute on Chronic? @acute Uncomplicated (without systemic symptoms) or Complicated (systemic symptoms)? @ -complicated Side effects of treatment? @ -No Exacerbation, Progression, or Severe Exacerbation? @ -No Poses a threat to life or bodily function? How? (Chest pain, USA, VT, pneumonia, PE, COPD, DKA, ARF, appy, cholecystitis, CVA, Diverticulitis, Homicidal, Suicidal, threat to staff... and all critical care pts) @ -Yes ACS, risk to cardiac function Disposition Clinical Impression: Weakness, Chest pain Disposition: ADMITTED IP TO THIS HOSP Condition: Fair Referrals: Shakila Jo MD [Primary Care Provider] - 1-2 days Time of Disposition: 16:06
[2024-06-06 14:47] LABS: ALT 19 U/L (4-49); AST 20 U/L (17-59); African American GFR (CKD) >90 (>60 ml/min/1.73 sqM); Albumin 3.5 g/dL (3.5-5.0); Alkaline Phosphatase 52 U/L (38-126); Anion Gap 7 mmol/L; Blood Urea Nitrogen 18 mg/dL (9-20); Calcium 8.8 mg/dL (8.4-10.2); Carbon Dioxide 25 mmol/L (22-30); Chloride 105 mmol/L (98-107); Glucose 141 mg/dL (74-99); Magnesium 2.1 mg/dL (1.6-2.3); Non-African American GFR(CKD) 86 (>60 ml/min/1.73 sqM); Sodium 137 mmol/L (137-145); Total Bilirubin 0.8 mg/dL (0.2-1.3); Total Protein 6.3 g/dL (6.3-8.2)
[2024-06-06 14:54] LABS: INR 1.3 (<1.2); Partial Thromboplastin Time 26.4 sec (22.0-30.0); Prothrombin Time 13.4 sec (10.0-12.5)
[2024-06-06 14:58] LABS: Basophils % (A) 0 %; Eosinophils # (A) 0.2 k/uL (0-0.7); Eosinophils % (A) 2 %; HCT 41.5 % (39.0-53.0); HGB 13.3 gm/dL (13.0-17.5); Lymphocytes # (A) 0.8 k/uL (1.0-4.8); Lymphocytes % (A) 11 %; MCH 30.6 pg (25.0-35.0); MCHC 32.1 g/dL (31.0-37.0); MCV 95.2 fL (80.0-100.0); Mean Platelet Volume 9.9; Monocytes # (A) 0.5 k/uL (0-1.0); Monocytes % (A) 7 %; Neutrophils # (A) 5.7 k/uL (1.3-7.7); Neutrophils % (A) 78 %; Platelet Count 215 k/uL (150-450); RBC 4.36 m/uL (4.30-5.90); RDW 13.7 % (11.5-15.5); WBC 7.3 k/uL (3.8-10.6)
[2024-06-06] MEDS ORDERED: NITROGLYCERIN SL TABS 0.4 MG TAB SUBLINGUAL PRN (16:06)
--- NOTE | 2024-06-06 16:16 | XR ---
EXAMINATION TYPE: XR chest 2V DATE OF EXAM: 06/06/2024 3:58 PM COMPARISON: 05/26/2024 CLINICAL INDICATION: Male, 78 years old with history of Chest Pain: Shortness of breath TECHNIQUE: XR chest 2V views of the chest are obtained. FINDINGS: Scattered senescent parenchymal changes noted. Hyperinflation compatible with COPD. No evidence for infiltrate. No evidence for atelectasis. Heart size is stable. Mediastinal structures are stable and grossly unremarkable. No evidence for hilar prominence. Degenerative changes dorsal spine. IMPRESSION: 1. No evidence for acute pulmonary disease. [facility], , 06/06/2024 4:14 PM
[2024-06-06] MEDS: carvediloL 3.125 MG TAB PO SCH (17:35)
[2024-06-06] MEDS: AMIODARONE 200 MG TAB PO SCH (20:28)
[2024-06-06] MEDS: TICAGRELOR 90 MG TAB PO SCH (20:28)
[2024-06-06] MEDS: APIXABAN 2.5 MG TABLET PO SCH (20:28)
[2024-06-06] MEDS: ATORVASTATIN 40 MG TAB PO SCH (20:28)
[2024-06-07] MEDS: LEVOTHYROXINE 50 MCG TAB PO SCH (06:50)
[2024-06-07] MEDS ORDERED: ASPIRIN 325 MG TAB PO SCH (09:00)
[2024-06-07] MEDS: ASPIRIN 81 MG PO SCH (09:13)
[2024-06-07] MEDS: DAPAGLIFLOZIN PROPANEDIOL 10 MG TABLET PO SCH (09:13)
[2024-06-07] MEDS: AMIODARONE 200 MG TAB PO SCH (09:14)
[2024-06-07] MEDS: TAMSULOSIN 0.4 MG CAP.ER.24H PO SCH (09:14)
[2024-06-07 10:40] LABS: Chol/HDL Ratio 3.02 Ratio; LDL Cholesterol,Calculated 65.7 mg/dL (0.0-131.0); VLDL Calculation 8.58 mg/dL (5.00-40.00)
--- NOTE | 2024-06-07 11:15 | CA ---
Transthoracic Echo Report Name: Jaime Edward Age: 78 Gender: M : 1945 Exam Date: 06/07/2024 10:29 Exam Location: [facility] Ht (in): 74 Wt (lb): 179 Ordering Physician: Azra Rob Attending/Referring Phys: [id number], Darron As[employer] Siding Installer Mehreen Clemente, ELLIOTT Procedure CPT: Indications: Lv functio, recent MA with PCI, fatigue Cardiac Hx: Limited for LVF only. LAD stent 2 weeks ago Technical Quality: Good Contrast 1: Definity Total Dose (mL): 3 Contrast 2: Total Dose (mL): MEASUREMENTS (Male / Female) Normal Values 2D ECHO LV Diastolic Volume MOD 4C 218.1 cm??? LV Systolic Volume MOD 4C 138.2 cm??? LV Ejection Fraction MOD 4C 36.6 % LV Cardiac Index MOD 4C 2019.3 cm???/min???m??? LV Diastolic Length 4C 10.2 cm LV Systolic Length 4C 8.5 cm LV Cardiac Index 4C AL 2205.1 cm???/min???m??? LV Diastolic Volume MOD 2C 210.0 cm??? LV Systolic Volume MOD 2C 141.8 cm??? LV Ejection Fraction MOD 2C 32.5 % LV Cardiac Index MOD 2C 1723.6 cm???/min???m??? LV Diastolic Length 2C 9.1 cm LV Systolic Length 2C 8.7 cm LV Cardiac Index 2C AL 1784.4 cm???/min???m??? FINDINGS Left Ventricle Left ventricular ejection fraction is estimated at 30 %. Severe left ventricular dilatation. Moderately reduced left ventricular function with regional variability. Extensive area of hypokinesia involving the mid to distal septum and adjoining anteroapical wall. There is severe hypokinesia of the inferior apical wall as well base of the ventricle contracts better ejection fraction is 30% Right Ventricle Right Atrium Left Atrium Mitral Valve Aortic Valve Tricuspid Valve Pulmonic Valve Pericardium Small pericardial effusion. Aorta CONCLUSIONS Severe ischemic cardiomyopathy with ejection fraction of 30% multiple wall motion abnormalities as indicated above Previewed by: Dr. Mitali Salguero MD (Electronically Signed) Final Date: 07 June 2024 11:15
--- NOTE | 2024-06-07 12:28 | P.CRDCN ---
History of Present Illness History of present illness: HISTORY OF PRESENT ILLNESS: This is a 78-year-old male with a past medical history significant for coronary artery disease, ventricular tachycardia, cardiomyopathy, hypertension, hyperlip idemia, and atrial fibrillation. Patient follows in the office with Dr. Bran. We have been asked to see the patient in consultation for chest pain. Patient examined at the bedside. Patient states yesterday he had lunch and afterwards he went to walk to his bedroom when he began to not feel well. He denied having any chest pain or pressure. He denied having any shortness of breath. He denied any dizziness or lightheadedness. He is unable to further elaborate on his symptoms and just continues to repeat that he " just did not feel good". The patient was recently hospitalized for STEMI. He underwent cardiac catheterization on 05/26/2024 with stenting of the mid LAD. Afterwards patient d eveloped cardiac arrhythmia with multiple episodes of nonsustained ventricular tachycardia with polymorphic VT as well as chest discomfort and hypotension requiring vasopressors. Patient underwent repeat cardiac catheterization on 05/28/[address] Linares revealing mildly decreased cardiac output. Normal left- sided filling pressures and mildly elevated right-sided filling pressures. Normal pulmonary artery systolic pressure and normal pulmonary vascular resistance and transpulmonary gradient. Patent stent in the mid LAD with jailed small to medium diagonal branch by the stented segment. DIAGNOSTICS: - EKG reveals sinus mechanism with nonspecific ST-T wave changes. Repeat EKG sinus mechanism with T wave inversions in V4V6. - Chest xray negative for acute process - Laboratory data: WBC 7.3. Hemoglobin 13.3. Platelet count 215. Sodium 137. Potassium 4.0. BUN 18. Creatinine 0.79. Magnesium 2.1. Troponin 0.279. 0.241. 0.243. - Current home cardiac medications include carvedilol 3.125 mg twice a day, Brilinta 90 mg twice a day, Lipitor 40 mg at night, aspirin 81 mg daily, Eliquis 2.5 mg twice a day, amiodarone 40 mg twice a day. -Limited echocardiogram performed this admission reveals ejection fraction 30% with extensive area of hypokinesis involving the mid to distal septum and adjoining anterior apical wall. Severe hypokinesia of inferior apical wall. - Cardiac catheterization history: As above REVIEW OF SYSTEMS: At the time of my exam: CONSTITUTIONAL: Denies fever or chills. HEENT: Denies blurred vision, vision changes, or eye pain. Denies hemoptysis CARDIOVASCULAR: Denies chest pain. Denies orthopnea. Denies PND. Denies palpitations RESPIRATORY: Denies shortness of breath. GASTROINTESTINAL: Denies abdominal pain. Denies nausea or vomiting. HEMATOLOGIC: Denies bleeding disorders. GENITOURINARY: Denies any blood in urine. SKIN: Denies pruitis. Denies rash. PHYSICAL EXAM: VITAL SIGNS: Reviewed. GENERAL: Well-developed in no acute distress. HEENT: Head is normocephalic. Pupils are equal, round. Sclerae anicteric. Mucous membranes of the mouth are moist. Neck supple. No JVD or thyromegaly LUNGS: Respirations even and unlabored. Lungs essentially clear to auscultation bilaterally. HEART: Regular rate and rhythm. S1 and S2 heard. ABDOMEN: Soft. Nondistended. Nontender. EXTREMITIES: Normal range of motion. No clubbing or cyanosis. Peripheral pulses intact. No lower extremity edema NEUROLOGIC: Awake and alert. Oriented x 3. ASSESSMENT: Complaints of "not feeling well", etiology unclear Coronary artery disease with previous stenting of the mid LAD, 05/26/2024 History of ventricular tachycardia, on LifeVest Ischemic cardiomyopathy Hypertension Hyperlipidemia Paroxysmal atrial fibrillation PLAN: Limited echo obtained and reviewed Resume home cardiac medications Decrease amiodarone to 200 mg twice a day Telemetry strips obtained from [employer] external defibrillator with no significant events noted. Patient did have a few episodes of runs of PVCs and mild bradycardia but nothing to account for his symptoms. Continue to monitor patient for an additional 24 to 48 hours Further recommendations pending patient course Nurse practitioner note has been reviewed by physician. Signing provider agrees with the documented findings, assessment, and plan of care documented by REPA[employer] as a scribe. Past Medical History Past Medical History: Atrial Fibrillation, GERD/Reflux, Hearing Disorder / Deafness, Hyperlipidemia, Myocardial Infarction (MD), Prostate Disorder Additional Past Medical History / Comment(s): Mnire's Disease R ear Last Myocardial Infarction Date:: 05/26/24 History of Any Multi-Drug Resistant Organisms: None Reported Past Surgical History: Heart Catheterization, Heart Catheterization With Stent, Hernia Repair, Tonsillectomy Additional Past Surgical History / Comment(s): Meniere's Disease R ear - surgery x3. BILATERAL CATARACT REMOVAL AND LENS IMPLANT. Hernia repair (inguinal and femoral) x5. Past Anesthesia/Blood Transfusion Reactions: No Reported Reaction, Motion Sickness Date of Last Stent Placement:: 05/26/24 Past Psychological History: No Psychological Hx Reported Smoking Status: Former smoker Past Alcohol Use History: None Reported Additional Past Alcohol Use History / Comment(s): Smoked in college for a few years. Past Drug Use History: None Reported - Past Family History Father Additional Family Medical History / Comment(s): Brain Aneurysm Mother Family Medical History: Diabetes Mellitus Medications and Allergies Home Medications Medication Instructions Recorded Confirmed Type Alfuzosin HCl [Alfuzosin HCl ER] 10 mg PO AC-BRKFST 04/10/15 06/06/24 History Levothyroxine Sodium [Synthroid] 50 mcg PO AC-BRKFST 06/05/21 06/06/24 History Amiodarone [Cordarone] 400 mg PO BID #60 tab 05/31/24 06/06/24 Rx Aspirin 81 mg PO DAILY tab 05/31/24 06/06/24 Rx Atorvastatin [Lipitor] 40 mg PO HS #90 tab 05/31/24 06/06/24 Rx Ticagrelor [Brilinta] 90 mg PO BID #60 tab 05/31/24 06/06/24 Rx carvediloL [Coreg] 3.125 mg PO BID-W/MEALS #60 tab 05/31/24 06/06/24 Rx Apixaban [Eliquis] 2.5 mg PO AC-BID 06/06/24 06/06/24 History Jardiance(Unknown Dose) 1 tab PO DAILY 06/06/24 06/06/24 History Nitroglycerin Sl Tabs [Nitrostat] 0.4 mg SL Q5M PRN 06/06/24 06/06/24 History Allergies Allergy/AdvReac Type Severity Reaction Status Date / Time No Known Allergies Allergy Verified 06/06/24 16:47 Physical Exam Vitals: Vital Signs Temp Pulse Pulse Pulse Resp BP BP 06/07/24 11:56 58 L 06/07/24 11:54 61 06/07/24 11:50 97.7 F 61 14 06/07/24 10:50 97.7 F 57 L 16 110/64 06/07/24 10:35 20 06/07/24 08:57 97.9 F 60 16 100/65 06/07/24 04:00 59 L 16 119/64 06/07/24 00:00 98.2 F 65 18 110/67 06/06/24 23:14 61 18 104/71 06/06/24 20:31 65 18 107/69 06/06/24 18:29 98.1 F 64 18 98/67 06/06/24 14:06 97.9 F 70 15 98/61 BP Pulse Ox 06/07/24 11:56 111/62 06/07/24 11:54 108/64 06/07/24 11:50 108/64 95 06/07/24 10:50 96 06/07/24 10:35 06/07/24 08:57 94 L 06/07/24 04:00 93 L 06/07/24 00:00 94 L 06/06/24 23:14 96 06/06/24 20:31 06/06/24 18:29 95 06/06/24 14:06 95 Intake and Output 06/06/24 06/07/24 06/07/24 22:59 06:59 14:59 Intake Total 10 490 Balance 10 490 Intake: IV 10 10 Invasive Line 1 10 10 Oral 480 Other: Voiding Method Toilet Toilet # Voids 1 1 # Bowel Movements 1 Weight 81.5 kg Results 06/06/24 14:21 06/06/24 14:21 Cardiac Enzymes 06/06/24 06/06/24 06/06/24 Range/Units 14:21 14:21 17:43 AST 20 (17-59) U/L Troponin I 0.279 H* 0.241 H* (0.000-0.034) ng/mL 06/06/24 Range/Units 20:32 AST (17-59) U/L Troponin I 0.243 H* (0.000-0.034) ng/mL Coagulation 06/06/24 Range/Units 14:21 PT 13.4 H (10.0-12.5) sec APTT 26.4 (22.0-30.0) sec Lipids 06/07/24 Range/Units 06:33 Triglycerides 42.90 (0.00-149.00) mg/dL Cholesterol 111.00 (0.00-200.00) mg/dL HDL Cholesterol 36.70 L (40.00-60.00) mg/dL Cholesterol/HDL Ratio 3.02 Ratio CBC 06/06/24 Range/Units 14:21 WBC 7.3 (3.8-10.6) k/uL RBC 4.36 (4.30-5.90) m/uL Hgb 13.3 (13.0-17.5) gm/dL Hct 41.5 (39.0-53.0) % Plt Count 215 (150-450) k/uL Comprehensive Metabolic Panel 06/06/24 Range/Units 14:21 Sodium 137 (137-145) mmol/L Potassium 4.0 (3.5-5.1) mmol/L Chloride 105 (98-107) mmol/L Carbon Dioxide 25 (22-30) mmol/L BUN 18 (9-20) mg/dL Creatinine 0.79 (0.66-1.25) mg/dL Glucose 141 H (74-99) mg/dL Calcium 8.8 (8.4-10.2) mg/dL AST 20 (17-59) U/L ALT 19 (4-49) U/L Alkaline Phosphatase 52 (38-126) U/L Total Protein 6.3 (6.3-8.2) g/dL Albumin 3.5 (3.5-5.0) g/dL Current Medications Generic Name Dose Route Start Last Admin Trade Name Freq PRN Reason Stop Dose Admin Amiodarone HCl 200 mg 06/07/24 09:00 06/07/24 09:14 Amiodarone 200 Mg Tab PO 200 mg BID ERICK Administration Apixaban 2.5 mg 06/06/24 21:00 06/07/24 09:14 Apixaban 2.5 Mg Tablet PO 2.5 mg BID ERICK Administration Protocol Aspirin 81 mg 06/07/24 09:00 06/07/24 09:13 Aspirin 81 Mg PO 81 mg DAILY ERICK Administration Atorvastatin Calcium 40 mg 06/06/24 21:00 06/06/24 20:28 Atorvastatin 40 Mg Tab PO 40 mg HS ERICK Administration Carvedilol 3.125 mg 06/06/24 17:30 06/07/24 06:50 Carvedilol 3.125 Mg Tab PO 3.125 mg BID-W/MEALS ERICK Administration Dapagliflozin 10 mg 06/07/24 09:00 06/07/24 09:13 Dapagliflozin Propanediol 10 Mg Tablet PO 10 mg DAILY ERICK Administration Levothyroxine Sodium 50 mcg 06/07/24 06:30 06/07/24 06:50 Levothyroxine 50 Mcg Tab PO 50 mcg DAILY@0630 ERICK Administration Nitroglycerin 0.4 mg 06/06/24 16:06 Nitroglycerin Sl Tabs 0.4 Mg Tab SUBLINGUAL Q5M PRN Chest Pain Tamsulosin HCl 0.4 mg 06/07/24 09:00 06/07/24 09:14 Tamsulosin 0.4 Mg Cap.Er.24h PO 0.4 mg DAILY ERICK Administration Ticagrelor 90 mg 06/06/24 21:00 06/07/24 09:14 Ticagrelor 90 Mg Tab PO 90 mg BID ERICK Administration Intake and Output 06/06/24 06/07/24 06/07/24 22:59 06:59 14:59 Intake Total 10 490 Balance 10 490 Intake: IV 10 10 Invasive Line 1 10 10 Oral 480 Other: Voiding Method Toilet Toilet # Voids 1 1 # Bowel Movements 1 Weight 81.5 kg 06/06/24 14:21 06/06/24 14:21
--- NOTE | 2024-06-07 13:50 | P.HPIM ---
History of Present Illness H&P Date: 06/06/24 Chief Complaint: Chest pain HISTORY OF PRESENT ILLNESS: This is a 78-year-old male with a previous medical history significant for hypertension and hypertensive cardiovascular disease, hyperlipidemia, hypothyroidism, history of atrial fibrillation, coronary artery disease, mitral regurgitation, aortic regurgitation, has been followed by Dr. Bran on the regular basis, patient was recently hospitalized at [facility] on May 26, 2024 till May 31, 2024 after he was admitted to the hospital for anterior wall ST elevation myocardial infarction associated with ischemic cardiomyopathy his ejection fraction was about 10 to 15%, patient initially underwent left heart catheterization on May 26, 2024 underwent PCI of the LAD, and he was admitted to intensive care unit at that time, on May 28 he went back to the heart catheterization to check hemodynamics, because his ejection fraction went down to 10 to 15%, and the patient was having a lot of ectopy, at that time the patient was found to have decreasing cardiac output, and minimal elevation of LV pressure, therefore it was not recommended for the patient to have Impella placed in, patient did well during his hospitalization he was sent home, apparently patient was brought into the emergency department today because of left-sided chest pain associated with increased shortness of breath, his laboratory evaluation showed evidence of minimal elevation of the troponin could be from the last MRI and last instrumentation, and PCI but because of the presentation he was admitted to hospital for cardiology evaluation and repeat troponin in the next few hours. REVIEW OF SYSTEMS: Constitutional: No documented fever, no chills, no night sweats. No weight change. No weakness, fatigue or lethargy. No daytime sleepiness. HEENT: No headache. No blurred vision or double vision,no loss of vision. loss of Hearing, ringing in the ears, no dizziness. No nasal drainage or congestion. No epistaxis. No sore throat. Lungs: Positive shortness of breath, no cough, no sputum production. No wheezing. Reports dyspnea with activity. Cardiovascular: Positive for left-sided chest pain, no lower extremity edema. No palpitations. No paroxysmal nocturnal dyspnea. No orthopnea. No lighthead edness or dizziness. No syncopal episodes. Abdominal: Reports no abdominal pain. No nausea, vomiting. No diarrhea. No constipation. No bloody or tarry stools reports loss of appetite. Genitourinary: No dysuria, increased frequency, urgency. No urinary retention. Musculoskeletal: No myalgias. No muscle weakness, no gait dysfunction, no frequent falls. No back pain. No neck pain. Integumentary: No wounds, no lesions. No rash or pruritus. No unusual bruising. No change in hair or nails. Neurologic: No aphasia. No facial droop. No change in mentation. No head injury. No headache. No paralysis. No paresthesia. Psychiatric: No depression. No anxiety. No mood swings. Endocrine: No abnormal blood sugars. No weight change. PAST MEDICAL HISTORY: Hypertension and hypertensive cardiovascular disease Hyperlipidemia Hypothyroidism Unspecified atrial fibrillation Mnire disease Enlarged prostate Detrusor instability Mitral regurgitation Aortic regurgitation Coronary artery disease without angina pectoris. PAST SURGICAL HISTORY: Bilateral inguinal hernia repair 2013 SOCIAL HISTORY: Patient is a lifelong smoker, he denies any alcohol ingestion, he lives with his . FAMILY HISTORY: Father at age 70 from his hypertension, mother at age of 85 from natural causes, patient has one brother with asthma, patient has 2 daughters and 1 son no major medical problems PHYSICAL EXAMINATION: General: 78-year-old male in no apparent distres HEENT: Head is atraumatic, normocephalic, pupils were equal round reactive to light and recommendation, extraocular muscle movement were intact, sclera nonicteric, conjunctivae were pale, mucous membranes of the mouth are somewhat dry with coated tongue Neck: Supple, no JVP, normal carotid upstroke bilaterally, no lymphadenopathy. Chest: Decreased breath sounds at the bases, few rhonchi, no expiratory wheezes, no chest wall tenderness, no intercostal retractions. Heart: First heart sound is normal, second heart sound is normal there is BRICE 2/6 located at the left sternal border, irregularly irregular Abdomen: Soft, nontender,no rebound or guarding positive bowel souds Extremities: There is mild edema no calf tenderness DP +2 bilaterally. Neurologic examination: Patient is awake alert and oriented X3, cranial nerves II-12 appear grossly intact, muscle power were 5 out of 5 in upper extremities and 5 out of 5 in bilateral lower extremities, deep tendon reflexes normal bilaterally. ASSESSMENT AND PLAN: 1. Chest pain in the patient with a prior history of ST elevation myocardial infarction of the anterior wall status post PCI of the LAD continue patient on aspirin 81 mg once every day, Brilinta 90 mg orally twice every day, carvedilol 3.125 mg orally twice every day, and the atorvastatin 40 mg once every day. Cardiology consultation will be obtained. 2. ischemic cardiomyopathy. Continue patient on carvedilol 3.125 mg orally twice every day, amiodarone 400 mg orally twice every day, continue with Farxiga 10 mg once every day, monitor the patient's symptoms very closely. 3. Coronary artery disease continue treatment as in the previous 2 Paragraphs 4. Mild aortic regurgitation/moderate mitral regurgitation. Echocardiogram was done last time showed ejection fraction of 10 to 15%. Patient currently has a LifeVest in place he may need to have an AICD. 5. Mixed hyperlipidemia. Continue patient on atorvastatin 40 mg orally once every day. Monitor lipid panel, keep LDL 55-70. 6. Hypothyroidism. Continue patient on Synthroid 50 g orally once every day. 7. Enlarged prostate. Continue tamsulosin 0.4 mg orally once every day. 8. Paroxysmal atrial fibrillation. Continue patient on Eliquis 2.5 mg orally twice every day. 9. Mnire disease. Stable. 10. DVT prophylaxis. Bilateral knee-high RENUKA hose. Eliquis 2.5 mg orally twice every day 11. GI prophylaxis. Protonix 40 mg orally once every day. 12. Observation. 13. 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 BILATERAL CATARACT REMOVAL AND LENS IMPLANT. hernia repair (inguinal and femoral) x5 Past Anesthesia/Blood Transfusion Reactions: No Reported Reaction, Motion Sickness Past Psychological History: No Psychological Hx Reported Smoking Status: Never smoker Past Alcohol Use History: None Reported Past Drug Use History: None Reported - Past Family History Father Additional Family Medical History / Comment(s): brain aneurysm Mother Family Medical History: Diabetes Mellitus Medications and Allergies Home Medications Medication Instructions Recorded Confirmed Type Alfuzosin HCl [Alfuzosin HCl ER] 10 mg PO AC-BRKFST 04/10/15 06/06/24 History Levothyroxine Sodium [Synthroid] 50 mcg PO AC-BRKFST 06/05/21 06/06/24 History Amiodarone [Cordarone] 400 mg PO BID #60 tab 05/31/24 06/06/24 Rx Aspirin 81 mg PO DAILY tab 05/31/24 06/06/24 Rx Atorvastatin [Lipitor] 40 mg PO HS #90 tab 05/31/24 06/06/24 Rx Ticagrelor [Brilinta] 90 mg PO BID #60 tab 05/31/24 06/06/24 Rx carvediloL [Coreg] 3.125 mg PO BID-W/MEALS #60 tab 05/31/24 06/06/24 Rx Apixaban [Eliquis] 2.5 mg PO AC-BID 06/06/24 06/06/24 History Jardiance(Unknown Dose) 1 tab PO DAILY 06/06/24 06/06/24 History Nitroglycerin Sl Tabs [Nitrostat] 0.4 mg SL Q5M PRN 06/06/24 06/06/24 History Allergies Allergy/AdvReac Type Severity Reaction Status Date / Time No Known Allergies Allergy Verified 06/06/24 16:47 Physical Exam Vitals: Vital Signs Temp Pulse Resp BP Pulse Ox 06/06/24 14:06 97.9 F 70 15 98/61 95 Intake and Output 06/06/24 06/06/24 06/06/24 06:59 14:59 22:59 Other: Weight 81.647 kg Results CBC & Chem 7: 06/06/24 14:21 06/06/24 14:21 Labs: Abnormal Lab Results - Last 24 Hours (Table) 06/06/24 06/06/24 06/06/24 Range/Units 14:21 14:21 14:21 Lymphocytes # 0.8 L (1.0-4.8) k/uL PT 13.4 H (10.0-12.5) sec INR 1.3 H (<1.2) Glucose 141 H (74-99) mg/dL Troponin I (0.000-0.034) ng/mL 06/06/24 Range/Units 14:21 Lymphocytes # (1.0-4.8) k/uL PT (10.0-12.5) sec INR (<1.2) Glucose (74-99) mg/dL Troponin I 0.279 H* (0.000-0.034) ng/mL
--- NOTE | 2024-06-07 13:53 | P.PN ---
Subjective Progress Note Date: 06/07/24 HISTORY OF PRESENT ILLNESS: This is a 78-year-old male with a previous medical history significant for hypertension and hypertensive cardiovascular disease, hyperlipidemia, hypothyroidism, history of atrial fibrillation, coronary artery disease, mitral regurgitation, aortic regurgitation, has been followed by Dr. Bran on the regular basis, patient was recently hospitalized at [facility] on May 26, 2024 till May 31, 2024 after he was admitted to the hospital for anterior wall ST elevation myocardial infarction associated with ischemic cardiomyopathy his ejection fraction was about 10 to 15%, patient initially underwent left heart catheterization on May 26, 2024 underwent PCI of the LAD, and he was admitted to intensive care unit at that time, on May 28 he went back to the heart catheterization to check hemodynamics, because his ejection fraction went down to 10 to 15%, and the patient was having a lot of ectopy, at that time the patient was found to have decreasing cardiac output, and minimal elevation of LV pressure, therefore it was not recommended for the patient to have Impella placed in, patient did well during his hospitalization he was sent home, apparently patient was brought into the emergency department today because of left-sided chest pain associated with increased shortness of breath, his laboratory evaluation showed evidence of minimal elevation of the troponin could be from the last MRI and last instrumentation, and PCI but because of the pre sentation he was admitted to hospital for cardiology evaluation and repeat troponin in the next few hours. 06/07: Patient is sitting up in bed in no apparent distress, he underwent echocardiogram that was limited and showed evidence of ejection fraction of 30%, significant hypokinesia of the anterior wall, patient was seen in consultation by cardiology who recommended for the patient to stay in the hospital for another 24 hours, reviewed the strips from the external defibrillator did not show any evidence of any acute activities, it was recommended to decrease his amiodarone to 200 mg orally twice every day continue current cardiac medication, and patient will be seeing in the hospital for another 24 hours, hopefully he will be discharged home in the next 24 hours. REVIEW OF SYSTEMS: Constitutional: No documented fever, no chills, no night sweats. No weight change. No weakness, fatigue or lethargy. No daytime sleepiness. HEENT: No headache. No blurred vision or double vision,no loss of vision. loss of Hearing, ringing in the ears, no dizziness. No nasal drainage or congestion. No epistaxis. No sore throat. Lungs: Positive shortness of breath, no cough, no sputum production. No wheezing. Reports dyspnea with activity. Cardiovascular: Positive for left-sided chest pain, no lower extremity edema. No palpitations. No paroxysmal nocturnal dyspnea. No orthopnea. No lightheadedness or dizziness. No syncopal episodes. Abdominal: Reports no abdominal pain. No nausea, vomiting. No diarrhea. No constipation. No bloody or tarry stools reports loss of appetite. Genitourinary: No dysuria, increased frequency, urgency. No urinary retention. Musculoskeletal: No myalgias. No muscle weakness, no gait dysfunction, no frequent falls. No back pain. No neck pain. Integumentary: No wounds, no lesions. No rash or pruritus. No unusual bruising. No change in hair or nails. Neurologic: No aphasia. No facial droop. No change in mentation. No head injury. No headache. No paralysis. No paresthesia. Psychiatric: No depression. No anxiety. No mood swings. Endocrine: No abnormal blood sugars. No weight change. PHYSICAL EXAMINATION: General: 78-year-old male in no apparent distres HEENT: Head is atraumatic, normocephalic, pupils were equal round reactive to light and recommendation, extraocular muscle movement were intact, sclera nonicteric, conjunctivae were pale, mucous membranes of the mouth are somewhat dry with coated tongue Neck: Supple, no JVP, normal carotid upstroke bilaterally, no lymphadenopathy. Chest: Decreased breath sounds at the bases, few rhonchi, no expiratory wheezes, no chest wall tenderness, no intercostal retractions. Heart: First heart sound is normal, second heart sound is normal there is BRICE 2/6 located at the left sternal border, irregularly irregular Abdomen: Soft, nontender,no rebound or guarding positive bowel souds Extremities: There is mild edema no calf tenderness DP +2 bilaterally. Neurologic examination: Patient is awake alert and oriented X3, cranial nerves II-12 appear grossly intact, muscle power were 5 out of 5 in upper extremities and 5 out of 5 in bilateral lower extremities, deep tendon reflexes normal bilaterally. ASSESSMENT AND PLAN: 1. Chest pain in the patient with a prior history of ST elevation myocardial infarction of the anterior wall status post PCI of the LAD continue patient on aspirin 81 mg once every day, Brilinta 90 mg orally twice every day, carvedilol 3.125 mg orally twice every day, and the atorvastatin 40 mg once every day. Continue patient on the monitor for another 24 hours, echocardiogram was done showed ejection fraction of 30%, severe hypokinesia in the anterior wall, decrease amiodarone to 200 mg orally twice every day. 2. ischemic cardiomyopathy. Continue patient on carvedilol 3.125 mg orally twice every day, amiodarone 200 mg orally twice every day, continue with Farxiga 10 mg once every day, monitor the patient's symptoms very closely. 3. Coronary artery disease continue treatment as in the previous 2 Paragraphs 4. Mild aortic regurgitation/moderate mitral regurgitation. Echocardiogram was done last time showed ejection fraction of 10 to 15%. Patient currently has a LifeVest in place he may need to have an AICD. 5. Mixed hyperlipidemia. Continue patient on atorvastatin 40 mg orally once every day. Monitor lipid panel, keep LDL 55-70. 6. Hypothyroidism. Continue patient on Synthroid 50 g orally once every day. 7. Enlarged prostate. Continue tamsulosin 0.4 mg orally once every day. 8. Paroxysmal atrial fibrillation. Continue patient on Eliquis 2.5 mg orally twice every day. 9. Mnire disease. Stable. 10. DVT prophylaxis. Bilateral knee-high RENUKA hose. Eliquis 2.5 mg orally twice every day 11. GI prophylaxis. Protonix 40 mg orally once every day. 12. Continue to monitor for another 24 hours. 13. Likely home tomorrow morning. Objective - Vital Signs Vital signs: Vital Signs Temp 97.7 F 06/07/24 11:50 Pulse 58 L 06/07/24 11:56 Resp 14 06/07/24 11:50 BP 111/62 06/07/24 11:56 Pulse Ox 95 06/07/24 11:50 FiO2 Intake & Output 06/06/24 06/07/24 06/07/24 18:59 06:59 18:59 Intake Total 10 490 Balance 10 490 Weight 81.647 kg 81.5 kg Intake: IV 10 10 Invasive Line 1 10 10 Oral 480 Other: Voiding Method Toilet Toilet # Voids 1 1 # Bowel Movements 1 - Labs CBC & Chem 7: 06/06/24 14:21 06/06/24 14:21 Labs: Abnormal Lab Results - Last 24 Hours (Table) 06/06/24 06/06/24 06/06/24 Range/Units 14:21 14:21 14:21 Lymphocytes # 0.8 L (1.0-4.8) k/uL PT 13.4 H (10.0-12.5) sec INR 1.3 H (<1.2) Glucose 141 H (74-99) mg/dL Troponin I (0.000-0.034) ng/mL HDL Cholesterol (40.00-60.00) mg/dL 06/06/24 06/06/24 06/06/24 Range/Units 14:21 17:43 20:32 Lymphocytes # (1.0-4.8) k/uL PT (10.0-12.5) sec INR (<1.2) Glucose (74-99) mg/dL Troponin I 0.279 H* 0.241 H* 0.243 H* (0.000-0.034) ng/mL HDL Cholesterol (40.00-60.00) mg/dL 06/07/24 Range/Units 06:33 Lymphocytes # (1.0-4.8) k/uL PT (10.0-12.5) sec INR (<1.2) Glucose (74-99) mg/dL Troponin I (0.000-0.034) ng/mL HDL Cholesterol 36.70 L (40.00-60.00) mg/dL
[2024-06-07 17:17] VITALS: RESP 16
[2024-06-08 06:37] VITALS: BP 104/65
[2024-06-08 08:14] VITALS: PULSE 66; TEMP 98
--- NOTE | 2024-06-08 09:47 | P.DS ---
Providers Date of admission: 06/06/24 16:05 Expected date of discharge: 06/08/24 Attending physician: Shakila Jo Consults: 06/06/24 16:06 Consult Physician Urgent Consulting Provider: Spike Linares Consult Reason/Comments: chest pain recent stent Do you want consulting provider notified?: Yes Primary care physician: Shakila Jo Hospital Course: HISTORY OF PRESENT ILLNESS: This is a 78-year-old male with a previous medical history significant for hypertension and hypertensive cardiovascular disease, hyperlipidemia, hypothyroidism, history of atrial fibrillation, coronary artery disease, mitral regurgitation, aortic regurgitation, has been followed by Dr. Bran on the regular basis, patient was recently hospitalized at [facility] on May 26, 2024 till May 31, 2024 after he was admitted to the hospital for anterior wall ST elevation myocardial infarction associated with ischemic cardiomyopathy his ejection fraction was about 10 to 15%, patient initially underwent left heart catheterization on May 26, 2024 underwent PCI of the LAD, and he was admitted to intensive care unit at that time, on May 28 he went back to the heart catheterization to check hemodynamics, because his ejection fraction went down to 10 to 15%, and the patient was having a lot of ectopy, at that time the patient was found to have decreasing cardiac output, and minimal elevation of LV pressure, therefore it was not recommended for the patient to have Impella placed in, patient did well during his hospitalization he was sent home, apparently patient was brought into the emergency department today because of left-sided chest pain associated with increased shortness of breath, his laboratory evaluation showed evidence of minimal elevation of the troponin could be from the last MRI and last instrumentation, and PCI but because of the presentation he was admitted to hospital for cardiology evaluation and repeat troponin in the next few hours. 06/07: Patient is sitting up in bed in no apparent distress, he underwent echocardiogram that was limited and showed evidence of ejection fraction of 30%, significant hypokinesia of the anterior wall, patient was seen in consultation by cardiology who recommended for the patient to stay in the hospital for another 24 hours, reviewed the strips from the external defibrillator did not show any evidence of any acute activities, it was recommended to decrease his amiodarone to 200 mg orally twice every day continue current cardiac medication, and patient will be seeing in the hospital for another 24 hours, hopefully he will be discharged home in the next 24 hours. 06/08: Patient has been seen by cardiology. Limited echocardiogram revealed EF of 30% with extensive area of hypokinesis involving the mid to distal septum and adjoining anterior apical wall. Severe hypokinesis of the inferior apical wall. Recommendations were to decrease amiodarone to 200 mg twice daily. Patient denies chest pain, no shortness of breath. Vital signs have been stable. Blood pressure 104/65, heart rate in the 60s to 80s. Pulse ox 95% on room air. Patient will be discharged home today in stable condition. DISCHARGE DIAGNOSES: 1. Chest pain in the patient with a prior history of ST elevation myocardial infarction of the anterior wall status post PCI of the LAD. 2. ischemic cardiomyopathy. 3. Coronary artery disease. 4. Mild aortic regurgitation/moderate mitral regurgitation.. 5. Mixed hyperlipidemia. 6. Hypothyroidism. 7. Enlarged prostate. 8. Paroxysmal atrial fibrillation. 9. Mnire disease. Greater than 35 minutes was utilized and coordinating patient's discharge. Impression and plan of care have been directed as dictated by the signing physician. Loan Mccollum nurse practitioner acting as scribe for signing physician. Patient Condition at Discharge: Fair Plan - Discharge Summary New Discharge Prescriptions: Continue Alfuzosin HCl [Alfuzosin HCl ER] 10 mg PO AC-BRKFST Levothyroxine Sodium [Synthroid] 50 mcg PO AC-BRKFST Aspirin 81 mg PO DAILY tab Ticagrelor [Brilinta] 90 mg PO BID #60 tab carvediloL [Coreg] 3.125 mg PO BID-W/MEALS #60 tab Atorvastatin [Lipitor] 40 mg PO HS #90 tab Apixaban [Eliquis] 2.5 mg PO AC-BID Nitroglycerin Sl Tabs [Nitrostat] 0.4 mg SL Q5M PRN PRN Reason: Chest Pain Changed Amiodarone [Cordarone] 200 mg PO BID #60 tab No Action Empagliflozin [Jardiance] 10 mg PO DAILY Discharge Medication List Alfuzosin HCl [Alfuzosin HCl ER] 10 mg PO AC-BRKFST 04/10/15 [History] Levothyroxine Sodium [Synthroid] 50 mcg PO AC-BRKFST 06/05/21 [History] Aspirin 81 mg PO DAILY tab 05/31/24 [Rx] Atorvastatin [Lipitor] 40 mg PO HS #90 tab 05/31/24 [Rx] Ticagrelor [Brilinta] 90 mg PO BID #60 tab 05/31/24 [Rx] carvediloL [Coreg] 3.125 mg PO BID-W/MEALS #60 tab 05/31/24 [Rx] Apixaban [Eliquis] 2.5 mg PO AC-BID 06/06/24 [History] Nitroglycerin Sl Tabs [Nitrostat] 0.4 mg SL Q5M PRN 06/06/24 [History] Amiodarone [Cordarone] 200 mg PO BID #60 tab 06/08/24 [Rx] Empagliflozin [Jardiance] 10 mg PO DAILY 06/08/24 [History] Follow up Appointment(s)/Referral(s): Shakila Jo MD [Primary Care Provider] - 1 Week Discharge Disposition: HOME SELF-CARE
--- NOTE | 2024-06-08 12:13 | P.PN ---
Subjective HISTORY OF PRESENT ILLNESS: This is a 78-year-old male with a past medical history significant for coronary artery disease, ventricular tachycardia, cardiomyopathy, hypertension, hyperlipidemia, and atrial fibrillation. Patient follows in the office with Dr. Bran. We have been asked to see the patient in consultation for chest pain. Patient examined at the bedside. Patient states yesterday he had lunch and afterwards he went to walk to his bedroom when he began to not feel well. He denied having any chest pain or pressure. He denied having any shortness of breath. He denied any dizziness or lightheadedness. He is unable to further elaborate on his symptoms and just continues to repeat that he " just did not feel good". The patient was recently hospitalized for STEMI. He underwent cardiac catheterization on 05/26/2024 with stenting of the mid LAD. Afterwards patient developed cardiac arrhythmia with multiple episodes of nonsustained ventricular tachycardia with polymorphic VT as well as chest discomfort and hypotension requiring vasopressors. Patient underwent repeat cardiac catheterization on 05/28/[address] Linares revealing mildly decreased cardiac output. Normal left-sided filling pressures and mildly elevated right-sided filling pressures. Normal pulmonary artery systolic pressure and normal pulmonary vascular resistance and transpulmonary gradient. Patent stent in the mid LAD with jailed small to medium diagonal branch by the stented segment. DIAGNOSTICS: - EKG reveals sinus mechanism with nonspecific ST-T wave changes. Repeat EKG sinus mechanism with T wave inversions in V4V6. - Chest xray negative for acute process - Laboratory data: WBC 7.3. Hemoglobin 13.3. Platelet count 215. Sodium 137. Potassium 4.0. BUN 18. Creatinine 0.79. Magnesium 2.1. Troponin 0.279. 0.241. 0.243. - Current home cardiac medications include carvedilol 3.125 mg twice a day, Brilinta 90 mg twice a day, Lipitor 40 mg at night, aspirin 81 mg daily, Eliquis 2.5 mg twice a day, amiodarone 40 mg twice a day. -Limited echocardiogram performed this admission reveals ejection fraction 30% with extensive area of hypokinesis involving the mid to distal septum and adjoining anterior apical wall. Severe hypokinesia of inferior apical wall. - Cardiac catheterization history: As above 06/08/2024 Patient examined this morning the bedside. Patient denies any chest pain or pressure. He denies shortness of breath. Vital signs are stable. Telemetry reviewed with no significant bradycardia, ventricular tachycardia, or other arrhythmias noted. PHYSICAL EXAM: VITAL SIGNS: Reviewed. GENERAL: Well-developed in no acute distress. HEENT: Head is normocephalic. Pupils are equal, round. Sclerae anicteric. Mucous membranes of the mouth are moist. Neck supple. No JVD or thyromegaly LUNGS: Respirations even and unlabored. Lungs essentially clear to auscultation bilaterally. HEART: Regular rate and rhythm. S1 and S2 heard. ABDOMEN: Soft. Nondistended. Nontender. EXTREMITIES: Normal range of motion. No clubbing or cyanosis. Peripheral pulses intact. No lower extremity edema NEUROLOGIC: Awake and alert. Oriented x 3. ASSESSMENT: Complaints of "not feeling well", etiology unclear Coronary artery disease with previous stenting of the mid LAD, 05/26/2024 History of ventricular tachycardia, on LifeVest Ischemic cardiomyopathy Hypertension Hyperlipidemia Paroxysmal atrial fibrillation PLAN: Continue current cardiac medications Patient may be discharged home today from a cardiac standpoint He is to follow-up postdischarge with Dr. Bran Nurse practitioner note has been reviewed by physician. Signing provider agrees with the documented findings, assessment, and plan of care documented by EMPLOYEE ADVISER as a scribe. Objective - Vital Signs Vital signs: Vital Signs Temp 98.0 F 06/08/24 08:12 Pulse 66 06/08/24 08:12 Resp 16 06/08/24 08:12 BP 104/65 06/08/24 04:00 Pulse Ox 94 L 06/08/24 08:12 FiO2 Intake & Output 06/07/24 06/08/24 06/08/24 18:59 06:59 18:59 Intake Total 610 10 128 Balance 610 10 128 Weight 79 kg Intake: IV 10 10 10 Invasive Line 1 10 10 10 Oral 600 118 Other: Voiding Method Toilet Toilet Toilet # Voids 3 2 # Bowel Movements 1 - Labs CBC & Chem 7: 06/06/24 14:21 06/06/24 14:21
== END 2024-06-08 10:29 | disposition home or self-care (01) ==
LOC: EC 13:52 → 3SCARD 16:05
PROVIDERS: ADMIT Internal Medicine; ATTEND Internal Medicine
DX: R07.89 Other chest pain (principal); I21.09 ST elevation (STEMI) myocardial infarction involving other coronary artery of anterior wall; I25.5 Ischemic cardiomyopathy; I49.3 Ventricular premature depolarization; I11.9 Hypertensive heart disease without heart failure; I48.0 Paroxysmal atrial fibrillation; I47.29 Other ventricular tachycardia; I08.0 Rheumatic disorders of both mitral and aortic valves; I25.10 Atherosclerotic heart disease of native coronary artery without angina pectoris; E78.2 Mixed hyperlipidemia; R00.1 Bradycardia, unspecified; E03.9 Hypothyroidism, unspecified; N40.0 Benign prostatic hyperplasia without lower urinary tract symptoms; H81.09 Meniere's disease, unspecified ear; N32.81 Overactive bladder; Z95.811 Presence of heart assist device; Z79.899 Other long term (current) drug therapy; Z79.01 Long term (current) use of anticoagulants; Z79.82 Long term (current) use of aspirin; Z79.890 Hormone replacement therapy; Z79.84 Long term (current) use of oral hypoglycemic drugs; Z79.02 Long term (current) use of antithrombotics/antiplatelets; Z87.891 Personal history of nicotine dependence; Z95.5 Presence of coronary angioplasty implant and graft
CPT/HCPCS: 99285; 36415; 93005; 93308; 80061; 80053; 83735; 84484; 85025; 85610; 85730; 71046; G0378 ×3; Q9957

== ENCOUNTER → 2024-07-25 | Outpatient (CLI) | payer MEDICARE ==
[2024-07-25 15:19] LABS: NT-Pro-B-Type Natriuretic Pept 1725 pg/mL (0-450)
[2024-07-25 15:45] LABS: Chol/HDL Ratio 2.68 Ratio; LDL Cholesterol,Calculated 74.4 mg/dL (0.0-131.0); VLDL Calculation 8.34 mg/dL (5.00-40.00)
[2024-07-25 15:46] LABS: ALT 16 U/L (10-49); AST 17 U/L (14-35); Albumin 3.9 g/dL (3.8-4.9); Albumin/Globulin Ratio 1.62 Ratio (1.60-3.17); Alkaline Phosphatase 63 U/L (41-126); Blood Urea Nitrogen 16.9 mg/dL (9.0-27.0); Calcium 8.7 mg/dL (8.7-10.3); Carbon Dioxide 21.3 mmol/L (21.6-31.8); Chloride 108 mmol/L (96-109); Globulin 2.4 g/dL (1.6-3.3); Glucose 86 mg/dL (70-110); Potassium 4.6 mmol/L (3.5-5.5); Sodium 143 mmol/L (135-145); T4, Free (Free Thyroxine) 1.44 ng/dL (0.80-1.80); Total Bilirubin 0.7 mg/dL (0.3-1.2); Total Protein 6.3 g/dL (6.2-8.2)
== END | disposition home or self-care (01) ==
LOC: LABWHC1 09:01
PROVIDERS: ATTEND Nurse Practitioner Adult Health
DX: I50.22 Chronic systolic (congestive) heart failure (principal); I25.5 Ischemic cardiomyopathy; I47.20 Ventricular tachycardia, unspecified; E78.2 Mixed hyperlipidemia
CPT/HCPCS: 36415; 80053; 80061; 83880; 84439; 84443

== ENCOUNTER → 2024-10-18 | Outpatient (CLI) | payer MEDICARE ==
[2024-10-18 15:26] LABS: ALT 13 U/L (10-49); AST 18 U/L (14-35); Albumin 3.9 g/dL (3.8-4.9); Albumin/Globulin Ratio 1.86 Ratio (1.60-3.17); Alkaline Phosphatase 55 U/L (41-126); Anion Gap 9.70 mmol/L (4.00-12.00); BUN/Creat Ratio 19.22 Ratio (12.00-20.00); Blood Urea Nitrogen 17.3 mg/dL (9.0-27.0); Calcium 8.7 mg/dL (8.7-10.3); Carbon Dioxide 26.3 mmol/L (21.6-31.8); Chloride 107 mmol/L (96-109); Cholesterol 141.00 mg/dL (0.00-200.00); Globulin 2.1 g/dL (1.6-3.3); Glucose 90 mg/dL (70-110); HDL Cholesterol 44.70 mg/dL (40.00-60.00); LDL Cholesterol,Calculated 86.6 mg/dL (0.0-131.0); Potassium 4.4 mmol/L (3.5-5.5); Sodium 143 mmol/L (135-145); Total Protein 6.0 g/dL (6.2-8.2); Triglycerides 48.40 mg/dL (0.00-149.00); VLDL Calculation 9.68 mg/dL (5.00-40.00)
== END | disposition home or self-care (01) ==
LOC: LABWHC1 08:44
PROVIDERS: ATTEND Internal Medicine Interventional Cardiology
DX: E78.2 Mixed hyperlipidemia (principal)
CPT/HCPCS: 36415; 80053; 80061